=== PATIENT | female | born 1980 | race Caucasian/White ===

== ENCOUNTER 2017-03-03 10:08 | Emergency (ER) | payer BC ==
[~2017-03-03] VITALS: Ht 167.6 cm; Wt 65.8 kg
[~2017-03-03 10:08] MED LIST: DEXL60CA5 PO; HYDR-2890 PO; NAPR550T PO; ONDA4TAB11 PO; SCR1T1 PO; [UNRECOGNIZED DRUG - REMARK]
--- NOTE | 2017-03-03 11:13 | ED Abdominal Pain ---
General Chief Complaint: -Female Stated Complaint: POSS MISCARRIAGE Nursing Triage Note: PT STATES SHE HAS WAS 8 WEEKS PREGNANGT AND HAS HAD VERY HEAVY VAGINAL BLEEDING SINCE MONDAY. Sepsis Screen: No Definite Risk Source of Information: Patient Exam Limitations: No Limitations History of Present Illness Time Seen By Provider: 11:12 Initial Comments To ER with vaginal bleeding. She states that she was 8 weeks , . Bleeding began on Monday the . Today leading became heavier and she passed what she believes to be the fetus or at least some tissue. No fevers or chills. She states "I'm just here for precautionary reasons". No lightheadedness or syncope. OB care is with Daisy Bagley Nurse Replen[facility] at [facility]. Timing/Duration: 1 Week Severity/Quality: Cramping Location: Suprapubic Radiation: Back Activities at Onset: None Allergies and Home Medications Allergies Coded Allergies: Penicillins (Verified Allergy, Unknown, 01/28/15) morphine (Verified Adverse Reaction, Mild, DID NOT TOLERATE WELL IN ED ON MONDAY., 12/04/12) DOES NOT LIKE THE FEELING IT GIVES HER. Home Medications Dexlansoprazole 60 Mg Pedro., 60 MG PO DAILY, (Reported) Sucralfate 1 Gm Tab, 1 GM PO QID, #120 Prescribed by: SHAY BENNETT on 03/11/15 1230 Review of Systems Constitutional: see HPI EENTM: No Symptoms Reported Respiratory: No Symptoms Reported Cardiovascular: No Symptoms Reported Gastrointestinal: See HPI, Abdominal Pain Genitourinary: No Symptoms Reported Musculoskeletal: no symptoms reported Skin: no symptoms reported Psychiatric/Neurological: No Symptoms Reported Endocrine: No Symptoms Reported Past Axvwjjz-Qswqac-Fraqwz Hx Patient Social History Alcohol Use: Denies Use Recreational Drug Use: No Smoking Status: Never a Smoker Recent Foreign Travel: No Contact w/Someone Who Travel: No Recent Infectious Disease Expo: No Immunizations Up To Date Date of Influenza Vaccine: Aug 11, 2014 Seasonal Allergies Seasonal Allergies: No Surgeries HX Surgeries: Yes Surgeries: Orthopedic, Tonsillectomy Respiratory Hx Respiratory Disorders: No Cardiovascular Hx Cardiac Disorders: No Neurological Hx Neurological Disorders: No Genitourinary Hx Genitourinary Disorders: No Gastrointestinal Hx Gastrointestinal Disorders: No Musculoskeletal Hx Musculoskeletal Disorders: Yes (FIBULA FX, RT ANKLE) Musculoskeletal Disorders: Fractures Endocrine Hx Endocrine Disorders: No HEENT HX ENT Disorders: No Cancer Hx Cancer: No Psychosocial Hx Psychiatric Problems: Yes Behavioral Health Disorders: Anxiety Integumentary HX Skin/Integumentary Disorder: No Blood Transfusions Hx Blood Disorders: No Family Medical History Significant Family History: No Pertinent Family Hx Physical Exam Vital Signs VS - Last 72 Hours, by Label 03/03/17 10:53 Temp 98.2 Pulse 91 Resp 16 B/P (MAP) 135/80 Capillary Refill : Less Than 3 Seconds General Appearance: WD/WN, no apparent distress HEENT: PERRL/EOMI, normal ENT inspection Neck: non-tender, full range of motion Respiratory: no respiratory distress, no accessory muscle use Cardiovascular: regular rate, rhythm, no murmur Gastrointestinal: normal bowel sounds, non tender, soft Extremities: normal range of motion, non-tender Neurologic/Psychiatric: alert, normal mood/affect, oriented x 3 Skin: normal color, warm/dry Progress/Results/Core Measures Results/Orders Lab Results Laboratory Tests Test 03/03/17 11:25 03/03/17 11:43 Range/Units White Blood Count 7.0 4.3-11.0 10^3/uL Red Blood Count 4.34 L 4.35-5.85 10^6/uL Hemoglobin 14.6 11.5-16.0 G/DL Hematocrit 42 35-52 % Mean Corpuscular Volume 97 80-99 FL Mean Corpuscular Hemoglobin 34 25-34 PG Mean Corpuscular Hemoglobin Concent 35 32-36 G/DL Red Cell Distribution Width 11.7 10.0-14.5 % Platelet Count 196 130-400 10^3/uL Mean Platelet Volume 10.0 7.4-10.4 FL Neutrophils (%) (Auto) 64 42-75 % Lymphocytes (%) (Auto) 26 12-44 % Monocytes (%) (Auto) 9 0-12 % Eosinophils (%) (Auto) 1 0-10 % Basophils (%) (Auto) 0 0-10 % Neutrophils # (Auto) 4.5 1.8-7.8 X 10^3 Lymphocytes # (Auto) 1.8 1.0-4.0 X 10^3 Monocytes # (Auto) 0.6 0.0-1.0 X 10^3 Eosinophils # (Auto) 0.0 0.0-0.3 10^3/uL Basophils # (Auto) 0.0 0.0-0.1 10^3/uL My Orders Orders - RAAD MARY APRN Ua Culture If Indicated (03/03/17 11:08) Cbc With Automated Diff (03/03/17 11:08) Hcg,Quantitative (03/03/17 11:08) Abo Rh Type (03/03/17 11:08) Us Ob Single Fetus<14 [id number] (03/03/17 11:10) Vital Signs/I&O Vital Sign - Last 12Hours 03/03/17 10:53 Temp 98.2 Pulse 91 Resp 16 B/P (MAP) 135/80 Blood Pressure Mean: 98 Departure Communication Progress Notes molecular technologist reports presence of an 8 week fetus in the uterus without cardiac activity. 1154-discussed the case with nurse for Catrachita Bagley. She would be happy to see the patient today at 3 p.m. as scheduled if the patient wishes, however patient may wait for products of conception to pass and if they do without any complications, no need for follow-up. Impression Impression: Primary Impression: Missed Disposition: HOME, SELF-CARE Condition: Stable Departure-Patient Inst. Decision time for Depature: 11:40 Referrals: ALEXANDRIA ACHARYA DO (PCP/Family) Primary Care Physician Patient Instructions: Miscarriage Add. Discharge Instructions: 1. Return to ER for any lightheadedness, passing out, heavy vaginal bleeding, fevers or chills 2. If you would like to be seen by Daisy later today, she would still be able to see you at 3 p.m. Alternatively, he may go home and wait for these products of conception the past and return here for any concerns, following up with them next week if you have not passed it by Monday. All discharge instructions reviewed with patient and/or family. Voiced understanding. RAAD MARY APRN March 03, 2017 11:13
[2017-03-03 11:44] LABS: BILIRUBIN,URINE NEGATIVE (NEGATIVE); KETONES,URINE 2+ (NEGATIVE); LEUKOCYTE ESTERASE ,URINE NEGATIVE (NEGATIVE); NITRITE,URINE NEGATIVE (NEGATIVE); PH,URINE 6 (5-9); PROTEIN,URINE 1+ (NEGATIVE); UROBILINOGEN,URINE NORMAL (NORMAL)
[2017-03-03 11:51] LABS: BASOPHILS % (AUTO) 0 % (0-10); EOSINOPHILS % (AUTO) 1 % (0-10); LYMPHOCYTES # (AUTO) 1.8 X 10^3 (1.0-4.0); LYMPHOCYTES % (AUTO) 26 % (12-44); MEAN CORPUSCULAR HEMOGLOBIN 34 PG (25-34); MEAN CORPUSCULAR HGB CONC 35 G/DL (32-36); MEAN CORPUSCULAR VOLUME 97 FL (80-99); MONOCYTES # (AUTO) 0.6 X 10^3 (0.0-1.0); MONOCYTES % (AUTO) 9 % (0-12); NEUTROPHILS # (AUTO) 4.5 X 10^3 (1.8-7.8); NEUTROPHILS % (AUTO) 64 % (42-75); PLATELET COUNT 196 10^3/uL (130-400); RED BLOOD COUNT 4.34 10^6/uL (4.35-5.85); RED CELL DISTRIBUTION WIDTH 11.7 % (10.0-14.5)
--- NOTE | 2017-03-03 12:32 | Diagnostic Imaging Report ---
PROCEDURE: US OB SINGLE FETUS <14 WKS. TECHNIQUE: Multiple real-time grayscale images were obtained over the gravid uterus in various projections. INDICATION: Vaginal bleeding. FINDINGS: There is single intrauterine . Unfortunately, no cardiac activity is seen in the embryo which measures at 8 weeks and 0 days based on crown-rump length. This is compatible with demise. The gestational sac is still in the upper uterus, normal position. The ovaries are obscured by bowel gas. IMPRESSION: There is an intrauterine with no cardiac activity seen compatible with demise. Findings were discussed with DELMIS Gambino, who is taking care of the patient by Dr. Grady at time of dictation. Dictated by: Dictated on workstation # [id number]
[2017-03-03 12:35] VITALS: BP 135/80
== END 2017-03-03 12:36 | disposition home or self-care (01) ==
LOC: EDUNIT# 10:08 → ER 10:12
DX: O03.9 Complete or unspecified spontaneous abortion without complication (principal); Z3A.08 8 weeks gestation of pregnancy
CPT/HCPCS: 36415; 76801; 81000; 84702; 85025; 86900; 86901; 99282

== ENCOUNTER 2017-03-20 04:11 | Day surgery (SDC) | payer BC ==
[~2017-03-20] VITALS: Ht 167.6 cm; Wt 61.2 kg
[2017-03-20 04:51] LABS: BASOPHILS % (AUTO) 0 % (0-10); EOSINOPHILS # (AUTO) 0.1 10^3/uL (0.0-0.3); EOSINOPHILS % (AUTO) 2 % (0-10); LYMPHOCYTES # (AUTO) 1.4 X 10^3 (1.0-4.0); LYMPHOCYTES % (AUTO) 28 % (12-44); MEAN CORPUSCULAR HEMOGLOBIN 34 PG (25-34); MEAN CORPUSCULAR HGB CONC 34 G/DL (32-36); MEAN CORPUSCULAR VOLUME 98 FL (80-99); MEAN PLATELET VOLUME 9.7 FL (7.4-10.4); MONOCYTES # (AUTO) 0.4 X 10^3 (0.0-1.0); MONOCYTES % (AUTO) 8 % (0-12); NEUTROPHILS # (AUTO) 2.9 X 10^3 (1.8-7.8); NEUTROPHILS % (AUTO) 62 % (42-75); PLATELET COUNT 139 10^3/uL (130-400); RED BLOOD COUNT 3.96 10^6/uL (4.35-5.85); RED CELL DISTRIBUTION WIDTH 12.5 % (10.0-14.5); WHITE BLOOD COUNT 4.8 10^3/uL (4.3-11.0)
--- NOTE | 2017-03-20 05:38 | ED GU-Female ---
General Chief Complaint: -Female Stated Complaint: AB PAIN POST 2WK MISSCARRIAGE Nursing Triage Note: Pt. advises she had a miscarriage approx. two weeks ago and has been intermittently bleeding since that time. She advises that tonight however the bleeding has become significantly worse. Nursing Sepsis Screen: No Definite Risk Source: patient, old records Exam Limitations: no limitations (JONH MACIAS MD) History of Present Illness Time seen by provider: 04:25 Initial Comments This 36-year-old young lady presents to the emergency room with complaints of worsening bleeding and cramps after having a recent miscarriage. She was seen in the emergency room on March 03 and diagnosed with a missed spontaneous . Since then her bleeding has tapered off and was nearly gone yesterday. However, this morning she woke with intense cramping and heavy bleeding. She has not had a follow-up ultrasound since March 03. Daisy Bagley is her gynecologic provider. (JONH MACIAS MD) Allergies and Home Medications Allergies Coded Allergies: Penicillins (Verified Allergy, Unknown, 01/28/15) morphine (Verified Adverse Reaction, Mild, DID NOT TOLERATE WELL IN ED ON MONDAY., 12/04/12) DOES NOT LIKE THE FEELING IT GIVES HER. Home Medications Dexlansoprazole 60 Mg Pedro., 60 MG PO DAILY, (Reported) Sucralfate 1 Gm Tab, 1 GM PO QID, #120 Prescribed by: SHAY BENNETT on 03/11/15 1230 Constitutional: no symptoms reported EENTM: no symptoms reported Respiratory: no symptoms reported Cardiovascular: no symptoms reported Gastrointestinal: no symptoms reported Genitourinary: see HPI Musculoskeletal: no symptoms reported Skin: no symptoms reported Psychiatric/Neurological: No Symptoms Reported Endocrine: No Symptoms Reported Hematologic/Lymphatic: No Symptoms Reported (JONH MACIAS MD) Past Hjjswbq-Fqvjtm-Lplhlu Hx Patient Social History Alcohol Use: Regular Use Recreational Drug Use: No Smoking Status: Current Everyday Smoker Type Used: Cigars Recent Foreign Travel: No Contact w/Someone Who Travel: No Recent Infectious Disease Expo: No (JONH MACIAS MD) Immunizations Up To Date Date of Influenza Vaccine: Aug 11, 2014 (JONH MACIAS MD) Seasonal Allergies Seasonal Allergies: No (JONH MACIAS MD) Surgeries HX Surgeries: Yes Surgeries: Orthopedic, Tonsillectomy (JONH MACIAS MD) Respiratory Hx Respiratory Disorders: No (JONH MACIAS MD) Cardiovascular Hx Cardiac Disorders: No (JONH MACIAS MD) Neurological Hx Neurological Disorders: No (JONH MACIAS MD) Reproductive System : No (JONH MACIAS MD) Genitourinary Hx Genitourinary Disorders: No (JONH MACIAS MD) Gastrointestinal Hx Gastrointestinal Disorders: No (JONH MACIAS MD) Musculoskeletal Hx Musculoskeletal Disorders: Yes (FIBULA FX, RT ANKLE) Musculoskeletal Disorders: Fractures (JONH MACIAS MD) Endocrine Hx Endocrine Disorders: No (JONH MACIAS MD) HEENT HX ENT Disorders: No (JONH MACIAS MD) Cancer Hx Cancer: No (JONH MACIAS MD) Psychosocial Hx Psychiatric Problems: Yes Behavioral Health Disorders: Anxiety (JONH MACIAS MD) Integumentary HX Skin/Integumentary Disorder: No (JONH MACIAS MD) Blood Transfusions Hx Blood Disorders: No (JONH MACIAS MD) Family Medical History Significant Family History: No Pertinent Family Hx (JONH MACIAS MD) Physical Exam Vital Signs Vital Sign - Last 12Hours 03/20/17 04:40 Temp 97.2 Pulse 110 Resp 14 B/P (MAP) 115/77 O2 Delivery Room Air (RAY ULRICH MD) Vital Signs Capillary Refill : Less Than 3 Seconds (JONH MACIAS MD) General Appearance: WD/WN, no apparent distress HEENT: normal ENT inspection Neck: normal inspection Cardiovascular: regular rate, rhythm, no edema, no murmur Respiratory: lungs clear, normal breath sounds, no respiratory distress, no accessory muscle use Gastrointestinal: normal bowel sounds, soft, tenderness (minimal over the lower abdomen) Back: normal inspection Extremities: normal inspection, no pedal edema Neurologic/Psychiatric: salvage winder II-XII nml as tested, no motor/sensory deficits, alert, normal mood/affect, oriented x 3 Skin: normal color, warm/dry (JONH MACIAS MD) Progress/Results/Core Measures Results/Orders Lab Results Laboratory Tests Test 03/20/17 04:42 Range/Units White Blood Count 4.8 4.3-11.0 10^3/uL Red Blood Count 3.96 L 4.35-5.85 10^6/uL Hemoglobin 13.3 11.5-16.0 G/DL Hematocrit 39 35-52 % Mean Corpuscular Volume 98 80-99 FL Mean Corpuscular Hemoglobin 34 25-34 PG Mean Corpuscular Hemoglobin Concent 34 32-36 G/DL Red Cell Distribution Width 12.5 10.0-14.5 % Platelet Count 139 130-400 10^3/uL Mean Platelet Volume 9.7 7.4-10.4 FL Neutrophils (%) (Auto) 62 42-75 % Lymphocytes (%) (Auto) 28 12-44 % Monocytes (%) (Auto) 8 0-12 % Eosinophils (%) (Auto) 2 0-10 % Basophils (%) (Auto) 0 0-10 % Neutrophils # (Auto) 2.9 1.8-7.8 X 10^3 Lymphocytes # (Auto) 1.4 1.0-4.0 X 10^3 Monocytes # (Auto) 0.4 0.0-1.0 X 10^3 Eosinophils # (Auto) 0.1 0.0-0.3 10^3/uL Basophils # (Auto) 0.0 0.0-0.1 10^3/uL Human Chorionic Gonadotropin, Quant 161 H <5 MIU/ML (RAY ULRICH MD) Medications Given in ED Current Medications Medications Dose Ordered Sig/Juan Francisco Route Start Time Stop Time Status Last Admin Dose Admin Fentanyl Citrate 50 mcg ONCE ONCE IVP 03/20/17 06:15 03/20/17 06:16 DC 03/20/17 06:23 50 MCG Ondansetron HCl 4 mg STK-MED ONCE .ROUTE 03/20/17 06:17 03/20/17 06:22 DC 03/20/17 06:23 4 MG (RAY ULRICH MD) Vital Signs/I&O Vital Sign - Last 12Hours 03/20/17 04:40 Temp 97.2 Pulse 110 Resp 14 B/P (MAP) 115/77 O2 Delivery Room Air (RAY ULRICH MD) Blood Pressure Mean: 90 Progress Note : Time: 05:33 Progress Note Patient still has significant bleeding and her hCG level is still measurable. Ultrasound has been ordered for evaluation of possible retained products of conception. (JONH MACIAS MD) Departure Communication Progress Notes Preliminary report on sonography showed considerable retained products of conception plus blood flow. Discussed with Dr. Salas at 0721. The patient will be admitted for likely D&C. Women's services was informed. (RAY ULRICH MD) Impression Impression: Primary Impression: retained products of conception Disposition: ADMITTED INPATIENT Condition: Stable/Unchanged Decision to Admit Reason: Admit from ER (General) Decision to Admit/Date: Mar 20, 2017 Time/Decision to Admit Time: 07:18 (RAY ULRICH MD) Departure-Patient Inst. Referrals: ALEXANDRIA ACHARYA DO (PCP/Family) Primary Care Physician JONH MACIAS MD Mar 20, 2017 05:38 RAY ULRICH MD Mar 20, 2017 07:19
[2017-03-20] MEDS ORDERED: fentaNYL INJECTION 100 MCG/2 ML AMP IVP ONE (06:15)
[2017-03-20] MEDS ORDERED: ONDANSETRON 4 MG/2 ML (SDV) Z0FRAN ONE ×2 (06:17→12:14)
--- NOTE | 2017-03-20 07:53 | Diagnostic Imaging Report ---
INDICATION: Miscarriage. Bleeding. Pelvic pain. COMPARISON: 03/03/2017 FINDINGS: The previously seen intrauterine gestation is no longer demonstrated. There is however, significant heterogeneity and thickening of the endometrium which measures about 2 cm in thickness. It is moderately vascular, and is concerning for some retained products of conception. The right ovary is not demonstrated. The left ovary measures 2.8 cm x 1.8 cm x 1.6 cm and appears unremarkable. There is no free fluid. IMPRESSION: Intrauterine gestation is no longer demonstrated. There is now however, moderate thickening of the endometrium which is hypervascular and is concerning for some retained products of conception. Report was called to Dr. Cohen by mary at 7:53 am. Dictated by: Dictated on workstation # [id number]
[2017-03-20 08:05] VITALS: BP 105/68
[2017-03-20] MEDS ORDERED: D5 LR IV SOLUTION 1,000 ML IV SCH ×3 (08:15→11:51)
[2017-03-20] MEDS ORDERED: OXYC-202 PO (11:53)
--- NOTE | 2017-03-20 11:54 | Discharge Instructions ---
Discharge Instructions Discharge Medications New, Converted or Re-Newed RX: RX on Chart Patient Instructions Patient Instructions: as directed Return to The Hospital For: as directed Activity & Diet Discharge Diet: No Restrictions Activity as Tolerated: No Orders-Post D/C & Referrals Follow Up Appt: Call to make follow up appt. for patient in 1 weeks. Activity: Rest for 24 hours, than as tolerated. Diet: As tolerated-Clear Liquids only if nauseated. May shower or tub bathe as desired. No driving for 24 hours, no alcoholic beverages for 24 hours, and nothing per vagina (no tampons, douching, or intercourse) for 2 weeks. Patient to return to the clinic as soon as possible for: Temperature greater than 101F, Severe Pain, Foul discharge from incision or vagina, Excessive Bleeding (more than a period). CECI SWAIN MD Mar 20, 2017 11:54 am
--- NOTE | 2017-03-20 11:55 | History & Physical ---
History and Physical incomplete with hemorrhage Allergies and Home Medications Allergies Coded Allergies: Penicillins (Verified Allergy, Unknown, 01/28/15) morphine (Verified Adverse Reaction, Mild, DID NOT TOLERATE WELL IN ED ON MONDAY., 12/04/12) DOES NOT LIKE THE FEELING IT GIVES HER. Home Medications Dexlansoprazole 60 Mg Pedro., 60 MG PO DAILY, (Reported) Oxycodone HCl/Acetaminophen 1 Each Tablet, 1-2 TAB PO Q4H PRN for PAIN, #60 Ref 0 Prescribed by: CECI FORBES on 03/20/17 1153 Sucralfate 1 Gm Tab, 1 GM PO QID, #120 Prescribed by: SHAY BENNETT on 03/11/15 1230 CECI SWAIN MD Mar 20, 2017 11:55 am
[2017-03-20] MEDS ORDERED: oxyCODONE/APAP 10/325MG (PERCOCET 10) TABLET PO PRN (12:00)
[2017-03-20] MEDS ORDERED: MEPERIDINE (DEMEROL) INJ 100 MG/ML IM ONE (12:00)
[2017-03-20] MEDS ORDERED: ceFAZolin INJECTION 1,000 MG in NS (IVPB) 50 ML IV ONE (12:00)
[2017-03-20] MEDS ORDERED: ONDANSETRON 4 MG/2 ML (SDV) Z0FRAN IVP PRN ×2 (12:00→13:15)
[2017-03-20] MEDS ORDERED: KETOROLAC 30 MG/ML VIAL IVP ONE ×2 (12:00→13:15)
[2017-03-20] MEDS ORDERED: LACTATED RINGERS 1,000 ML IV ONE (12:14)
[2017-03-20] MEDS ORDERED: proPOfol 200 MG/20 ML (DIPRIVAN) VIAL IV ONE (12:14)
[2017-03-20] MEDS ORDERED: DEXAMETHASONE PF 10 MG/ML (DECADRON) VIAL ONE (12:14)
[2017-03-20] MEDS ORDERED: fentaNYL INJECTION 100 MCG/2 ML AMP ONE (12:14)
[2017-03-20] MEDS ORDERED: MIDAZOLAM 2 MG/2 ML (VERSED) VIAL ONE ×2 (12:14→12:42)
[2017-03-20] MEDS ORDERED: LIDOCAINE PF 2% 5 ML (XYLOCAINE) VIAL ONE (12:14)
[2017-03-20] MEDS ORDERED: PROMETHAZINE INJ 25 MG/ML (PHENERGAN) AMP IM ONE (12:15)
[2017-03-20] MEDS ORDERED: LACTATED RINGERS 1,000 ML IV PRN (12:36)
--- NOTE | 2017-03-20 12:39 | Progress Note-Pre Operative ---
Pre-Operative Progress Note H&P Reviewed The H&P was reviewed, patient examined and no changes noted. Date Seen by Provider: Mar 20, 2017 Time Seen by Provider: 12:39 Date H&P Reviewed: Mar 20, 2017 Time H&P Reviewed: 12:38 Pre-Operative Diagnosis: Incomplete CECI SWAIN MD Mar 20, 2017 12:39 pm
--- NOTE | 2017-03-20 12:42 | History & Physical ---
History and Physical this patient is a 36-year-old white female who presented to the emergency department this morning with heavy bleeding. She had been seen March 03 for bleeding and found to have a nonviable . She opted to wait and see what happens. Happened was at 3 a.m. she started bleeding she has been bleeding last 2 weeks bleeding much heavier by 3 a.m. in the ED. Her quantitative hCG is on and 64. Her hemoglobin is satisfactory. She would like to have a D&C to in this process. She has no other complaints. Allergies are to penicillin which causes a rash Medications are none Asked medical history is not Past surgical history patient had T&A as a child OB history includes 2 spontaneous vaginal deliveries Social history is significant for a pack of cigarettes per day Family history is negative for HAND CANDY CUTTER cancer breast cancer ovarian cancer uterine cancer Blood pressure or diabetes Laboratory Tests Test 03/20/17 04:42 Range/Units White Blood Count 4.8 4.3-11.0 10^3/uL Red Blood Count 3.96 L 4.35-5.85 10^6/uL Hemoglobin 13.3 11.5-16.0 G/DL Hematocrit 39 35-52 % Mean Corpuscular Volume 98 80-99 FL Mean Corpuscular Hemoglobin 34 25-34 PG Mean Corpuscular Hemoglobin Concent 34 32-36 G/DL Red Cell Distribution Width 12.5 10.0-14.5 % Platelet Count 139 130-400 10^3/uL Mean Platelet Volume 9.7 7.4-10.4 FL Neutrophils (%) (Auto) 62 42-75 % Lymphocytes (%) (Auto) 28 12-44 % Monocytes (%) (Auto) 8 0-12 % Eosinophils (%) (Auto) 2 0-10 % Basophils (%) (Auto) 0 0-10 % Neutrophils # (Auto) 2.9 1.8-7.8 X 10^3 Lymphocytes # (Auto) 1.4 1.0-4.0 X 10^3 Monocytes # (Auto) 0.4 0.0-1.0 X 10^3 Eosinophils # (Auto) 0.1 0.0-0.3 10^3/uL Basophils # (Auto) 0.0 0.0-0.1 10^3/uL Human Chorionic Gonadotropin, Quant 161 H <5 MIU/ML Vital Signs Date Time Temp Pulse Resp B/P (MAP) Pulse Ox O2 Delivery O2 Flow Rate FiO2 03/20/17 08:05 98.0 96 18 105/68 95 03/20/17 07:44 97.5 105 16 98 03/20/17 04:40 97.2 110 14 115/77 Room Air assessment and plan incomplete will proceed to the OR for D&C to complete the process and follow-up in clinic. Patient's blood type is Rh+ Allergies and Home Medications Allergies Coded Allergies: Penicillins (Verified Allergy, Unknown, 01/28/15) morphine (Verified Adverse Reaction, Mild, DID NOT TOLERATE WELL IN ED ON MONDAY., 12/04/12) DOES NOT LIKE THE FEELING IT GIVES HER. Home Medications Dexlansoprazole 60 Mg Cap., 60 MG PO DAILY, (Reported) Oxycodone HCl/Acetaminophen 1 Each Tablet, 1-2 TAB PO Q4H PRN for PAIN, #60 Ref 0 Prescribed by: CECI FORBES on 03/20/17 1153 Sucralfate 1 Gm Tab, 1 GM PO QID, #120 Prescribed by: SHAY BENNETT on 03/11/15 1230 CECI SWAIN MD Mar 20, 2017 12:42 pm
--- NOTE | 2017-03-20 12:42 | Progress Note-Post Operative ---
Post-Operative Progess Note Surgeon (s)/Registered Nurse Nursery (s) Surgeon CECI SWAIN MD Registered Nurse Nursery: none Pre-Operative Diagnosis Incomplete FIRST TRIMESTER Post-Operative Diagnosis sign Procedure & Operative Findings Date of Procedure 03/20/17 Procedure Performed/Findings D&C completion of incomplete first trimester Anesthesia Type Gen. Estimated Blood Loss Estimated blood loss (mL): 50 TO 100 CC Specimens/Packing Specimens Removed uterine contents/products of conception Packing: none CECI SWAIN MD Mar 20, 2017 12:42 pm
[2017-03-20] MEDS ORDERED: SEVOFLURANE (ULTANE) 15 ML INHAL SOLN ONE (13:00)
[2017-03-20] MEDS ORDERED: MEPERIDINE (DEMEROL) INJ 50 MG/ML IVP PRN (13:15)
[2017-03-20] MEDS ORDERED: fentaNYL INJECTION 100 MCG/2 ML AMP IVP PRN (13:15)
[2017-03-20 13:50] VITALS: BP 98/65
[2017-03-20 14:20] VITALS: BP 101/72
[2017-03-20 14:50] VITALS: BP 109/68
[2017-03-20 15:00] VITALS: BP 109/68
--- NOTE | 2017-03-21 01:17 | OPERATIVE REPORT ---
DATE OF SERVICE: 03/20/2017 PREOPERATIVE DIAGNOSIS: Incomplete . POSTOPERATIVE DIAGNOSIS: Incomplete . OPERATIVE PROCEDURE: D and C, completion of 1st trimester incomplete AB. DESCRIPTION OF PROCEDURE: With the patient in the supine position under satisfactory general anesthesia, she was repositioned in dorsal lithotomy position in the [facility] cane stirrups and prepped and draped in the usual fashion for vaginal surgery. The urinary bladder was emptied with a straight catheter. A weighted speculum was placed in the posterior fornix of the vagina; the cervix was exposed and grasped anteriorly with a single-tooth tenaculum. There was a tissue and clot trapped in the cervix. The cervix was dilated to accommodate a #10 curved suction curette which was introduced to remove a fairly moderate amount of tissue, trophoblastic appearing tissue, blood clot, membranes and debris. The endometrial cavity was then sharpy curettaged in all 4 quadrants to a good uterine cry. The endometrial cavity was suction curettaged a final time with a curved suction curette. The tenaculum was removed from the cervix. There was no bleeding from the puncture site. There was minimal bleeding from the cervical os. At this point, the uterus contracted nicely, was approximately 10-week size prior to the procedure and now was around 6 to 8-week size. The procedure was complete and terminated. Estimated blood loss was around 50 to 100 mL. The sponge and needle count was correct on completion of the procedure. The patient was uneventfully awakened from general anesthesia and transferred to recovery room in stable condition with plans for discharge home PAR. Job ID: [id number] DocumentID: [id number] Dictated Date: 03/20/2017 13:01:05 Broadcast Operations Engineer Date: 03/21/2017 01:16:58 Dictated By: CECI SWAIN MD
== END 2017-03-20 15:00 | disposition home or self-care (01) ==
LOC: EDUNIT# 04:11 → ER 04:13 → WS 07:29 → WSo 07:29
PROVIDERS: ATTEND Obstetrics & Gynecology
DX: O03.4 Incomplete spontaneous abortion without complication (principal); F17.210 Nicotine dependence, cigarettes, uncomplicated; Z11.2 Encounter for screening for other bacterial diseases
CPT/HCPCS: 36415; 76830; 84702; 85025; 86850; 86900; 86901; 87081; 96361

== ENCOUNTER 2018-08-28 08:00 | Inpatient (IN) | payer BC, MEDICAID ==
[2018-08-28] VITALS (9 sets, daily range): BP systolic 115–132; BP diastolic 72–92
[~2018-08-28] VITALS: Ht 162.6 cm; Wt 59.9 kg
[~2018-08-28 08:00] MED LIST changes: +OXYC1TAB12 PO
[2018-08-28] MEDS ORDERED: NS IV 1000 ML 1,000 ML IV ONE (08:20)
[2018-08-28] MEDS ORDERED: ASPIRIN 81 MG CHEW (CHILDREN'S ASA) PO ONE (08:30)
[2018-08-28] MEDS ORDERED: LORazepam INJ 2 MG/ML (ATIVAN) VIAL IVP ONE (08:30)
[2018-08-28 08:34] LABS: BILIRUBIN,URINE NEGATIVE (NEGATIVE); CLARITY,URINE CLEAR; COLOR,URINE AMBER; GLUCOSE, URINE (UA) NEGATIVE (NEGATIVE); KETONES,URINE 2+ (NEGATIVE); LEUKOCYTE ESTERASE ,URINE 1+ (NEGATIVE); NITRITE,URINE NEGATIVE (NEGATIVE); PH,URINE 7 (5-9); PROTEIN,URINE 1+ (NEGATIVE); UROBILINOGEN,URINE NORMAL (NORMAL)
[2018-08-28 08:37] LABS: BASOPHILS % (AUTO) 1 % (0-10); EOSINOPHILS % (AUTO) 0 % (0-10); HEMATOCRIT 42 % (35-52); HEMOGLOBIN 14.8 G/DL (11.5-16.0); LYMPHOCYTES # (AUTO) 0.7 X 10^3 (1.0-4.0); LYMPHOCYTES % (AUTO) 26 % (12-44); MEAN CORPUSCULAR HEMOGLOBIN 35 PG (25-34); MEAN CORPUSCULAR HGB CONC 35 G/DL (32-36); MEAN CORPUSCULAR VOLUME 100 FL (80-99); MEAN PLATELET VOLUME 10.3 FL (7.4-10.4); MONOCYTES # (AUTO) 0.5 X 10^3 (0.0-1.0); MONOCYTES % (AUTO) 18 % (0-12); NEUTROPHILS # (AUTO) 1.4 X 10^3 (1.8-7.8); NEUTROPHILS % (AUTO) 55 % (42-75); PLATELET COUNT 193 10^3/uL (130-400); RED BLOOD COUNT 4.21 10^6/uL (4.35-5.85); RED CELL DISTRIBUTION WIDTH 12.7 % (10.0-14.5); WHITE BLOOD COUNT 2.5 10^3/uL (4.3-11.0)
[2018-08-28 08:39] LABS: INR 1.1 (0.8-1.4)
[2018-08-28 08:47] LABS: BACTERIA,URINE MODERATE /HPF; RBC,URINE 0-2 /HPF; WBC,URINE 0-2 /HPF
[2018-08-28 08:49] LABS: ALANINE AMINOTRANSFERASE 105 U/L (0-55); ALBUMIN 4.5 GM/DL (3.2-4.5); ALKALINE PHOSPHATASE 59 U/L (40-136); BILIRUBIN,TOTAL 0.8 MG/DL (0.1-1.0); BUN/CREATININE RATIO 8; CALCIUM 10.3 MG/DL (8.5-10.1); CARBON DIOXIDE 25 MMOL/L (21-32); CHLORIDE 103 MMOL/L (98-107); CREATININE SERUM 0.72 MG/DL (0.60-1.30); GFR ESTIMATED > 60; GLUCOSE 90 MG/DL (70-105); LIPASE 77 U/L (8-78); MAGNESIUM 1.9 MG/DL (1.8-2.4); POTASSIUM 4.1 MMOL/L (3.6-5.0); SALICYLATE < 5.0 MG/DL (5.0-20.0); SODIUM 140 MMOL/L (135-145); TOTAL PROTEIN 7.2 GM/DL (6.4-8.2)
[2018-08-28 08:56] LABS: ACETAMINOPHEN < 10 UG/ML (10-30); MYOGLOBIN SERUM 19.8 NG/ML (10.0-92.0)
--- NOTE | 2018-08-28 08:56 | Diagnostic Imaging Report ---
INDICATION: Chest pain. COMPARISON: 12/17/2011. FINDINGS: The heart size, mediastinal configuration, and pulmonary vascularity are within normal limits. There is no pleural effusion, pneumothorax, or pneumonia. The osseous structures are unremarkable. IMPRESSION: No acute cardiopulmonary abnormality. Dictated by: Dictated on workstation # [id number]
[2018-08-28 08:59] LABS: AMPHETAMINE SCREEN, URINE NEGATIVE (NEGATIVE); BARBITURATE SCREEN URINE NEGATIVE (NEGATIVE); BENZODIAZEPINES SCREEN URINE POSITIVE (NEGATIVE); CANNABINOID SCREEN, URINE NEGATIVE (NEGATIVE); COCAINE SCREEN URINE NEGATIVE (NEGATIVE); METHADONE STAT NEGATIVE (NEGATIVE); METHAMPHETAMINE SCREEN URINE S NEGATIVE (NEGATIVE); OPIATE SCREEN URINE NEGATIVE (NEGATIVE); OXYCODONE STAT NEGATIVE (NEGATIVE); PROPOXYPHENE STAT NEGATIVE (NEGATIVE); TRICYCLIC ANTIDEPRESSANTS SCRE NEGATIVE (NEGATIVE)
[2018-08-28 09:15] LABS: BAND NEUTROPHILS 2 %; BASOPHILS % (MANUAL) 1 %; EOSINOPHILS % (MANUAL) 0 %; LYMPHOCYTES % (MANUAL) 30 %; MONOCYTES % (MANUAL) 11 %; NEUTROPHILS % (MANUAL) 53 %; REACTIVE LYMPHOCYTES 3 %
[2018-08-28 09:16] LABS: STOMATOCYTES SLIGHT
--- NOTE | 2018-08-28 09:39 | ED General ---
General Chief Complaint: Psych/Social Disorder Stated Complaint: HIGH BP CHEST PAIN Nursing Triage Note: PT AMBULATED TO ROOM 3 PT CO OF CHEST PAIN, SHAKINESS, ELEVATED B/P, STATES HAS TAKEN 1 ATIVAN PO EARLIER THIS AM. STATES TRYING TO STOP DRINKING. PT STATES HAS NOT DRANK SINCE MONDAY NIT. HAS RECENTLY DECREASED DRINKING FROM 12-18BEERS DAILY. STATES STARTED LAST PM Nursing Sepsis Screen: No Definite Risk Source of Information: Patient Exam Limitations: No Limitations History of Present Illness Date Seen by Provider: Aug 28, 2018 Time Seen by Provider: 08:12 Initial Comments Here with report of central chest pressure as well as high blood pressure and shakiness. Reports that she's trying to quit drinking. Usually drinks about 12 -18 beers a day but recently has dropped down to 2 day and was given Ativan prescription from her primary care doctor or [facility] to help with her withdraws. She arrives very shaky, tachycardic and elevated blood pressure. Denies nausea or vomiting currently. Denies breathing problems. Does feel quite anxious. Timing/Duration: 1-2 Days Severity: Moderate Associated Systoms: Chest Pain; No Fever/Chills, No Nausea/Vomiting, No Shortness of Air; Weakness Allergies and Home Medications Allergies Coded Allergies: Penicillins (Verified Allergy, Unknown, 01/28/15) morphine (Verified Adverse Reaction, Mild, DID NOT TOLERATE WELL IN ED ON MONDAY., 12/04/12) DOES NOT LIKE THE FEELING IT GIVES HER. Home Medications Dexlansoprazole 60 Mg Pedro., 60 MG PO DAILY, (Reported) Oxycodone HCl/Acetaminophen 1 Each Tablet, 1-2 TAB PO Q4H PRN for PAIN Prescribed by: CECI FORBES on 03/20/17 1153 Sucralfate 1 Gm Tab, 1 GM PO QID Prescribed by: SHAY BENNETT on 03/11/15 1230 Patient Home Medication List Home Medication List Reviewed: Yes Review of Systems Review of Systems Constitutional: see HPI; No chills, No fever EENTM: no symptoms reported Respiratory: no symptoms reported Cardiovascular: see HPI, chest pain (mild mid chest pressure that is nonradiating), palpitations; No syncope Gastrointestinal: No abdominal pain, No nausea, No vomiting Genitourinary: no symptoms reported : No Musculoskeletal: no symptoms reported Skin: no symptoms reported Psychiatric/Neurological: See HPI, Anxiety, Tremors Hematologic/Lymphatic: No Symptoms Reported All Other Systems Reviewed Negative Unless Noted: Yes Past Sfvjryc-Lsbzgw-Yyells Hx Past Med/Social Hx: Reviewed Nursing Past Med/Soc Hx Patient Social History Alcohol Use: Regular Use Number of Drinks Today: 0 Alcohol Beverage of Choice: Beer Recreational Drug Use: No Smoking Status: Current Everyday Smoker Type Used: Cigars Recent Foreign Travel: No Contact w/Someone Who Travel: No Recent Infectious Disease Expo: No Physical Abuse: No Sexual Abuse: No Immunizations Up To Date Date of Influenza Vaccine: Aug 11, 2014 Seasonal Allergies Seasonal Allergies: No Past Medical History Surgeries: Yes Orthopedic, Tonsillectomy Respiratory: No Cardiac: No Neurological: No : No (DEPO SHOT) Gastrointestinal: No Musculoskeletal: Yes (FIBULA FX, RT ANKLE) Fractures Endocrine: No Cancer: No Psychosocial: Yes Anxiety Integumentary: No Blood Disorders: No Family Medical History Reviewed Nursing Family Hx No Pertinent Family Hx Physical Exam Vital Signs Vital Signs - First Documented 08/28/18 08:00 Temp 97.9 Pulse 107 Resp 23 B/P (MAP) 120/99 (106) Pulse Ox 99 Capillary Refill : Less Than 3 Seconds Height, Weight, BMI Height: 5'4.00" Weight: 130lbs. oz. 58.459753xd; 24.03 BMI Method:Stated General Appearance: No Apparent Distress, WD/WN HEENT: PERRL/EOMI, Pharynx Normal Neck: Non Tender, Supple Respiratory: Lungs Clear, Normal Breath Sounds Cardiovascular: No Murmur, Tachycardia Gastrointestinal: Non Tender, Soft Back: Normal Inspection, No CVA Tenderness, No Vertebral Tenderness Extremity: Normal Inspection, Normal Range of Motion, Non Tender Neurologic/Psychiatric: Alert, Oriented x3, Other (tremors noted bilateral upper extremities. Anxious appearing.) Skin: Normal Color, Warm/Dry Progress/Results/Core Measures Suspected Sepsis Recent Fever Within 48 Hours: No Infection Criteria Present: None New/Unexplained Altered Menta: No Sepsis Screen: No Definite Risk SIRS Temperature:97.9 Pulse: 107 Respiratory Rate: 23 Laboratory Tests 08/28/18 08:10: White Blood Count 2.5L Blood Pressure 120 /99 Mean: 106 Laboratory Tests 08/28/18 08:10: Creatinine 0.72, INR Comment 1.1, Platelet Count 193, Total Bilirubin 0.8 Results/Orders Lab Results Laboratory Tests Test 08/28/18 08:10 08/28/18 08:25 Range/Units White Blood Count 2.5 L 4.3-11.0 10^3/uL Red Blood Count 4.21 L 4.35-5.85 10^6/uL Hemoglobin 14.8 11.5-16.0 G/DL Hematocrit 42 35-52 % Mean Corpuscular Volume 100 H 80-99 FL Mean Corpuscular Hemoglobin 35 H 25-34 PG Mean Corpuscular Hemoglobin Concent 35 32-36 G/DL Red Cell Distribution Width 12.7 10.0-14.5 % Platelet Count 193 130-400 10^3/uL Mean Platelet Volume 10.3 7.4-10.4 FL Neutrophils (%) (Auto) 55 42-75 % Lymphocytes (%) (Auto) 26 12-44 % Monocytes (%) (Auto) 18 H 0-12 % Eosinophils (%) (Auto) 0 0-10 % Basophils (%) (Auto) 1 0-10 % Neutrophils # (Auto) 1.4 L 1.8-7.8 X 10^3 Lymphocytes # (Auto) 0.7 L 1.0-4.0 X 10^3 Monocytes # (Auto) 0.5 0.0-1.0 X 10^3 Eosinophils # (Auto) 0.0 0.0-0.3 10^3/uL Basophils # (Auto) 0.0 0.0-0.1 10^3/uL Neutrophils % (Manual) 53 % Lymphocytes % (Manual) 30 % Monocytes % (Manual) 11 % Eosinophils % (Manual) 0 % Basophils % (Manual) 1 % Band Neutrophils 2 % Reactive Lymphocytes 3 % Macrocytosis SLIGHT Stomatocytes SLIGHT Prothrombin Time 14.0 12.2-14.7 SEC INR Comment 1.1 0.8-1.4 Activated Partial Thromboplast Time 31 24-35 SEC Sodium Level 140 135-145 MMOL/L Potassium Level 4.1 3.6-5.0 MMOL/L Chloride Level 103 98-107 MMOL/L Carbon Dioxide Level 25 21-32 MMOL/L Anion Gap 12 5-14 MMOL/L Blood Urea Nitrogen 6 L 7-18 MG/DL Creatinine 0.72 0.60-1.30 MG/DL Estimat Glomerular Filtration Rate > 60 BUN/Creatinine Ratio 8 Glucose Level 90 70-105 MG/DL Calcium Level 10.3 H 8.5-10.1 MG/DL Corrected Calcium 9.9 8.5-10.1 MG/DL Magnesium Level 1.9 1.8-2.4 MG/DL Total Bilirubin 0.8 0.1-1.0 MG/DL Aspartate Amino Transf (AST/SGOT) 87 H 5-34 U/L Alanine Aminotransferase (ALT/SGPT) 105 H 0-55 U/L Alkaline Phosphatase 59 40-136 U/L Myoglobin 19.8 10.0-92.0 NG/ML Troponin I < 0.30 <0.30 NG/ML Total Protein 7.2 6.4-8.2 GM/DL Albumin 4.5 3.2-4.5 GM/DL Lipase 77 8-78 U/L Salicylates Level < 5.0 L 5.0-20.0 MG/DL Acetaminophen Level < 10 L 10-30 UG/ML Serum Alcohol < 10 <10 MG/DL Urine Color MAIRA H Urine Clarity CLEAR Urine pH 7 5-9 Urine Specific [place] 1.015 L 1.016-1.022 Urine Protein 1+ H NEGATIVE Urine Glucose (UA) NEGATIVE NEGATIVE Urine Ketones 2+ H NEGATIVE Urine Nitrite NEGATIVE NEGATIVE Urine Bilirubin NEGATIVE NEGATIVE Urine Urobilinogen NORMAL NORMAL MG/DL Urine Leukocyte Esterase 1+ H NEGATIVE Urine RBC (Auto) 4+ H NEGATIVE Urine RBC 0-2 /HPF Urine WBC 0-2 /HPF Urine Squamous Epithelial Cells 10-25 H /HPF Urine Crystals NONE /LPF Urine Bacteria MODERATE H /HPF Urine Casts NONE /LPF Urine Mucus SMALL H /LPF Urine Culture Indicated NO Urine Opiates Screen NEGATIVE NEGATIVE Urine Oxycodone Screen NEGATIVE NEGATIVE Urine Methadone Screen NEGATIVE NEGATIVE Urine Propoxyphene Screen NEGATIVE NEGATIVE Urine Barbiturates Screen NEGATIVE NEGATIVE Ur Tricyclic Antidepressants Screen NEGATIVE NEGATIVE Urine Phencyclidine Screen NEGATIVE NEGATIVE Urine Amphetamines Screen NEGATIVE NEGATIVE Urine Methamphetamines Screen NEGATIVE NEGATIVE Urine Benzodiazepines Screen POSITIVE H NEGATIVE Urine Cocaine Screen NEGATIVE NEGATIVE Urine Cannabinoids Screen NEGATIVE NEGATIVE My Orders Orders - BERTHA WAKEFIELD MD Cbc With Automated Diff (08/28/18 08:17) Magnesium (08/28/18 08:17) Chest 1 View, Ap/Pa Only (08/28/18 08:17) Ekg Tracing (08/28/18 08:17) Cardiac Profile 1 (08/28/18 08:17) Comprehensive Metabolic Panel (08/28/18 08:17) Myoglobin Serum (08/28/18 08:17) Protime With Inr (08/28/18 08:17) Partial Thromboplastin Time (08/28/18 08:17) O2 (08/28/18 08:17) Monitor-Rhythm Ecg Trace Only (08/28/18 08:17) Lipid Panel (08/29/18 06:00) Aspirin Chewable Tablet (Baby Aspirin Ch (08/28/18 08:30) Saline Lock/Iv-Start (08/28/18 08:17) Lipase (08/28/18 08:17) Drug Screen Stat (Urine) (08/28/18 08:17) Ua Culture If Indicated (08/28/18 08:17) Lorazepam Injection (Ativan Injection) (08/28/18 08:30) Urine Bedside (08/28/18 08:17) Ns Iv 1000 Ml (Sodium Chloride 0.9%) (08/28/18 08:20) Acetaminophen (08/28/18 08:10) Alcohol (08/28/18 08:10) Salicylate (08/28/18 08:10) Manual Differential (08/28/18 08:10) Medications Given in ED Current Medications Medications Dose Ordered Sig/Juan Francisco Route Start Time Stop Time Status Last Admin Dose Admin Aspirin 324 mg ONCE ONCE PO 08/28/18 08:30 08/28/18 08:31 DC 08/28/18 08:33 324 MG Lorazepam 1 mg ONCE ONCE IVP 08/28/18 08:30 08/28/18 08:31 DC 08/28/18 08:35 1 MG Sodium Chloride 1,000 ml @ 0 mls/hr Q0M ONCE IV 08/28/18 08:20 08/28/18 08:21 DC 08/28/18 08:35 1,000 MLS/HR Vital Signs/I&O 08/28/18 08:00 Temp 97.9 Pulse 107 Resp 23 B/P (MAP) 120/99 (106) Pulse Ox 99 Capillary Refill : Less Than 3 Seconds Blood Pressure Mean: 106 Point of Care Testing Urine -Bedside: Negative Progress Note : Progress Note Seen and evaluated. We will evaluate for chest pain but this appears to be more alcohol withdrawal related. IV, labs, EKG and chest x-ray ordered. ASA 324 mg by mouth ordered. Ativan 1 mg IV ordered. Monitor patient. 918: Labs reviewed. No indication of heart attack but there is still significant concerns for alcohol withdrawal. Patient arrives with alcohol level 0. She states that she really wants to quit drinking and is willing to do inpatient. I did discuss this with Dr. Desai and she accepts patient for admission, inpatient status, alcohol withdrawal protocol. Patient agrees with plan. ECG Initial ECG Impression Date: Aug 28, 2018 Initial ECG Impression Time: 08:20 Initial ECG Rate: 93 Initial ECG Rhythm: Normal Sinus Initial ECG Impression: Normal Initial ECG Comparisson: Unchanged Comment Sinus rhythm with normal axis. No ST elevation [place]. Similar to previous of 17 December 2011. Interpreted by me. Diagnostic Imaging Diagonstic Imaging: Xray Plain Films/CT/US/NM/MRI: chest Comments NAME: MAIRA RAY [facility] REC#: [id number] PT STATUS: REG ER : 1980 PHYSICIAN: BERTHA WAKEFIELD MD ADMIT DATE: 08/28/18/ER Signed Date of Exam: 08/28/18 CHEST 1 VIEW, AP/PA ONLY INDICATION: Chest pain. COMPARISON: 12/17/2011. FINDINGS: The heart size, mediastinal configuration, and pulmonary vascularity are within normal limits. There is no pleural effusion, pneumothorax, or pneumonia. The osseous structures are unremarkable. IMPRESSION: No acute cardiopulmonary abnormality. Dictated by: Dictated on workstation # [id number] Dict: 08/28/18 0850 Trans: 08/28/18925 Interpreted by: TEMITOPE JACQUES MD Electronically signed by: TEMITOPE JACQUES MD 08/28/18925 Departure Communication (Admissions) Time/Spoke to Admitting Phy: 09:19 Impression Primary Impression: Alcohol abuse Additional Impression: Alcohol withdrawal Qualified Codes: F10.239 - Alcohol dependence with withdrawal, unspecified Disposition: ADMITTED INPATIENT Condition: Stable Admissions Decision to Admit Reason: Admit from ER (General) Decision to Admit/Date: Aug 28, 2018 Time/Decision to Admit Time: 09:19 Departure-Patient Inst. Referrals: [facility]/JELENA (PCP) Primary Care Physician BERTHA WAKEFIELD MD Aug 28, 2018 09:39
[2018-08-28] MEDS ORDERED: ESCI10TA55 PO (11:37)
[2018-08-28] MEDS ORDERED: NALT50TA PO (11:41)
[2018-08-28] MEDS ORDERED: LORA0.5T PO (11:41)
[2018-08-28] MEDS ORDERED: FLU QUADRIvalent (5+ YOA) 2018-2019 (AFLURIA) 0.5 ML IM ONE (12:00)
[2018-08-28] MEDS ORDERED: 1/2 NS IV SOLUTION 1,000 ML IV PRN (12:51)
[2018-08-28] MEDS ORDERED: LORazepam INJ 2 MG/ML (ATIVAN) VIAL IV PRN (13:00)
[2018-08-28] MEDS ORDERED: LORazepam 1 MG (ATIVAN) TAB PO PRN (13:00)
[2018-08-28] MEDS ORDERED: ONDANSETRON 4 MG/2 ML (SDV) Z0FRAN IV PRN (13:00)
[2018-08-28] MEDS ORDERED: SENNA W/DOCUSATE (SENOKOT S) TABLET PO PRN (13:00)
[2018-08-28] MEDS ORDERED: ONDANSETRON 4 MG (ZOFRAN) ORAL DISSOLVE TAB SL PRN (13:00)
[2018-08-28] MEDS ORDERED: LORazepam INJ 2 MG/ML (ATIVAN) VIAL IM/IV PRN (13:00)
[2018-08-28] MEDS ORDERED: ANTACID SUSP 30 ML UDC (MYLANTA) PO PRN (13:00)
[2018-08-28] MEDS ORDERED: D5 1/2 NS 1000 ML IV SOLUTION 1,000 ML IV PRN (13:00)
[2018-08-28] MEDS: ENOXAPARIN 40 MG/0.4 ML (LOVENOX) SYR SC SCH (13:34)
[2018-08-28] MEDS: D5 1/2 NS W/KCL 20 MEQ/L 1,000 ML IV SCH ×2 (13:37→21:07)
[2018-08-28] MEDS: MAGNESIUM OXIDE (MAG-OX)400 MG TAB PO SCH (16:20)
--- NOTE | 2018-08-28 20:23 | History & Physicial (CHS) ---
HPI History of Present Illness: 38 yo female came to ER due to "panic attack". She states she has trouble with anxiety and takes escitalopram, but also she has been trying to quit drinking alcohol. She was drinking a significant amount (12-18 beers) on a daily basis and her last drink was 4-5 beers Monday afternoon (2 days ago). Last night she had nausea, vomiting, diarrhea, anxiety and shaking. She has had withdrawal before, denies any seizures. She has been to some treatment in the past and has been sober for up to 45 days. She has been working with [facility] addiction treatment services and wants to continue. Date seen by provider: Aug 28, 2018 Time Seen by Provider: 12:44 Attending Physician Kvng Desai MD [facility] [place] Consult Date of Admission Aug 28, 2018 at 9:43 am Home Medications Home Medications Reviewed patient Home Medication Reconciliation performed by pharmacy medication reconciliations serology technician and/or nursing. Patients Allergies have been reviewed. Allergies Coded Allergies: Penicillins (Verified Allergy, Unknown, 01/28/15) morphine (Verified Adverse Reaction, Mild, DID NOT TOLERATE WELL IN ED ON MONDAY., 12/04/12) DOES NOT LIKE THE FEELING IT GIVES HER. RNL-Xmypaa-Eigrcv Hx Patient Social History Alcohol Use: Regular Use Recreational Drug Use: No Smoking Status: Current Everyday Smoker Type Used: Cigarettes Recent Foreign Travel: No Contact w/other who traveled: No Recent Hopitalizations: No Recent Infectious Disease Expo: No Physical Abuse Screen: No Sexual Abuse: No Immunizations Up To Date Date of Influenza Vaccine: Aug 11, 2014 Past Medical History PMHx: Anxiety SurgHx: Tonsillectomy Broken leg Family Medical History Significant Family History: No Pertinent Family Hx Family History: Patient reports no known family medical history. Review of Systems ([facility]) Constitutional: No fever EENTM: nose congestion Respiratory: No cough, No short of breath Gastrointestinal: No abdominal pain Genitourinary: No dysuria Musculoskeletal: No joint pain Skin: No rash Psychiatric/Neurological: See HPI Reviewed Test Results Reviewed Test Results Lab Laboratory Tests Test 08/28/18 08:10 08/28/18 08:25 08/28/18 13:55 08/28/18 17:48 Range/Units White Blood Count 2.5 L 4.3-11.0 10^3/uL Red Blood Count 4.21 L 4.35-5.85 10^6/uL Hemoglobin 14.8 11.5-16.0 G/DL Hematocrit 42 35-52 % Mean Corpuscular Volume 100 H 80-99 FL Mean Corpuscular Hemoglobin 35 H 25-34 PG Mean Corpuscular Hemoglobin Concent 35 32-36 G/DL Red Cell Distribution Width 12.7 10.0-14.5 % Platelet Count 193 130-400 10^3/uL Mean Platelet Volume 10.3 7.4-10.4 FL Neutrophils (%) (Auto) 55 42-75 % Lymphocytes (%) (Auto) 26 12-44 % Monocytes (%) (Auto) 18 H 0-12 % Eosinophils (%) (Auto) 0 0-10 % Basophils (%) (Auto) 1 0-10 % Neutrophils # (Auto) 1.4 L 1.8-7.8 X 10^3 Lymphocytes # (Auto) 0.7 L 1.0-4.0 X 10^3 Monocytes # (Auto) 0.5 0.0-1.0 X 10^3 Eosinophils # (Auto) 0.0 0.0-0.3 10^3/uL Basophils # (Auto) 0.0 0.0-0.1 10^3/uL Neutrophils % (Manual) 53 % Lymphocytes % (Manual) 30 % Monocytes % (Manual) 11 % Eosinophils % (Manual) 0 % Basophils % (Manual) 1 % Band Neutrophils 2 % Reactive Lymphocytes 3 % Macrocytosis SLIGHT Stomatocytes SLIGHT Prothrombin Time 14.0 12.2-14.7 SEC INR Comment 1.1 0.8-1.4 Activated Partial Thromboplast Time 31 24-35 SEC Sodium Level 140 135-145 MMOL/L Potassium Level 4.1 3.6-5.0 MMOL/L Chloride Level 103 98-107 MMOL/L Carbon Dioxide Level 25 21-32 MMOL/L Anion Gap 12 5-14 MMOL/L Blood Urea Nitrogen 6 L 7-18 MG/DL Creatinine 0.72 0.60-1.30 MG/DL Estimat Glomerular Filtration Rate > 60 BUN/Creatinine Ratio 8 Glucose Level 90 70-105 MG/DL Calcium Level 10.3 H 8.5-10.1 MG/DL Corrected Calcium 9.9 8.5-10.1 MG/DL Magnesium Level 1.9 1.8-2.4 MG/DL Total Bilirubin 0.8 0.1-1.0 MG/DL Aspartate Amino Transf (AST/SGOT) 87 H 5-34 U/L Alanine Aminotransferase (ALT/SGPT) 105 H 0-55 U/L Alkaline Phosphatase 59 40-136 U/L Myoglobin 19.8 10.0-92.0 NG/ML Troponin I < 0.30 <0.30 NG/ML Total Protein 7.2 6.4-8.2 GM/DL Albumin 4.5 3.2-4.5 GM/DL Lipase 77 8-78 U/L Salicylates Level < 5.0 L 5.0-20.0 MG/DL Acetaminophen Level < 10 L 10-30 UG/ML Serum Alcohol < 10 <10 MG/DL Urine Color MAIRA H Urine Clarity CLEAR Urine pH 7 5-9 Urine Specific [place] 1.015 L 1.016-1.022 Urine Protein 1+ H NEGATIVE Urine Glucose (UA) NEGATIVE NEGATIVE Urine Ketones 2+ H NEGATIVE Urine Nitrite NEGATIVE NEGATIVE Urine Bilirubin NEGATIVE NEGATIVE Urine Urobilinogen NORMAL NORMAL MG/DL Urine Leukocyte Esterase 1+ H NEGATIVE Urine RBC (Auto) 4+ H NEGATIVE Urine RBC 0-2 /HPF Urine WBC 0-2 /HPF Urine Squamous Epithelial Cells 10-25 H /HPF Urine Crystals NONE /LPF Urine Bacteria MODERATE H /HPF Urine Casts NONE /LPF Urine Mucus SMALL H /LPF Urine Culture Indicated NO Urine Opiates Screen NEGATIVE NEGATIVE Urine Oxycodone Screen NEGATIVE NEGATIVE Urine Methadone Screen NEGATIVE NEGATIVE Urine Propoxyphene Screen NEGATIVE NEGATIVE Urine Barbiturates Screen NEGATIVE NEGATIVE Ur Tricyclic Antidepressants Screen NEGATIVE NEGATIVE Urine Phencyclidine Screen NEGATIVE NEGATIVE Urine Amphetamines Screen NEGATIVE NEGATIVE Urine Methamphetamines Screen NEGATIVE NEGATIVE Urine Benzodiazepines Screen POSITIVE H NEGATIVE Urine Cocaine Screen NEGATIVE NEGATIVE Urine Cannabinoids Screen NEGATIVE NEGATIVE Glucometer 116 H 70-110 MG/DL Physical Exam-(CHC) Physical Exam Vital Signs VS - Last 72 Hours, by Label 08/28/18 08/28/18 08/28/18 08/28/18 08:00 10:39 11:03 11:19 Temp 97.9 98.8 Pulse 107 106 86 97 Resp 23 20 14 B/P (MAP) 120/99 (106) 123/83 (96) 126/80 (95) 129/90 (103) Pulse Ox 99 99 96 O2 Delivery Room Air 11/13/18 11/13/18 11/13/18 11/13/18 11:23 11:35 11:50 12:15 Pulse 90 90 91 B/P (MAP) 125/87 (100) 130/89 (103) 130/88 (102) Pulse Ox 99 O2 Delivery Room Air 08/28/18 08/28/18 08/28/18 08/28/18 12:30 12:45 13:00 16:00 Temp 99.5 Pulse 79 84 78 85 Resp 18 B/P (MAP) 132/92 (105) 126/92 (103) 115/73 (87) Pulse Ox 96 O2 Delivery Room Air Capillary Refill : NONELess Than 3 Seconds General Appearance: WD/WN, no apparent distress Respiratory: lungs clear, normal breath sounds Gastrointestinal: normal bowel sounds, non tender, soft Extremities: no pedal edema Neurologic/Psychiatric: alert, other (faint tremor in hands when held against gravity) Skin: normal color, warm/dry Assessment/Plan Assessment/Plan Admission Status: Inpatient Order (span 2 midnights) Reason for Inpatient Admission: Alcohol withdrawal at risk for serious reaction. (1) Anxiety Status: Chronic Assessment & Plan: Resume escitalopram (2) Alcohol withdrawal Status: Acute Assessment & Plan: CIWA scoring, lorazepam per protocol. Thiamine, folate, MVI. financial services manager. Qualifiers: Qualified Codes: F10.239 - Alcohol dependence with withdrawal, unspecified (3) Elevated liver enzymes Status: Acute Assessment & Plan: AST was mildly elevated in past, worse than prior, will check hepatitis panel. (4) Macrocytosis Status: Acute Assessment & Plan: Suspect due to EtOH use. Checking hepatitis panel. Check folate/B12. (5) Leukopenia Status: Acute Assessment & Plan: Unclear etiology, recheck in am. Check hepatitis panel and HIV. (6) DVT prophylaxis Status: Acute Assessment & Plan: SCDs Clinical Quality Measures DVT/VTE Risk/Contraindication: Risk Factor Score Per Nursin RFS Level Per Nursing on Admit: 1=Low/No VTE PPX KVNG DESAI MD Aug 28, 2018 8:22 pm
[2018-08-29] VITALS: BP 106/67
[2018-08-29] MEDS: D5 1/2 NS W/KCL 20 MEQ/L 1,000 ML IV SCH ×2 (02:34→08:51)
[2018-08-29 04:00] VITALS: BP 116/63
[2018-08-29 06:08] LABS: BASOPHILS % (AUTO) 0 % (0-10); EOSINOPHILS % (AUTO) 1 % (0-10); HEMATOCRIT 40 % (35-52); HEMOGLOBIN 13.7 G/DL (11.5-16.0); LYMPHOCYTES # (AUTO) 0.9 X 10^3 (1.0-4.0); LYMPHOCYTES % (AUTO) 31 % (12-44); MEAN CORPUSCULAR HEMOGLOBIN 35 PG (25-34); MEAN CORPUSCULAR HGB CONC 34 G/DL (32-36); MEAN CORPUSCULAR VOLUME 102 FL (80-99); MEAN PLATELET VOLUME 10.9 FL (7.4-10.4); MONOCYTES # (AUTO) 0.4 X 10^3 (0.0-1.0); MONOCYTES % (AUTO) 12 % (0-12); NEUTROPHILS # (AUTO) 1.7 X 10^3 (1.8-7.8); NEUTROPHILS % (AUTO) 56 % (42-75); PLATELET COUNT 170 10^3/uL (130-400); RED BLOOD COUNT 3.93 10^6/uL (4.35-5.85); RED CELL DISTRIBUTION WIDTH 12.7 % (10.0-14.5)
[2018-08-29] MEDS: MAGNESIUM OXIDE (MAG-OX)400 MG TAB PO SCH (06:12)
[2018-08-29 06:38] LABS: HEPATITIS C ANTIBODY C Non-Reactive (Non-Reactive)
[2018-08-29 06:40] LABS: ALANINE AMINOTRANSFERASE 75 U/L (0-55); ALBUMIN 3.7 GM/DL (3.2-4.5); ALKALINE PHOSPHATASE 45 U/L (40-136); BILIRUBIN,TOTAL 0.8 MG/DL (0.1-1.0); BUN/CREATININE RATIO 5; CALCIUM 8.9 MG/DL (8.5-10.1); CARBON DIOXIDE 22 MMOL/L (21-32); CHLORIDE 107 MMOL/L (98-107); CHOLESTEROL 176 MG/DL (< 200); CREATININE SERUM 0.61 MG/DL (0.60-1.30); GFR ESTIMATED > 60; GLUCOSE 111 MG/DL (70-105); HDL CHOLESTEROL 90 MG/DL (40-60); POTASSIUM 3.9 MMOL/L (3.6-5.0); SODIUM 136 MMOL/L (135-145); TOTAL PROTEIN 5.8 GM/DL (6.4-8.2); TRIGLYCERIDES 44 MG/DL (<150); VLDL CHOLESTEROL 9 MG/DL (5-40)
[2018-08-29] MEDS ORDERED: MULTIVIT W/MINERALS TAB (THERAGRAN M) PO SCH (07:00)
[2018-08-29] MEDS ORDERED: THIAMINE 100 MG (VITAMIN B-1) TAB PO SCH (07:00)
[2018-08-29] MEDS ORDERED: FOLIC ACID 1 MG TAB PO SCH (07:00)
[2018-08-29 08:00] VITALS: BP 112/89
[2018-08-29] MEDS: ENOXAPARIN 40 MG/0.4 ML (LOVENOX) SYR SC SCH (13:10)
--- NOTE | 2018-08-29 13:19 | Discharge Instructions ---
Discharge Inst-[facility] Discharge Medications Continued Medications: Escitalopram Oxalate (Escitalopram Oxalate) 10 Mg Tablet 10 MG PO DAILY, TAB Lorazepam (Lorazepam) 0.5 Mg Tablet 1 MG PO Q4H PRN for ANXIETY/WITHDRAWAL SYMPTOMS, TAB TAKES 2 (0.5MG) TABLETS Discontinued Medications: Naltrexone HCl (Naltrexone HCl) 50 Mg Tablet 50 MG PO DAILY, TAB Patient Instructions Goal/Follow Up Appt: Follow up with Rosemarie Tomas at [facility] on Aug 31 at 9:30 am. Return to The Hospital For: Fever, inability to keep down liquids, uncontrolled anxiety Activity & Diet Discharge Diet: Regular Diet Activity as Tolerated: Yes Orders-Post D/C & Referrals Pneu Vac Indicated: Yes KVNG AMES MD Aug 29, 2018 1:19 pm
--- NOTE | 2018-08-29 21:13 | Discharge Summary ---
Diagnosis/Chief Complaint Date of Admission Aug 28, 2018 at 09:43 Date of Discharge Aug 29, 2018 at 13:35 Admission Diagnosis Admission Diagnosis Alcohol withdrawal Discharge Diagnosis See problem list Problems/Diagnosis: (1) Anxiety Assessment & Plan: Resume escitalopram Status: Chronic (2) Alcohol withdrawal Assessment & Plan: CIWA scoring, lorazepam per protocol. Thiamine, folate, MVI. director learning services. Required only 2 mg of lorazepam inpatient. Qualifiers: Qualified Codes: F10.239 - Alcohol dependence with withdrawal, unspecified Status: Acute (3) Elevated liver enzymes Assessment & Plan: AST was mildly elevated in past, worse than prior, will check hepatitis panel. Hep panel and HIV neg. Status: Acute (4) Macrocytosis Assessment & Plan: Suspect due to EtOH use. Checking hepatitis panel. Check folate/B12 - pending at d/c Status: Acute (5) Leukopenia Assessment & Plan: Unclear etiology, recheck in am. Checked hepatitis panel and HIV- neg Status: Acute Chief Complaint/HPI Chief Complaint/HPI 38 yo female came to ER due to "panic attack". She states she has trouble with anxiety and takes escitalopram, but also she has been trying to quit drinking alcohol. She was drinking a significant amount (12-18 beers) on a daily basis and her last drink was 4-5 beers Monday afternoon (2 days ago). Last night she had nausea, vomiting, diarrhea, anxiety and shaking. She has had withdrawal before, denies any seizures. She has been to some treatment in the past and has been sober for up to 45 days. She has been working with [facility] addiction treatment services and wants to continue. Discharge Summary-Simple/Stand Consultations Discharge Physical Examination Allergies: Coded Allergies: Penicillins (Verified Allergy, Unknown, 01/28/15) morphine (Verified Adverse Reaction, Mild, DID NOT TOLERATE WELL IN ED ON MONDAY., 12/04/12) DOES NOT LIKE THE FEELING IT GIVES HER. Vitals & I&Os Vital Sign - Last 12Hours Date Time Temp Pulse Resp B/P (MAP) Pulse Ox O2 Delivery O2 Flow Rate FiO2 08/29/18 08:00 97.9 83 20 112/89 (97) 97 Room Air Intake and Output 08/29/18 00:00 Intake Total 1390 ml Output Total 700 ml Balance 690 ml General Appearance: Alert, No Acute Distress Respiratory: Clear to Auscultation, Normal Air Movement Cardiovascular: Regular Rate, No Murmurs Neuro: Normal Speech, Other (no tremor) Psych/Mental Status: Mental Status NL Hospital Course See final discharge diagnosis. Labs Laboratory Tests Test 08/28/18 08:10 08/28/18 08:25 08/28/18 13:55 08/28/18 17:48 Range/Units White Blood Count 2.5 L 4.3-11.0 10^3/uL Red Blood Count 4.21 L 4.35-5.85 10^6/uL Hemoglobin 14.8 11.5-16.0 G/DL Hematocrit 42 35-52 % Mean Corpuscular Volume 100 H 80-99 FL Mean Corpuscular Hemoglobin 35 H 25-34 PG Mean Corpuscular Hemoglobin Concent 35 32-36 G/DL Red Cell Distribution Width 12.7 10.0-14.5 % Platelet Count 193 130-400 10^3/uL Mean Platelet Volume 10.3 7.4-10.4 FL Neutrophils (%) (Auto) 55 42-75 % Lymphocytes (%) (Auto) 26 12-44 % Monocytes (%) (Auto) 18 H 0-12 % Eosinophils (%) (Auto) 0 0-10 % Basophils (%) (Auto) 1 0-10 % Neutrophils # (Auto) 1.4 L 1.8-7.8 X 10^3 Lymphocytes # (Auto) 0.7 L 1.0-4.0 X 10^3 Monocytes # (Auto) 0.5 0.0-1.0 X 10^3 Eosinophils # (Auto) 0.0 0.0-0.3 10^3/uL Basophils # (Auto) 0.0 0.0-0.1 10^3/uL Neutrophils % (Manual) 53 % Lymphocytes % (Manual) 30 % Monocytes % (Manual) 11 % Eosinophils % (Manual) 0 % Basophils % (Manual) 1 % Band Neutrophils 2 % Reactive Lymphocytes 3 % Macrocytosis SLIGHT Stomatocytes SLIGHT Prothrombin Time 14.0 12.2-14.7 SEC INR Comment 1.1 0.8-1.4 Activated Partial Thromboplast Time 31 24-35 SEC Sodium Level 140 135-145 MMOL/L Potassium Level 4.1 3.6-5.0 MMOL/L Chloride Level 103 98-107 MMOL/L Carbon Dioxide Level 25 21-32 MMOL/L Anion Gap 12 5-14 MMOL/L Blood Urea Nitrogen 6 L 7-18 MG/DL Creatinine 0.72 0.60-1.30 MG/DL Estimat Glomerular Filtration Rate > 60 BUN/Creatinine Ratio 8 Glucose Level 90 70-105 MG/DL Calcium Level 10.3 H 8.5-10.1 MG/DL Corrected Calcium 9.9 8.5-10.1 MG/DL Magnesium Level 1.9 1.8-2.4 MG/DL Total Bilirubin 0.8 0.1-1.0 MG/DL Aspartate Amino Transf (AST/SGOT) 87 H 5-34 U/L Alanine Aminotransferase (ALT/SGPT) 105 H 0-55 U/L Alkaline Phosphatase 59 40-136 U/L Myoglobin 19.8 10.0-92.0 NG/ML Troponin I < 0.30 <0.30 NG/ML Total Protein 7.2 6.4-8.2 GM/DL Albumin 4.5 3.2-4.5 GM/DL Lipase 77 8-78 U/L Salicylates Level < 5.0 L 5.0-20.0 MG/DL Acetaminophen Level < 10 L 10-30 UG/ML Serum Alcohol < 10 <10 MG/DL Urine Color MAIRA H Urine Clarity CLEAR Urine pH 7 5-9 Urine Specific [place] 1.015 L 1.016-1.022 Urine Protein 1+ H NEGATIVE Urine Glucose (UA) NEGATIVE NEGATIVE Urine Ketones 2+ H NEGATIVE Urine Nitrite NEGATIVE NEGATIVE Urine Bilirubin NEGATIVE NEGATIVE Urine Urobilinogen NORMAL NORMAL MG/DL Urine Leukocyte Esterase 1+ H NEGATIVE Urine RBC (Auto) 4+ H NEGATIVE Urine RBC 0-2 /HPF Urine WBC 0-2 /HPF Urine Squamous Epithelial Cells 10-25 H /HPF Urine Crystals NONE /LPF Urine Bacteria MODERATE H /HPF Urine Casts NONE /LPF Urine Mucus SMALL H /LPF Urine Culture Indicated NO Urine Opiates Screen NEGATIVE NEGATIVE Urine Oxycodone Screen NEGATIVE NEGATIVE Urine Methadone Screen NEGATIVE NEGATIVE Urine Propoxyphene Screen NEGATIVE NEGATIVE Urine Barbiturates Screen NEGATIVE NEGATIVE Ur Tricyclic Antidepressants Screen NEGATIVE NEGATIVE Urine Phencyclidine Screen NEGATIVE NEGATIVE Urine Amphetamines Screen NEGATIVE NEGATIVE Urine Methamphetamines Screen NEGATIVE NEGATIVE Urine Benzodiazepines Screen POSITIVE H NEGATIVE Urine Cocaine Screen NEGATIVE NEGATIVE Urine Cannabinoids Screen NEGATIVE NEGATIVE Hepatitis A IgM Antibody Non-Reactive Non-Reactive Hepatitis B Surface Antigen Non-Reactive Non-Reactive Hepatitis B Core IgM Antibody Non-Reactive Non-Reactive Hepatitis C Antibody Non-Reactive Non-Reactive HIV (1&2) Ag and Ab Screen Referral Non-Reactive Non-Reactive Glucometer 116 H 70-110 MG/DL Test 08/29/18 05:10 Range/Units White Blood Count 3.0 L 4.3-11.0 10^3/uL Red Blood Count 3.93 L 4.35-5.85 10^6/uL Hemoglobin 13.7 11.5-16.0 G/DL Hematocrit 40 35-52 % Mean Corpuscular Volume 102 H 80-99 FL Mean Corpuscular Hemoglobin 35 H 25-34 PG Mean Corpuscular Hemoglobin Concent 34 32-36 G/DL Red Cell Distribution Width 12.7 10.0-14.5 % Platelet Count 170 130-400 10^3/uL Mean Platelet Volume 10.9 H 7.4-10.4 FL Neutrophils (%) (Auto) 56 42-75 % Lymphocytes (%) (Auto) 31 12-44 % Monocytes (%) (Auto) 12 0-12 % Eosinophils (%) (Auto) 1 0-10 % Basophils (%) (Auto) 0 0-10 % Neutrophils # (Auto) 1.7 L 1.8-7.8 X 10^3 Lymphocytes # (Auto) 0.9 L 1.0-4.0 X 10^3 Monocytes # (Auto) 0.4 0.0-1.0 X 10^3 Eosinophils # (Auto) 0.0 0.0-0.3 10^3/uL Basophils # (Auto) 0.0 0.0-0.1 10^3/uL Sodium Level 136 135-145 MMOL/L Potassium Level 3.9 3.6-5.0 MMOL/L Chloride Level 107 98-107 MMOL/L Carbon Dioxide Level 22 21-32 MMOL/L Anion Gap 7 5-14 MMOL/L Blood Urea Nitrogen 3 L 7-18 MG/DL Creatinine 0.61 0.60-1.30 MG/DL Estimat Glomerular Filtration Rate > 60 BUN/Creatinine Ratio 5 Glucose Level 111 H 70-105 MG/DL Calcium Level 8.9 8.5-10.1 MG/DL Corrected Calcium 9.1 8.5-10.1 MG/DL Total Bilirubin 0.8 0.1-1.0 MG/DL Aspartate Amino Transf (AST/SGOT) 53 H 5-34 U/L Alanine Aminotransferase (ALT/SGPT) 75 H 0-55 U/L Alkaline Phosphatase 45 40-136 U/L Total Protein 5.8 L 6.4-8.2 GM/DL Albumin 3.7 3.2-4.5 GM/DL Triglycerides Level 44 <150 MG/DL Cholesterol Level 176 < 200 MG/DL LDL Cholesterol Direct 66 1-129 MG/DL VLDL Cholesterol 9 5-40 MG/DL HDL Cholesterol 90 H 40-60 MG/DL Pending Labs Folate and B12 Discharge Instructions to patient/family Please see electronic discharge instructions given to patient. Discharge Medications Reviewed and agree with Discharge Medication list on patient's Discharge Instruction sheet Clinical Quality Measures DVT/VTE Risk/Contraindication: Risk Factor Score Per Nursin RFS Level Per Nursing on Admit: 1=Low/No VTE PPX KVNG AMES MD Aug 29, 2018 21:13
== END 2018-08-29 13:35 | disposition home or self-care (01) | DRG 897 ==
LOC: EDUNIT# 08:00 → ER 08:02 → 4TH 09:43
PROVIDERS: ADMIT Family Medicine; ATTEND Family Medicine
DX: F10.239 Alcohol dependence with withdrawal, unspecified (principal); F41.9 Anxiety disorder, unspecified; R74.8 Abnormal levels of other serum enzymes; D75.89 Other specified diseases of blood and blood-forming organs; D72.819 Decreased white blood cell count, unspecified
CPT/HCPCS: 36415; 71045; 80053; 80061; 80074; 80306; 80320; 80329; 81000; 82607; 82746; 82962; 83690; 83735; 83874; 84484; 84703; 85007; 85025; 85027; 85610; 85730; 86703; 90686; 93005; 93041; 96361; 96374

== ENCOUNTER 2018-10-04 05:51 | Emergency (ER) | payer MEDICAID ==
[~2018-10-04] VITALS: Ht 162.6 cm; Wt 59.9 kg
[~2018-10-04 05:51] MED LIST changes: +ESCI10TA55 PO; +LORA0.5T PO; +NALT50TA PO
[2018-10-04] MEDS: LORazepam 0.5 MG (ATIVAN) TABLET PO ONE (06:16)
--- NOTE | 2018-10-04 06:30 | ED Psychosocial ---
General Chief Complaint: Psych/Social Disorder Stated Complaint: ANXIETY ATTACK,SHAKEY Nursing Triage Note: anxious, stopped taking ativan Source: patient Exam Limitations: no limitations History of Present Illness Date Seen by Provider: Oct 04, 2018 Time Seen by Provider: 06:05 Initial Comments Here with report of anxiousness. She abruptly stopped taking her Ativan 4 days ago. She is not out of them but states that she stopped them because they were making her feel weird. She has known alcoholic and has tried to quit drinking. They have used Ativan tapers and she is still drinking. Currently being treated for cough and sore throat with doxycycline. He states that she is taking those as directed. Timing/Duration: this morning Severity: moderate Associated Symptoms: anxiety Allergies and Home Medications Allergies Coded Allergies: Penicillins (Verified Allergy, Unknown, 01/28/15) morphine (Verified Adverse Reaction, Mild, DID NOT TOLERATE WELL IN ED ON MONDAY., 12/04/12) DOES NOT LIKE THE FEELING IT GIVES HER. Home Medications Lorazepam 0.5 Mg Tablet, 1 MG PO Q4H PRN for ANXIETY/WITHDRAWAL SYMPTOMS, ( Reported) TAKES 2 (0.5MG) TABLETS Patient Home Medication List Home Medication List Reviewed: Yes Review of Systems Constitutional: see HPI; No chills, No fever EENTM: nose congestion, throat pain Respiratory: cough; No short of breath Cardiovascular: No chest pain; palpitations Gastrointestinal: No abdominal pain, No nausea, No vomiting Psychiatric/Neurological: Anxiety, Emotional Problems Past [place]-Lhoyq[place]-[id number] Hx Past Med/Social Hx: Reviewed Nursing Past Med/Soc Hx Patient Social History Alcohol Use: Regular Use Number of Drinks Today: AA Alcohol Beverage of Choice: Beer Recreational Drug Use: No Smoking Status: Current Everyday Smoker Type Used: Cigarettes 2nd Hand Smoke Exposure: Yes Recent Foreign Travel: No Contact w/Someone Who Travel: No Recent Infectious Disease Expo: No Recent Hopitalizations: No Physical Abuse: No Sexual Abuse: No Mistreated: No Fear: No Immunizations Up To Date Tetanus Booster (TDap): Unknown Date of Influenza Vaccine: Aug 11, 2014 Seasonal Allergies Seasonal Allergies: No Past Medical History Surgeries: Yes Orthopedic, Tonsillectomy Respiratory: No Currently Using CPAP: No Currently Using BIPAP: No Cardiac: No Neurological: No Female Reproductive Disorders: Denies Sexually Transmitted Disease: No HIV/AIDS: No Genitourinary: No Gastrointestinal: No Musculoskeletal: Yes (FIBULA FX, RT ANKLE) Fractures Endocrine: No HEENT: No Loss of Vision: Denies Hearing Impairment: Denies Cancer: No Did You Recieve Any Treatments: No Psychosocial: Yes Anxiety Integumentary: No Blood Disorders: No Adverse Reaction/Blood Tranf: No Family Medical History Reviewed Nursing Family Hx Patient reports no known family medical history. No Pertinent Family Hx Physical Exam Vital Signs - First Documented 10/04/18 06:00 Temp 97.3 Pulse 112 Resp 16 B/P (MAP) 143/103 (116) Pulse Ox 95 O2 Delivery Room Air Capillary Refill : Less Than 3 Seconds Height, Weight, BMI Height: 5'4.00" Weight: 132lbs. 0.0oz. [id number]; 22.7 BMI Method:Stated General Appearance: WD/WN, mild distress (anxious) HEENT: pharyngeal erythema, other (bilateral nasal congestion and erythema) Respiratory: lungs clear, normal breath sounds Cardiovascular: no murmur, tachycardia Peripheral Pulses: 2+ Dorsalis Pedis (R), 2+ Left Dors-Pedis (L), 2+ Radial Pulses (R), 2+ Radial Pulses (L) Gastrointestinal: non tender, soft Neurologic/Psychiatric: alert, oriented x 3 Appearance/Memory: appropriate appearance, appropriate insight Behavior/Eye Contact: cooperative, good eye contact, normal speech Skin: normal color, warm/dry Progress/Results/Core Measures Results/Orders My Orders Orders - BERTHA WAKEFIELD MD Lorazepam Tablet (Ativan Tablet) (10/04/18 06:15) Medications Given in ED Current Medications Medications Dose Ordered Sig/Juan Francisco Route Start Time Stop Time Status Last Admin Dose Admin Lorazepam 1 mg ONCE ONCE PO 10/04/18 06:15 10/04/18 06:16 DC 10/04/18 06:16 1 MG Vital Signs/I&O 10/04/18 06:00 Temp 97.3 Pulse 112 Resp 16 B/P (MAP) 143/103 (116) Pulse Ox 95 O2 Delivery Room Air Blood Pressure Mean: 116 Progress Progress Note : Progress Note Seen and evaluated. Did have a long conversation with her regarding alcohol dependence and abuse as well as benzodiazepine addiction. She seems to be suffering from both. She has abruptly stopped her Ativan. Do believe this is leading to her current symptoms and this was discussed with her. While I do want her to quit alcohol and Ativan, she will need to do that anymore appropriate fashion. We did discuss alcoholism and alcohol cessation and program options. She is already established with addiction treatment services at [facility]. She will restart her Ativan but at half dosing and will call them this morning to get an for further help and guidance. Ativan 1 mg by mouth given now to reduce withdrawal symptoms. Patient will call peer advocate this morning. 0715: Overall doing a little better. We had another long conversation about alcohol cessation. She again reports that she will call her advocate this morning. I will send a copy of the chart to [facility]. Discharged home with return precautions. Patient verbalize understanding instructions and agreement with plan. Departure Impression Primary Impression: Anxiety Additional Impression: Benzodiazepine withdrawal Qualified Codes: F13.230 - Sedative, hypnotic or anxiolytic dependence with withdrawal, uncomplicated Disposition: 01 HOME, SELF-CARE Condition: Stable Departure-Patient Inst. Decision time for Depature: 06:39 Referrals: [facility] (PCP/Family) Primary Care Physician Patient Instructions: ALCOHOL AND SUBSTANCE ABUSE, Anxiety, Adult (DC) Add. Discharge Instructions: All discharge instructions reviewed with patient and/or family. Voiced understanding. It is very important that you call Rosemarie Tomas this morning. Continue your Ativan at half dosing so that you may start tapered withdrawal. It is very important that you do not quit abruptly as this can cause significant illness. Return for worse pain, fever, vomiting, weakness, breathing problems or other concerns as needed. Copy Copies To 1: NISHANT WILCOX MD, TIMOTHY D MD Oct 04, 2018 06:30
[2018-10-04 07:24] VITALS: BP 143/103
[2018-10-05] MEDS ORDERED: DOXY100C2 PO (08:57)
[2018-10-05] MEDS ORDERED: LORA1TAB PO (08:57)
== END 2018-10-04 07:25 | disposition home or self-care (01) ==
LOC: EDUNIT# 05:51 → ER 05:54
DX: F41.9 Anxiety disorder, unspecified (principal); F13.230 Sedative, hypnotic or anxiolytic dependence with withdrawal, uncomplicated; F17.210 Nicotine dependence, cigarettes, uncomplicated; Z90.89 Acquired absence of other organs; Z88.0 Allergy status to penicillin; Z88.5 Allergy status to narcotic agent
CPT/HCPCS: 99283

== ENCOUNTER 2018-10-04 14:51 | Inpatient (IN) | payer MEDICAID ==
[2018-10-04] VITALS (9 sets, daily range): BP systolic 108–137; BP diastolic 72–98
[~2018-10-04] VITALS: Ht 162.6 cm; Wt 59.9 kg
[2018-10-04] MEDS ORDERED: NS IV 1000 ML 1,000 ML ONE (15:05)
[2018-10-04] MEDS ORDERED: NS IV 1000 ML 1,000 ML IV STA ×2 (15:10→17:11)
[2018-10-04] MEDS ORDERED: ONDANSETRON 4 MG/2 ML (SDV) Z0FRAN IVP ONE (15:15)
[2018-10-04] MEDS ORDERED: LORazepam INJ 2 MG/ML (ATIVAN) VIAL IVP ONE ×2 (15:15→17:15)
[2018-10-04 15:30] LABS: BASOPHILS % (AUTO) 1 % (0-10); EOSINOPHILS % (AUTO) 0 % (0-10); HEMATOCRIT 46 % (35-52); HEMOGLOBIN 16.8 G/DL (11.5-16.0); LYMPHOCYTES # (AUTO) 0.8 X 10^3 (1.0-4.0); LYMPHOCYTES % (AUTO) 36 % (12-44); MEAN CORPUSCULAR HEMOGLOBIN 35 PG (25-34); MEAN CORPUSCULAR HGB CONC 37 G/DL (32-36); MEAN CORPUSCULAR VOLUME 95 FL (80-99); MEAN PLATELET VOLUME 10.1 FL (7.4-10.4); MONOCYTES # (AUTO) 0.4 X 10^3 (0.0-1.0); MONOCYTES % (AUTO) 19 % (0-12); NEUTROPHILS % (AUTO) 43 % (42-75); PLATELET COUNT 145 10^3/uL (130-400); RED BLOOD COUNT 4.82 10^6/uL (4.35-5.85); RED CELL DISTRIBUTION WIDTH 12.6 % (10.0-14.5); WHITE BLOOD COUNT 2.3 10^3/uL (4.3-11.0)
--- NOTE | 2018-10-04 15:36 | ED Psychosocial ---
General Chief Complaint: Substance Abuse Stated Complaint: VOMITTING Source: patient Exam Limitations: no limitations History of Present Illness Date Seen by Provider: Oct 04, 2018 Time Seen by Provider: 15:07 Initial Comments Here with report of nausea, vomiting and diarrhea as well as shakiness. Patient states that she has not had anything to drink today. Due to the vomiting she has not been able to take her Ativan. She was seen earlier this morning for anxiety and withdrawal after she abruptly quit taking her Ativan. She does admit to still drinking and she usually drinks beer. She wants to quit drinking. She was clean for about 6 months on previous attempt to stop drinking. She has been drinking now for about 6 months. Admits to drinking quite a bit. She states that she wants to stop now. Arrives tachycardic and shaking. Overall not feeling well. Currently is being treated for strep throat as diagnosed in the clinic. Patient did have areas tonsillectomy. She is currently on doxycycline for stated penicillin allergy although several days ago had completed a course of Antivert biotics which was amoxicillin for sinusitis. Apparently has developed a rash today over her torso. Unsure the cause of the rash. Does have intermittent fevers and sore throat as well as runny nose and cough. She went to the clinic today to seek help regarding her alcohol abuse and was instructed to go to the ER because of reported chest palpitations that was interpreted as chest pain. Timing/Duration: yesterday, getting worse Severity: moderate, severe Associated Symptoms: anxiety Allergies and Home Medications Allergies Coded Allergies: Penicillins (Verified Allergy, Unknown, 01/28/15) morphine (Verified Adverse Reaction, Mild, DID NOT TOLERATE WELL IN ED ON MONDAY., 12/04/12) DOES NOT LIKE THE FEELING IT GIVES HER. Home Medications Lorazepam 0.5 Mg Tablet, 1 MG PO Q4H PRN for ANXIETY/WITHDRAWAL SYMPTOMS, ( Reported) TAKES 2 (0.5MG) TABLETS Patient Home Medication List Home Medication List Reviewed: Yes Review of Systems Constitutional: see HPI; No chills; diaphoresis, fever, weakness EENTM: nose congestion, throat pain, throat swelling Respiratory: cough; No short of breath Cardiovascular: see HPI, palpitations; No syncope Gastrointestinal: diarrhea, nausea, vomiting Genitourinary: No dysuria, No frequency Musculoskeletal: no symptoms reported Skin: see HPI, rash Psychiatric/Neurological: Denies Headache, Denies Numbness All Other Systems Reviewed Negative Unless Noted: Yes Past Mkhhhgd-Galufr-Ugxfeh Hx Past Med/Social Hx: Reviewed Nursing Past Med/Soc Hx Patient Social History Alcohol Use: Regular Use Number of Drinks Today: 0 Alcohol Beverage of Choice: Beer Recreational Drug Use: No Smoking Status: Current Everyday Smoker Type Used: Cigarettes 2nd Hand Smoke Exposure: Yes Recent Hopitalizations: No (WAS SEEN IN ED TODAY) Immunizations Up To Date Tetanus Booster (TDap): Unknown Date of Influenza Vaccine: Aug 11, 2014 Seasonal Allergies Seasonal Allergies: No Past Medical History Surgeries: Yes Orthopedic, Tonsillectomy Respiratory: No Currently Using CPAP: No Currently Using BIPAP: No Cardiac: No Neurological: No Female Reproductive Disorders: Denies Sexually Transmitted Disease: No HIV/AIDS: No Genitourinary: No Gastrointestinal: No Musculoskeletal: Yes (FIBULA FX, RT ANKLE) Fractures Endocrine: No HEENT: No Loss of Vision: Denies Hearing Impairment: Denies Cancer: No Did You Recieve Any Treatments: No Psychosocial: Yes Anxiety Integumentary: No Blood Disorders: No Adverse Reaction/Blood Tranf: No Family Medical History Reviewed Nursing Family Hx Patient reports no known family medical history. No Pertinent Family Hx Physical Exam Vital Signs - First Documented 10/04/18 15:05 Temp 99.6 Pulse 115 Resp 18 B/P (MAP) 133/97 (109) Pulse Ox 99 Capillary Refill : Height, Weight, BMI Height: 5'4.00" Weight: 132lbs. 0.0oz. [id number]; 22.7 BMI Method:Stated General Appearance: WD/WN, no apparent distress HEENT: PERRL/EOMI, pharyngeal erythema; No tonsillar exudate Neck: full range of motion, supple Respiratory: lungs clear, normal breath sounds Cardiovascular: no murmur, tachycardia Gastrointestinal: non tender, soft Extremities: normal range of motion, non-tender Neurologic/Psychiatric: alert, oriented x 3 Appearance/Memory: appropriate appearance, appropriate insight Behavior/Eye Contact: cooperative, good eye contact, normal speech Skin: normal color, warm/dry, rash (fine rash to torso and upper portion of upper extremities bilateral with the parents of drug eruption rash.) Progress/Results/Core Measures Results/Orders Lab Results Laboratory Tests Test 10/04/18 15:10 10/04/18 15:19 10/04/18 16:09 10/04/18 17:05 Range/Units White Blood Count 2.3 L 4.3-11.0 10^3/uL Red Blood Count 4.82 4.35-5.85 10^6/uL Hemoglobin 16.8 H 11.5-16.0 G/DL Hematocrit 46 35-52 % Mean Corpuscular Volume 95 80-99 FL Mean Corpuscular Hemoglobin 35 H 25-34 PG Mean Corpuscular Hemoglobin Concent 37 H 32-36 G/DL Red Cell Distribution Width 12.6 10.0-14.5 % Platelet Count 145 130-400 10^3/uL Mean Platelet Volume 10.1 7.4-10.4 FL Neutrophils (%) (Auto) 43 42-75 % Lymphocytes (%) (Auto) 36 12-44 % Monocytes (%) (Auto) 19 H 0-12 % Eosinophils (%) (Auto) 0 0-10 % Basophils (%) (Auto) 1 0-10 % Neutrophils # (Auto) 1.0 L 1.8-7.8 X 10^3 Lymphocytes # (Auto) 0.8 L 1.0-4.0 X 10^3 Monocytes # (Auto) 0.4 0.0-1.0 X 10^3 Eosinophils # (Auto) 0.0 0.0-0.3 10^3/uL Basophils # (Auto) 0.0 0.0-0.1 10^3/uL Neutrophils % (Manual) 45 % Lymphocytes % (Manual) 44 % Monocytes % (Manual) 10 % Eosinophils % (Manual) 1 % Basophils % (Manual) 0 % Band Neutrophils 0 % Blood Morphology Comment NORMAL Prothrombin Time 12.9 12.2-14.7 SEC INR Comment 1.0 0.8-1.4 Activated Partial Thromboplast Time 33 24-35 SEC Sodium Level 130 L 135-145 MMOL/L Potassium Level 3.5 L 3.6-5.0 MMOL/L Chloride Level 93 L 98-107 MMOL/L Carbon Dioxide Level 20 L 21-32 MMOL/L Anion Gap 17 H 5-14 MMOL/L Blood Urea Nitrogen 4 L 7-18 MG/DL Creatinine 0.59 L 0.60-1.30 MG/DL Estimat Glomerular Filtration Rate > 60 BUN/Creatinine Ratio 7 Glucose Level 80 70-105 MG/DL Lactic Acid Level 3.32 *H 0.50-2.00 MMOL/L Calcium Level 8.9 8.5-10.1 MG/DL Corrected Calcium 8.5 8.5-10.1 MG/DL Phosphorus Level 2.1 L 2.3-4.7 MG/DL Magnesium Level 2.0 1.8-2.4 MG/DL Total Bilirubin 0.5 0.1-1.0 MG/DL Aspartate Amino Transf (AST/SGOT) 158 H 5-34 U/L Alanine Aminotransferase (ALT/SGPT) 181 H 0-55 U/L Alkaline Phosphatase 73 40-136 U/L Total Protein 7.2 6.4-8.2 GM/DL Albumin 4.5 3.2-4.5 GM/DL Serum Test, Qualitative NEGATIVE NEGATIVE Acetaminophen Level < 10 L 10-30 UG/ML Serum Alcohol 166 H <10 MG/DL Monoscreen NEGATIVE NEGATIVE Group A Streptococcus Screen NEGATIVE NEGATIVE Urine Color YELLOW Urine Clarity SLIGHTLY CLOUDY Urine pH 7 5-9 Urine Specific [place] 1.005 L 1.016-1.022 Urine Protein NEGATIVE NEGATIVE Urine Glucose (UA) NEGATIVE NEGATIVE Urine Ketones NEGATIVE NEGATIVE Urine Nitrite NEGATIVE NEGATIVE Urine Bilirubin NEGATIVE NEGATIVE Urine Urobilinogen NORMAL NORMAL MG/DL Urine Leukocyte Esterase NEGATIVE NEGATIVE Urine RBC (Auto) NEGATIVE NEGATIVE Urine RBC NONE /HPF Urine WBC RARE /HPF Urine Squamous Epithelial Cells 0-2 /HPF Urine Crystals NONE /LPF Urine Bacteria NEGATIVE /HPF Urine Casts NONE /LPF Urine Mucus NEGATIVE /LPF Urine Culture Indicated NO Urine Opiates Screen NEGATIVE NEGATIVE Urine Oxycodone Screen NEGATIVE NEGATIVE Urine Methadone Screen NEGATIVE NEGATIVE Urine Propoxyphene Screen NEGATIVE NEGATIVE Urine Barbiturates Screen NEGATIVE NEGATIVE Ur Tricyclic Antidepressants Screen NEGATIVE NEGATIVE Urine Phencyclidine Screen NEGATIVE NEGATIVE Urine Amphetamines Screen NEGATIVE NEGATIVE Urine Methamphetamines Screen NEGATIVE NEGATIVE Urine Benzodiazepines Screen POSITIVE H NEGATIVE Urine Cocaine Screen NEGATIVE NEGATIVE Urine Cannabinoids Screen NEGATIVE NEGATIVE Micro Results Microbiology 10/04/18 Influenza Types A,B Antigen (ASPEN) - Final, Complete My Orders Orders - BERTHA WAKEFIELD MD Iv 1000 Ml (Sodium Chloride 0.9%) (10/04/18 15:05) Acetaminophen (10/04/18 15:10) Alcohol (10/04/18 15:10) Cbc With Automated Diff (10/04/18 15:10) Comprehensive Metabolic Panel (10/04/18 15:10) Drug Screen Stat (Urine) (10/04/18 15:10) Hcg,Qualitative Serum (10/04/18 15:10) Lactic Acid Analyzer (10/04/18 15:10) Magnesium (10/04/18 15:10) Monotest (10/04/18 15:10) Rapid Strep A Screen (10/04/18 15:10) Ua Culture If Indicated (10/04/18 15:10) Blood Culture (10/04/18 15:10) Influenza A And B Antigens (10/04/18 15:10) Phosphorus (10/04/18 15:10) Ekg Tracing (10/04/18 15:10) Chest 1 View, Ap/Pa Only (10/04/18 15:10) Ondansetron Injection (Zofran Injectio (10/04/18 15:15) Ns Iv 1000 Ml (Sodium Chloride 0.9%) (10/04/18 15:10) Saline Lock/Iv-Start (10/04/18 15:10) Lorazepam Injection (Ativan Injection) (10/04/18 15:15) Protime With Inr (10/04/18 15:22) Partial Thromboplastin Time (10/04/18 15:22) Manual Differential (10/04/18 15:10) Ns Iv 1000 Ml (Sodium Chloride 0.9%) (10/04/18 17:11) Lorazepam Injection (Ativan Injection) (10/04/18 17:15) Medications Given in ED Current Medications Medications Dose Ordered Sig/Juan Francisco Route Start Time Stop Time Status Last Admin Dose Admin Lorazepam 1 mg ONCE ONCE IVP 10/04/18 15:15 10/04/18 15:18 DC 10/04/18 15:35 1 MG Ondansetron HCl 4 mg ONCE ONCE IVP 10/04/18 15:15 10/04/18 15:18 DC 10/04/18 15:35 4 MG Sodium Chloride 1,000 ml @ ud STK-MED ONCE .ROUTE 10/04/18 15:05 10/04/18 15:08 DC 10/04/18 15:13 1,000 MLS/HR Vital Signs/I&O 10/04/18 15:05 Temp 99.6 Pulse 115 Resp 18 B/P (MAP) 133/97 (109) Pulse Ox 99 Progress Progress Note : Progress Note Seen and evaluated. IV, labs, UA, EKG, normal saline 1 L bolus. Ativan 1 mg IV. Patient has fever so we will check lactic acid and blood cultures. Monitor patient. 1715: Repeat normal saline 1 L bolus due to persistent tachycardia. We will repeat Ativan 1 mg IV as her tachycardia has returned. She does have elevated lactic acid level which I believe is directly related to alcohol withdrawal and vomiting. Did have mild fever and I do believe she has upper respiratory infection that is likely viral in etiology. Strep is negative and there is no indication of pneumonia or urinary tract infection. She has been on doxycycline. We have clarified her antibiotic use recently and was on amoxicillin and help 3 days ago and then was put on doxycycline for possible strep throat 2 days ago. While her throat is red, she is without tonsils and the strep test is negative today. Antibiotics are complicating her case especially in light of rash. Rash appears to be drug eruption rash to the torso and upper arms. I did discuss the case with Dr. Daugherty as patient does want to quit drinking and is going through withdrawals currently. She accepts patient for admission but would like her placed in ICU due to the complicated nature the patient. Repeat lactic acid pending. She agrees with holding antibiotics at this point. I did discuss admission with the patient and she agrees to plan. She understands the difficulty related to the upcoming holiday with placement into alcohol treatment program but appreciates the opportunity to have medical treatment for withdrawal. Admit, inpatient status. Initial ECG Impression Date: Oct 04, 2018 Initial ECG Impression Time: 15:34 Initial ECG Rate: 100 Initial ECG Rhythm: S.Tach Comment Sinus tachycardia with normal axis. No evidence of ST elevation NC. Artifact throughout. Interpreted by me. Diagnostic Imaging Diagonstic Imaging: Xray Plain Films/CT/US/NM/MRI: chest Comments [facility] [place] NAME: MAIRA [facility] REC#: [id number] PT STATUS: REG ER : 1980 PHYSICIAN: BERTHA WAKEFIELD MD ADMIT DATE: 10/04/18/ER Draft Date of Exam:10/04/18 CHEST 1 VIEW, AP/PA ONLY INDICATION: Substance abuse, vomiting. Portable chest at 04:00 p.m. FINDINGS: Heart size and pulmonary vascularity are normal. Lungs are clear. There are no effusions or pneumothoraces. IMPRESSION: Negative chest. Dictated on workstation # [id number] Dict: 10/04/18 1615 Trans: 10/04/18 1617 [id number] Interpreted by: BERHTA DOWNEY MD Electronically signed by: Departure Communication (Admissions) Time/Spoke to Admitting Phy: 17:15 Impression Primary Impression: Alcohol abuse Additional Impressions: Alcohol withdrawal syndrome Qualified Codes: F10.230 - Alcohol dependence with withdrawal, uncomplicated Vomiting Qualified Codes: R11.2 - Nausea with vomiting, unspecified Acute diarrhea Elevated lactic acid level Viral upper respiratory infection Disposition: ADMITTED INPATIENT Condition: Stable Admissions Decision to Admit Reason: Admit from ER (General) Decision to Admit/Date: Oct 04, 2018 Time/Decision to Admit Time: 17:15 Departure-Patient Inst. Referrals: [facility] [place] (PCP/Family) Primary Care Physician Patient Instructions: ALCOHOL AND SUBSTANCE ABUSE BERTHA WAKEFIELD MD Oct 04, 2018 15:36
[2018-10-04 15:40] LABS: PROTHROMBIN TIME PATIENT 12.9 SEC (12.2-14.7)
[2018-10-04 15:45] LABS: ALANINE AMINOTRANSFERASE 181 U/L (0-55); ALBUMIN 4.5 GM/DL (3.2-4.5); ALKALINE PHOSPHATASE 73 U/L (40-136); BILIRUBIN,TOTAL 0.5 MG/DL (0.1-1.0); BUN/CREATININE RATIO 7; CALCIUM 8.9 MG/DL (8.5-10.1); CARBON DIOXIDE 20 MMOL/L (21-32); CHLORIDE 93 MMOL/L (98-107); CREATININE SERUM 0.59 MG/DL (0.60-1.30); GFR ESTIMATED > 60; GLUCOSE 80 MG/DL (70-105); PHOSPHORUS 2.1 MG/DL (2.3-4.7); POTASSIUM 3.5 MMOL/L (3.6-5.0); SODIUM 130 MMOL/L (135-145); TOTAL PROTEIN 7.2 GM/DL (6.4-8.2)
[2018-10-04 15:47] LABS: ACETAMINOPHEN < 10 UG/ML (10-30)
[2018-10-04 15:55] LABS: BAND NEUTROPHILS 0 %; LYMPHOCYTES % (MANUAL) 44 %; MONOCYTES % (MANUAL) 10 %; NEUTROPHILS % (MANUAL) 45 %
[2018-10-04 15:56] LABS: BASOPHILS % (MANUAL) 0 %; EOSINOPHILS % (MANUAL) 1 %; RBC MORPH NORMAL
[2018-10-04 16:14] LABS: BILIRUBIN,URINE NEGATIVE (NEGATIVE); CLARITY,URINE SLIGHTLY CLOUDY; COLOR,URINE YELLOW; GLUCOSE, URINE (UA) NEGATIVE (NEGATIVE); KETONES,URINE NEGATIVE (NEGATIVE); LEUKOCYTE ESTERASE ,URINE NEGATIVE (NEGATIVE); NITRITE,URINE NEGATIVE (NEGATIVE); PH,URINE 7 (5-9); PROTEIN,URINE NEGATIVE (NEGATIVE); UROBILINOGEN,URINE NORMAL (NORMAL)
--- NOTE | 2018-10-04 16:17 | Diagnostic Imaging Report ---
INDICATION: Substance abuse, vomiting. Portable chest at 04:00 p.m. FINDINGS: Heart size and pulmonary vascularity are normal. Lungs are clear. There are no effusions or pneumothoraces. IMPRESSION: Negative chest. Dictated by: Dictated on workstation # [id number]
[2018-10-04 16:21] LABS: BACTERIA,URINE NEGATIVE /HPF; SQUAMOUS EPITHELIAL CELL,UR 0-2 /HPF; WBC,URINE RARE /HPF
[2018-10-04 16:29] LABS: AMPHETAMINE SCREEN, URINE NEGATIVE (NEGATIVE); BARBITURATE SCREEN URINE NEGATIVE (NEGATIVE); BENZODIAZEPINES SCREEN URINE POSITIVE (NEGATIVE); CANNABINOID SCREEN, URINE NEGATIVE (NEGATIVE); COCAINE SCREEN URINE NEGATIVE (NEGATIVE); METHADONE STAT NEGATIVE (NEGATIVE); METHAMPHETAMINE SCREEN URINE S NEGATIVE (NEGATIVE); OPIATE SCREEN URINE NEGATIVE (NEGATIVE); OXYCODONE STAT NEGATIVE (NEGATIVE); PROPOXYPHENE STAT NEGATIVE (NEGATIVE); TRICYCLIC ANTIDEPRESSANTS SCRE NEGATIVE (NEGATIVE)
[2018-10-04] MEDS ORDERED: 1/2 NS IV SOLUTION 1,000 ML IV PRN (19:03)
[2018-10-04] MEDS ORDERED: THIAMINE INJECTION 100 MG, FOLIC ACID INJECTION 1 MG, MAGNESIUM SULFATE 2 GM, VITAMIN M... IV SCH ×5 (19:03)
[2018-10-04] MEDS ORDERED: SENNA W/DOCUSATE (SENOKOT S) TABLET PO PRN (19:15)
[2018-10-04] MEDS ORDERED: ONDANSETRON 4 MG/2 ML (SDV) Z0FRAN IV PRN (19:15)
[2018-10-04] MEDS ORDERED: D5 1/2 NS 1000 ML IV SOLUTION 1,000 ML IV PRN (19:15)
[2018-10-04] MEDS ORDERED: LORazepam INJ 2 MG/ML (ATIVAN) VIAL IM/IV PRN (19:15)
[2018-10-04] MEDS ORDERED: CATHETER FLUSH 10 ML SYR IV PRN (19:15)
[2018-10-04] MEDS ORDERED: LORazepam INJ 2 MG/ML (ATIVAN) VIAL IV PRN (19:15)
[2018-10-04] MEDS ORDERED: ANTACID SUSP 30 ML UDC (MYLANTA) PO PRN (19:15)
[2018-10-04] MEDS ORDERED: ONDANSETRON 4 MG (ZOFRAN) ORAL DISSOLVE TAB SL PRN (19:15)
[2018-10-04] MEDS: D5 1/2 NS W/KCL 20 MEQ/L 1,000 ML IV SCH (20:06)
[2018-10-04] MEDS: LORazepam 1 MG (ATIVAN) TAB PO PRN ×2 (20:22→21:22)
[2018-10-05] VITALS (16 sets, daily range): BP systolic 103–132; BP diastolic 65–91
[2018-10-05] MEDS ORDERED: diphenhydrAMINE 25 MG TAB (BENADRYL) PO ONE (01:55)
[2018-10-05] MEDS: diphenhydrAMINE 25 MG TAB (BENADRYL) PO PRN ×3 (01:58→21:02)
[2018-10-05] MEDS: D5 1/2 NS W/KCL 20 MEQ/L 1,000 ML IV SCH ×4 (02:02→18:15)
[2018-10-05 03:32] LABS: BASOPHILS % (AUTO) 0 % (0-10); EOSINOPHILS % (AUTO) 1 % (0-10); HEMATOCRIT 42 % (35-52); HEMOGLOBIN 14.6 G/DL (11.5-16.0); LYMPHOCYTES # (AUTO) 0.5 X 10^3 (1.0-4.0); LYMPHOCYTES % (AUTO) 33 % (12-44); MEAN CORPUSCULAR HEMOGLOBIN 34 PG (25-34); MEAN CORPUSCULAR HGB CONC 35 G/DL (32-36); MEAN CORPUSCULAR VOLUME 97 FL (80-99); MEAN PLATELET VOLUME 10.5 FL (7.4-10.4); MONOCYTES # (AUTO) 0.3 X 10^3 (0.0-1.0); MONOCYTES % (AUTO) 19 % (0-12); NEUTROPHILS # (AUTO) 0.7 X 10^3 (1.8-7.8); NEUTROPHILS % (AUTO) 46 % (42-75); PLATELET COUNT 104 10^3/uL (130-400); RED BLOOD COUNT 4.29 10^6/uL (4.35-5.85); RED CELL DISTRIBUTION WIDTH 12.4 % (10.0-14.5); WHITE BLOOD COUNT 1.6 10^3/uL (4.3-11.0)
[2018-10-05 03:52] LABS: ALANINE AMINOTRANSFERASE 145 U/L (0-55); ALBUMIN 3.7 GM/DL (3.2-4.5); ALKALINE PHOSPHATASE 68 U/L (40-136); BILIRUBIN,TOTAL 0.8 MG/DL (0.1-1.0); BUN/CREATININE RATIO 10; CALCIUM 7.9 MG/DL (8.5-10.1); CARBON DIOXIDE 22 MMOL/L (21-32); CHLORIDE 100 MMOL/L (98-107); CREATININE SERUM 0.61 MG/DL (0.60-1.30); GFR ESTIMATED > 60; GLUCOSE 131 MG/DL (70-105); MAGNESIUM 2.9 MG/DL (1.8-2.4); PHOSPHORUS 1.5 MG/DL (2.3-4.7); POTASSIUM 3.2 MMOL/L (3.6-5.0); SODIUM 133 MMOL/L (135-145); TOTAL PROTEIN 5.8 GM/DL (6.4-8.2)
[2018-10-05] MEDS: LORazepam 1 MG (ATIVAN) TAB PO PRN ×4 (04:50→21:02)
[2018-10-05 05:31] LABS: LYMPHOCYTES % (MANUAL) 34 %; MONOCYTES % (MANUAL) 13 %; NEUTROPHILS % (MANUAL) 52 %
[2018-10-05 05:32] LABS: EOSINOPHILS % (MANUAL) 1 %
[2018-10-05] MEDS ORDERED: LORA1TAB PO (08:57)
[2018-10-05] MEDS ORDERED: DOXY100C2 PO (08:57)
--- NOTE | 2018-10-05 09:31 | History & Physical-Hospitalist ---
CHICHI GUTIERREZ DO 10/05/18 0931: History of Present Illness HPI/Chief Complaint CC: ETOH withdrawal HPI: This is a 38-year-old white female with [facility] who has struggled with excess alcohol consumption for the past 9 months but I suspect that has been an issue for much longer time frame who presented to the ER for the second time yesterday with alcohol withdrawal. Her blood alcohol level on admission was 166 and she had stated she had not had anything alcoholic to drink for 3 days. She is placed in ICU due to elevated lactic acid not due to sepsis with clinical dehydration and severe alcohol withdrawal at risk for seizures and decompensation from Warnicke's encephalopathy or worse. She feels much better I am consulting hematology for pancytopenia but that is likely due to alcohol suppression of bone marrow. Alcohol hepatitis noted. Source: patient, old records Exam Limitations: no limitations Date Seen 10/05/18 Time Seen by a Provider: 10:00 Attending Physician Chichi Gutierrez DO [facility] [place],[facility] Referring Physician Date of Admission Oct 04, 2018 at 18:30 Home Medications & Allergies Home Medications Reviewed patient Home Medication Reconciliation performed by pharmacy medication reconciliations factory focus technician and/or nursing. Patients Allergies have been reviewed. Allergies Allergies Coded Allergies Penicillins (Verified Allergy, Unknown, 01/28/15) morphine (Verified Adverse Reaction, Mild, DID NOT TOLERATE WELL IN ED ON MONDAY., 12/04/12) DOES NOT LIKE THE FEELING IT GIVES HER. 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) Alcohol Use: Regular Use Number of Drinks Today: 0 Alcohol Beverage of Choice: Beer Recreational Drug Use: No Smoking Status: Current Everyday Smoker Type Used: Cigarettes 2nd Hand Smoke Exposure: Yes Physical Abuse Screen: No Sexual Abuse: No Recent Foreign Travel: No Contact w/other who traveled: No Recent Hopitalizations: No (a few weeks ago) Recent Infectious Disease Expo: No Immunizations Up To Date Tetanus Booster (TDap): Unknown Pediatric: No Date of Influenza Vaccine: Jul 21, 2018 Seasonal Allergies Seasonal Allergies: No Past Medical History Surgeries: Orthopedic, Tonsillectomy Currently Using CPAP: No Currently Using BIPAP: No Sexually Transmitted Disease: No HIV/AIDS: No Female Reproductive Disorders: Denies Gastrointestinal: Gastroesophageal Reflux Musculoskeletal: Fractures Loss of Vision: Denies Hearing Impairment: Denies Did You Recieve Any Treatments: No Psychosocial: Anxiety, Depression History of Blood Disorders: No Adverse Reaction to Blood Candelario: No Family History Reviewed Nursing Family Hx Patient reports no known family medical history. No Pertinent Family Hx Review of Systems Constitutional: see HPI, dizziness, weakness EENTM: no symptoms reported Respiratory: no symptoms reported Cardiovascular: no symptoms reported Gastrointestinal: no symptoms reported Genitourinary: no symptoms reported Musculoskeletal: no symptoms reported Skin: rash Psychiatric/Neurological: Anxiety Physical Exam Physical Exam Vital Signs Vital Signs - First Documented 10/04/18 10/04/18 15:05 18:30 Temp 99.6 Pulse 115 Resp 18 B/P (MAP) 133/97 (109) Pulse Ox 99 O2 Delivery Room Air Capillary Refill : Less Than 3 Seconds Height, Weight, BMI Height: 5'4.00" Weight: 133lbs. 8.0oz. 60.767482hn; 21.9 BMI Method:Stated General Appearance: No Apparent Distress, WD/WN, Chronically ill Eyes: Bilateral Eye Normal Inspection, Bilateral Eye PERRL HEENT: PERRL/EOMI, TMs Normal, Normal ENT Inspection, Pharynx Normal Neck: Full Range of Motion, Normal Inspection, Non Tender, Supple, Carotid Bruit Respiratory: Chest Non Tender, Lungs Clear, Normal Breath Sounds, No Accessory Muscle Use, No Respiratory Distress Cardiovascular: Regular Rate, Rhythm, No Edema, No Gallop, No JVD, No Murmur, Normal Peripheral Pulses Gastrointestinal: Normal Bowel Sounds, No Organomegaly, No Pulsatile Mass, Non Tender, Soft Back: Normal Inspection, No CVA Tenderness, No Vertebral Tenderness Extremity: Normal Capillary Refill, Normal Inspection, Normal Range of Motion, Non Tender, No Calf Tenderness, No Pedal Edema Neurologic/Psychiatric: Alert, Oriented x3, No Motor/Sensory Deficits, Normal Mood/Affect Skin: Normal Color, Warm/Dry Lymphatic: No Adenopathy Results Results/Procedures Labs Laboratory Tests 10/04/18 15:10 10/05/18 03:05 Patient resulted labs reviewed. Assessment/Plan Admission Diagnosis Assessment: ETOH withdrawal severe Dehydration Alcoholic hepatitis Neutropenia Thrombocytopenia Plan: ETOH withdrawal protocol Monitor closely Admission Status: Inpatient Order (span 2 midnights) Reason for Inpatient Admission: Severe ETOH withdrawal will require 3 days Diagnosis/Problems Diagnosis/Problems (1) ETOH abuse Status: Chronic (2) Hypokalemia Status: Acute (3) Elevated liver enzymes Status: Acute (4) Leukopenia Status: Acute Qualifiers: Leukopenia type: neutropenia Neutropenia type: unspecified Qualified Codes: D70.9 - Neutropenia, unspecified (5) Anxiety Status: Chronic (6) Alcoholic hepatitis Status: Acute Qualifiers: Ascites presence: without ascites Qualified Codes: K70.10 - Alcoholic hepatitis without ascites (7) Thrombocytopenia Status: Acute Clinical Quality Measures DVT/VTE Risk/Contraindication: Risk Factor Score Per Nursin RFS Level Per Nursing on Admit: 1=Low/No VTE PPX VICKI POLANCO MED STUDENT 10/05/18 1128: History of Present Illness HPI/Chief Complaint CC: EtOH withdrawal HPI: 38 yo F who presented to the ER yesterday (twice) due to anxiety 2/2 discontinuing her Ativan and then again for nausea/vomiting/diarrhea 2/2 alcohol withdrawal. Pt is a known alcoholic and has been trying to stop drinking. Reports that she has 9-10 beers per day (other notes say she reported 12-18). She also states that she hasn't had a drink in 3 days, although alcohol level on admission was 1.66. She is currently being treated for strep throat and on amoxicillin. CBC on admission showed WBC 2.3 (trending downward to 1.6) and platelets 145 ( trending downward to 104). CMP on admission showed hyponatremia 130, AST 158, ALT 181. Lactic acid 3.32 Today the pt reports she is feeling better, but still not well No N/V, less shaky AST/ALT trending downard Hypokalemia 3.2 Source: patient, old records Past Grzeobo-Nwrrfx-Ksmfpj Hx Family History Patient reports no known family medical history. Review of Systems Constitutional: see HPI EENTM: see HPI Musculoskeletal: see HPI Psychiatric/Neurological: See HPI Physical Exam Physical Exam General Appearance: WD/WN Respiratory: Chest Non Tender, Lungs Clear, Normal Breath Sounds Cardiovascular: Regular Rate, Rhythm, No Murmur Extremity: Normal Capillary Refill, No Calf Tenderness, No Pedal Edema Neurologic/Psychiatric: Alert, Oriented x3, Depressed Affect Skin: Warm/Dry Assessment/Plan Assessment and Plan Assessment: EtOH withdrawal Hypokalemia Leukopenia Elevated liver enzymes Anxiety Plan: Transfer to 4th floor Hematology consult Continue ativan per protocol Diagnosis/Problems Diagnosis/Problems (1) ETOH abuse Status: Chronic (2) Hypokalemia Status: Acute (3) Elevated liver enzymes Status: Acute (4) Leukopenia Status: Acute Qualifiers: Leukopenia type: neutropenia Neutropenia type: unspecified Qualified Codes: D70.9 - Neutropenia, unspecified (5) Anxiety Status: Chronic CHICHI GUTIERREZ DO Oct 05, 2018 09:31 VICKI POLANCO MED STUDENT Oct 05, 2018 11:28
[2018-10-05 10:19] LABS: ABSOLUTE RETIC # 52 10e9/L (24-90)
--- NOTE | 2018-10-05 18:49 | Consultation ---
History of Present Illness History of Present Illness Patient Consulted On(elizabeth/time) 10/05/18 18:43 Date Seen by Provider: Oct 05, 2018 Time Seen by Provider: 18:43 History of Present Illness Ms. Nicholson is a 38 yo female with polysubstance abuse, including alcohol and benzodiazepine abuse. Patient presented to the ED last night with a panic attack after one day sober from drinking alcohol and stopping benzodiazepines "cold turkey." She was admitted for management of alcohol withdrawal and lactic acidosis. This is her second admission in two months for similar issues. She was noted on both admissions to have leukopenia (WBC < 3.0). During this admission, neutropenia has been as low as 700/ul, and she also has a new mild thrombocytopenia of 104,000/ul. Patient was noted last March to have a normal CBC and differential. Patient denied any new medications or exposures to chemicals or radiation but does note acute infectious illness with each admission. Last time she has sinusitis and this time she was just recovering from strep throat. Allergies and Home Medications Allergies Coded Allergies: Penicillins (Verified Allergy, Unknown, 01/28/15) morphine (Verified Adverse Reaction, Mild, DID NOT TOLERATE WELL IN ED ON MONDAY., 12/04/12) DOES NOT LIKE THE FEELING IT GIVES HER. Home Medications Doxycycline Hyclate 100 Mg Capsule, 100 MG PO BID, (Reported) 10 DAY SUPPLY FILLED 09-26-18 Lorazepam 1 Mg Tablet, 0.5 MG PO Q4H PRN for WITHDRAWAL SYMPTOMS, (Reported) Patient Home Medication List Home Medication List Reviewed: Yes Past Qkblhyh-Egjvhw-Kahcgp Hx Past Med/Social Hx: Reviewed Nursing Past Med/Soc Hx, Reviewed and Corrections made Patient Social History Alcohol Use: Regular Use Number of Drinks Today: 0 Alcohol Beverage of Choice: Beer Recreational Drug Use: No Smoking Status: Current Everyday Smoker Type Used: Cigarettes 2nd Hand Smoke Exposure: Yes Recent Foreign Travel: No Contact w/Someone Who Travel: No Recent Infectious Disease Expo: No Recent Hopitalizations: No (a few weeks ago) Immunizations Up To Date Tetanus Booster (TDap): Unknown PED Vaccines UTD: No Date of Influenza Vaccine: Jul 21, 2018 Seasonal Allergies Seasonal Allergies: No Past Medical History Surgeries: Yes Orthopedic, Tonsillectomy Respiratory: No Currently Using CPAP: No Currently Using BIPAP: No Cardiac: Yes Neurological: No Female Reproductive Disorders: Denies Sexually Transmitted Disease: No HIV/AIDS: No Genitourinary: No Gastrointestinal: Yes Gastroesophageal Reflux Musculoskeletal: Yes (FIBULA FX, RT ANKLE) Fractures Endocrine: No HEENT: No (strep throat last week) Loss of Vision: Denies Hearing Impairment: Denies Cancer: No Did You Recieve Any Treatments: No Psychosocial: Yes (alcoholism) Anxiety, Depression Integumentary: No Blood Disorders: No Adverse Reaction/Blood Tranf: No Family Medical History Reviewed Nursing Family Hx Patient reports no known family medical history. No Pertinent Family Hx Review of Systems-General Constitutional: dizziness, malaise, weakness EENTM: no symptoms reported Respiratory: no symptoms reported Cardiovascular: chest pain Gastrointestinal: no symptoms reported Genitourinary: no symptoms reported Musculoskeletal: no symptoms reported Skin: rash Psychiatric/Neurological: Anxiety, Emotional Problems, Weakness Physical Exam-General Problems Physical Exam Vital Signs Vital Signs - First Documented 10/04/18 10/04/18 15:05 18:30 Temp 99.6 Pulse 115 Resp 18 B/P (MAP) 133/97 (109) Pulse Ox 99 O2 Delivery Room Air Capillary Refill : Less Than 3 Seconds General Appearance: WD/WN, no apparent distress Eyes: Bilateral Eye Normal Inspection, Bilateral Eye PERRL, Bilateral Eye EOMI HEENT: PERRL/EOMI, normal ENT inspection, TMs normal, pharynx normal Neck: non-tender, full range of motion, normal inspection Respiratory: chest non-tender, lungs clear, normal breath sounds, no respiratory distress, no accessory muscle use Cardiovascular: regular rate, rhythm, no edema, no gallop, no JVD, no murmur Gastrointestinal: normal bowel sounds, non tender, soft Extremities: normal range of motion, non-tender, normal inspection Neurologic/Psychiatric: motorcycle deliverer II-XII nml as tested, no motor/sensory deficits, alert, normal mood/affect, oriented x 3 Skin: normal color, warm/dry Lymphatic: no adenopathy Assessment/Plan Assessment/Plan Admission Diagnosis/Plan 38 yo female with polysubstance abuse admitted with alcohol withdrawal and lactic acidosis has recent development of neutropenia and thrombocytopenia. Review of last admission labs show borderline but still low normal vitamin B12 and folic acid levels. Peripheral smear to be reviewed, but without any suspicious immature forms noted on cell differential, it is less likely to be leukemia or other bone marrow disorder. I am inclined to agree with the primary team that this presentation is marrow suppression from acute alcohol toxicity. Also on the differential is leukopenia secondary to acute viral illness, but this is self limiting and less concerning. I recommend vitamin B12 and folic acid supplementation on discharge (already received the alcohol withdrawal protocol of IV vitamins on admission) and close follow up of labs on an outpatient basis. I do not see any reason for bone marrow biopsy at this time. I will continue to follow her blood counts and follow up on the peripheral smear. If there is further severe decline in white count or any other cell lineage, we may be prompted to perform a bone marrow biopsy. Thank you for allowing me to participate in the care of Ms. Nicholson. Clinical Quality Measures DVT/VTE Risk/Contraindication: Risk Factor Score Per Nursin RFS Level Per Nursing on Admit: 1=Low/No VTE PPX Results Labs Labs Laboratory Tests 10/05/18 03:05: White Blood Count 1.6L, Red Blood Count 4.29L, Hemoglobin 14.6, Hematocrit 42, Mean Corpuscular Volume 97, Mean Corpuscular Hemoglobin 34, Mean Corpuscular Hemoglobin Concent 35, Red Cell Distribution Width 12.4, Platelet Count 104L, Mean Platelet Volume 10.5H, Neutrophils (%) (Auto) 46, Lymphocytes (%) (Auto) 33 , Monocytes (%) (Auto) 19H, Eosinophils (%) (Auto) 1, Basophils (%) (Auto) 0, Neutrophils # (Auto) 0.7L, Lymphocytes # (Auto) 0.5L, Monocytes # (Auto) 0.3, Eosinophils # (Auto) 0.0, Basophils # (Auto) 0.0, Neutrophils % (Manual) 52, Lymphocytes % (Manual) 34, Monocytes % (Manual) 13, Eosinophils % (Manual) 1, Absolute Reticulocyte Count 52, Percent Reticulocyte Count 1.20, Sodium Level 133L, Potassium Level 3.2L, Chloride Level 100, Carbon Dioxide Level 22, Anion Gap 11, Blood Urea Nitrogen 6L, Creatinine 0.61, Estimat Glomerular Filtration Rate > 60, BUN/Creatinine Ratio 10, Glucose Level 131H, Calcium Level 7.9L, Corrected Calcium 8.1L, Phosphorus Level 1.5L, Magnesium Level 2.9H, Total Bilirubin 0.8, Aspartate Amino Transf (AST/SGOT) 140H, Alanine Aminotransferase (ALT/SGPT) 145H, Alkaline Phosphatase 68, Total Protein 5.8L, Albumin 3.7 Microbiology 10/04/18 Blood Culture - Preliminary, Resulted No growth 10/04/18 Throat Culture - Preliminary, Resulted No Beta Strep isolated MAE FENG MD Oct 05, 2018 18:49
[2018-10-05] MEDS ORDERED: THIAMINE INJECTION 100 MG, FOLIC ACID INJECTION 1 MG, MAGNESIUM SULFATE 2 GM, VITAMIN M... IV SCH ×5 (21:00)
[2018-10-06 03:40] VITALS: BP 104/62
[2018-10-06 05:39] LABS: BASOPHILS % (AUTO) 1 % (0-10); EOSINOPHILS % (AUTO) 3 % (0-10); HEMATOCRIT 41 % (35-52); HEMOGLOBIN 14.1 G/DL (11.5-16.0); LYMPHOCYTES # (AUTO) 0.9 X 10^3 (1.0-4.0); LYMPHOCYTES % (AUTO) 60 % (12-44); MEAN CORPUSCULAR HEMOGLOBIN 34 PG (25-34); MEAN CORPUSCULAR HGB CONC 34 G/DL (32-36); MEAN CORPUSCULAR VOLUME 101 FL (80-99); MEAN PLATELET VOLUME 10.8 FL (7.4-10.4); MONOCYTES # (AUTO) 0.2 X 10^3 (0.0-1.0); MONOCYTES % (AUTO) 14 % (0-12); NEUTROPHILS # (AUTO) 0.3 X 10^3 (1.8-7.8); NEUTROPHILS % (AUTO) 23 % (42-75); PLATELET COUNT 89 10^3/uL (130-400); RED BLOOD COUNT 4.09 10^6/uL (4.35-5.85); RED CELL DISTRIBUTION WIDTH 12.8 % (10.0-14.5)
[2018-10-06 05:40] LABS: WHITE BLOOD COUNT 1.4 10^3/uL (4.3-11.0)
[2018-10-06 06:03] LABS: ALANINE AMINOTRANSFERASE 169 U/L (0-55); ALBUMIN 3.5 GM/DL (3.2-4.5); ALKALINE PHOSPHATASE 64 U/L (40-136); BILIRUBIN,TOTAL 0.8 MG/DL (0.1-1.0); BUN/CREATININE RATIO 6; CALCIUM 7.8 MG/DL (8.5-10.1); CARBON DIOXIDE 18 MMOL/L (21-32); CHLORIDE 110 MMOL/L (98-107); CREATININE SERUM 0.54 MG/DL (0.60-1.30); GFR ESTIMATED > 60; GLUCOSE 94 MG/DL (70-105); POTASSIUM 3.7 MMOL/L (3.6-5.0); SODIUM 137 MMOL/L (135-145); TOTAL PROTEIN 5.6 GM/DL (6.4-8.2)
[2018-10-06] MEDS: D5 1/2 NS W/KCL 20 MEQ/L 1,000 ML IV SCH (07:43)
[2018-10-06] MEDS: diphenhydrAMINE 25 MG TAB (BENADRYL) PO PRN (07:48)
[2018-10-06 08:20] VITALS: BP 113/76
[2018-10-06] MEDS ORDERED: CYAN10007 PO (09:20)
[2018-10-06] MEDS ORDERED: FOLI1TAB24 PO (09:20)
--- NOTE | 2018-10-06 09:26 | Discharge Instructions ---
Discharge Inst-[facility] Discharge Medications New, Converted or Re-Newed RX: Transmitted to Pharmacy New Medications: Cyanocobalamin (Vitamin B-12) (Vitamin B-12) 1,000 Mcg Tablet.er 1000 MCG PO DAILY, #30 TAB 0 Refills Folic Acid (Folic Acid) 1 Mg Tablet 1 MG PO DAILY, #30 TAB 0 Refills Continued Medications: Doxycycline Hyclate (Doxycycline Hyclate) 100 Mg Capsule 100 MG PO BID for 10 Days, CAP 10 DAY SUPPLY FILLED 09-26-18 Lorazepam (Lorazepam) 1 Mg Tablet 0.5 MG PO Q4H PRN for WITHDRAWAL SYMPTOMS, TAB Patient Instructions Goal/Follow Up Appt: Follow up at [facility] within 1 week of discharge. Patient Instructions: You need to have your blood count repeated in a month and liver tests repeated next week. Return to The Hospital For: Fever, vomiting, seizures, inability to keep down liquids Activity & Diet Discharge Diet: Regular Diet Activity as Tolerated: Yes Orders-Post D/C & Referrals Pneu Vac Indicated: Yes KVNG AMES MD Oct 06, 2018 09:26
--- NOTE | 2018-10-06 09:31 | Discharge Summary ---
Diagnosis/Chief Complaint Date of Admission Oct 04, 2018 at 18:30 Date of Discharge Oct 06, 2018 Admission Diagnosis Admission Diagnosis Alcohol withdrawal Leukopenia Thrombocytopenia Alcoholic steatohepatitis Discharge Diagnosis Alcohol withdrawal- pt requesting d/c on 10/06 due to family plans. No seizure activity and CIWA scores decreased over last 24 hours progressively from 8 to 2 , with no need for ativan in last 12 hours before d/c. She plans to follow up with her sponsor and attend daily AA meetings. Leukopenia/thrombocytopenia- seen by Hematology, suspected to be due to alcoholic suppression, recommended B12 and folate on d/c and repeat lab in a month. Alcoholic steatohepatitis- elevated AST/ALT, no elevation in bilirubin to suggest acute alcoholic hepatitis. Given persistently rising, recommend recheck in the next week and complete alcohol cessation Chief Complaint/HPI Chief Complaint/HPI From Dr. Daugherty H&P: "This is a 38-year-old white female with [facility] who has struggled with excess alcohol consumption for the past 9 months but I suspect that has been an issue for much longer time frame who presented to the ER for the second time yesterday with alcohol withdrawal. Her blood alcohol level on admission was 166 and she had stated she had not had anything alcoholic to drink for 3 days. She is placed in ICU due to elevated lactic acid not due to sepsis with clinical dehydration and severe alcohol withdrawal at risk for seizures and decompensation from Warnicke's encephalopathy or worse. She feels much better I am consulting hematology for pancytopenia but that is likely due to alcohol suppression of bone marrow. Alcohol hepatitis noted." Discharge Summary-Simple/Stand Consultations Discharge Physical Examination Allergies: Coded Allergies: Penicillins (Verified Allergy, Unknown, 01/28/15) morphine (Verified Adverse Reaction, Mild, DID NOT TOLERATE WELL IN ED ON MONDAY., 12/04/12) DOES NOT LIKE THE FEELING IT GIVES HER. Vitals & I&Os Vital Sign - Last 12Hours Date Time Temp Pulse Resp B/P (MAP) Pulse Ox O2 Delivery O2 Flow Rate FiO2 10/06/18 08:20 98.4 77 14 113/76 (88) 99 Room Air Intake and Output 10/06/18 00:00 Intake Total 550 ml Balance 550 ml General Appearance: Alert, No Acute Distress Respiratory: Clear to Auscultation, Normal Air Movement Cardiovascular: Regular Rate, No Murmurs Neuro: Normal Speech Psych/Mental Status: Mental Status NL Hospital Course See final discharge diagnosis. Labs Laboratory Tests Test 10/04/18 15:10 10/04/18 15:19 10/04/18 16:09 10/04/18 17:05 Range/Units White Blood Count 2.3 L 4.3-11.0 10^3/uL Red Blood Count 4.82 4.35-5.85 10^6/uL Hemoglobin 16.8 H 11.5-16.0 G/DL Hematocrit 46 35-52 % Mean Corpuscular Volume 95 80-99 FL Mean Corpuscular Hemoglobin 35 H 25-34 PG Mean Corpuscular Hemoglobin Concent 37 H 32-36 G/DL Red Cell Distribution Width 12.6 10.0-14.5 % Platelet Count 145 130-400 10^3/uL Mean Platelet Volume 10.1 7.4-10.4 FL Neutrophils (%) (Auto) 43 42-75 % Lymphocytes (%) (Auto) 36 12-44 % Monocytes (%) (Auto) 19 H 0-12 % Eosinophils (%) (Auto) 0 0-10 % Basophils (%) (Auto) 1 0-10 % Neutrophils # (Auto) 1.0 L 1.8-7.8 X 10^3 Lymphocytes # (Auto) 0.8 L 1.0-4.0 X 10^3 Monocytes # (Auto) 0.4 0.0-1.0 X 10^3 Eosinophils # (Auto) 0.0 0.0-0.3 10^3/uL Basophils # (Auto) 0.0 0.0-0.1 10^3/uL Neutrophils % (Manual) 45 % Lymphocytes % (Manual) 44 % Monocytes % (Manual) 10 % Eosinophils % (Manual) 1 % Basophils % (Manual) 0 % Band Neutrophils 0 % Blood Morphology Comment NORMAL Prothrombin Time 12.9 12.2-14.7 SEC INR Comment 1.0 0.8-1.4 Activated Partial Thromboplast Time 33 24-35 SEC Sodium Level 130 L 135-145 MMOL/L Potassium Level 3.5 L 3.6-5.0 MMOL/L Chloride Level 93 L 98-107 MMOL/L Carbon Dioxide Level 20 L 21-32 MMOL/L Anion Gap 17 H 5-14 MMOL/L Blood Urea Nitrogen 4 L 7-18 MG/DL Creatinine 0.59 L 0.60-1.30 MG/DL Estimat Glomerular Filtration Rate > 60 BUN/Creatinine Ratio 7 Glucose Level 80 70-105 MG/DL Lactic Acid Level 3.32 *H 2.73 *H 0.50-2.00 MMOL/L Calcium Level 8.9 8.5-10.1 MG/DL Corrected Calcium 8.5 8.5-10.1 MG/DL Phosphorus Level 2.1 L 2.3-4.7 MG/DL Magnesium Level 2.0 1.8-2.4 MG/DL Total Bilirubin 0.5 0.1-1.0 MG/DL Aspartate Amino Transf (AST/SGOT) 158 H 5-34 U/L Alanine Aminotransferase (ALT/SGPT) 181 H 0-55 U/L Alkaline Phosphatase 73 40-136 U/L Total Protein 7.2 6.4-8.2 GM/DL Albumin 4.5 3.2-4.5 GM/DL Serum Test, Qualitative NEGATIVE NEGATIVE Acetaminophen Level < 10 L 10-30 UG/ML Serum Alcohol 166 H <10 MG/DL Monoscreen NEGATIVE NEGATIVE Group A Streptococcus Screen NEGATIVE NEGATIVE Urine Color YELLOW Urine Clarity SLIGHTLY CLOUDY Urine pH 7 5-9 Urine Specific [place] 1.005 L 1.016-1.022 Urine Protein NEGATIVE NEGATIVE Urine Glucose (UA) NEGATIVE NEGATIVE Urine Ketones NEGATIVE NEGATIVE Urine Nitrite NEGATIVE NEGATIVE Urine Bilirubin NEGATIVE NEGATIVE Urine Urobilinogen NORMAL NORMAL MG/DL Urine Leukocyte Esterase NEGATIVE NEGATIVE Urine RBC (Auto) NEGATIVE NEGATIVE Urine RBC NONE /HPF Urine WBC RARE /HPF Urine Squamous Epithelial Cells 0-2 /HPF Urine Crystals NONE /LPF Urine Bacteria NEGATIVE /HPF Urine Casts NONE /LPF Urine Mucus NEGATIVE /LPF Urine Culture Indicated NO Urine Opiates Screen NEGATIVE NEGATIVE Urine Oxycodone Screen NEGATIVE NEGATIVE Urine Methadone Screen NEGATIVE NEGATIVE Urine Propoxyphene Screen NEGATIVE NEGATIVE Urine Barbiturates Screen NEGATIVE NEGATIVE Ur Tricyclic Antidepressants Screen NEGATIVE NEGATIVE Urine Phencyclidine Screen NEGATIVE NEGATIVE Urine Amphetamines Screen NEGATIVE NEGATIVE Urine Methamphetamines Screen NEGATIVE NEGATIVE Urine Benzodiazepines Screen POSITIVE H NEGATIVE Urine Cocaine Screen NEGATIVE NEGATIVE Urine Cannabinoids Screen NEGATIVE NEGATIVE Test 10/05/18 03:05 10/06/18 05:04 Range/Units White Blood Count 1.6 L 1.4 *L 4.3-11.0 10^3/uL Red Blood Count 4.29 L 4.09 L 4.35-5.85 10^6/uL Hemoglobin 14.6 14.1 11.5-16.0 G/DL Hematocrit 42 41 35-52 % Mean Corpuscular Volume 97 101 H 80-99 FL Mean Corpuscular Hemoglobin 34 34 25-34 PG Mean Corpuscular Hemoglobin Concent 35 34 32-36 G/DL Red Cell Distribution Width 12.4 12.8 10.0-14.5 % Platelet Count 104 L 89 L 130-400 10^3/uL Mean Platelet Volume 10.5 H 10.8 H 7.4-10.4 FL Neutrophils (%) (Auto) 46 23 L 42-75 % Lymphocytes (%) (Auto) 33 60 H 12-44 % Monocytes (%) (Auto) 19 H 14 H 0-12 % Eosinophils (%) (Auto) 1 3 0-10 % Basophils (%) (Auto) 0 1 0-10 % Neutrophils # (Auto) 0.7 L 0.3 L 1.8-7.8 X 10^3 Lymphocytes # (Auto) 0.5 L 0.9 L 1.0-4.0 X 10^3 Monocytes # (Auto) 0.3 0.2 0.0-1.0 X 10^3 Eosinophils # (Auto) 0.0 0.0 0.0-0.3 10^3/uL Basophils # (Auto) 0.0 0.0 0.0-0.1 10^3/uL Neutrophils % (Manual) 52 % Lymphocytes % (Manual) 34 % Monocytes % (Manual) 13 % Eosinophils % (Manual) 1 % Absolute Reticulocyte Count 52 24-90 10e9/L Percent Reticulocyte Count 1.20 0.50-2.40 % Sodium Level 133 L 137 135-145 MMOL/L Potassium Level 3.2 L 3.7 3.6-5.0 MMOL/L Chloride Level 100 110 H 98-107 MMOL/L Carbon Dioxide Level 22 18 L 21-32 MMOL/L Anion Gap 11 9 5-14 MMOL/L Blood Urea Nitrogen 6 L 3 L 7-18 MG/DL Creatinine 0.61 0.54 L 0.60-1.30 MG/DL Estimat Glomerular Filtration Rate > 60 > 60 BUN/Creatinine Ratio 10 6 Glucose Level 131 H 94 70-105 MG/DL Calcium Level 7.9 L 7.8 L 8.5-10.1 MG/DL Corrected Calcium 8.1 L 8.2 L 8.5-10.1 MG/DL Phosphorus Level 1.5 L 2.3-4.7 MG/DL Magnesium Level 2.9 H 1.8-2.4 MG/DL Total Bilirubin 0.8 0.8 0.1-1.0 MG/DL Aspartate Amino Transf (AST/SGOT) 140 H 240 H 5-34 U/L Alanine Aminotransferase (ALT/SGPT) 145 H 169 H 0-55 U/L Alkaline Phosphatase 68 64 40-136 U/L Total Protein 5.8 L 5.6 L 6.4-8.2 GM/DL Albumin 3.7 3.5 3.2-4.5 GM/DL Discharge Instructions to patient/family Please see electronic discharge instructions given to patient. Discharge Medications Reviewed and agree with Discharge Medication list on patient's Discharge Instruction sheet Clinical Quality Measures DVT/VTE Risk/Contraindication: Risk Factor Score Per Nursin RFS Level Per Nursing on Admit: 1=Low/No VTE PPX Copy Copies To 1: KVNG AMES MD, BETHANY N MD Oct 06, 2018 09:31
== END 2018-10-06 10:00 | disposition home or self-care (01) | DRG 897 ==
LOC: EDUNIT# 14:51 → ER 14:51 → ICU 18:30 → 4TH 10-05 11:03
PROVIDERS: ADMIT Internal Medicine; ATTEND Internal Medicine
DX: F10.230 Alcohol dependence with withdrawal, uncomplicated (principal); R11.2 Nausea with vomiting, unspecified; R19.7 Diarrhea, unspecified; R74.0 Nonspecific elevation of levels of transaminase and lactic acid dehydrogenase [LDH]; F17.210 Nicotine dependence, cigarettes, uncomplicated; K21.9 Gastro-esophageal reflux disease without esophagitis; F41.9 Anxiety disorder, unspecified; F32.9 Major depressive disorder, single episode, unspecified; J02.0 Streptococcal pharyngitis; Y90.6 Blood alcohol level of 120-199 mg/100 ml; K70.10 Alcoholic hepatitis without ascites; D72.819 Decreased white blood cell count, unspecified; E87.6 Hypokalemia; D69.59 Other secondary thrombocytopenia
CPT/HCPCS: 36415; 71045; 80053; 80306; 80320; 80329; 81000; 83605; 83735; 84100; 84703; 85007; 85025; 85027; 85045; 85610; 85730; 86308; 87040; 87081; 87430; 87804; 93005; 96361; 96374; 96375; 96376

== ENCOUNTER 2019-03-07 20:51 | Emergency (ER) | payer MEDICAID ==
[~2019-03-07] VITALS: Ht 162.6 cm; Wt 59.9 kg
[~2019-03-07 20:51] MED LIST changes: +CYAN10007 PO; +DOXY100C2 PO; +FOLI1TAB24 PO; +LORA1TAB PO
--- NOTE | 2019-03-07 21:04 | ED Psychosocial ---
General Chief Complaint: Psych/Social Disorder Stated Complaint: ANXIETY Source: patient Exam Limitations: no limitations History of Present Illness Date Seen by Provider: March 07, 2019 Time Seen by Provider: 21:02 Initial Comments To ER with reports of anxiety. She states that she is an alcoholic drinks about a 30 pack of beer a day, most recently drained today. She's been to addiction treatment [facility] [place] twice, states "they won't take me back". States she called [facility] this evening and they referred her to the emergency room. Severity: moderate Associated Symptoms: anxiety Allergies and Home Medications Allergies Coded Allergies: Penicillins (Verified Allergy, Unknown, 01/28/15) morphine (Verified Adverse Reaction, Mild, DID NOT TOLERATE WELL IN ED ON MONDAY., 12/04/12) DOES NOT LIKE THE FEELING IT GIVES HER. Home Medications Cyanocobalamin (Vitamin B-12) 1,000 Mcg Tablet.er, 1,000 MCG PO DAILY Prescribed by: KVNG AMES on 10/06/18919 Doxycycline Hyclate 100 Mg Capsule, 100 MG PO BID, (Reported) 10 DAY SUPPLY FILLED 09-26-18 Folic Acid 1 Mg Tablet, 1 MG PO DAILY Prescribed by: KVNG AMES on 10/06/18919 Lorazepam 1 Mg Tablet, 0.5 MG PO Q4H PRN for WITHDRAWAL SYMPTOMS, (Reported) Patient Home Medication List Home Medication List Reviewed: Yes Review of Systems Constitutional: see HPI EENTM: see HPI Respiratory: no symptoms reported Cardiovascular: no symptoms reported Genitourinary: no symptoms reported Musculoskeletal: no symptoms reported Skin: no symptoms reported Psychiatric/Neurological: No Symptoms Reported Past Iclsmgv-Gyutln-Djkpbn Hx Patient Social History Alcohol Beverage of Choice: Beer Type Used: Cigarettes 2nd Hand Smoke Exposure: Yes Recent Foreign Travel: No Contact w/Someone Who Travel: No Recent Hopitalizations: No (a few weeks ago) Immunizations Up To Date Tetanus Booster (TDap): Unknown PED Vaccines UTD: No Date of Influenza Vaccine: Jul 21, 2018 Seasonal Allergies Seasonal Allergies: No Past Medical History Surgeries: Yes Orthopedic, Tonsillectomy Respiratory: No Currently Using CPAP: No Currently Using BIPAP: No Cardiac: Yes Neurological: No Female Reproductive Disorders: Denies Sexually Transmitted Disease: No HIV/AIDS: No Genitourinary: No Gastrointestinal: Yes Gastroesophageal Reflux Musculoskeletal: Yes (FIBULA FX, RT ANKLE) Fractures Endocrine: No HEENT: No (strep throat last week) Loss of Vision: Denies Hearing Impairment: Denies Cancer: No Did You Recieve Any Treatments: No Psychosocial: Yes (alcoholism) Anxiety, Depression Integumentary: No Blood Disorders: No Adverse Reaction/Blood Tranf: No Family Medical History Patient reports no known family medical history. No Pertinent Family Hx Physical Exam Vital Signs - First Documented 03/07/19 03/07/19 21:06 21:51 Temp 98.5 Pulse 104 Resp 18 B/P (MAP) 142/98 (113) Pulse Ox 99 O2 Delivery Room Air Capillary Refill : Height, Weight, BMI Height: 5'4.00" Weight: 132lbs. 1.8oz. 59.790246al; 21.9 BMI Method:Stated General Appearance: WD/WN, no apparent distress HEENT: PERRL/EOMI, normal ENT inspection Respiratory: lungs clear (walk on), normal breath sounds, no respiratory distress, no accessory muscle use Cardiovascular: regular rate, rhythm, no murmur Gastrointestinal: normal bowel sounds, soft Neurologic/Psychiatric: alert, normal mood/affect, oriented x 3 Appearance/Memory: appropriate appearance, appropriate insight Behavior/Eye Contact: cooperative, good eye contact Thoughts/Hallucinations: normal thought pattern, no apparent hallucination Skin: normal color, warm/dry Progress/Results/Core Measures Results/Orders Lab Results Laboratory Tests Test 03/07/19 21:03 Range/Units White Blood Count 5.0 4.3-11.0 10^3/uL Red Blood Count 4.79 4.35-5.85 10^6/uL Hemoglobin 15.6 11.5-16.0 G/DL Hematocrit 44 35-52 % Mean Corpuscular Volume 91 80-99 FL Mean Corpuscular Hemoglobin 33 25-34 PG Mean Corpuscular Hemoglobin Concent 36 32-36 G/DL Red Cell Distribution Width 13.2 10.0-14.5 % Platelet Count 139 130-400 10^3/uL Mean Platelet Volume 10.6 H 7.4-10.4 FL Neutrophils (%) (Auto) 38 L 42-75 % Lymphocytes (%) (Auto) 53 H 12-44 % Monocytes (%) (Auto) 8 0-12 % Eosinophils (%) (Auto) 1 0-10 % Basophils (%) (Auto) 1 0-10 % Neutrophils # (Auto) 1.9 1.8-7.8 X 10^3 Lymphocytes # (Auto) 2.6 1.0-4.0 X 10^3 Monocytes # (Auto) 0.4 0.0-1.0 X 10^3 Eosinophils # (Auto) 0.1 0.0-0.3 10^3/uL Basophils # (Auto) 0.0 0.0-0.1 10^3/uL Sodium Level 136 135-145 MMOL/L Potassium Level 4.0 3.6-5.0 MMOL/L Chloride Level 97 L 98-107 MMOL/L Carbon Dioxide Level 21 21-32 MMOL/L Anion Gap 18 H 5-14 MMOL/L Blood Urea Nitrogen 4 L 7-18 MG/DL Creatinine 0.66 0.60-1.30 MG/DL Estimat Glomerular Filtration Rate > 60 BUN/Creatinine Ratio 6 Glucose Level 94 70-105 MG/DL Calcium Level 9.2 8.5-10.1 MG/DL Corrected Calcium 8.5-10.1 MG/DL Total Bilirubin 0.5 0.1-1.0 MG/DL Aspartate Amino Transf (AST/SGOT) 209 H 5-34 U/L Alanine Aminotransferase (ALT/SGPT) 331 H 0-55 U/L Alkaline Phosphatase 98 40-136 U/L Total Protein 7.5 6.4-8.2 GM/DL Albumin 4.7 H 3.2-4.5 GM/DL Serum Alcohol 425 *H <10 MG/DL My Orders Orders - RAAD MARY APRN Cbc With Automated Diff (03/07/19 21:00) Comprehensive Metabolic Panel (03/07/19 21:00) Alcohol (03/07/19 21:00) Ua Culture If Indicated (03/07/19 21:00) Urine Bedside (03/07/19 21:00) Vital Signs/I&O 03/07/19 03/07/19 21:06 21:51 Temp 98.5 97.6 Pulse 104 104 Resp 18 18 B/P (MAP) 142/98 (113) 142/98 (113) Pulse Ox 99 O2 Delivery Room Air Departure Communication (Admissions) 8819- she is alert and oriented, her speech is not slurred, her gait is steady, she contributes to her history of present illness and carries on an appropriate conversation. She is remarkably functional for an alcohol level of over 400. However, at 2147 she stormed out of the emergency room, refused to sign paperwork Impression Primary Impression: Alcoholism Additional Impressions: Anxiety Elevated liver enzymes Disposition: AGAINST MEDICAL ADVICE Condition: Against Medical Advice Departure-Patient Inst. Referrals: [facility] (PCP/Family) Primary Care Physician RAAD MARY APRN March 07, 2019 21:04
[2019-03-07 21:10] LABS: BASOPHILS % (AUTO) 1 % (0-10); EOSINOPHILS # (AUTO) 0.1 10^3/uL (0.0-0.3); EOSINOPHILS % (AUTO) 1 % (0-10); HEMATOCRIT 44 % (35-52); HEMOGLOBIN 15.6 G/DL (11.5-16.0); LYMPHOCYTES # (AUTO) 2.6 X 10^3 (1.0-4.0); LYMPHOCYTES % (AUTO) 53 % (12-44); MEAN CORPUSCULAR HEMOGLOBIN 33 PG (25-34); MEAN CORPUSCULAR HGB CONC 36 G/DL (32-36); MEAN CORPUSCULAR VOLUME 91 FL (80-99); MEAN PLATELET VOLUME 10.6 FL (7.4-10.4); MONOCYTES # (AUTO) 0.4 X 10^3 (0.0-1.0); MONOCYTES % (AUTO) 8 % (0-12); NEUTROPHILS # (AUTO) 1.9 X 10^3 (1.8-7.8); NEUTROPHILS % (AUTO) 38 % (42-75); PLATELET COUNT 139 10^3/uL (130-400); RED CELL DISTRIBUTION WIDTH 13.2 % (10.0-14.5)
[2019-03-07 21:31] LABS: ALANINE AMINOTRANSFERASE 331 U/L (0-55); ALBUMIN 4.7 GM/DL (3.2-4.5); ALKALINE PHOSPHATASE 98 U/L (40-136); BILIRUBIN,TOTAL 0.5 MG/DL (0.1-1.0); BUN/CREATININE RATIO 6; CALCIUM 9.2 MG/DL (8.5-10.1); CARBON DIOXIDE 21 MMOL/L (21-32); CHLORIDE 97 MMOL/L (98-107); CREATININE SERUM 0.66 MG/DL (0.60-1.30); GFR ESTIMATED > 60; GLUCOSE 94 MG/DL (70-105); SODIUM 136 MMOL/L (135-145); TOTAL PROTEIN 7.5 GM/DL (6.4-8.2)
[2019-03-07 21:51] VITALS: BP 142/98
--- NOTE | 2019-03-07 21:53 | NUR ---
PATIENT STORMS OUT OF ROOM AND GOES OUT TO THE WAITING ROOM, THIS RN FOLLOWS HER AND SAYS HER NAME AND PATIENT DOES NOT TURN AROUND AND CONTINUES OUT THE DOOR. PROVIDER NOTIFIED THAT PT LEFT AMA.
== END 2019-03-07 21:52 | disposition left against medical advice (07) ==
LOC: EDUNIT# 20:51 → ER 20:52
DX: F10.20 Alcohol dependence, uncomplicated (principal); F41.9 Anxiety disorder, unspecified; R94.5 Abnormal results of liver function studies; K21.9 Gastro-esophageal reflux disease without esophagitis; F32.9 Major depressive disorder, single episode, unspecified; Z88.5 Allergy status to narcotic agent; Z88.0 Allergy status to penicillin; Z77.22 Contact with and (suspected) exposure to environmental tobacco smoke (acute) (chronic); Z90.89 Acquired absence of other organs
CPT/HCPCS: 36415; 80053; 80320; 85025; 99283

== ENCOUNTER 2019-09-19 18:33 | Emergency (ER) | payer MEDICAID ==
--- NOTE | 2019-09-19 19:08 | NUR ---
PT LWBS AT 708 PM
[2019-09-20] MEDS ORDERED: CYAN-41 PO (09:18)
[2019-09-20] MEDS ORDERED: PANT40TA3 PO (09:18)
[2019-09-20] MEDS ORDERED: TRAZ150T72 PO (09:18)
[2019-09-20] MEDS ORDERED: MULT1TAB69 PO (09:18)
[2019-09-20] MEDS ORDERED: ZINC50TA51 PO (09:18)
[2019-09-20] MEDS ORDERED: ESCI10TA55 PO (09:18)
== END 2019-09-19 19:10 | disposition left against medical advice (07) ==
LOC: EDUNIT# 18:33 → ER 18:35
DX: R10.9 Unspecified abdominal pain (principal); R11.10 Vomiting, unspecified

== ENCOUNTER 2019-09-19 19:37 | Inpatient (IN) | payer MEDICAID ==
[~2019-09-19] VITALS: Ht 164.6 cm; Wt 61.5 kg
[2019-09-19] MEDS ORDERED: THIAMINE INJECTION 100 MG, FOLIC ACID INJECTION 1 MG, VITAMIN MULTI INJECTION 10 ML, MA... IV STA ×5 (20:11)
[2019-09-19] MEDS ORDERED: KETOROLAC 30 MG/ML VIAL IVP ONE (20:15)
[2019-09-19] MEDS ORDERED: ONDANSETRON 4 MG/2 ML (SDV) Z0FRAN IVP ONE (20:15)
--- NOTE | 2019-09-19 20:20 | ED Abdominal Pain ---
General Chief Complaint: Abdominal/GI Problems Stated Complaint: ABD PAIN, VOMITING Nursing Triage Note: Pt ambulates to [facility] 5 with c/o medial abd pain that has been going on for a few days but more severe the past 4 hrs hours. Pt states she's had colitis since May of this year and has chronic diarrhea that she's seeing a specialist for. Pt reports N/V as well, is afebrile on arrival. Sepsis Screen: No Definite Risk Source of Information: Patient Exam Limitations: No Limitations History of Present Illness Date Seen by Provider: Sep 19, 2019 Time Seen by Provider: 20:00 Initial Comments The patient presents to ER by private conveyance with chief complaint of abdominal pain 7 out of 10 in her umbilicus sometimes radiating through to her back. No painful urination or hematuria. She's had some soft stools for the past 6 years with sometimes blood in it. She has a history of colitis nonspecific that she is continuing to have workup done at a hospital in [place]. She was recently referred to a specialist but has not seen them yet. She has a history of alcoholism drinking beer usually about a 12 pack per day. She does not have a history of pancreatitis hypertriglyceridemia or diabetes. She says she has had hypoglycemia in the past. She's having nausea with vomiting with her last episode just before coming in. She has tried multiple medications for her symptoms with varying degrees of relief. She recently completed antibiotics about 9 days ago. She is currently on Vyberzi. Since her pain and nausea started approximately 4 hours prior to arrival at 1600 today she has not been able to take anything by mouth. No history of kidney stones. Primary care by Dr. Paul. Allergies and Home Medications Allergies Coded Allergies: Penicillins (Verified Allergy, Unknown, 01/28/15) morphine (Verified Adverse Reaction, Mild, DID NOT TOLERATE WELL IN ED ON MONDAY., 12/04/12) DOES NOT LIKE THE FEELING IT GIVES HER. Home Medications Cyanocobalamin (Vitamin B-12) 1,000 Mcg Tablet.er, 1,000 MCG PO DAILY Prescribed by: KVNG AMES on 10/06/18919 Doxycycline Hyclate 100 Mg Capsule, 100 MG PO BID, (Reported) 10 DAY SUPPLY FILLED 09-26-18 Folic Acid 1 Mg Tablet, 1 MG PO DAILY Prescribed by: KVNG AMES on 12/22/18 0920 Lorazepam 1 Mg Tablet, 0.5 MG PO Q4H PRN for WITHDRAWAL SYMPTOMS, (Reported) Patient Home Medication List Home Medication List Reviewed: Yes Review of Systems Review of Systems Constitutional: No chills, No fever EENTM: No Blurred Vision, No Double Vision Respiratory: Denies Cough Cardiovascular: Denies Chest Pain, Denies Lightheadedness Gastrointestinal: See HPI, Abdominal Pain; Denies Constipated; Diarrhea, Nausea, Poor Fluid Intake, Vomiting Genitourinary: Denies Burning, Denies Discharge Musculoskeletal: No back pain, No gout Skin: No change in color, No pruritus, No rash All Other Systems Reviewed Negative Unless Noted: Yes Past Nvpfvep-Dybsbf-Frqmdg Hx Patient Social History Alcohol Use: Regular Use Number of Drinks Today: AA Alcohol Beverage of Choice: Beer Recreational Drug Use: No Smoking Status: Current Everyday Smoker Type Used: Cigarettes 2nd Hand Smoke Exposure: Yes Recent Foreign Travel: No Contact w/Someone Who Travel: No Recent Infectious Disease Expo: No Recent Hopitalizations: No Physical Abuse: No Sexual Abuse: No Mistreated: No Fear: No Immunizations Up To Date Tetanus Booster (TDap): Unknown PED Vaccines UTD: No Date of Influenza Vaccine: Jul 21, 2018 Seasonal Allergies Seasonal Allergies: No Past Medical History Surgeries: Yes Orthopedic, Tonsillectomy Respiratory: No Currently Using CPAP: No Currently Using BIPAP: No Cardiac: Yes Neurological: No Female Reproductive Disorders: Denies Sexually Transmitted Disease: No HIV/AIDS: No Genitourinary: No Gastrointestinal: Yes Colitis, Gastroesophageal Reflux Musculoskeletal: Yes (FIBULA FX, RT ANKLE) Fractures Endocrine: No HEENT: No (strep throat last week) Loss of Vision: Denies Hearing Impairment: Denies Cancer: No Did You Recieve Any Treatments: No Psychosocial: Yes (alcoholism) Anxiety, Depression Integumentary: No Blood Disorders: No Adverse Reaction/Blood Tranf: No Family Medical History Patient reports no known family medical history. No Pertinent Family Hx Physical Exam Vital Signs Vital Signs - First Documented 09/19/19 19:44 Temp 36.0 Pulse 99 Resp 19 B/P (MAP) 146/103 (117) Pulse Ox 99 O2 Delivery Room Air Capillary Refill : Less Than 3 Seconds Height/Weight/BMI Height: 5'4.00" Weight: 132lbs. 1.8oz. [id number]; 23.00 BMI Method:Stated General Appearance: WD/WN, mild distress HEENT: PERRL/EOMI, pharynx normal (oropharynx is mildly dry) Neck: full range of motion, normal inspection Respiratory: chest non-tender, lungs clear, normal breath sounds, no respiratory distress, no accessory muscle use Cardiovascular: normal peripheral pulses, regular rate, rhythm, no edema Gastrointestinal: normal bowel sounds, soft, no organomegaly, tenderness (mild all 4 quadrants especially in the right lower quadrant but no rebound tenderness over McBurney's point. No mesenteric signs or psoas sign. No Rovsing sign) Extremities: normal range of motion, normal inspection, normal capillary refill Back: normal inspection, no CVA tenderness Neurologic/Psychiatric: no motor/sensory deficits, alert, normal mood/affect, oriented x 3 Skin: normal color, warm/dry Focused Exam Lactate Level 09/19/19 21:30: Lactic Acid Level 2.82*H Lactic Acid Level Laboratory Tests Test 09/19/19 21:30 Lactic Acid Level 2.82 MMOL/L (0.50-2.00) *H Progress/Results/Core Measures Results/Orders Lab Results Laboratory Tests Test 09/19/19 20:23 09/19/19 20:27 09/19/19 21:05 09/19/19 21:10 Range/Units Phosphorus Level 3.2 2.3-4.7 MG/DL Magnesium Level 1.9 1.6-2.4 MG/DL Salicylates Level < 5.0 L 5.0-20.0 MG/DL Acetaminophen Level < 10 L 10-30 UG/ML Serum Alcohol 284 H <10 MG/DL White Blood Count 2.8 L 4.3-11.0 10^3/uL Red Blood Count 4.49 4.35-5.85 10^6/uL Hemoglobin 15.4 11.5-16.0 G/DL Hematocrit 43 35-52 % Mean Corpuscular Volume 95 80-99 FL Mean Corpuscular Hemoglobin 34 25-34 PG Mean Corpuscular Hemoglobin Concent 36 32-36 G/DL Red Cell Distribution Width 12.4 10.0-14.5 % Platelet Count 136 130-400 10^3/uL Mean Platelet Volume 10.2 7.4-10.4 FL Neutrophils (%) (Auto) 37 L 42-75 % Lymphocytes (%) (Auto) 44 12-44 % Monocytes (%) (Auto) 17 H 0-12 % Eosinophils (%) (Auto) 2 0-10 % Basophils (%) (Auto) 1 0-10 % Neutrophils # (Auto) 1.0 L 1.8-7.8 X 10^3 Lymphocytes # (Auto) 1.2 1.0-4.0 X 10^3 Monocytes # (Auto) 0.5 0.0-1.0 X 10^3 Eosinophils # (Auto) 0.1 0.0-0.3 10^3/uL Basophils # (Auto) 0.0 0.0-0.1 10^3/uL Sodium Level 128 L 135-145 MMOL/L Potassium Level 3.5 L 3.6-5.0 MMOL/L Chloride Level 90 L 98-107 MMOL/L Carbon Dioxide Level 17 L 21-32 MMOL/L Anion Gap 21 H 5-14 MMOL/L Blood Urea Nitrogen 3 L 7-18 MG/DL Creatinine 0.63 0.60-1.30 MG/DL Estimat Glomerular Filtration Rate > 60 BUN/Creatinine Ratio 5 Glucose Level 76 70-105 MG/DL Calcium Level 9.0 8.5-10.1 MG/DL Corrected Calcium 8.5-10.1 MG/DL Total Bilirubin 0.7 0.1-1.0 MG/DL Aspartate Amino Transf (AST/SGOT) 244 H 5-34 U/L Alanine Aminotransferase (ALT/SGPT) 201 H 0-55 U/L Alkaline Phosphatase 91 40-136 U/L C-Reactive Protein High Sensitivity 0.07 0.00-0.50 MG/DL Total Protein 7.3 6.4-8.2 GM/DL Albumin 4.6 H 3.2-4.5 GM/DL Lipase 131 H 8-78 U/L Urine Color YELLOW Urine Clarity CLEAR Urine pH 6.0 5-9 Urine Specific [place] <=1.005 1.016-1.022 Urine Protein NEGATIVE NEGATIVE Urine Glucose (UA) 1+ H NEGATIVE Urine Ketones TRACE H NEGATIVE Urine Nitrite NEGATIVE NEGATIVE Urine Bilirubin NEGATIVE NEGATIVE Urine Urobilinogen 0.2 < = 1.0 MG/DL Urine Leukocyte Esterase NEGATIVE NEGATIVE Urine RBC (Auto) NEGATIVE NEGATIVE Urine RBC RARE /HPF Urine WBC 5-10 H /HPF Urine Squamous Epithelial Cells 2-5 /HPF Urine Crystals NONE /LPF Urine Bacteria MODERATE H /HPF Urine Casts NONE /LPF Urine Mucus NEGATIVE /LPF Urine Culture Indicated CULTURE PENDING Prothrombin Time 14.1 12.2-14.7 SEC INR Comment 1.0 0.8-1.4 Activated Partial Thromboplast Time 43 H 24-35 SEC Test 09/19/19 21:30 09/19/19 22:06 Range/Units Lactic Acid Level 2.82 *H 0.50-2.00 MMOL/L Blood Gas Puncture Site RT RAD Blood Gas Patient Temperature 36.7 Arterial Blood pH 7.37 7.37-7.43 Arterial Blood Partial Pressure CO2 34 L 35-45 MMHG Arterial Blood Partial Pressure O2 79 79-93 MMHG Arterial Blood HCO3 19 L 23-27 MMOL/L Arterial Blood Total CO2 19.9 L 21.0-31.0 MMOL/L Arterial Blood Oxygen Saturation 95 94-100 % Arterial Blood Base Excess -5.5 L -2.5-2.5 MMOL/L Narciso Test POS Blood Gas Ventilator Setting NO Blood Gas Inspired Oxygen ROOM AIR My Orders Orders - JOAQUIN MESSINA Ua Culture If Indicated (09/19/19 19:59) Urine Bedside (09/19/19 19:59) Ed Iv/Invasive Line Start (09/19/19 20:11) Thiamine Injection (Vitamin B-1 Injectio (09/19/19 20:11) Cbc With Automated Diff (09/19/19 20:11) Hs C Reactive Protein (09/19/19 20:11) Comprehensive Metabolic Panel (09/19/19 20:11) Lipase (09/19/19 20:11) Ketorolac Injection (Toradol Injection) (09/19/19 20:15) Ondansetron Injection (Zofran Injectio (09/19/19 20:15) Blood Culture (09/19/19 21:31) Urine Culture (09/19/19 21:31) Protime With Inr (09/19/19 21:31) Partial Thromboplastin Time (09/19/19 21:31) Ed Iv/Invasive Line Start (09/19/19 21:31) Ed Iv/Invasive Line Start (09/19/19 21:31) Vital Signs Adult Sepsis Patie Q15M (09/19/19 21:31) O2 (09/19/19 21:31) Remove Rings In Anticipation O (09/19/19 21:31) Lactic Acid Analyzer (09/19/19 21:31) Lactated Ringers (Lr 1000 Ml Iv Solution (09/19/19 21:31) Ceftriaxone For Iv Use (Rocephin For I (09/19/19 21:45) Metronidazole 500mg/100ml Ivpb (Flagyl 5 (09/19/19 21:45) Promethazine Injection (Phenergan Injec (09/19/19 21:45) Fentanyl Injection (Sublimaze Injection (09/19/19 21:45) Ct Abdomen/Pelvis W (09/19/19 21:31) Magnesium (09/19/19 21:41) Alcohol (09/19/19 21:42) Salicylate (09/19/19 21:42) Acetaminophen (09/19/19 21:42) Phosphorus (09/19/19 21:45) Ed Iv/Invasive Line Start (09/19/19 21:45) D5 Ns 1000 Ml Iv Solution (Dextrose 5%/0 (09/19/19 21:45) Arterial Blood Gas (09/19/19 22:07) Iohexol Injection (Omnipaque 350 Mg/Ml 1 (09/19/19 22:30) Received Contrast (Hold Metformin- Contr (09/19/19 22:30) Ns (Ivpb) (Sodium Chloride 0.9% Ivpb Bag (09/19/19 22:30) Drug Screen Stat (Urine) (09/19/19 22:41) Medications Given in ED Current Medications Medications Dose Ordered Sig/Juan Francisco Route Start Time Stop Time Status Last Admin Dose Admin Ceftriaxone Sodium 1000 mg/ Sterile Water 10 ml @ 200 mls/hr ONCE ONCE IV 09/19/19 21:45 09/19/19 21:47 DC 09/19/19 21:54 200 MLS/HR Dextrose/Sodium Chloride 1,000 ml @ 0 mls/hr Q0M ONCE IV 09/19/19 21:45 09/19/19 21:47 DC 09/19/19 23:21 0 MLS/HR Fentanyl Citrate 50 mcg ONCE ONCE IVP 09/19/19 21:45 09/19/19 21:46 DC 09/19/19 21:55 50 MCG Iohexol 100 ml ONCE ONCE IV 09/19/19 22:30 09/19/19 22:31 DC 09/19/19 22:22 74 ML Ketorolac Tromethamine 30 mg ONCE ONCE IVP 09/19/19 20:15 09/19/19 20:16 DC 09/19/19 20:31 30 MG Lactated Ringer's 1,000 ml @ 0 mls/hr Q0M ONCE IV 09/19/19 21:31 09/19/19 21:34 DC 09/19/19 21:54 0 MLS/HR Metronidazole 100 ml @ 100 mls/hr ONCE ONCE IV 09/19/19 21:45 09/19/19 22:44 DC 09/19/19 21:55 100 MLS/HR Ondansetron HCl 8 mg ONCE ONCE IVP 09/19/19 20:15 09/19/19 20:16 DC 09/19/19 20:29 8 MG Promethazine HCl 25 mg ONCE ONCE IVP 09/19/19 21:45 09/19/19 21:46 DC 09/19/19 21:55 25 MG Sodium Chloride 100 ml ONCE ONCE IV 09/19/19 22:30 09/19/19 22:31 DC 09/19/19 22:22 80 ML Vital Signs/I&O 09/19/19 19:44 Temp 36.0 Pulse 99 Resp 19 B/P (MAP) 146/103 (117) Pulse Ox 99 O2 Delivery Room Air Blood Pressure Mean: 117 POS Progress Progress Note : Time: 20:21 Progress Note Banana bag, Toradol, Zofran and labs and urinalysis. Lipase and look for signs of more serious disorder versus a flare of her 6 years of chronic colitis. Diagnostic Imaging Diagonstic Imaging: CT (with IV contrast) Plain Films/CT/US/NM/MRI: abdomen, pelvis Comments Possible gastritis. No evidence of colitis. Diffuse hepatic steatosis, significantly progressed. Reviewed: Reviewed [place] Hawk Study, Reviewed by Me Departure Communication (Admissions) Time/Spoke to Admitting Phy: 23:20 Discussed case lab imaging findings with Dr. Paul and she agrees with admission, antibiotics, fluids and alcohol withdrawal protocol. Impression Primary Impression: Sepsis Qualified Codes: A41.9 - Sepsis, unspecified organism Additional Impressions: UTI (urinary tract infection) Qualified Codes: N30.00 - Acute cystitis without hematuria Alcoholism /alcohol abuse Gastroenteritis Disposition: 01 HOME, SELF-CARE Condition: Stable Admissions Decision to Admit Reason: Admit from ER (General) Decision to Admit/Date: Sep 19, 2019 Time/Decision to Admit Time: 23:00 Departure-Patient Inst. Referrals: ACACIA PAUL MD (PCP/Family) Primary Care Physician JOAQUIN MESSINA Sep 19, 2019 20:20 POS
[2019-09-19 20:34] LABS: BASOPHILS % (AUTO) 1 % (0-10); EOSINOPHILS # (AUTO) 0.1 10^3/uL (0.0-0.3); EOSINOPHILS % (AUTO) 2 % (0-10); HEMATOCRIT 43 % (35-52); HEMOGLOBIN 15.4 G/DL (11.5-16.0); LYMPHOCYTES # (AUTO) 1.2 X 10^3 (1.0-4.0); LYMPHOCYTES % (AUTO) 44 % (12-44); MEAN CORPUSCULAR HEMOGLOBIN 34 PG (25-34); MEAN CORPUSCULAR HGB CONC 36 G/DL (32-36); MEAN CORPUSCULAR VOLUME 95 FL (80-99); MEAN PLATELET VOLUME 10.2 FL (7.4-10.4); MONOCYTES # (AUTO) 0.5 X 10^3 (0.0-1.0); MONOCYTES % (AUTO) 17 % (0-12); NEUTROPHILS % (AUTO) 37 % (42-75); PLATELET COUNT 136 10^3/uL (130-400); RED CELL DISTRIBUTION WIDTH 12.4 % (10.0-14.5); WHITE BLOOD COUNT 2.8 10^3/uL (4.3-11.0)
[2019-09-19 21:00] LABS: ALANINE AMINOTRANSFERASE 201 U/L (0-55); ALBUMIN 4.6 GM/DL (3.2-4.5); ALKALINE PHOSPHATASE 91 U/L (40-136); BILIRUBIN,TOTAL 0.7 MG/DL (0.1-1.0); BUN/CREATININE RATIO 5; CARBON DIOXIDE 17 MMOL/L (21-32); CHLORIDE 90 MMOL/L (98-107); CREATININE SERUM 0.63 MG/DL (0.60-1.30); GFR ESTIMATED > 60; GLUCOSE 76 MG/DL (70-105); LIPASE 131 U/L (8-78); POTASSIUM 3.5 MMOL/L (3.6-5.0); SODIUM 128 MMOL/L (135-145); TOTAL PROTEIN 7.3 GM/DL (6.4-8.2)
[2019-09-19 21:14] LABS: BILIRUBIN,URINE NEGATIVE (NEGATIVE); CLARITY,URINE CLEAR; COLOR,URINE YELLOW; GLUCOSE, URINE (UA) 1+ (NEGATIVE); KETONES,URINE TRACE (NEGATIVE); LEUKOCYTE ESTERASE ,URINE NEGATIVE (NEGATIVE); NITRITE,URINE NEGATIVE (NEGATIVE); PROTEIN,URINE NEGATIVE (NEGATIVE)
[2019-09-19] MEDS ORDERED: LACTATED RINGERS 1,000 ML IV ONE (21:31)
[2019-09-19 21:34] LABS: RBC,URINE RARE /HPF
[2019-09-19 21:35] LABS: BACTERIA,URINE MODERATE /HPF
[2019-09-19] MEDS ORDERED: fentaNYL INJECTION 100 MCG/2 ML AMP IVP ONE (21:45)
[2019-09-19] MEDS ORDERED: D5 NS 1000 ML IV SOLUTION 1,000 ML IV ONE (21:45)
[2019-09-19] MEDS ORDERED: PROMETHAZINE INJ 25 MG/ML (PHENERGAN) AMP IVP ONE (21:45)
[2019-09-19] MEDS ORDERED: metroNIDAZOLE 500MG/100ML IVPB 100 ML IV ONE (21:45)
[2019-09-19] MEDS ORDERED: cefTRIAXone FOR IV USE 1,000 MG in WATER (STERILE) FOR INJECTION 10 ML IV ONE (21:45)
[2019-09-19 22:00] LABS: SALICYLATE < 5.0 MG/DL (5.0-20.0)
[2019-09-19 22:04] LABS: PROTHROMBIN TIME PATIENT 14.1 SEC (12.2-14.7)
[2019-09-19 22:06] LABS: ACETAMINOPHEN < 10 UG/ML (10-30)
[2019-09-19 22:15] LABS: ABG BASE EXCESS -5.5 MMOL/L (-2.5-2.5); ABG OXYGEN SATURATION 95 % (94-100); ABG PCO2 34 MMHG (35-45); ABG PH 7.37 (7.37-7.43); ABG PO2 79 MMHG (79-93); ABG TCO2 19.9 MMOL/L (21.0-31.0)
[2019-09-19 22:21] LABS: ALLENS TEST POS
[2019-09-19 22:22] LABS: INSPIRED O2 ROOM AIR; PATIENT TEMP 36.7; VENTILATOR NO
[2019-09-19] MEDS ORDERED: IOHEXOL 350 MG/ML 100 ML (OMNIPAQUE 350) VIAL IV ONE (22:30)
[2019-09-19] MEDS ORDERED: HOLD METFORMIN - RECEIVED CONTRAST 20 ML VIAL IV SCH (22:30)
[2019-09-19] MEDS ORDERED: NS 100 ML (IVPB) BAG IV ONE (22:30)
--- NOTE | 2019-09-20 00:30 | NUR ---
MAIRA RAY admitted to room 432-1, with an admitting diagnosis of UTI, on 09/19/19 from ED via WHEELCHAIR, accompanied by STAFF.MAIRA RAY introduced to surroundings, call light, bed controls, phone, TV, temperature control, lights, meal times, smoking policy, visitor policy, side rail policy, bathrooms and showers. Patient Rights given to patient in the handbook. MAIRA RAY verbalizes understanding that [facility] is not responsible for the loss or damage to any personal effects or valuables that are kept in the patients posession during their hospitalization.
[2019-09-20] MEDS ORDERED: 1/2 NS IV SOLUTION 1,000 ML IV PRN (00:33)
[2019-09-20] MEDS ORDERED: ONDANSETRON 4 MG (ZOFRAN) ORAL DISSOLVE TAB SL PRN (00:45)
[2019-09-20] MEDS ORDERED: LORazepam INJ 2 MG/ML (ATIVAN) VIAL IM/IV PRN (00:45)
[2019-09-20] MEDS ORDERED: ANTACID SUSP 30 ML UDC (MYLANTA) PO PRN (00:45)
[2019-09-20] MEDS ORDERED: SENNA W/DOCUSATE (SENOKOT S) TABLET PO PRN (00:45)
[2019-09-20] MEDS ORDERED: PROMETHAZINE INJ 25 MG/ML (PHENERGAN) AMP IV PRN (00:45)
[2019-09-20] MEDS ORDERED: fentaNYL INJECTION 100 MCG/2 ML AMP IV PRN (00:45)
[2019-09-20] MEDS ORDERED: LACTATED RINGERS 1,000 ML IV SCH (00:45)
[2019-09-20] MEDS ORDERED: LORazepam INJ 2 MG/ML (ATIVAN) VIAL IV PRN (00:45)
[2019-09-20] MEDS ORDERED: D5 1/2 NS 1000 ML IV SOLUTION 1,000 ML IV PRN (00:45)
[2019-09-20] MEDS ORDERED: ONDANSETRON 4 MG/2 ML (SDV) Z0FRAN IV PRN ×2 (00:45)
--- NOTE | 2019-09-20 01:00 | NUR ---
LACTIC ACID 2.94. DR. WHITFIELD NOTIFIED. ORDER TO CHANGE FLUIDS TO NS AT 150ML/HR AND REPEAT LACTIC ACID WITH AM LABS.
[2019-09-20] MEDS ORDERED: NS IV 1000 ML 1,000 ML ONE (01:03)
[2019-09-20] MEDS: NS IV 1000 ML 1,000 ML IV SCH ×4 (01:21→21:05)
[2019-09-20 02:23] VITALS: BP 111/70
[2019-09-20 03:51] LABS: AMPHETAMINE SCREEN, URINE NEGATIVE (NEGATIVE); BARBITURATE SCREEN URINE NEGATIVE (NEGATIVE); BENZODIAZEPINES SCREEN URINE NEGATIVE (NEGATIVE); CANNABINOID SCREEN, URINE NEGATIVE (NEGATIVE); COCAINE SCREEN URINE NEGATIVE (NEGATIVE); METHADONE STAT NEGATIVE (NEGATIVE); METHAMPHETAMINE SCREEN URINE S NEGATIVE (NEGATIVE); OPIATE SCREEN URINE NEGATIVE (NEGATIVE); OXYCODONE STAT NEGATIVE (NEGATIVE); PROPOXYPHENE STAT NEGATIVE (NEGATIVE); TRICYCLIC ANTIDEPRESSANTS SCRE NEGATIVE (NEGATIVE)
[2019-09-20 04:00] VITALS: BP 103/67
[2019-09-20] MEDS: THIAMINE 100 MG (VITAMIN B-1) TAB PO SCH (05:03)
[2019-09-20] MEDS: MULTIVIT W/MINERALS TAB (THERAGRAN M) PO SCH (05:03)
[2019-09-20] MEDS: CEFEPIME 1,000 MG/SWFI 10 ML IV PUSH IV SCH ×6 (05:04→17:19)
[2019-09-20] MEDS: LORazepam 1 MG (ATIVAN) TAB PO PRN ×4 (05:09→21:04)
--- NOTE | 2019-09-20 06:07 | Diagnostic Imaging Report ---
PROCEDURE: CT abdomen and pelvis with contrast. TECHNIQUE: Multiple contiguous axial images were obtained through the abdomen and pelvis after administration of intravenous contrast. Auto Exposure Controls were utilized during the CT exam to meet ALARA standards for radiation dose reduction. INDICATION: Abdominal pain. COMPARISON: 01/28/2015 FINDINGS: The visualized lung bases are clear. Tiny hiatal hernia. The liver demonstrates significantly decreased density throughout without focal hepatic mass. The spleen is unremarkable. The adrenal glands are unremarkable. The pancreas is unremarkable. The gallbladder is at the upper limits of normal in size though is otherwise unremarkable. The kidneys are unremarkable. No aneurysmal dilatation of the abdominal aorta. The appendix is unremarkable. The urinary bladder is distended, though otherwise unremarkable. Fluid-filled loops of large and small bowel are noted. No evidence of bowel obstruction or pneumatosis. The uterus and adnexal structures are unremarkable. No significant adenopathy, free air, or free fluid within the abdomen or pelvis. No acute osseous abnormality. IMPRESSION: Fluid-filled loops of large and small bowel, which may relate to underlying diarrheal state/gastroenteritis. Significant fatty infiltration of the liver, significantly progressed since 2014. Urinary bladder is significantly distended. Agree with preliminary interpretation. Dictated by: Dictated on workstation # [id number]
[2019-09-20 06:21] LABS: BASOPHILS % (AUTO) 0 % (0-10); EOSINOPHILS % (AUTO) 1 % (0-10); HEMATOCRIT 41 % (35-52); HEMOGLOBIN 14.3 G/DL (11.5-16.0); LYMPHOCYTES # (AUTO) 0.5 X 10^3 (1.0-4.0); LYMPHOCYTES % (AUTO) 20 % (12-44); MEAN CORPUSCULAR HEMOGLOBIN 34 PG (25-34); MEAN CORPUSCULAR HGB CONC 35 G/DL (32-36); MEAN CORPUSCULAR VOLUME 96 FL (80-99); MEAN PLATELET VOLUME 10.6 FL (7.4-10.4); MONOCYTES # (AUTO) 0.3 X 10^3 (0.0-1.0); MONOCYTES % (AUTO) 14 % (0-12); NEUTROPHILS # (AUTO) 1.4 X 10^3 (1.8-7.8); NEUTROPHILS % (AUTO) 64 % (42-75); PLATELET COUNT 125 10^3/uL (130-400); RED CELL DISTRIBUTION WIDTH 12.6 % (10.0-14.5); WHITE BLOOD COUNT 2.3 10^3/uL (4.3-11.0)
[2019-09-20 06:33] LABS: ALANINE AMINOTRANSFERASE 174 U/L (0-55); ALBUMIN 3.9 GM/DL (3.2-4.5); ALKALINE PHOSPHATASE 75 U/L (40-136); BILIRUBIN,TOTAL 0.9 MG/DL (0.1-1.0); BUN/CREATININE RATIO 5; CARBON DIOXIDE 19 MMOL/L (21-32); CHLORIDE 107 MMOL/L (98-107); CREATININE SERUM 0.62 MG/DL (0.60-1.30); GFR ESTIMATED > 60; GLUCOSE 88 MG/DL (70-105); POTASSIUM 3.9 MMOL/L (3.6-5.0); SODIUM 137 MMOL/L (135-145)
[2019-09-20] MEDS: KETOROLAC 15 MG/ML VIAL IV PRN ×2 (07:39→21:04)
[2019-09-20 08:00] VITALS: BP 105/68
--- NOTE | 2019-09-20 08:38 | History & Physical ---
History of Present Illness History of Present Illness Reason for visit/HPI PT IS A 39 Y/O FEMALE WHO IS KNOWN TO ME FROM CLINIC A NEW PATIENT IN THE PAST FEW MONTHS. MAIRA HAS A LONG HISTORY OF ALCOHOLISM AND HAD ABOUT 4 MONTHS OF SOBRIETY PRIOR TO HER RECENT RELAPSE. SHE REPORTS THAT A FAMILY MEMBER WHO WAS LIKE A FATHER TO HER FROM LIVER CANCER RECENTLY AND SHE WAS FEELING SAD AND HAVING PAIN FROM HER GASTROINTESTINAL ISSUES SO SHE STARTED TO DRINK AGAIN A WAY TO ESCAPE HER PHYSICAL AND EMOTIONAL PAIN. SHE WAS IN [facility] SEEKING REHAB LAST WEEK, BUT WAS GIVEN THE OPTION OF ADMISSION TO INPATIENT PSYCH SERVICES AND SHE LEFT [facility]. SHE REPORTS THAT SHE PRESENTED TO THIS HOSPITAL DUE TO PERSISTENT GI UPSET, NAUSEA, EMESIS AND WANTING TO DETOX. Date of Admission Sep 19, 2019 at 23:35 Date Seen by a Provider: Sep 20, 2019 Time Seen by a Provider: 08:30 I consulted on this patient on 09/20/19 08:38 Attending Physician Acacia Paul MD Admitting Physician Acacia Paul MD Consult Allergies and Home Medications Allergies Coded Allergies: Penicillins (Verified Allergy, Unknown, 01/28/15) morphine (Verified Adverse Reaction, Mild, DID NOT TOLERATE WELL IN ED ON MONDAY., 12/04/12) DOES NOT LIKE THE FEELING IT GIVES HER. Home Medications Cyanocobalamin (Vitamin B-12) 1,000 Mcg Tablet, 1,000 MCG PO DAILY, (Reported) Escitalopram Oxalate 10 Mg Tablet, 10 MG PO DAILY, (Reported) Multivitamin 1 Each Tablet, 1 TAB PO DAILY, (Reported) Pantoprazole Sodium 40 Mg Tablet.dr, 40 MG PO DAILY, (Reported) LAST FILLED #30 07-01-19 Trazodone HCl 150 Mg Tablet, 150 MG PO HS PRN for SLEEP, (Reported) Zinc Amino Acid Chelate 50 Mg Tablet, 50 MG PO DAILY, (Reported) Patient Home Medication List Home Medication List Reviewed: Yes Past Dpdegfk-Vpeyqk-Tjozih Hx Past Med/Social Hx: Reviewed Nursing Past Med/Soc Hx, Reviewed and Corrections made Patient Social History Marrital Status: Number of Children: 2 Number of living children: 2 Living Status: LIVES IN [place], DOES NOT HAVE CUSTODY OF HER KIDS Employed/Student: employed Alcohol Use: Regular Use Number of Drinks Today: AA Alcohol Beverage of Choice: Beer Recreational Drug Use: No Smoking Status: Current Everyday Smoker Type Used: Cigarettes 2nd Hand Smoke Exposure: Yes Physical Abuse Screen: No Sexual Abuse: No Recent Foreign Travel: No Contact w/other who traveled: No Recent Hopitalizations: Yes Recent Infectious Disease Expo: No Social History , HAS 2 KIDS, LIVES IN [facility] ALONE, DOES NOT HAVE CUSTODY OF HER KIDS, HAS VISITATION WITH HER KIDS, SMOKES, EXCESSIVE ALCOHOL INTAKE 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 Immunizations Up To Date Tetanus Booster (TDap): Unknown Pediatric: No Date of Influenza Vaccine: Jul 21, 2018 Seasonal Allergies Seasonal Allergies: Yes Past Medical History Surgeries: Orthopedic, Tonsillectomy Currently Using CPAP: No Currently Using BIPAP: No : No Sexually Transmitted Disease: No HIV/AIDS: No Female Reproductive Disorders: Denies Gastrointestinal: Colitis, Gastroesophageal Reflux, Irritable Bowel Musculoskeletal: Fractures Are Your Blood Sugars Over 250: No Loss of Vision: Denies Hearing Impairment: Denies Did You Recieve Any Treatments: No Psychosocial: Anxiety, Depression History of Blood Disorders: No Adverse Reaction to Blood Candelario: No Family History Reviewed and Corrections made Patient reports no known family medical history. Cancer (UNCLE PASSED FROM HEPATOCELLULAR CA), Hypertension Review of Systems Constitutional: No chills, No fever, No malaise; weakness EENTM: No hoarseness, No throat pain Respiratory: No cough, No dyspnea on exertion, No short of breath Cardiovascular: No chest pain, No palpitations Gastrointestinal: RUQ, LUQ, RLQ, LLQ, abdominal pain, diarrhea; No loss of appetite; nausea; No vomiting Genitourinary: no symptoms reported : No Control/STD Prophylaxis: None Musculoskeletal: No back pain, No muscle pain, No muscle stiffness, No muscle weakness Skin: no symptoms reported Psychiatric/Neurological: Anxiety, Depressed, Tremors All Other Systems Reviewed Negative Unless Noted: Yes Physical Exam Vital Signs Vital Signs - First Documented 09/19/19 19:44 Temp 36.0 Pulse 99 Resp 19 B/P (MAP) 146/103 (117) Pulse Ox 99 O2 Delivery Room Air Capillary Refill : Less Than 3 Seconds Height, Weight, BMI Height: 5'4.00" Weight: 132lbs. 1.8oz. [id number]; 22.69 BMI Method:Stated General Appearance: No Apparent Distress, WD/WN, Other (SMELLS OF SMOKE) Eyes: Bilateral Eye Normal Inspection, Bilateral Eye PERRL, Bilateral Eye EOMI HEENT: PERRL/EOMI, Pharynx Normal Neck: Full Range of Motion, Non Tender, Supple Respiratory: Chest Non Tender, Lungs Clear, Normal Breath Sounds, No Accessory Muscle Use, No Respiratory Distress Cardiovascular: Regular Rate, Rhythm, No Edema, Systolic Murmur (PREVIOUSLY KNOWN) Gastrointestinal: Normal Bowel Sounds, No Pulsatile Mass, Non Tender, Soft Rectal: Deferred Back: Normal Inspection Extremity: Normal Capillary Refill, Non Tender, No Calf Tenderness, No Pedal Edema Neurologic/Psychiatric: Alert, Oriented x3, No Motor/Sensory Deficits, Normal Mood/Affect, manager portable II-XII Norm as Tested Skin: Normal Color, Warm/Dry Lymphatic: No Adenopathy Assessment/Plan Assessment and Plan ACUTE LIVER FAILURE ELEVATED LIVER ENZYMES ELEVATED LIPASE ALCOHOLISM TOBACCOISM DEPRESSION ANXIETY COLITIS - UNSPECIFIED LEUKOPENIA ACUTE LIVER FAILURE WITH ELEVATED LIVER ENZYMES AND ELEVATED LIPASE DUE TO CHRONIC AND ACUTE ALCOHOLISM - PT HAS RELAPSED ON HER ALCOHOL INTAKE. WE WILL OFFER SUPPORTIVE CARE WITH DETOXIFICATION. - WE HAVE INITIATED A REFERRAL TO DR. TORO IN [place] FOR GASTROINTESTINAL EVALUATION OF HER CHRONIC COLITIS AND LIVER DYSFUNCTION. TOBACCOISM - WILL OFFER NICOTINE REPLACEMENT WITH PATCHES. DEPRESSION - RESTART GENERIC LEXAPRO ANXIETY - SUPPORTIVE CARE ONLY AT THIS TIME - PT ON DETOX PROTOCOL WITH ATIVAN COLITIS - UNSPECIFIED - REFERRAL TO DR. TORO OUTPATIENT. LEUKOPENIA - REPEAT LABS IN MORNING - REVIEW OF HER PREVIOUS LABS SHOW THAT THIS HAS BEEN A PROBLEM SINCE 2018 WITH A LOW WHITE COUNT OF 1.6, MAY BE DUE TO HER CHRONIC ALCOHOLISM. - WE WILL CHECK A PERIPHERAL SMEAR WHILE SHE IS IN THE HOSPITAL. INSOMNIA - PT IS ON TRAZODONE - SINCE THIS IS HEPATICALLY METABOLIZED, WE WILL DECREASE HER PRN DOSE TO 1/2 OF HER USUAL DOSING REGIMEN. LABS TO BE REPEATED TOMORROW MORNING AND MONDAY MORNING. THE PATIENT HAS INDICATED THAT IF POSSIBLE, SHE WOULD LIKE TO BE DISCHARGED TO HOME ON MONDAY SO THAT SHE CAN GO TO HER JOB Monday. I HAVE INFORMED MAIRA THAT IF HER LABS ARE BETTER, THAT MAY BE A POSSIBILITY, HOWEVER IF HER LFTS CONTINUE TO RISE, SHE MAY BE KEPT IN THE HOSPITAL OR POTENTIALLY TRANSFERRED TO [place] WHERE THERE IS A GI SPECIALIST. I HAVE ORDERED CMP, LIPASE, CBC FOR MONDAY MORNING, AND PERIPHERAL SMEAR TODAY TO FURTHER INVESTIGATE HER CHRONICALLY SUPPRESSED WBC'S. Admission Diagnosis ACUTE LIVER FAILURE ELEVATED LIVER ENZYMES ELEVATED LIPASE ALCOHOLISM TOBACCOISM DEPRESSION ANXIETY COLITIS - UNSPECIFIED LEUKOPENIA Admission Status: Inpatient Order (span 2 midnights) Reason for Inpatient Admission: INPATIENT ADMISSION FOR ACUTE HEPATIC FAILURE WITH LFT'S IN THE 200'S, ALCOHOLISM WITH NEED FOR DETOX, NAUSEA WITH EMESIS Lab results: Laboratory Tests Test 09/19/19 20:23 09/19/19 20:27 09/19/19 21:05 09/19/19 21:10 Range/Units Phosphorus Level 3.2 2.3-4.7 MG/DL Magnesium Level 1.9 1.6-2.4 MG/DL Salicylates Level < 5.0 L 5.0-20.0 MG/DL Acetaminophen Level < 10 L 10-30 UG/ML Serum Alcohol 284 H <10 MG/DL White Blood Count 2.8 L 4.3-11.0 10^3/uL Red Blood Count 4.49 4.35-5.85 10^6/uL Hemoglobin 15.4 11.5-16.0 G/DL Hematocrit 43 35-52 % Mean Corpuscular Volume 95 80-99 FL Mean Corpuscular Hemoglobin 34 25-34 PG Mean Corpuscular Hemoglobin Concent 36 32-36 G/DL Red Cell Distribution Width 12.4 10.0-14.5 % Platelet Count 136 130-400 10^3/uL Mean Platelet Volume 10.2 7.4-10.4 FL Neutrophils (%) (Auto) 37 L 42-75 % Lymphocytes (%) (Auto) 44 12-44 % Monocytes (%) (Auto) 17 H 0-12 % Eosinophils (%) (Auto) 2 0-10 % Basophils (%) (Auto) 1 0-10 % Neutrophils # (Auto) 1.0 L 1.8-7.8 X 10^3 Lymphocytes # (Auto) 1.2 1.0-4.0 X 10^3 Monocytes # (Auto) 0.5 0.0-1.0 X 10^3 Eosinophils # (Auto) 0.1 0.0-0.3 10^3/uL Basophils # (Auto) 0.0 0.0-0.1 10^3/uL Sodium Level 128 L 135-145 MMOL/L Potassium Level 3.5 L 3.6-5.0 MMOL/L Chloride Level 90 L 98-107 MMOL/L Carbon Dioxide Level 17 L 21-32 MMOL/L Anion Gap 21 H 5-14 MMOL/L Blood Urea Nitrogen 3 L 7-18 MG/DL Creatinine 0.63 0.60-1.30 MG/DL Estimat Glomerular Filtration Rate > 60 BUN/Creatinine Ratio 5 Glucose Level 76 70-105 MG/DL Calcium Level 9.0 8.5-10.1 MG/DL Corrected Calcium 8.5-10.1 MG/DL Total Bilirubin 0.7 0.1-1.0 MG/DL Aspartate Amino Transf (AST/SGOT) 244 H 5-34 U/L Alanine Aminotransferase (ALT/SGPT) 201 H 0-55 U/L Alkaline Phosphatase 91 40-136 U/L C-Reactive Protein High Sensitivity 0.07 0.00-0.50 MG/DL Total Protein 7.3 6.4-8.2 GM/DL Albumin 4.6 H 3.2-4.5 GM/DL Lipase 131 H 8-78 U/L Urine Color YELLOW Urine Clarity CLEAR Urine pH 6.0 5-9 Urine Specific [place] <=1.005 1.016-1.022 Urine Protein NEGATIVE NEGATIVE Urine Glucose (UA) 1+ H NEGATIVE Urine Ketones TRACE H NEGATIVE Urine Nitrite NEGATIVE NEGATIVE Urine Bilirubin NEGATIVE NEGATIVE Urine Urobilinogen 0.2 < = 1.0 MG/DL Urine Leukocyte Esterase NEGATIVE NEGATIVE Urine RBC (Auto) NEGATIVE NEGATIVE Urine RBC RARE /HPF Urine WBC 5-10 H /HPF Urine Squamous Epithelial Cells 2-5 /HPF Urine Crystals NONE /LPF Urine Bacteria MODERATE H /HPF Urine Casts NONE /LPF Urine Mucus NEGATIVE /LPF Urine Culture Indicated CULTURE PENDING Urine Opiates Screen NEGATIVE NEGATIVE Urine Oxycodone Screen NEGATIVE NEGATIVE Urine Methadone Screen NEGATIVE NEGATIVE Urine Propoxyphene Screen NEGATIVE NEGATIVE Urine Barbiturates Screen NEGATIVE NEGATIVE Ur Tricyclic Antidepressants Screen NEGATIVE NEGATIVE Urine Phencyclidine Screen NEGATIVE NEGATIVE Urine Amphetamines Screen NEGATIVE NEGATIVE Urine Methamphetamines Screen NEGATIVE NEGATIVE Urine Benzodiazepines Screen NEGATIVE NEGATIVE Urine Cocaine Screen NEGATIVE NEGATIVE Urine Cannabinoids Screen NEGATIVE NEGATIVE Prothrombin Time 14.1 12.2-14.7 SEC INR Comment 1.0 0.8-1.4 Activated Partial Thromboplast Time 43 H 24-35 SEC Test 09/19/19 21:30 09/19/19 22:06 09/20/19 00:20 09/20/19 05:55 Range/Units Lactic Acid Level 2.82 *H 2.94 *H 0.75 0.50-2.00 MMOL/L Blood Gas Puncture Site RT RAD Blood Gas Patient Temperature 36.7 Arterial Blood pH 7.37 7.37-7.43 Arterial Blood Partial Pressure CO2 34 L 35-45 MMHG Arterial Blood Partial Pressure O2 79 79-93 MMHG Arterial Blood HCO3 19 L 23-27 MMOL/L Arterial Blood Total CO2 19.9 L 21.0-31.0 MMOL/L Arterial Blood Oxygen Saturation 95 94-100 % Arterial Blood Base Excess -5.5 L -2.5-2.5 MMOL/L Narciso Test POS Blood Gas Ventilator Setting NO Blood Gas Inspired Oxygen ROOM AIR White Blood Count 2.3 L 4.3-11.0 10^3/uL Red Blood Count 4.26 L 4.35-5.85 10^6/uL Hemoglobin 14.3 11.5-16.0 G/DL Hematocrit 41 35-52 % Mean Corpuscular Volume 96 80-99 FL Mean Corpuscular Hemoglobin 34 25-34 PG Mean Corpuscular Hemoglobin Concent 35 32-36 G/DL Red Cell Distribution Width 12.6 10.0-14.5 % Platelet Count 125 L 130-400 10^3/uL Mean Platelet Volume 10.6 H 7.4-10.4 FL Neutrophils (%) (Auto) 64 42-75 % Lymphocytes (%) (Auto) 20 12-44 % Monocytes (%) (Auto) 14 H 0-12 % Eosinophils (%) (Auto) 1 0-10 % Basophils (%) (Auto) 0 0-10 % Neutrophils # (Auto) 1.4 L 1.8-7.8 X 10^3 Lymphocytes # (Auto) 0.5 L 1.0-4.0 X 10^3 Monocytes # (Auto) 0.3 0.0-1.0 X 10^3 Eosinophils # (Auto) 0.0 0.0-0.3 10^3/uL Basophils # (Auto) 0.0 0.0-0.1 10^3/uL Sodium Level 137 135-145 MMOL/L Potassium Level 3.9 3.6-5.0 MMOL/L Chloride Level 107 98-107 MMOL/L Carbon Dioxide Level 19 L 21-32 MMOL/L Anion Gap 11 5-14 MMOL/L Blood Urea Nitrogen 3 L 7-18 MG/DL Creatinine 0.62 0.60-1.30 MG/DL Estimat Glomerular Filtration Rate > 60 BUN/Creatinine Ratio 5 Glucose Level 88 70-105 MG/DL Calcium Level 8.0 L 8.5-10.1 MG/DL Corrected Calcium 8.1 L 8.5-10.1 MG/DL Total Bilirubin 0.9 0.1-1.0 MG/DL Aspartate Amino Transf (AST/SGOT) 260 H 5-34 U/L Alanine Aminotransferase (ALT/SGPT) 174 H 0-55 U/L Alkaline Phosphatase 75 40-136 U/L Total Protein 6.0 L 6.4-8.2 GM/DL Albumin 3.9 3.2-4.5 GM/DL My orders: Orders - ACACIA PAUL MD Admission Order(Inpt,Obs,Sdc) (09/20/19 00:31) Code/Resuscitation (09/20/19 00:31) Initiate Admission Nursing Pro .admission (09/20/19 00:31) Isolation Central Supply Req (09/20/19 00:31) General/Regular (09/20/19 Breakfast) Activity (09/20/19 00:31) Cbc With Automated Diff (09/20/19 06:00) Comprehensive Metabolic Panel (09/20/19 06:00) Thiamine Tablet (Vitamin B-1 Tablet) (09/20/19 07:00) Magnesium Oxide Tablet (Mag Ox Tablet) (09/20/19 09:00) Therapeutic Multivitamin Tab (Vitamins, (09/20/19 07:00) Folic Acid Tablet (Folic Acid Tablet) (09/20/19 09:00) Lorazepam Tablet (Ativan Tablet) (09/20/19 00:45) Lorazepam Injection (Ativan Injection) (09/20/19 00:45) Lorazepam Injection (Ativan Injection) (09/20/19 00:45) D5 1/2 Ns 1000 Ml Iv Solution (Dextrose (09/20/19 00:45) 1/2 Ns Iv Solution (0.45% Sodium Chlorid (09/20/19 00:33) Antacid Suspension (Mylanta Suspension (09/20/19 00:45) Senna S Tablet (Senokot S Tablet) (09/20/19 00:45) Ondansetron Injection (Zofran Injectio (09/20/19 00:45) Ondansetron Oral Dissolve Tab (Zofran (09/20/19 00:45) Lactated Ringers (Lr 1000 Ml Iv Solution (09/20/19 00:45) Ondansetron Injection (Zofran Injectio (09/20/19 00:45) Promethazine Injection (Phenergan Injec (09/20/19 00:45) Ketorolac Injection (Toradol Injection) (09/20/19 00:45) Fentanyl Injection (Sublimaze Injection (09/20/19 00:45) Cefepime Injection (Maxipime Injection) (09/20/19 06:00) Lactic Acid Analyzer (09/20/19 00:20) Lactic Acid Analyzer (09/20/19 06:00) Ns Iv 1000 Ml (Sodium Chloride 0.9%) (09/20/19 01:15) Ambulate 08,12,20 (09/20/19 01:18) Sequential Compression Device Q4H (09/20/19 01:18) Dvt/Vte Risk - Notifiy Physici Q4H (09/20/19 01:18) Ns Iv 1000 Ml (Sodium Chloride 0.9%) (09/20/19 01:03) Enoxaparin Injection (Lovenox Injection) (09/20/19 09:45) Sequential Compression Device Q4H (09/20/19 09:39) Pantoprazole Tablet (Protonix Tablet) (09/21/19 09:00) Trazodone Tablet (Desyrel Tablet) (09/20/19 09:45) (Nf) Escitalopram Oxalate (09/21/19 09:00) Lipase (09/20/19 10:00) Comprehensive Metabolic Panel (09/21/19 05:00) Comprehensive Metabolic Panel (09/22/19 05:00) Lipase (09/21/19 05:00) Cbc With Automated Diff (09/21/19 05:00) Cbc With Automated Diff (09/22/19 05:00) Smear For Path Review (09/20/19 10:00) Clinical Quality Measures DVT/VTE Risk/Contraindication: Risk Factor Score Per Nursin RFS Level Per Nursing on Admit: 4+=Very High ACACIA PAUL MD Sep 20, 2019 08:38 POS
--- NOTE | 2019-09-20 09:10 | NUR ---
prior to a.m. medications pulse was 90 and b/p was 105/68
[2019-09-20] MEDS: FOLIC ACID 1 MG TAB PO SCH (09:12)
[2019-09-20] MEDS: MAGNESIUM OXIDE (MAG-OX)400 MG TAB PO SCH ×2 (09:12→21:04)
[2019-09-20] MEDS ORDERED: ZINC50TA51 PO (09:18)
[2019-09-20] MEDS ORDERED: TRAZ150T72 PO (09:18)
[2019-09-20] MEDS ORDERED: MULT1TAB69 PO (09:18)
[2019-09-20] MEDS ORDERED: CYAN-41 PO (09:18)
[2019-09-20] MEDS ORDERED: PANT40TA3 PO (09:18)
[2019-09-20] MEDS ORDERED: ESCI10TA55 PO (09:18)
--- NOTE | 2019-09-20 09:19 | NUR ---
SPOKE WITH THE PATIENT ABOUT HER MEDICATIONS. WE WENT OVER THE EXT MED HX AND SHE VERIFIED HOW SHE TAKES THEM. SHE NO LONGER TAKING THE VIBERZI OR FLUVOXAMINE. SHE STATES SHE DOES TRY TO TAKE HER PROTONIX DAILY HOWEVER SHE ADMITS SHE FORGETS IT SOMETIMES, I NOTED THE PAST DUE FILL DATE ON THE MED REC. SHE TAKES MTV, VITAMIN B12, AND ZINC OTC DAILY.
[2019-09-20] MEDS ORDERED: traZODone 150 MG (DESYREL) TABLET PO PRN (09:45)
--- NOTE | 2019-09-20 09:46 | NUR ---
CM/SS visited patient to assess for needs upon discharge. Plan: The patient will return home when able to discharge. Patient will contact [facility] outpatient drug/alcohol addiction treatment services (information and phone number given to patient). Summary: The patient reports that she is seeking outpatient alcohol treatment services. The patient verbalized that she has previously been to the [facility] and thought the services were "alright" but she is not wanting to take off work for inpatient treatment. The patient is already set up with her own AA group and has a sponsor. The patient took the information on [facility] addition treatment services. CM/SS asked if she wanted us to make an appointment for her. She stated it would be better once she knows her schedule. The patient is currently employed and has Medicaid as her insurance. The patient verbalized that she has good support with family that lives in [place]. The patient stated that her PCP is Judit Paul. The patient reports that she is feeling better today. There are no other needs at this time. Will continue to follow.
[2019-09-20 10:18] LABS: HEMATOCRIT 41 % (35-52); HEMOGLOBIN 14.3 G/DL (11.5-16.0); MEAN CORPUSCULAR HEMOGLOBIN 34 PG (25-34); MEAN CORPUSCULAR HGB CONC 35 G/DL (32-36); MEAN CORPUSCULAR VOLUME 96 FL (80-99); RED CELL DISTRIBUTION WIDTH 12.6 % (10.0-14.5); WHITE BLOOD COUNT 2.3 10^3/uL (4.3-11.0)
[2019-09-20 10:19] LABS: BASOPHILS % (AUTO) 0 % (0-10); EOSINOPHILS % (AUTO) 1 % (0-10); LYMPHOCYTES # (AUTO) 0.5 X 10^3 (1.0-4.0); LYMPHOCYTES % (AUTO) 20 % (12-44); MEAN PLATELET VOLUME 10.6 FL (7.4-10.4); MONOCYTES # (AUTO) 0.3 X 10^3 (0.0-1.0); MONOCYTES % (AUTO) 14 % (0-12); NEUTROPHILS # (AUTO) 1.4 X 10^3 (1.8-7.8); NEUTROPHILS % (AUTO) 64 % (42-75); PLATELET COUNT 125 10^3/uL (130-400)
[2019-09-20] MEDS: ENOXAPARIN 40 MG/0.4 ML (LOVENOX) SYR SC SCH (10:20)
[2019-09-20 10:26] LABS: ABSOLUTE RETIC # 60 10e9/L (24-90)
[2019-09-20 11:06] LABS: BAND NEUTROPHILS 0 %; BASOPHILS % (MANUAL) 2 %; EOSINOPHILS % (MANUAL) 0 %; LYMPHOCYTES % (MANUAL) 36 %; MONOCYTES % (MANUAL) 10 %; NEUTROPHILS % (MANUAL) 52 %; RBC MORPH NORMAL
[2019-09-20 12:00] VITALS: BP 93/55
[2019-09-20 16:00] VITALS: BP 109/74
[2019-09-20 20:23] VITALS: BP 104/59
[2019-09-21] VITALS (7 sets, daily range): BP systolic 106–150; BP diastolic 72–82
[2019-09-21] MEDS: CEFEPIME 1,000 MG/SWFI 10 ML IV PUSH IV SCH ×10 (01:48→23:50)
[2019-09-21] MEDS: KETOROLAC 15 MG/ML VIAL IV PRN (04:17)
[2019-09-21] MEDS: LORazepam 1 MG (ATIVAN) TAB PO PRN ×3 (04:17→21:52)
[2019-09-21] MEDS: NS IV 1000 ML 1,000 ML IV SCH ×4 (04:21→23:45)
[2019-09-21 04:59] LABS: BASOPHILS % (AUTO) 1 % (0-10); EOSINOPHILS % (AUTO) 2 % (0-10); HEMATOCRIT 40 % (35-52); HEMOGLOBIN 13.7 G/DL (11.5-16.0); LYMPHOCYTES # (AUTO) 0.9 X 10^3 (1.0-4.0); LYMPHOCYTES % (AUTO) 51 % (12-44); MEAN CORPUSCULAR HEMOGLOBIN 33 PG (25-34); MEAN CORPUSCULAR HGB CONC 34 G/DL (32-36); MEAN CORPUSCULAR VOLUME 98 FL (80-99); MEAN PLATELET VOLUME 10.3 FL (7.4-10.4); MONOCYTES # (AUTO) 0.4 X 10^3 (0.0-1.0); MONOCYTES % (AUTO) 20 % (0-12); NEUTROPHILS # (AUTO) 0.5 X 10^3 (1.8-7.8); NEUTROPHILS % (AUTO) 27 % (42-75); PLATELET COUNT 99 10^3/uL (130-400); RED CELL DISTRIBUTION WIDTH 13.2 % (10.0-14.5); WHITE BLOOD COUNT 1.8 10^3/uL (4.3-11.0)
[2019-09-21 05:21] LABS: ALANINE AMINOTRANSFERASE 142 U/L (0-55); ALBUMIN 3.6 GM/DL (3.2-4.5); ALKALINE PHOSPHATASE 67 U/L (40-136); BILIRUBIN,TOTAL 0.6 MG/DL (0.1-1.0); BUN/CREATININE RATIO 9; CALCIUM 8.1 MG/DL (8.5-10.1); CARBON DIOXIDE 18 MMOL/L (21-32); CHLORIDE 110 MMOL/L (98-107); CREATININE SERUM 0.57 MG/DL (0.60-1.30); GFR ESTIMATED > 60; GLUCOSE 88 MG/DL (70-105); LIPASE 95 U/L (8-78); POTASSIUM 3.5 MMOL/L (3.6-5.0); SODIUM 137 MMOL/L (135-145); TOTAL PROTEIN 5.5 GM/DL (6.4-8.2)
[2019-09-21] MEDS: MULTIVIT W/MINERALS TAB (THERAGRAN M) PO SCH (05:35)
[2019-09-21] MEDS: THIAMINE 100 MG (VITAMIN B-1) TAB PO SCH (05:36)
--- NOTE | 2019-09-21 08:09 | NUR ---
prior to a.m. medications pulse was 79 bpm and b/p was 115/78.
[2019-09-21] MEDS: MAGNESIUM OXIDE (MAG-OX)400 MG TAB PO SCH ×2 (08:46→20:35)
[2019-09-21] MEDS: ENOXAPARIN 40 MG/0.4 ML (LOVENOX) SYR SC SCH (08:46)
[2019-09-21] MEDS: PANTOPRAZOLE 40 MG (PROTONIX) TAB PO SCH (08:46)
[2019-09-21] MEDS: FOLIC ACID 1 MG TAB PO SCH (08:46)
[2019-09-21] MEDS ORDERED: NON-FORMULARY MEDICATION 1 EA EA (Escitalopram Oxalate 10 MG) PO SCH (09:00)
--- NOTE | 2019-09-21 09:54 | Progress Note - Hospitalist ---
Subjective HPI/CC On Admission Date Seen by Provider: Sep 21, 2019 Time Seen by Provider: 09:46 Subjective/Events-last exam Pt reports feeling better today. No withdrawal symptoms. Doing well. Focused Exam Lactate Level 09/19/19 21:30: Lactic Acid Level 2.82*H 09/20/19 00:20: Lactic Acid Level 2.94*H 09/20/19 05:55: Lactic Acid Level 0.75 Objective Exam Vital Signs Vital Signs Date Time Temp Pulse Resp B/P (MAP) Pulse Ox O2 Delivery O2 Flow Rate FiO2 09/21/19 08:00 36.6 79 18 115/78 (90) 100 Room Air Capillary Refill : Less Than 3 Seconds General Appearance: No Apparent Distress, WD/WN Respiratory: Lungs Clear, No Respiratory Distress Cardiovascular: No Murmur, Tachycardia Neurologic/Psychiatric: Alert, Oriented x3, Normal Mood/Affect Skin: Normal Color Results/Procedures Lab Laboratory Tests 09/21/19 04:52 Patient resulted labs reviewed. Assessment/Plan Assessment and Plan Assess & Plan/Chief Complaint ACUTE LIVER FAILURE WITH ELEVATED LIVER ENZYMES AND ELEVATED LIPASE DUE TO CHRONIC AND ACUTE ALCOHOLISM Continue CIWA protocol Doing well but still tachycardiac- last Ativan dose at 0417 this AM Approaching 48 hours from last drink Thrombocytopenia worsening, likely somewhat dilutional GI referral started by PCP yesterday replace electrolytes, check Mag TOBACCOISM Nicotine patch DEPRESSION Continue Lexapro ANXIETY Continue Lexapro and above and Ativan for withdrawal Will not continue benzos on discharge COLITIS - UNSPECIFIED GI referral placed by PCP LEUKOPENIA - Likely due to alcohol abuse - peripheral smear pending INSOMNIA - Continue half dose trazodone UTI Continue abx, await c/s Not septic Clinical Quality Measures DVT/VTE Risk/Contraindication: Risk Factor Score Per Nursin RFS Level Per Nursing on Admit: 4+=Very High ISRA CHAWLA MD Sep 21, 2019 09:54 POS
[2019-09-21] MEDS ORDERED: KCL 20 MEQ TAB (K-DUR) PO NR (10:00)
[2019-09-22 04:51] VITALS: BP 106/70
[2019-09-22 04:58] LABS: BASOPHILS % (AUTO) 0 % (0-10); EOSINOPHILS # (AUTO) 0.1 10^3/uL (0.0-0.3); EOSINOPHILS % (AUTO) 2 % (0-10); HEMATOCRIT 42 % (35-52); HEMOGLOBIN 14.4 G/DL (11.5-16.0); LYMPHOCYTES # (AUTO) 1.3 X 10^3 (1.0-4.0); LYMPHOCYTES % (AUTO) 49 % (12-44); MEAN CORPUSCULAR HEMOGLOBIN 34 PG (25-34); MEAN CORPUSCULAR HGB CONC 34 G/DL (32-36); MEAN CORPUSCULAR VOLUME 99 FL (80-99); MEAN PLATELET VOLUME 10.8 FL (7.4-10.4); MONOCYTES # (AUTO) 0.3 X 10^3 (0.0-1.0); MONOCYTES % (AUTO) 11 % (0-12); NEUTROPHILS % (AUTO) 37 % (42-75); PLATELET COUNT 93 10^3/uL (130-400); WHITE BLOOD COUNT 2.6 10^3/uL (4.3-11.0)
[2019-09-22 05:17] LABS: ALANINE AMINOTRANSFERASE 144 U/L (0-55); ALBUMIN 3.7 GM/DL (3.2-4.5); ALKALINE PHOSPHATASE 67 U/L (40-136); BILIRUBIN,TOTAL 0.7 MG/DL (0.1-1.0); BUN/CREATININE RATIO 11; CALCIUM 8.6 MG/DL (8.5-10.1); CARBON DIOXIDE 18 MMOL/L (21-32); CHLORIDE 111 MMOL/L (98-107); CREATININE SERUM 0.55 MG/DL (0.60-1.30); GFR ESTIMATED > 60; GLUCOSE 89 MG/DL (70-105); POTASSIUM 3.6 MMOL/L (3.6-5.0); SODIUM 139 MMOL/L (135-145)
[2019-09-22] MEDS: NS IV 1000 ML 1,000 ML IV SCH (06:38)
[2019-09-22] MEDS: CEFEPIME 1,000 MG/SWFI 10 ML IV PUSH IV SCH ×2 (06:38)
[2019-09-22] MEDS: THIAMINE 100 MG (VITAMIN B-1) TAB PO SCH (06:47)
[2019-09-22] MEDS: MULTIVIT W/MINERALS TAB (THERAGRAN M) PO SCH (06:47)
[2019-09-22 08:00] VITALS: BP 108/73
[2019-09-22] MEDS: MAGNESIUM OXIDE (MAG-OX)400 MG TAB PO SCH (08:54)
[2019-09-22] MEDS: PANTOPRAZOLE 40 MG (PROTONIX) TAB PO SCH (08:54)
[2019-09-22] MEDS: FOLIC ACID 1 MG TAB PO SCH (08:54)
[2019-09-22] MEDS: ENOXAPARIN 40 MG/0.4 ML (LOVENOX) SYR SC SCH (08:54)
[2019-09-22] MEDS ORDERED: CEFD300C3 PO (10:01)
[2019-09-22 11:20] VITALS: BP 108/73
--- NOTE | 2019-10-22 15:07 | Discharge Summary ---
Discharge Summary Hospital Course Was the Problem List Reviewed?: Yes Hospital Course Date of Admission: Sep 19, 2019 at 23:35 Admission Diagnosis : Acute alcoholic hepatitis Family Physician/Provider: Judit Paul MD Date of Discharge: 10/22/19 Discharge Diagnosis: Acute alcoholic hepatitis Hospital Course: Norma Nicholson is a 39-year-old female with past medical history of alcohol dependence who presented with acute alcoholic hepatitis. She has a long history of alcohol dependence and abuse and recently had a relapse due to his social issues. She was admitted and monitored for alcohol withdrawal. She did not have any significant withdrawals. Her liver function tests improved prior to discharge. Labs and Pending Lab Test: Microbiology 09/19/19 Blood Culture - Final, Complete No growth 09/19/19 Urine Culture - Final, Complete Klebsiella pneumoniae Home Meds Active Cefdinir 300 Mg Capsule 300 Mg PO BID 4 Days Reported Zinc (Zinc Amino Acid Chelate) 50 Mg Tablet 50 Mg PO DAILY Vitamin B-12 (Cyanocobalamin (Vitamin B-12)) 1,000 Mcg Tablet 1,000 Mcg PO DAILY Multivitamins (Multivitamin) 1 Each Tablet 1 Tab PO DAILY Trazodone HCl 150 Mg Tablet 150 Mg PO HS PRN Pantoprazole Sodium 40 Mg Tablet.dr 40 Mg PO DAILY LAST FILLED #30 07-01-19 Escitalopram Oxalate 10 Mg Tablet 10 Mg PO DAILY Assessment/Pt Instructions Take medications as prescribed. Return with worsening symptoms. Discharge Planning: <30 minutes discharge planning Discharge Instructions Discharge Diet: No Restrictions Activity as Tolerated: Yes Discharge Physical Examination General Appearance: No Apparent Distress, WD/WN HEENT: PERRL/EOMI, Pharynx Normal Respiratory: Lungs Clear, Normal Breath Sounds, No Respiratory Distress Cardiovascular: Regular Rate, Rhythm, No Edema Gastrointestinal: Normal Bowel Sounds, Non Tender, Soft Extremity: Normal Inspection, Non Tender, No Pedal Edema Skin: Normal Color, Warm/Dry Neurologic/Psychiatric: Alert, Oriented x3, No Motor/Sensory Deficits, Normal Mood/Affect Allergies: Coded Allergies: Penicillins (Verified Allergy, Unknown, 01/28/15) morphine (Verified Adverse Reaction, Mild, DID NOT TOLERATE WELL IN ED ON MONDAY., 12/04/12) DOES NOT LIKE THE FEELING IT GIVES HER. Discharge Summary Date of Admission Sep 19, 2019 at 23:35 Date of Discharge Sep 22, 2019 at 11:25 Discharge Date: Sep 22, 2019 Discharge Time: 09:00 Admission Diagnosis Acute alcoholic hepatitis Discharge Diagnosis Acute alcoholic hepatitis (1) Acute alcoholic hepatitis Clinical Quality Measures DVT/VTE Risk/Contraindication: Risk Factor Score Per Nursin RFS Level Per Nursing on Admit: 4+=Very High JERRY FRIAS MD Oct 22, 2019 15:07
== END 2019-09-22 11:25 | disposition home or self-care (01) | DRG 433 ==
LOC: EDUNIT# 19:37 → ER 19:39 → 4TH 23:35
PROVIDERS: ADMIT Family Medicine; ATTEND Family Medicine
DX: K70.40 Alcoholic hepatic failure without coma (principal); N30.00 Acute cystitis without hematuria; F10.239 Alcohol dependence with withdrawal, unspecified; F32.9 Major depressive disorder, single episode, unspecified; F41.9 Anxiety disorder, unspecified; F17.210 Nicotine dependence, cigarettes, uncomplicated; D69.6 Thrombocytopenia, unspecified; R00.0 Tachycardia, unspecified; K52.9 Noninfective gastroenteritis and colitis, unspecified; D72.819 Decreased white blood cell count, unspecified; G47.00 Insomnia, unspecified; K21.9 Gastro-esophageal reflux disease without esophagitis; Z88.5 Allergy status to narcotic agent; Z88.0 Allergy status to penicillin
CPT/HCPCS: 36415; 74177; 80053; 80306; 80320; 80329; 81000; 82805; 83605; 83690; 83735; 84100; 84703; 85007; 85025; 85027; 85045; 85610; 85730; 86141; 87040; 87088; 87186; 96361; 96365; 96367; 96375

== ENCOUNTER 2019-10-25 20:03 | Inpatient (IN) | payer MEDICAID ==
[~2019-10-25] VITALS: Ht 162.6 cm; Wt 64.1 kg
[~2019-10-25 20:03] MED LIST changes: +CEFD300C3 PO; +CYAN-41 PO; +MULT1TAB69 PO; +PANT40TA3 PO; +TRAZ150T72 PO; +ZINC50TA51 PO
--- NOTE | 2019-10-25 20:19 | ED Abdominal Pain ---
General Stated Complaint: ABD PAIN History of Present Illness Date Seen by Provider: Oct 25, 2019 Time Seen by Provider: 20:18 Initial Comments 39-year-old female presents for chronic abdominal pain that is worsened over the last 72 hours. She has not sought any treatment from her primary care provider. She has chronic alcoholism and reports continued here approximately 12 pack per day. She last drank beer approximately 2-3 hours ago. She reports mild nausea, no vomiting or diarrhea today. She last ate solid foods at approximately 0900 today. Patient does not desire to be admitted to an alcohol rehab facility, she reports she has a new job and can't miss work. She verbalizes understanding that her chronic alcoholism is creating her abdominal problems and until she goes to rehab, it will continue to be a vicious cycle. Timing/Duration: 3-4 Days Severity/Quality: Moderate Location: Generalized Abdomen Radiation: No Radiation Associated Symptoms: Denies Symptoms; No Back Pain, No Chest Pain, No Diaphoresis, No Fever/Chills, No Fatigue, No Headache; Heartburn, Nausea/Vomiting; No Rash, No Shortness of Air, No Swelling/Mass in Abdomen, No Syncope, No Weakness, No Other Allergies and Home Medications Allergies Coded Allergies: Penicillins (Verified Allergy, Unknown, 01/28/15) morphine (Verified Adverse Reaction, Mild, DID NOT TOLERATE WELL IN ED ON MONDAY., 12/04/12) DOES NOT LIKE THE FEELING IT GIVES HER. Home Medications Cefdinir 300 Mg Capsule, 300 MG PO BID Prescribed by: JERRY FRIAS on 09/22/19 1001 Cyanocobalamin (Vitamin B-12) 1,000 Mcg Tablet, 1,000 MCG PO DAILY, (Reported) Escitalopram Oxalate 10 Mg Tablet, 10 MG PO DAILY, (Reported) Multivitamin 1 Each Tablet, 1 TAB PO DAILY, (Reported) Pantoprazole Sodium 40 Mg Tablet.dr, 40 MG PO DAILY, (Reported) LAST FILLED #30 07-01-19 Trazodone HCl 150 Mg Tablet, 150 MG PO HS PRN for SLEEP, (Reported) Zinc Amino Acid Chelate 50 Mg Tablet, 50 MG PO DAILY, (Reported) Patient Home Medication List Home Medication List Reviewed: Yes Review of Systems Review of Systems Constitutional: see HPI, malaise Gastrointestinal: See HPI, Abdominal Pain, Nausea, Poor Appetite Skin: no symptoms reported, see HPI All Other Systems Reviewed Negative Unless Noted: Yes Past Cerpgtc-Odwfay-Btvjmp Hx Past Med/Social Hx: Reviewed Nursing Past Med/Soc Hx Patient Social History Alcohol Beverage of Choice: Beer Type Used: Cigarettes 2nd Hand Smoke Exposure: Yes Recent Foreign Travel: No Contact w/Someone Who Travel: No Recent Hopitalizations: Yes Immunizations Up To Date Tetanus Booster (TDap): Unknown PED Vaccines UTD: No Date of Influenza Vaccine: Jul 21, 2018 Seasonal Allergies Seasonal Allergies: Yes Past Medical History Surgeries: Yes Orthopedic, Tonsillectomy Respiratory: No Currently Using CPAP: No Currently Using BIPAP: No Cardiac: Yes Neurological: No Female Reproductive Disorders: Denies Sexually Transmitted Disease: No HIV/AIDS: No Genitourinary: No Gastrointestinal: Yes Colitis, Gastroesophageal Reflux, Irritable Bowel Musculoskeletal: Yes (FIBULA FX, RT ANKLE) Fractures Endocrine: No HEENT: No (strep throat last week) Loss of Vision: Denies Hearing Impairment: Denies Cancer: No Did You Recieve Any Treatments: No Psychosocial: Yes (alcoholism) Anxiety, Depression Integumentary: No Blood Disorders: No Adverse Reaction/Blood Tranf: No Family Medical History Patient reports no known family medical history. Cancer, Hypertension Physical Exam Vital Signs Vital Signs - First Documented 10/25/19 20:13 Temp 36.6 Pulse 102 Resp 18 B/P (MAP) 132/96 (108) Pulse Ox 98 O2 Delivery Room Air Capillary Refill : Height/Weight/BMI Height: 5'4.00" Weight: 132lbs. 1.8oz. [id number]; 22.69 BMI Method:Stated General Appearance: WD/WN, no apparent distress HEENT: PERRL/EOMI, normal ENT inspection, TMs normal, pharynx normal Neck: non-tender, full range of motion, supple, normal inspection Respiratory: chest non-tender, lungs clear, normal breath sounds Cardiovascular: normal peripheral pulses, regular rate, rhythm Gastrointestinal: normal bowel sounds, soft; No distended, No guarding, No rebound; tenderness (generalized with increased pain in the right upper quadrant. Negative Schrader sign) Extremities: normal range of motion, non-tender, normal inspection, normal capillary refill Back: normal inspection, no CVA tenderness Neurologic/Psychiatric: no motor/sensory deficits, alert, normal mood/affect (of acute intoxication.), oriented x 3 Focused Exam Lactate Level 10/25/19 20:56: Lactic Acid Level 3.25*H Lactic Acid Level Laboratory Tests Test 10/25/19 20:56 Lactic Acid Level 3.25 MMOL/L (0.50-2.00) *H Progress/Results/Core Measures Results/Orders Lab Results Laboratory Tests Test 10/25/19 20:56 10/25/19 21:37 Range/Units White Blood Count 3.1 L 4.3-11.0 10^3/uL Red Blood Count 4.57 4.35-5.85 10^6/uL Hemoglobin 15.9 11.5-16.0 G/DL Hematocrit 43 35-52 % Mean Corpuscular Volume 95 80-99 FL Mean Corpuscular Hemoglobin 35 H 25-34 PG Mean Corpuscular Hemoglobin Concent 37 H 32-36 G/DL Red Cell Distribution Width 12.9 10.0-14.5 % Platelet Count 177 130-400 10^3/uL Mean Platelet Volume 11.4 H 7.4-10.4 FL Neutrophils (%) (Auto) 30 L 42-75 % Lymphocytes (%) (Auto) 55 H 12-44 % Monocytes (%) (Auto) 13 H 0-12 % Eosinophils (%) (Auto) 1 0-10 % Basophils (%) (Auto) 1 0-10 % Neutrophils # (Auto) 0.9 L 1.8-7.8 X 10^3 Lymphocytes # (Auto) 1.7 1.0-4.0 X 10^3 Monocytes # (Auto) 0.4 0.0-1.0 X 10^3 Eosinophils # (Auto) 0.0 0.0-0.3 10^3/uL Basophils # (Auto) 0.0 0.0-0.1 10^3/uL Sodium Level 128 L 135-145 MMOL/L Potassium Level 4.0 3.6-5.0 MMOL/L Chloride Level 90 L 98-107 MMOL/L Carbon Dioxide Level 15 L 21-32 MMOL/L Anion Gap 23 H 5-14 MMOL/L Blood Urea Nitrogen 3 L 7-18 MG/DL Creatinine 0.66 0.60-1.30 MG/DL Estimat Glomerular Filtration Rate > 60 BUN/Creatinine Ratio 5 Glucose Level 75 70-105 MG/DL Lactic Acid Level 3.25 *H 0.50-2.00 MMOL/L Calcium Level 8.8 8.5-10.1 MG/DL Corrected Calcium 8.5-10.1 MG/DL Magnesium Level 2.1 1.6-2.4 MG/DL Total Bilirubin 0.6 0.1-1.0 MG/DL Aspartate Amino Transf (AST/SGOT) 180 H 5-34 U/L Alanine Aminotransferase (ALT/SGPT) 100 H 0-55 U/L Alkaline Phosphatase 67 40-136 U/L Total Protein 8.1 6.4-8.2 GM/DL Albumin 4.7 H 3.2-4.5 GM/DL Amylase Level 65 25-125 U/L Lipase 84 H 8-78 U/L Serum Alcohol 334 *H <10 MG/DL Urine Color YELLOW Urine Clarity CLEAR Urine pH 5.5 5-9 Urine Specific [place] <=1.005 1.016-1.022 Urine Protein NEGATIVE NEGATIVE Urine Glucose (UA) NEGATIVE NEGATIVE Urine Ketones NEGATIVE NEGATIVE Urine Nitrite NEGATIVE NEGATIVE Urine Bilirubin NEGATIVE NEGATIVE Urine Urobilinogen 0.2 < = 1.0 MG/DL Urine Leukocyte Esterase NEGATIVE NEGATIVE Urine RBC (Auto) NEGATIVE NEGATIVE Urine RBC NONE /HPF Urine WBC NONE /HPF Urine Crystals NONE /LPF Urine Bacteria NEGATIVE /HPF Urine Casts NONE /LPF Urine Mucus NEGATIVE /LPF Urine Culture Indicated NO Urine Opiates Screen NEGATIVE NEGATIVE Urine Oxycodone Screen NEGATIVE NEGATIVE Urine Methadone Screen NEGATIVE NEGATIVE Urine Propoxyphene Screen NEGATIVE NEGATIVE Urine Barbiturates Screen NEGATIVE NEGATIVE Ur Tricyclic Antidepressants Screen NEGATIVE NEGATIVE Urine Phencyclidine Screen NEGATIVE NEGATIVE Urine Amphetamines Screen NEGATIVE NEGATIVE Urine Methamphetamines Screen NEGATIVE NEGATIVE Urine Benzodiazepines Screen NEGATIVE NEGATIVE Urine Cocaine Screen NEGATIVE NEGATIVE Urine Cannabinoids Screen NEGATIVE NEGATIVE My Orders Orders - 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,[employer]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 Ua Culture If Indicated (10/25/19 20:07) Urine Bedside (10/25/19 20:07) Alcohol (10/25/19 20:40) Amylase (10/25/19 20:40) Cbc With Automated Diff (10/25/19 20:40) Comprehensive Metabolic Panel (10/25/19 20:40) Lactic Acid Analyzer (10/25/19 20:40) Lipase (10/25/19 20:40) Ed Iv/Invasive Line Start (10/25/19 20:40) Ns Iv 1000 Ml (Sodium Chloride 0.9%) (10/25/19 20:40) Ondansetron Injection (Zofran Injectio (10/25/19 20:45) Hyoscyamine Sl Tablet (Levsin Sl Tablet) (10/25/19 20:45) Drug Screen Stat (Urine) (10/25/19 21:12) Blood Culture (10/25/19 21:33) Ed Iv/Invasive Line Start (10/25/19 21:34) Ns Iv 1000 Ml (Sodium Chloride 0.9%) (10/25/19 21:34) Pantoprazole Injection (Protonix Injecti (10/25/19 21:45) Medications Given in ED Current Medications Medications Dose Ordered Sig/Juan Francisco Route Start Time Stop Time Status Last Admin Dose Admin Hyoscyamine Sulfate 0.125 mg ONCE ONCE SL 10/25/19 20:45 10/25/19 20:46 DC 10/25/19 21:04 0.125 MG Ondansetron HCl 4 mg ONCE ONCE IVP 10/25/19 20:45 10/25/19 20:46 DC 10/25/19 21:04 4 MG Pantoprazole 40 mg ONCE ONCE IV 10/25/19 21:45 10/25/19 21:46 DC 10/25/19 21:49 40 MG Vital Signs/I&O 10/25/19 20:13 Temp 36.6 Pulse 102 Resp 18 B/P (MAP) 132/96 (108) Pulse Ox 98 O2 Delivery Room Air Progress Progress Note : Time: 20:18 Progress Note Patient seen and evaluated, will give 1 L normal saline per IV, Zofran 4 mg IV and check labs. Patient reports inability to provide urine sample at this time. 2100 Lactic acid 3.25, WBC 3.1. History of pancytopenia, had workup on last admission and has been seen by hematology. Most likely from chronic alcoholism and liver disease. Patient does report to be feeling slightly better. Will plan admission. Patient has not given urine sample yet for UA and drug screen. 2129 serum alcohol 334. [address] Frias, agreed with admission. Patient denies any withdrawal symptoms at this time. She reports they usually occur approximately 10-12 hours after her last alcoholic beverage, which she reports is 1500 today. She does smoke approximately half a pack a day. She denies need for neck and turn patch at this time. Departure Impression Primary Impression: Chronic kidney disease Qualified Codes: N18.9 - Chronic kidney disease, unspecified Additional Impressions: Alcoholism Gastroenteritis Sepsis Disposition: ADMITTED INPATIENT Condition: Stable Departure-Patient Inst. Decision time for Depature: 22:00 Referrals: ACACIA WHITFIELD MD (PCP/Family) Primary Care Physician YVETTE MCCRAY Oct 25, 2019 20:18
[2019-10-25] MEDS ORDERED: NS IV 1000 ML 1,000 ML IV SCH ×2 (20:40→21:34)
[2019-10-25] MEDS ORDERED: HYOSCYAMINE 0.125 MG (LEVSIN) TAB SL ONE (20:45)
[2019-10-25] MEDS ORDERED: ONDANSETRON 4 MG/2 ML (SDV) Z0FRAN IVP ONE (20:45)
[2019-10-25 21:07] LABS: BASOPHILS % (AUTO) 1 % (0-10); EOSINOPHILS % (AUTO) 1 % (0-10); HEMATOCRIT 43 % (35-52); HEMOGLOBIN 15.9 G/DL (11.5-16.0); LYMPHOCYTES # (AUTO) 1.7 X 10^3 (1.0-4.0); LYMPHOCYTES % (AUTO) 55 % (12-44); MEAN CORPUSCULAR HEMOGLOBIN 35 PG (25-34); MEAN CORPUSCULAR HGB CONC 37 G/DL (32-36); MEAN CORPUSCULAR VOLUME 95 FL (80-99); MEAN PLATELET VOLUME 11.4 FL (7.4-10.4); MONOCYTES # (AUTO) 0.4 X 10^3 (0.0-1.0); MONOCYTES % (AUTO) 13 % (0-12); NEUTROPHILS # (AUTO) 0.9 X 10^3 (1.8-7.8); NEUTROPHILS % (AUTO) 30 % (42-75); PLATELET COUNT 177 10^3/uL (130-400); RED CELL DISTRIBUTION WIDTH 12.9 % (10.0-14.5); WHITE BLOOD COUNT 3.1 10^3/uL (4.3-11.0)
[2019-10-25 21:27] LABS: ALANINE AMINOTRANSFERASE 100 U/L (0-55); ALBUMIN 4.7 GM/DL (3.2-4.5); ALKALINE PHOSPHATASE 67 U/L (40-136); AMYLASE 65 U/L (25-125); BILIRUBIN,TOTAL 0.6 MG/DL (0.1-1.0); BUN/CREATININE RATIO 5; CALCIUM 8.8 MG/DL (8.5-10.1); CARBON DIOXIDE 15 MMOL/L (21-32); CHLORIDE 90 MMOL/L (98-107); CREATININE SERUM 0.66 MG/DL (0.60-1.30); GFR ESTIMATED > 60; GLUCOSE 75 MG/DL (70-105); LIPASE 84 U/L (8-78); SODIUM 128 MMOL/L (135-145); TOTAL PROTEIN 8.1 GM/DL (6.4-8.2)
[2019-10-25] MEDS ORDERED: PANTOPRAZOLE 40 MG (PROTONIX) VIAL IV ONE (21:45)
[2019-10-25 21:55] LABS: BILIRUBIN,URINE NEGATIVE (NEGATIVE); CLARITY,URINE CLEAR; COLOR,URINE YELLOW; GLUCOSE, URINE (UA) NEGATIVE (NEGATIVE); KETONES,URINE NEGATIVE (NEGATIVE); LEUKOCYTE ESTERASE ,URINE NEGATIVE (NEGATIVE); NITRITE,URINE NEGATIVE (NEGATIVE); PH,URINE 5.5 (5-9); PROTEIN,URINE NEGATIVE (NEGATIVE)
[2019-10-25 22:09] LABS: AMPHETAMINE SCREEN, URINE NEGATIVE (NEGATIVE); BARBITURATE SCREEN URINE NEGATIVE (NEGATIVE); BENZODIAZEPINES SCREEN URINE NEGATIVE (NEGATIVE); CANNABINOID SCREEN, URINE NEGATIVE (NEGATIVE); COCAINE SCREEN URINE NEGATIVE (NEGATIVE); METHADONE STAT NEGATIVE (NEGATIVE); METHAMPHETAMINE SCREEN URINE S NEGATIVE (NEGATIVE); OPIATE SCREEN URINE NEGATIVE (NEGATIVE); OXYCODONE STAT NEGATIVE (NEGATIVE); PROPOXYPHENE STAT NEGATIVE (NEGATIVE); TRICYCLIC ANTIDEPRESSANTS SCRE NEGATIVE (NEGATIVE)
[2019-10-25 22:10] LABS: BACTERIA,URINE NEGATIVE /HPF
--- NOTE | 2019-10-25 22:47 | NUR ---
MAIRA RAY admitted to room 420-1, with an admitting diagnosis of ALCOHOLISM, ABD PAIN, COLITIS, SEPSIS , on 10/25/19 from ED via , accompanied by STAFF. MAIRA RAY introduced to surroundings, call light, bed controls, phone, TV, temperature control, lights, meal times, smoking policy, visitor policy, side rail policy, bathrooms and showers. Patient Rights given to patient in the handbook.MAIRA RAY verbalizes understanding that [facility] is not responsible for the loss or damage to any personal effects or valuables that are kept in the patients posession during their hospitalization.
[2019-10-25] MEDS ORDERED: ACETAMINOPHEN 325 MG TABLET PO PRN (23:00)
[2019-10-25 23:08] VITALS: BP 113/62
[2019-10-25 23:09] VITALS: BP 113/62
[2019-10-25] MEDS: NS IV 1000 ML 1,000 ML IV SCH (23:11)
[2019-10-25] MEDS: PANTOPRAZOLE 40 MG (PROTONIX) VIAL IV SCH (23:12)
[2019-10-25] MEDS ORDERED: ONDANSETRON 4 MG/2 ML (SDV) Z0FRAN IV PRN (23:15)
[2019-10-26] MEDS: LORazepam INJ 2 MG/ML (ATIVAN) VIAL IV PRN ×4 (02:02→19:26)
[2019-10-26 04:30] VITALS: BP 104/70
[2019-10-26] MEDS: NS IV 1000 ML 1,000 ML IV SCH ×4 (06:00→22:56)
[2019-10-26 07:35] LABS: BASOPHILS % (AUTO) 0 % (0-10); EOSINOPHILS % (AUTO) 0 % (0-10); HEMATOCRIT 39 % (35-52); HEMOGLOBIN 13.4 G/DL (11.5-16.0); LYMPHOCYTES # (AUTO) 0.7 X 10^3 (1.0-4.0); LYMPHOCYTES % (AUTO) 22 % (12-44); MEAN CORPUSCULAR HEMOGLOBIN 34 PG (25-34); MEAN CORPUSCULAR HGB CONC 34 G/DL (32-36); MEAN CORPUSCULAR VOLUME 98 FL (80-99); MONOCYTES # (AUTO) 0.3 X 10^3 (0.0-1.0); MONOCYTES % (AUTO) 10 % (0-12); NEUTROPHILS % (AUTO) 68 % (42-75); PLATELET COUNT 101 10^3/uL (130-400); WHITE BLOOD COUNT 2.9 10^3/uL (4.3-11.0)
[2019-10-26 07:52] LABS: ALANINE AMINOTRANSFERASE 93 U/L (0-55); ALBUMIN 3.9 GM/DL (3.2-4.5); ALKALINE PHOSPHATASE 58 U/L (40-136); BILIRUBIN,TOTAL 0.6 MG/DL (0.1-1.0); BUN/CREATININE RATIO 5; CALCIUM 7.8 MG/DL (8.5-10.1); CARBON DIOXIDE 17 MMOL/L (21-32); CHLORIDE 104 MMOL/L (98-107); CREATININE SERUM 0.65 MG/DL (0.60-1.30); GFR ESTIMATED > 60; GLUCOSE 113 MG/DL (70-105); MAGNESIUM 1.8 MG/DL (1.6-2.4); POTASSIUM 3.7 MMOL/L (3.6-5.0); SODIUM 135 MMOL/L (135-145)
[2019-10-26 08:32] VITALS: BP 141/80
[2019-10-26] MEDS: PANTOPRAZOLE 40 MG (PROTONIX) VIAL IV SCH ×2 (08:41→19:26)
[2019-10-26 11:05] VITALS: BP 125/76
--- NOTE | 2019-10-26 13:19 | History & Physical-Hospitalist ---
History of Present Illness HPI/Chief Complaint Patient is 39-year-old female past medical history of abdominal pain, pancreatitis, alcohol abuse who is known to me from previous admissions and presented due to abdominal pain. She was here we one month ago for alcohol detox. Despite that she is continuing to drink states she has cut back from 10- 12 beers a day, 6-7 beers per day. 2 days ago she developed abdominal pain which continued to worsen and she decided to seek evaluation in the emergency department. Her alcohol level was found to be 322. She was admitted for intractable abdominal pain. This morning she states that she is feeling better though the pain is still there. We did discuss out likely all alcohol-related and [place] prove unless she quits drinking alcohol completely. Source: patient Date Seen 10/26/19 Time Seen by a Provider: 12:30 Attending Physician Fernanda Wasserman MD PCP Judit Paul MD Referring Physician Date of Admission Oct 25, 2019 at 22:00 Home Medications & Allergies Home Medications Reviewed patient Home Medication Reconciliation performed by pharmacy medication reconciliations solar fabrication technician and/or nursing. Patients Allergies have been reviewed. Allergies Allergies Coded Allergies Penicillins (Verified Allergy, Unknown, 01/28/15) morphine (Verified Adverse Reaction, Mild, DID NOT TOLERATE WELL IN ED ON MONDAY., 12/04/12) DOES NOT LIKE THE FEELING IT GIVES HER. Past Pfpwjzs-Rkcihs-Izlluz Hx Past Med/Social Hx: Reviewed Nursing Past Med/Soc Hx Patient Social History Alcohol Use: Regular Use Number of Drinks Today: 6 Alcohol Beverage of Choice: Beer Recreational Drug Use: Yes Smoking Status: Current Everyday Smoker Type Used: Cigarettes 2nd Hand Smoke Exposure: Yes Recent Foreign Travel: No Contact w/other who traveled: No Recent Hopitalizations: Yes (Sep 2019- septic ) Recent Infectious Disease Expo: No Immunizations Up To Date Tetanus Booster (TDap): Unknown Pediatric: No Date of Influenza Vaccine: Jul 21, 2018 Seasonal Allergies Seasonal Allergies: Yes Past Medical History Surgeries: Orthopedic, Tonsillectomy Currently Using CPAP: No Currently Using BIPAP: No : No Sexually Transmitted Disease: No HIV/AIDS: No Female Reproductive Disorders: Denies Gastrointestinal: Colitis, Gastroesophageal Reflux, Irritable Bowel Musculoskeletal: Fractures Loss of Vision: Denies Hearing Impairment: Denies Did You Recieve Any Treatments: No Psychosocial: Anxiety, Depression History of Blood Disorders: No Adverse Reaction to Blood [place]: No Family History Patient reports no known family medical history. Cancer, Hypertension Review of Systems Constitutional: No chills, No fever EENTM: no symptoms reported Respiratory: no symptoms reported Cardiovascular: no symptoms reported Gastrointestinal: see HPI, abdominal pain; No constipation Genitourinary: no symptoms reported Musculoskeletal: no symptoms reported Skin: no symptoms reported Psychiatric/Neurological: Anxiety, Tingling Physical Exam Physical Exam Vital Signs Vital Signs - First Documented 10/25/19 20:13 Temp 36.6 Pulse 102 Resp 18 B/P (MAP) 132/96 (108) Pulse Ox 98 O2 Delivery Room Air Capillary Refill : Less Than 3 Seconds Height, Weight, BMI Height: 5'4.00" Weight: 132lbs. 1.8oz. 59.799556ws; 24.24 BMI Method:Stated General Appearance: No Apparent Distress, WD/WN HEENT: PERRL/EOMI, Moist Mucous Membranes; No Scleral Icterus (L), No Scleral Icterus (R) Respiratory: Lungs Clear, No Accessory Muscle Use, No Respiratory Distress Cardiovascular: Regular Rate, Rhythm, No Murmur Gastrointestinal: Normal Bowel Sounds, Non Tender, Soft Extremity: Normal Capillary Refill, No Calf Tenderness Neurologic/Psychiatric: Alert, Oriented x3, Normal Mood/Affect Results Results/Procedures Labs Laboratory Tests 10/25/19 20:56 10/26/19 07:25 Patient resulted labs reviewed. Assessment/Plan Admission Diagnosis Alcohol withdrawal Admission Status: Inpatient Order (span 2 midnights) Reason for Inpatient Admission: alcohol withdrawal, history of seizures Assessment and Plan Alcohol Withdrawal Alcoholic Hepatitis Continue [facility] protocol Thrombocytopenia worsened today- stable from last admission GI referral started by PCP during her last admission I discussed frankly with patient today that she needs to completely quit drinking with with she agreed but did not commit to doing General Pediatrician consult on Monday Depression and Anxiety Continue home Lexapro Leukopenia - Likely due to alcohol abuse, reportedly was seen by hematology after last admission Insomnia - Resume trazodone UTI Continue abx, await c/s Not septic Clinical Quality Measures DVT/VTE Risk/Contraindication: Risk Factor Score Per Nursin RFS Level Per Nursing on Admit: 4+=Very High ISRA CHAWLA MD Oct 26, 2019 13:19
[2019-10-26 16:00] VITALS: BP 98/58
[2019-10-26 20:00] VITALS: BP 124/75
[2019-10-26] MEDS ORDERED: 1/2 NS IV SOLUTION 1,000 ML IV PRN (20:13)
[2019-10-26] MEDS ORDERED: ONDANSETRON 4 MG/2 ML (SDV) Z0FRAN IV PRN (20:15)
[2019-10-26] MEDS ORDERED: LORazepam INJ 2 MG/ML (ATIVAN) VIAL IV PRN (20:15)
[2019-10-26] MEDS ORDERED: D5 1/2 NS 1000 ML IV SOLUTION 1,000 ML IV PRN (20:15)
[2019-10-26] MEDS ORDERED: ONDANSETRON 4 MG (ZOFRAN) ORAL DISSOLVE TAB SL PRN (20:15)
[2019-10-26] MEDS ORDERED: SENNA W/DOCUSATE (SENOKOT S) TABLET PO PRN (20:15)
[2019-10-26] MEDS ORDERED: ANTACID SUSP 30 ML UDC (MYLANTA) PO PRN (20:15)
[2019-10-26] MEDS ORDERED: LORazepam INJ 2 MG/ML (ATIVAN) VIAL IM/IV PRN (20:15)
[2019-10-26] MEDS ORDERED: traZODone 150 MG (DESYREL) TABLET PO PRN (20:15)
[2019-10-26] MEDS: LORazepam 1 MG (ATIVAN) TAB PO PRN (20:48)
[2019-10-27] VITALS: BP 111/75
[2019-10-27 04:35] VITALS: BP 92/51
[2019-10-27 06:37] LABS: HEMOGLOBIN 13.6 G/DL (11.5-16.0); MEAN PLATELET VOLUME 10.7 FL (7.4-10.4); RED CELL DISTRIBUTION WIDTH 13.2 % (10.0-14.5); WHITE BLOOD COUNT 2.4 10^3/uL (4.3-11.0)
[2019-10-27 06:54] LABS: BUN/CREATININE RATIO 5; CALCIUM 8.4 MG/DL (8.5-10.1); CARBON DIOXIDE 19 MMOL/L (21-32); CHLORIDE 109 MMOL/L (98-107); CREATININE SERUM 0.63 MG/DL (0.60-1.30); GFR ESTIMATED > 60; GLUCOSE 108 MG/DL (70-105); MAGNESIUM 1.9 MG/DL (1.6-2.4); POTASSIUM 3.2 MMOL/L (3.6-5.0); SODIUM 140 MMOL/L (135-145)
[2019-10-27 08:00] VITALS: BP 122/73
[2019-10-27] MEDS: LORazepam 1 MG (ATIVAN) TAB PO PRN ×3 (08:15→20:38)
[2019-10-27] MEDS: PANTOPRAZOLE 40 MG (PROTONIX) TAB PO SCH (08:15)
--- NOTE | 2019-10-27 11:36 | Progress Note - Hospitalist ---
Subjective HPI/CC On Admission Date Seen by Provider: Oct 27, 2019 Time Seen by Provider: 11:33 Patient is 39-year-old female past medical history of abdominal pain, pancreatitis, alcohol abuse who is known to me from previous admissions and presented due to abdominal pain. She was here we one month ago for alcohol detox. Despite that she is continuing to drink states she has cut back from 10- 12 beers a day, 6-7 beers per day. 2 days ago she developed abdominal pain which continued to worsen and she decided to seek evaluation in the emergency department. Her alcohol level was found to be 322. She was admitted for intractable abdominal pain. This morning she states that she is feeling better though the pain is still there. We did discuss out likely all alcohol-related and [place] prove unless she quits drinking alcohol completely. Subjective/Events-last exam Pt reports abdominal pain improving and desire to eat food. Overall though states she still doesn't feel well and is quite shaky. Focused Exam Lactate Level 10/25/19 20:56: Lactic Acid Level 3.25*H 10/25/19 23:02: Lactic Acid Level 2.34*H 10/26/19 07:25: Lactic Acid Level 1.45 Objective Exam Vital Signs Vital Signs Date Time Temp Pulse Resp B/P (MAP) Pulse Ox O2 Delivery O2 Flow Rate FiO2 10/27/19 08:00 Room Air 10/27/19 08:00 36.3 95 16 122/73 (89) 97 Capillary Refill : Less Than 3 Seconds General Appearance: WD/WN, Anxious Respiratory: Lungs Clear, No Respiratory Distress Cardiovascular: Regular Rate, Rhythm, No Murmur Gastrointestinal: Normal Bowel Sounds, Non Tender, Soft Neurologic/Psychiatric: Alert, Oriented x3, Other (tremulous ) Results/Procedures Lab Laboratory Tests 10/27/19 06:12 Patient resulted labs reviewed. Assessment/Plan Assessment and Plan Assess & Plan/Chief Complaint Alcohol Withdrawal Alcoholic Hepatitis Continue [facility] protocol- needed Ativan this morning Thrombocytopenia stable around 100 GI referral started by PCP during her last admission Rib Trim Separator consult on Monday Still actively withdrawing- not medically ready for discharge as high risk for DT/seizures and decompensation Depression and Anxiety Continue home Lexapro Leukopenia Likely due to alcohol abuse, reportedly was seen by hematology after last admission Insomnia Resume trazodone Diagnosis/Problems Diagnosis/Problems (1) Leukopenia Status: Acute (2) Alcoholism Status: Acute (3) Abdominal pain (4) Thrombocytopenia Status: Acute (5) Alcoholic hepatitis Status: Acute (6) Hypokalemia Status: Acute Clinical Quality Measures DVT/VTE Risk/Contraindication: Risk Factor Score Per Nursin RFS Level Per Nursing on Admit: 4+=Very High ISRA CHAWLA MD Oct 27, 2019 11:36
[2019-10-27] MEDS ORDERED: KCL 20 MEQ TAB (K-DUR) PO ONE ×2 (11:45→14:00)
[2019-10-27 12:00] VITALS: BP 113/72
[2019-10-27] MEDS: NS IV 1000 ML 1,000 ML IV SCH (12:33)
[2019-10-27 16:00] VITALS: BP 114/75
[2019-10-27 20:18] VITALS: BP 112/60
[2019-10-28] VITALS: BP 108/69
[2019-10-28] MEDS: NS IV 1000 ML 1,000 ML IV SCH (01:48)
[2019-10-28 04:00] VITALS: BP 94/56
[2019-10-28 06:36] VITALS: BP 110/58
[2019-10-28 08:00] VITALS: BP 120/83
[2019-10-28] MEDS: LORazepam 1 MG (ATIVAN) TAB PO PRN (08:22)
[2019-10-28] MEDS: PANTOPRAZOLE 40 MG (PROTONIX) TAB PO SCH (08:26)
--- NOTE | 2019-10-28 09:14 | Discharge Summary ---
Diagnosis/Chief Complaint Date of Admission Oct 25, 2019 at 22:00 Date of Discharge Discharge Date: Oct 28, 2019 Discharge Time: 18:00 Admission Diagnosis Admission Diagnosis Alcohol Withdrawal Alcoholic Hepatitis Depression and Anxiety Leukopenia Insomnia UTI Discharge Diagnosis ALCOHOL WITHDRAWAL CHRONIC ALCOHOLISM WITH RELAPSE ALCOHOLIC HEPATITIS DEPRESSION ANXIETY LEUKOPENIA CHRONIC ABDOMINAL PAIN WITH DIARRHEA Discharge Summary Discharge Physical Examination Allergies: Coded Allergies: Penicillins (Verified Allergy, Unknown, 01/28/15) morphine (Verified Adverse Reaction, Mild, DID NOT TOLERATE WELL IN ED ON MONDAY., 12/04/12) DOES NOT LIKE THE FEELING IT GIVES HER. Vitals & I&Os Vital Signs Date Time Temp Pulse Resp B/P (MAP) Pulse Ox O2 Delivery O2 Flow Rate FiO2 10/28/19 06:36 110/58 (75) 10/28/19 04:00 36.7 76 18 97 Room Air General Appearance: Alert, Oriented X3, Cooperative, No Acute Distress HEENT: Atraumatic, PERRLA, EOMI, Mucous Memb Moist/[place] Respiratory: Clear to Auscultation, Normal Air Movement Cardiovascular: Regular Rate Abdominal: Normal Bowel Sounds, Soft, No Tenderness Extremities: No Edema Skin: No Rashes, No Breakdown Neuro: Normal Gait, Strength at 5/5 X4 Ext, Cranial Nerves 3-12 NL Psych/Mental Status: Mental Status NL, Mood NL Hospital Course Was the Problem List Reviewed?: Yes ALCOHOL WITHDRAWAL CHRONIC ALCOHOLISM WITH RELAPSE ALCOHOLIC HEPATITIS DEPRESSION ANXIETY LEUKOPENIA CHRONIC ABDOMINAL PAIN WITH DIARRHEA HYPOKALEMIA ALCOHOL WITHDRAWAL WITH HX OF CHRONIC ALCOHOLISM WITH RELAPSE - PT WAS STARTED ON ALCOHOL WITHDRAWAL PROTOCOL, FLUIDS, AND SYMPTOMS CLOSELY MONITORED - NO EVIDENCE OF DT'S IN THE HOSPITAL - PLAN FOR DISCHARGE ON ANTABUSE - WILL HAVE TO VERY CLOSELY WATCH HER LFT'S - BUT THE ALTERNATIVE IS THAT SHE DRINKS AND THAT WILL ALSO NEGATIVELY AFFECT THE LIVER. ALCOHOLIC HEPATITIS - MONITOR LABS DEPRESSION AND ANXIETY - PT ON LEXAPRO - WILL DECREASE DOSE OF MEDICATION AND START HER ON BUSPAR - MAY EVENTUALLY DC THE LEXAPRO AND KEEP HER ON BUSPAR ONLY DEPENDING ON SYMPTOMS. LEUKOPENIA - DUE TO CHRONIC ALCOHOLISM CHRONIC ABDOMINAL PAIN WITH DIARRHEA - THIS HAS BEEN GOING ON FOR "YEARS" - EVEN BEFORE SHE WAS DRINKING HEAVILY. - SHE IS GOING TO NEED TO BE SEEN BY DR. TORO - A CONSULT WAS SENT, BUT SHE DID NOT MAKE THE FIRST APPT DUE TO HAVING THE FLU. SHE IS TRYING TO GET THE APPOINTMENT RESCHEDULED AND SHE IS TRYING TO SEE IF MEDICAID WILL APPROVE ANOTHER APPOINTMENT SINCE SHE MISSED HER FIRST APPT. HYPOKALEMIA - REPLACED ORALLY DISCHARGE TO HOME DISCUSSED WITH PT AND HER MOTHER - THEY NEED TO GET HER HOME CLEARED OF ALCOHOL AND SHE NEEDS TO GO TO THE ALCOHOLIC'S ANONYMOUS EVERY DAY IS RECOMMENDED. I HAVE ALSO RECOMMENDED THAT SHE NEEDS TO REACH OUT TO HER FRIENDS WHO HAVE BEEN THROUGH THIS PROCESS OF STAYING SOBER. I HAVE OFFERED INPATIENT ALCOHOL REHAB AND SHE HAS REFUSED DUE TO COST AND CONCERN OVER LOOSING HER JOB. I HAVE DISCUSSED WITH MAIRA THAT SHE IS KILLING HERSELF, HER LIVER HAS BEEN NEGATIVELY AFFECTED, HER BONE MARROW IS SLIGHTLY SUPPRESSED AND SHE HAS DAMAGED HER BODY SIGNIFICANTLY WITH HER CHRONIC DRINKING. SHE NEEDS TO AVOID PLACES AND PEOPLE WHO ARE TRIGGERS AND ENABLERS TO HER DRINKING. Discharge Condition at discharge IMPROVED - SYMPTOMS RESOLVED Instructions to patient/family Please see electronic discharge instructions given to patient. Discharge Medications Reviewed and agree with Discharge Medication list on patient's Discharge Instruction sheet Medication List: Active Scripts Active Disulfiram 250 Mg Tablet 250 Mg PO DAILY Buspirone HCl 5 Mg Tablet 5 Mg PO BID Reported Zinc (Zinc Amino Acid Chelate) 50 Mg Tablet 50 Mg PO DAILY Vitamin B-12 (Cyanocobalamin (Vitamin B-12)) 1,000 Mcg Tablet 1,000 Mcg PO DAILY Multivitamins (Multivitamin) 1 Each Tablet 1 Tab PO DAILY Trazodone HCl 150 Mg Tablet 150 Mg PO HS PRN Pantoprazole Sodium 40 Mg Tablet.dr 40 Mg PO DAILY LAST FILLED #30 9-16-19 Escitalopram Oxalate 10 Mg Tablet 10 Mg PO DAILY Clinical Quality Measures DVT/VTE Risk/Contraindication: Risk Factor Score Per Nursin RFS Level Per Nursing on Admit: 4+=Very High ACACIA WHITFIELD MD Oct 28, 2019 09:14
[2019-10-28] MEDS ORDERED: BUSP5TAB59 PO (09:18)
[2019-10-28] MEDS ORDERED: DISU250T12 PO (09:18)
--- NOTE | 2019-10-28 09:21 | Discharge Inst-Complex ---
PDI Reconcile Patient Problems Problems Reviewed?: Yes Med Rec & Follow Up Appt. New Medications: Buspirone HCl (Buspirone HCl) 5 Mg Tablet 5 MG PO BID, #60 TAB Disulfiram (Disulfiram) 250 Mg Tablet 250 MG PO DAILY, #30 TAB 3 Refills Continued Medications: Cyanocobalamin (Vitamin B-12) (Vitamin B-12) 1,000 Mcg Tablet 1000 MCG PO DAILY, TAB Escitalopram Oxalate (Escitalopram Oxalate) 10 Mg Tablet 10 MG PO DAILY, TAB Multivitamin (Multivitamins) 1 Each Tablet 1 TAB PO DAILY, TAB Pantoprazole Sodium (Pantoprazole Sodium) 40 Mg Tablet.dr 40 MG PO DAILY, TAB LAST FILLED #30 07-01-19 Zinc Amino Acid Chelate (Zinc) 50 Mg Tablet 50 MG PO DAILY, TAB Discontinued Medications: Trazodone HCl (Trazodone HCl) 150 Mg Tablet 150 MG PO HS PRN for SLEEP, TAB Activity, Diet and PDI Resume Normal Activity: Yes Discharge Diet: Regular Diet Diet for 24 Hours: No Alcohol, No [place] Foods, No Spicy Foods Diet After 24 Hours: Clear Liquid if Nauseous Drink 6-8 Glasses of Fluid/Day: Yes Driving Instructions: No Driving for 24 Hours Return to The Hospital For: ANY CONCERN FOR LIFETHREATENING ILLNESS, INJURY, OR RESUMPTION OF ALCOHOL ABUSE WITH PLANS FOR WITHDRAWAL IN THE HOSPITAL Symptoms to Reoprt to : Appetite Changes, Fever Over 101 Degrees F, Pain/Pressure in Chest, Shortness of Breath For Problems or Questions: Contact Your Physician Infection Signs and Symptoms: Temperature Above 101 F ACACIA WHITFIELD MD Oct 28, 2019 09:21
[2019-10-28 10:30] LABS: BASOPHILS % (AUTO) 0 % (0-10); EOSINOPHILS # (AUTO) 0.1 10^3/uL (0.0-0.3); EOSINOPHILS % (AUTO) 2 % (0-10); HEMATOCRIT 40 % (35-52); HEMOGLOBIN 13.4 G/DL (11.5-16.0); LYMPHOCYTES # (AUTO) 1.1 X 10^3 (1.0-4.0); LYMPHOCYTES % (AUTO) 41 % (12-44); MEAN CORPUSCULAR HEMOGLOBIN 34 PG (25-34); MEAN CORPUSCULAR HGB CONC 34 G/DL (32-36); MEAN CORPUSCULAR VOLUME 102 FL (80-99); MEAN PLATELET VOLUME 10.9 FL (7.4-10.4); MONOCYTES # (AUTO) 0.3 X 10^3 (0.0-1.0); MONOCYTES % (AUTO) 11 % (0-12); NEUTROPHILS # (AUTO) 1.3 X 10^3 (1.8-7.8); NEUTROPHILS % (AUTO) 47 % (42-75); PLATELET COUNT 84 10^3/uL (130-400); WHITE BLOOD COUNT 2.8 10^3/uL (4.3-11.0)
--- NOTE | 2019-10-28 11:03 | NUR ---
CM/MUKUND visited with the patient with social service consult. Plan: The patient verbalized that she will contact [facility] outpatient treatment services and make an appointment along with setting up counselor and new AA sponsor. The patients mother will stay with the patient for the next couple of days. Summary: The patient has been here in the past and SS was consulted for alcohol use. She was very open and responsive to discussing treatment and alcohol use at this time. The patient states that she drinks about 8-10 beers every night and has been doing this for the past two years. She reports it started after a really bad divorce with her who was an alcoholic. They were for 14 years. The patient reports that she has been to inhouse treatment facility [facility] two times. On the last time they transferred her to the [facility] [place]. She states that she didn't feel like it worked great; however, she said she wasn't really ready to quit at that time. The patient reports that she is really ready to be done with drinking today. CM/MUKUND discussed the options available to the patient and she verbalized understanding. She verbalized that she will contact them and get an appointment set up with counseling and a new AA sponsor.
[2019-10-28 12:00] VITALS: BP 113/69
[2019-10-28 12:19] LABS: ALANINE AMINOTRANSFERASE 73 U/L (0-55); ALBUMIN 3.7 GM/DL (3.2-4.5); ALKALINE PHOSPHATASE 60 U/L (40-136); BILIRUBIN,TOTAL 0.7 MG/DL (0.1-1.0); BUN/CREATININE RATIO 8; CALCIUM 8.6 MG/DL (8.5-10.1); CARBON DIOXIDE 20 MMOL/L (21-32); CHLORIDE 112 MMOL/L (98-107); CREATININE SERUM 0.63 MG/DL (0.60-1.30); GFR ESTIMATED > 60; GLUCOSE 77 MG/DL (70-105); MAGNESIUM 1.7 MG/DL (1.6-2.4); POTASSIUM 3.7 MMOL/L (3.6-5.0); SODIUM 140 MMOL/L (135-145); TOTAL PROTEIN 5.8 GM/DL (6.4-8.2)
[2019-10-28 16:00] VITALS: BP 100/69
--- NOTE | 2019-10-30 17:10 | Physician Query Clarification ---
PQ-Uncertain Diagnosis Admission/Discharge Admission Date: Oct 25, 2019 at 22:00 Discharge Date: Oct 28, 2019 at 18:00 The medical record reflects the following clinical scenario: History/Risk Factors: abdominal pain Clinical Findings: abdominal pain, c/s Treatment: Antibiotics Question: Is UTI a clinically valid diagnosis? UTI was documented in the Dr. Brambila's H&P with no further documentation in the medical record. Please document a response in Progress Note or Discharge Summary. 1. Yes, clinically valid, condition resolved. 2. No, condition ruled out. 3. Other, with explanation of clinical findings. 4. Undetermined, no explanation for clinical findings. PHYSICIAN RESPONSE Diagnosis clinically valid: No, conditon ruled out Please remember a lack of response to the above will prompt a phone page by CDI/Coding staff. In responding to this query, please exercise your independent professional judgment. The purpose of this communication is to more accurately reflect the complexity of your patients condition. The fact that a question is asked does not imply that any particular answer is desired or expected. Thank you for your timely response to this clarification. Requestors name: Amber Cordon THIS PHYSICIAN QUERY FORM IS A PERMANENT PART OF THE MEDICAL RECORD AMBER HAMILTON Oct 30, 2019 17:10 ACACIA WHITFIELD MD Nov 01, 2019 08:49
--- NOTE | 2019-10-30 17:15 | Physician Query Clarification ---
PQ-Uncertain Diagnosis Admission/Discharge Admission Date: Oct 25, 2019 at 22:00 Discharge Date: Oct 28, 2019 at 18:00 The medical record reflects the following clinical scenario: History/Risk Factors: alchohol withdrawal, abdominal pain Clinical Findings: alcohol withdrawal Treatment: antibiotics Question: Is sepsis a clinically valid diagnosis? sepsis was documented in the ED record with no further documentation in the medical record. Please document a response in Progress Note or Discharge Summary. 1. Yes, clinically valid, condition resolved. 2. No, condition ruled out. 3. Other, with explanation of clinical findings. 4. Undetermined, no explanation for clinical findings. PHYSICIAN RESPONSE Diagnosis clinically valid: No, conditon ruled out Please remember a lack of response to the above will prompt a phone page by CDI/Coding staff. In responding to this query, please exercise your independent professional judgment. The purpose of this communication is to more accurately reflect the complexity of your patients condition. The fact that a question is asked does not imply that any particular answer is desired or expected. Thank you for your timely response to this clarification. Requestors name: Amber Cordon THIS PHYSICIAN QUERY FORM IS A PERMANENT PART OF THE MEDICAL RECORD AMBER HAMILTON Oct 30, 2019 17:15 ACACIA WHITFIELD MD Nov 01, 2019 08:49
== END 2019-10-28 18:00 | disposition home or self-care (01) | DRG 897 ==
LOC: EDUNIT# 20:03 → ER 20:05 → 4TH 22:00 → OBSVTOIN 22:00
PROVIDERS: ADMIT Internal Medicine; ATTEND Internal Medicine
DX: F10.239 Alcohol dependence with withdrawal, unspecified (principal); K70.10 Alcoholic hepatitis without ascites; F32.9 Major depressive disorder, single episode, unspecified; F41.9 Anxiety disorder, unspecified; D72.819 Decreased white blood cell count, unspecified; K52.9 Noninfective gastroenteritis and colitis, unspecified; E87.6 Hypokalemia; G47.00 Insomnia, unspecified; D69.6 Thrombocytopenia, unspecified; F17.210 Nicotine dependence, cigarettes, uncomplicated; K21.9 Gastro-esophageal reflux disease without esophagitis; N18.9 Chronic kidney disease, unspecified; Z88.0 Allergy status to penicillin; Z88.5 Allergy status to narcotic agent; Z87.19 Personal history of other diseases of the digestive system
CPT/HCPCS: 36415; 80048; 80053; 80306; 80320; 81000; 82150; 82962; 83605; 83690; 83735; 84703; 85025; 85027; 87040; 96361; 96374; 96375

== ENCOUNTER 2019-11-06 20:33 | Emergency (ER) | payer MEDICAID ==
[~2019-11-06] VITALS: Ht 163 cm; Wt 66.2 kg
[~2019-11-06 20:33] MED LIST changes: +BUSP5TAB59 PO; +DISU250T12 PO
[2019-11-06 20:36] VITALS: BP 124/100
--- NOTE | 2019-11-06 20:40 | NUR ---
URINE SPECIMEN REQUESTED, PT DENIES BEING ABLE TO VOID
[2019-11-06] MEDS ORDERED: ONDANSETRON 4 MG/2 ML (SDV) Z0FRAN IVP ONE (20:45)
[2019-11-06] MEDS ORDERED: GABA-488 (20:45)
[2019-11-06] MEDS ORDERED: NS IV 1000 ML 1,000 ML IV SCH (20:45)
[2019-11-06] MEDS ORDERED: KETOROLAC 30 MG/ML VIAL IVP ONE (20:45)
[2019-11-06] MEDS ORDERED: PANTOPRAZOLE 40 MG (PROTONIX) VIAL IV ONE (20:45)
--- NOTE | 2019-11-06 20:46 | ED Abdominal Pain ---
General Chief Complaint: Abdominal/GI Problems Stated Complaint: ABD PAIN Source of Information: Patient Exam Limitations: No Limitations History of Present Illness Date Seen by Provider: Nov 06, 2019 Time Seen by Provider: 20:45 Initial Comments To ER with reports of right-sided abdominal pain that she states has been there for "a long time". She states it never goes away but occasionally gets worse and today it got worse. She has nausea without vomiting. She is an alcoholic states that she drinks about 24 beers a day. Timing/Duration: 4-6 Hours Severity/Quality: Moderate Location: RUQ Radiation: No Radiation Activities at Onset: None Associated Symptoms: Nausea/Vomiting Allergies and Home Medications Allergies Coded Allergies: Penicillins (Verified Allergy, Unknown, 01/28/15) morphine (Verified Adverse Reaction, Mild, DID NOT TOLERATE WELL IN ED ON MONDAY., 12/04/12) DOES NOT LIKE THE FEELING IT GIVES HER. Patient Home Medication List Home Medication List Reviewed: Yes Review of Systems Review of Systems Constitutional: see HPI EENTM: No Symptoms Reported Respiratory: No Symptoms Reported Cardiovascular: No Symptoms Reported Gastrointestinal: See HPI, Abdominal Pain, Nausea Genitourinary: No Symptoms Reported Musculoskeletal: no symptoms reported Skin: no symptoms reported Psychiatric/Neurological: No Symptoms Reported Endocrine: No Symptoms Reported Past Rcoxfdp-Opkukz-Zkpuiv Hx Patient Social History Alcohol Beverage of Choice: Beer Type Used: Cigarettes 2nd Hand Smoke Exposure: Yes Recent Foreign Travel: No Contact w/Someone Who Travel: No Recent Hopitalizations: Yes (Sep 2019- septic ) Immunizations Up To Date Tetanus Booster (TDap): Unknown PED Vaccines UTD: No Date of Influenza Vaccine: Jul 21, 2018 Seasonal Allergies Seasonal Allergies: Yes Past Medical History Surgeries: Yes Orthopedic, Tonsillectomy Respiratory: No Currently Using CPAP: No Currently Using BIPAP: No Cardiac: Yes Neurological: No Female Reproductive Disorders: Denies Sexually Transmitted Disease: No HIV/AIDS: No Genitourinary: No Gastrointestinal: Yes Colitis, Gastroesophageal Reflux, Irritable Bowel Musculoskeletal: Yes (FIBULA FX, RT ANKLE) Fractures Endocrine: No HEENT: No (strep throat last week) Loss of Vision: Denies Hearing Impairment: Denies Cancer: No Did You Recieve Any Treatments: No Psychosocial: Yes (alcoholism) Anxiety, Depression Integumentary: No Blood Disorders: No Adverse Reaction/Blood Tranf: No Family Medical History Patient reports no known family medical history. Cancer, Hypertension Physical Exam Vital Signs Vital Signs - First Documented 11/06/19 20:36 Temp 36.8 Pulse 112 Resp 18 B/P (MAP) 124/100 (108) Pulse Ox 97 O2 Delivery Room Air Capillary Refill : Height/Weight/BMI Height: 5'4.00" Weight: 132lbs. 1.8oz. [id number]; 24.24 BMI Method:Stated General Appearance: WD/WN, no apparent distress, other (she is alert and oriented, conversing with me though her speech is somewhat slurred.) Neck: non-tender, full range of motion Respiratory: no respiratory distress, no accessory muscle use Cardiovascular: no murmur, tachycardia Gastrointestinal: normal bowel sounds, soft, tenderness Extremities: normal range of motion, non-tender Neurologic/Psychiatric: alert, normal mood/affect, oriented x 3 Skin: normal color, warm/dry Progress/Results/Core Measures Results/Orders Lab Results Laboratory Tests Test 11/06/19 20:55 11/06/19 21:40 Range/Units White Blood Count 3.3 L 4.3-11.0 10^3/uL Red Blood Count 4.39 4.35-5.85 10^6/uL Hemoglobin 15.1 11.5-16.0 G/DL Hematocrit 42 35-52 % Mean Corpuscular Volume 95 80-99 FL Mean Corpuscular Hemoglobin 34 25-34 PG Mean Corpuscular Hemoglobin Concent 36 32-36 G/DL Red Cell Distribution Width 12.7 10.0-14.5 % Platelet Count 195 130-400 10^3/uL Mean Platelet Volume 10.1 7.4-10.4 FL Neutrophils (%) (Auto) 39 L 42-75 % Lymphocytes (%) (Auto) 49 H 12-44 % Monocytes (%) (Auto) 11 0-12 % Eosinophils (%) (Auto) 1 0-10 % Basophils (%) (Auto) 1 0-10 % Neutrophils # (Auto) 1.3 L 1.8-7.8 X 10^3 Lymphocytes # (Auto) 1.6 1.0-4.0 X 10^3 Monocytes # (Auto) 0.4 0.0-1.0 X 10^3 Eosinophils # (Auto) 0.0 0.0-0.3 10^3/uL Basophils # (Auto) 0.0 0.0-0.1 10^3/uL Prothrombin Time 13.4 12.2-14.7 SEC INR Comment 1.0 0.8-1.4 Sodium Level 131 L 135-145 MMOL/L Potassium Level 3.4 L 3.6-5.0 MMOL/L Chloride Level 92 L 98-107 MMOL/L Carbon Dioxide Level 21 21-32 MMOL/L Anion Gap 18 H 5-14 MMOL/L Blood Urea Nitrogen 4 L 7-18 MG/DL Creatinine 0.62 0.60-1.30 MG/DL Estimat Glomerular Filtration Rate > 60 BUN/Creatinine Ratio 6 Glucose Level 85 70-105 MG/DL Calcium Level 9.0 8.5-10.1 MG/DL Corrected Calcium 8.6 8.5-10.1 MG/DL Total Bilirubin 0.5 0.1-1.0 MG/DL Aspartate Amino Transf (AST/SGOT) 326 H 5-34 U/L Alanine Aminotransferase (ALT/SGPT) 193 H 0-55 U/L Alkaline Phosphatase 88 40-136 U/L Total Protein 7.3 6.4-8.2 GM/DL Albumin 4.5 3.2-4.5 GM/DL Lipase 125 H 8-78 U/L Serum Alcohol 417 *H <10 MG/DL Urine Color YELLOW Urine Clarity CLEAR Urine pH 5.5 5-9 Urine Specific [place] <=1.005 1.016-1.022 Urine Protein NEGATIVE NEGATIVE Urine Glucose (UA) NEGATIVE NEGATIVE Urine Ketones NEGATIVE NEGATIVE Urine Nitrite NEGATIVE NEGATIVE Urine Bilirubin NEGATIVE NEGATIVE Urine Urobilinogen 0.2 < = 1.0 MG/DL Urine Leukocyte Esterase NEGATIVE NEGATIVE Urine RBC (Auto) TRACE-I NEGATIVE Urine RBC RARE /HPF Urine WBC NONE /HPF Urine Squamous Epithelial Cells 2-5 /HPF Urine Crystals NONE /LPF Urine Bacteria TRACE /HPF Urine Casts NONE /LPF Urine Mucus NEGATIVE /LPF Urine Culture Indicated NO My Orders Orders - RAAD MARY KNITTING MACHINE OPERATOR Cbc With Automated Diff (11/06/19 20:43) Comprehensive Metabolic Panel (11/06/19 20:43) Lipase (11/06/19 20:43) Ed Iv/Invasive Line Start (11/06/19 20:43) Pantoprazole Injection (Protonix Injecti (11/06/19 20:45) Ondansetron Injection (Zofran Injectio (11/06/19 20:45) Ketorolac Injection (Toradol Injection) (11/06/19 20:45) Ns Iv 1000 Ml (Sodium Chloride 0.9%) (11/06/19 20:45) Protime With Inr (11/06/19 20:46) Alcohol (11/06/19 20:47) Medications Given in ED Current Medications Medications Dose Ordered Sig/Juan Francisco Route Start Time Stop Time Status Last Admin Dose Admin Ketorolac Tromethamine 15 mg ONCE ONCE IVP 11/06/19 20:45 11/06/19 20:46 DC 11/06/19 21:00 15 MG Ondansetron HCl 8 mg ONCE ONCE IVP 11/06/19 20:45 11/06/19 20:46 DC 11/06/19 20:59 8 MG Pantoprazole 40 mg ONCE ONCE IV 11/06/19 20:45 11/06/19 20:46 DC 11/06/19 21:00 40 MG Vital Signs/I&O 11/06/19 20:36 Temp 36.8 Pulse 112 Resp 18 B/P (MAP) 124/100 (108) Pulse Ox 97 O2 Delivery Room Air Departure Communication (Admissions) [id number] not in her room, nowhere to be found. Registration did not see her leave, she did not inform anyone she was leaving. Still has IV in. Police Notified that she has IV in. Impression Primary Impression: Alcoholic hepatitis Qualified Codes: K70.10 - Alcoholic hepatitis without ascites Disposition: 07 AGAINST MEDICAL ADVICE Condition: Against Medical Advice Departure-Patient Inst. Decision time for Depature: 21:55 Referrals: ACACIA WHITFIELD MD (PCP/Family) Primary Care Physician Patient Instructions: Alcohol Abuse and Alcoholism (DC) Add. Discharge Instructions: 1. Return to ER for any concerns 2. Follow-up with your doctor next week All discharge instructions reviewed with patient and/or family. Voiced under standing. RAAD MARY APRN Nov 06, 2019 20:46
--- NOTE | 2019-11-06 20:54 | NUR ---
PT DENIES BEING ABLE TO VOID.
--- NOTE | 2019-11-06 21:04 | NUR ---
BLANKET PROVIDED PER REQUEST
[2019-11-06 21:09] LABS: BASOPHILS % (AUTO) 1 % (0-10); EOSINOPHILS % (AUTO) 1 % (0-10); HEMATOCRIT 42 % (35-52); HEMOGLOBIN 15.1 G/DL (11.5-16.0); LYMPHOCYTES # (AUTO) 1.6 X 10^3 (1.0-4.0); LYMPHOCYTES % (AUTO) 49 % (12-44); MEAN CORPUSCULAR HEMOGLOBIN 34 PG (25-34); MEAN CORPUSCULAR HGB CONC 36 G/DL (32-36); MEAN CORPUSCULAR VOLUME 95 FL (80-99); MEAN PLATELET VOLUME 10.1 FL (7.4-10.4); MONOCYTES # (AUTO) 0.4 X 10^3 (0.0-1.0); MONOCYTES % (AUTO) 11 % (0-12); NEUTROPHILS # (AUTO) 1.3 X 10^3 (1.8-7.8); NEUTROPHILS % (AUTO) 39 % (42-75); PLATELET COUNT 195 10^3/uL (130-400); RED CELL DISTRIBUTION WIDTH 12.7 % (10.0-14.5); WHITE BLOOD COUNT 3.3 10^3/uL (4.3-11.0)
[2019-11-06 21:20] LABS: PROTHROMBIN TIME PATIENT 13.4 SEC (12.2-14.7)
[2019-11-06 21:30] LABS: ALANINE AMINOTRANSFERASE 193 U/L (0-55); ALBUMIN 4.5 GM/DL (3.2-4.5); ALKALINE PHOSPHATASE 88 U/L (40-136); BILIRUBIN,TOTAL 0.5 MG/DL (0.1-1.0); BUN/CREATININE RATIO 6; CARBON DIOXIDE 21 MMOL/L (21-32); CHLORIDE 92 MMOL/L (98-107); CREATININE SERUM 0.62 MG/DL (0.60-1.30); GFR ESTIMATED > 60; GLUCOSE 85 MG/DL (70-105); LIPASE 125 U/L (8-78); POTASSIUM 3.4 MMOL/L (3.6-5.0); SODIUM 131 MMOL/L (135-145); TOTAL PROTEIN 7.3 GM/DL (6.4-8.2)
== END 2019-11-06 22:26 | disposition left against medical advice (07) ==
LOC: EDUNIT# 20:33 → ER 20:34
DX: K70.10 Alcoholic hepatitis without ascites (principal); K21.9 Gastro-esophageal reflux disease without esophagitis; K58.9 Irritable bowel syndrome, unspecified; F41.9 Anxiety disorder, unspecified; F32.9 Major depressive disorder, single episode, unspecified; Z88.0 Allergy status to penicillin; Z88.5 Allergy status to narcotic agent; Z77.22 Contact with and (suspected) exposure to environmental tobacco smoke (acute) (chronic); Z90.89 Acquired absence of other organs; Z82.49 Family history of ischemic heart disease and other diseases of the circulatory system; Y90.8 Blood alcohol level of 240 mg/100 ml or more
CPT/HCPCS: 36415; 80053; 80320; 81000; 83690; 85025; 85610

== ENCOUNTER 2020-03-11 11:28 | Inpatient (IN) | payer MEDICAID ==
[~2020-03-11] VITALS: Ht 162.6 cm; Wt 61.7 kg
[~2020-03-11 11:28] MED LIST changes: -DISU250T12 PO; +DISU250T8 PO; +GABA-488
--- NOTE | 2020-03-11 13:05 | NUR ---
MAIRA RAY admitted to room 404-1, with an admitting diagnosis of ALCOHOL DETOX, on 03/11/20 from DIRECT ADMIT (DR WHITFIELD) via AMB TO FLOOR, accompanied by STAFF.MAIRA RAY introduced to surroundings, call light, bed controls, phone, TV, temperature control, lights, meal times, smoking policy, visitor policy, side rail policy, bathrooms and showers. Patient Rights given to patient in the handbook. MAIRA RAY verbalizes understanding that [facility] is not responsible for the loss or damage to any personal effects or valuables that are kept in the patients posession during their hospitalization. The following Patient Care Plans were discussed with the PT: Discharge Planning,INEFF BREATHING PATTERN, HIGH RISK INJURY, ANXIETY, HIGH RISK VIOLENCE, ALT HEALTH MAINTENANCE, AND NONCOMPLIANCE. MAIRA RAY verbalizes understanding of Interdisciplinary Patient Education. Patient and/or family were informed about the Rapid Response Team and its purpose. PT IS A DIRECT ADMIT -- DR WHITFIELD WILL BE PUTTING ORDERS IN
[2020-03-11] MEDS ORDERED: 1/2 NS IV SOLUTION 1,000 ML IV PRN (13:22)
--- NOTE | 2020-03-11 13:29 | History & Physicial ---
History of Present Illness History of Present Illness Reason for visit/HPI PT IS A 39 Y/O FEMALE WHO PRESENTED TO MY OFFICE TODAY WITH COMPLAINT OF NEEDING TO BE ADMITTED TO THE HOSPITAL FOR ALCOHOL WITHDRAWAL. SHE REPORTS THAT SHE WAS RECENTLY - IN NOVEMBER - IN A DRUG AND ALCOHOL PROGRAM IN [place] AND THEN IN [facility] FOR REHAB, SHE SPENT 3 DAYS IN THE HOSPITAL IN [place] FOR WITHDRAWAL AND THEN WENT TO [facility] WHERE SHE WAS FOR 9 DAYS, SHE STAYED SOBER "UNTIL THE WHOLE COVID THING HAPPENED" AND THEN SHE WENT BACK TO DRINKING FULL FORCE. SHE STATES THAT SHE IS AGAIN READY TO STOP. SHE STATES THAT SHE FEELS LIKE THIS TIME IT IS IMPERATIVE TO QUIT SINCE "MY KIDS NEED ME". Date of Admission March 11, 2020 at 13:01 Date Seen by a Provider: March 11, 2020 Time Seen by a Provider: 11:00 I consulted on this patient on 03/11/20 1100 Attending Physician Acacia Paul MD Admitting Physician Acacia Paul MD Consult Allergies and Home Medications Allergies Coded Allergies: Penicillins (Verified Allergy, Unknown, 01/28/15) morphine (Verified Adverse Reaction, Mild, DID NOT TOLERATE WELL IN ED ON MONDAY., 12/04/12) DOES NOT LIKE THE FEELING IT GIVES HER. Home Medications No Active Prescriptions or Reported Meds Patient Home Medication List Home Medication List Reviewed: Yes Past Haegucc-Crcroz-Azprhz Hx Patient Social History Marrital Status: Number of Children: 2 Number of living children: 2 Living Status: LIVES WITH HER MOM IN [place] Employed/Student: unemployed Alcohol Use: Regular Use Alcohol Beverage of Choice: Beer Recreational Drug Use: No Drug of Choice: DENIES Smoking Status: Current Everyday Smoker Type Used: Cigarettes 2nd Hand Smoke Exposure: Yes Physical Abuse Screen: No Sexual Abuse: No Recent Foreign Travel: No Contact w/other who traveled: No Recent Hopitalizations: No Recent Infectious Disease Expo: No Social History LIVES WITH HER MOM Immunizations Up To Date Tetanus Booster (TDap): Unknown Pediatric: No Date of Influenza Vaccine: Jul 21, 2018 Seasonal Allergies Seasonal Allergies: Yes Surgeries Yes Orthopedic, Tonsillectomy Respiratory No Currently Using CPAP: No Currently Using BIPAP: No Cardiovascular No Neurological No Reproductive System : No Sexually Transmitted Disease: No HIV/AIDS: No Female Reproductive Disorders: Denies Genitourinary No Gastrointestinal Yes Colitis, Gastroesophageal Reflux, Irritable Bowel Musculoskeletal Yes (FIBULA FX, RT ANKLE) Fractures Endocrine History of Endocrine Disorders: No HEENT History of HEENT Disorders: No Loss of Vision: Denies Hearing Impairment: Denies Cancer No Did You Recieve Any Treatments: No Psychosocial History of Psychiatric Problem: Yes (alcoholism) Behavioral Health Disorders: Anxiety, Depression Integumentary History of Skin or Integumenta: No Blood Transfusions History of Blood Disorders: No Adverse Reaction to a Blood Tr: No Reviewed Nursing Assessment Reviewed/Agree w Nursing PMH: Yes Family Medical History Significant Family History: Cancer, Hypertension Family Hx: Patient reports no known family medical history. Review of Systems Constitutional: No chills, No fever, No malaise, No weakness EENTM: other (SWELLIG RIGHT LOWER LIP); No ear pain, No vision loss, No throat pain Respiratory: No cough, No dyspnea on exertion, No short of breath Cardiovascular: No chest pain, No edema Gastrointestinal: No abdominal pain, No constipation, No diarrhea, No nausea, No vomiting Genitourinary: no symptoms reported Musculoskeletal: no symptoms reported; No back pain, No joint pain, No muscle weakness Skin: no symptoms reported; No change in color Psychiatric/Neurological: Anxiety; Denies Depressed; Weakness All Other Systems Reviewed Negative Unless Noted: Yes Physical Exam Vital Signs Vital Signs - First Documented Capillary Refill : Height, Weight, BMI Height: 5'4.00" Weight: 132lbs. 1.8oz. 59.636339qm; 24.00 BMI Method:Stated General Appearance: No Apparent Distress, WD/WN, Anxious Eyes: Bilateral Eye Normal Inspection, Bilateral Eye PERRL, Bilateral Eye EOMI HEENT: PERRL/EOMI, Pharynx Normal, Other (CYSTIC NODULE RIGHT LOWER LIP) Neck: Full Range of Motion, Normal Inspection, Non Tender, Supple, Carotid Bruit Respiratory: Chest Non Tender, Lungs Clear, Normal Breath Sounds, No Accessory Muscle Use Cardiovascular: Regular Rate, Rhythm, No Edema, Normal Peripheral Pulses Gastrointestinal: Normal Bowel Sounds, Non Tender, Soft Rectal: Deferred Back: Normal Inspection, No CVA Tenderness, No Vertebral Tenderness Extremity: Normal Capillary Refill, Normal Inspection, Normal Range of Motion, Non Tender, No Calf Tenderness, No Pedal Edema Neurologic/Psychiatric: Alert, Oriented x3, No Motor/Sensory Deficits, Normal Mood/Affect, provider scribe II-XII Norm as Tested Skin: Normal Color, Warm/Dry Lymphatic: No Adenopathy Assessment/Plan Assessment and Plan ALCOHOL WITHDRAWAL ALCOHOLIC HEPATITIS ELEVATED TRANSAMINASES TACHYCARDIA FEVER ALCOHOL WITHDRAWAL WITH ALCOHOLIC HEPATITIS (ELEVATED TRANSAMINASES) - PT STARTED ON ALCOHOL WITHDRAWAL PROTOCOL - CONTINUE WITH IV FLUIDS - CONTINUE WITH SCHEDULED AND PRN ATIVAN - MONITOR SERIAL LABS, WITH ANTICIPATION OF LIVER FUNCTION TO SLIGHTLY IMPROVE WITH HYDRATION AND DECREASED ALCOHOL TOXICITY OF HER LIVER. TACHYCARDIA - PT STARTED ON TOPROL - MONITOR PRESSURE AND HEART RATE Admission Diagnosis ALCOHOL WITHDRAWAL ALCOHOLIC HEPATITIS ELEVATED TRANSAMINASES TACHYCARDIA FEVER Admission Status: Inpatient Order (span 2 midnights) Reason for Inpatient Admission: INPATIENT ADMISSION FOR ALCOHOL WITHDRAWAL, ELEVATED LIVER ENZYMES, WILL REQUIRE AT LEAST 72 HOURS FOR PROTOCOL COMPLETION - ACACIA PAUL MD March 11, 2020 13:29
[2020-03-11] MEDS ORDERED: LORazepam INJ 2 MG/ML (ATIVAN) VIAL IM/IV PRN (13:30)
[2020-03-11] MEDS ORDERED: ONDANSETRON 4 MG (ZOFRAN) ORAL DISSOLVE TAB SL PRN (13:30)
[2020-03-11] MEDS ORDERED: ANTACID SUSP 30 ML UDC (MYLANTA) PO PRN (13:30)
[2020-03-11] MEDS ORDERED: D5 1/2 NS 1000 ML IV SOLUTION 1,000 ML IV PRN (13:30)
[2020-03-11] MEDS ORDERED: NICOTINE 14 MG (NICODERM) PATCH TD ONE (13:30)
[2020-03-11] MEDS ORDERED: SENNA W/DOCUSATE (SENOKOT S) TABLET PO PRN (13:30)
[2020-03-11 13:48] LABS: HEMOGLOBIN 15.1 G/DL (11.5-16.0); RED CELL DISTRIBUTION WIDTH 12.5 % (10.0-14.5); WHITE BLOOD COUNT 4.4 10^3/uL (4.3-11.0)
[2020-03-11 13:50] VITALS: BP 129/84
[2020-03-11 14:01] LABS: INR 1.1 (0.8-1.4); PROTHROMBIN TIME PATIENT 14.3 SEC (12.2-14.7)
[2020-03-11 14:09] LABS: ALANINE AMINOTRANSFERASE 215 U/L (0-55); ALBUMIN 4.2 GM/DL (3.2-4.5); ALKALINE PHOSPHATASE 85 U/L (40-136); BILIRUBIN,TOTAL 0.7 MG/DL (0.1-1.0); BUN/CREATININE RATIO 8; CALCIUM 8.3 MG/DL (8.5-10.1); CARBON DIOXIDE 19 MMOL/L (21-32); CHLORIDE 97 MMOL/L (98-107); CREATININE SERUM 0.61 MG/DL (0.60-1.30); GFR ESTIMATED > 60; GLUCOSE 72 MG/DL (70-105); POTASSIUM 3.8 MMOL/L (3.6-5.0); SODIUM 131 MMOL/L (135-145); TOTAL PROTEIN 7.2 GM/DL (6.4-8.2)
[2020-03-11] MEDS: LORazepam 0.5 MG (ATIVAN) TABLET PO SCH ×2 (14:10→21:12)
[2020-03-11] MEDS: D5 1/2 NS W/KCL 20 MEQ/L 1,000 ML IV SCH ×2 (14:23→21:12)
--- NOTE | 2020-03-11 14:34 | NUR ---
SPOKE WITH THE PT, WENT THRU THE EXT MED HISTORY AND CALLED [facility] TO COMPLETE THE MED REC THE PT DENIES TAKING ANY PRESCRIPTION OR OTC MEDS
[2020-03-11 15:25] VITALS: BP 103/68
--- NOTE | 2020-03-11 17:30 | NUR ---
PT'S HR IM THE 146-130 RANGE -- DR WHITFIELD WAS CALLED AND GOT ORDER FOR METOPROL 25MG BID AND TO GIVE DOSE NOW
[2020-03-11] MEDS ORDERED: meTOprolol TARTRATE 25 MG (LOPRESSOR) TABLET PO ONE (17:45)
[2020-03-11] MEDS: ONDANSETRON 4 MG/2 ML (SDV) Z0FRAN IV PRN (17:47)
[2020-03-11 18:07] LABS: BILIRUBIN,URINE NEGATIVE (NEGATIVE); CLARITY,URINE CLEAR; COLOR,URINE YELLOW; GLUCOSE, URINE (UA) NEGATIVE (NEGATIVE); KETONES,URINE NEGATIVE (NEGATIVE); LEUKOCYTE ESTERASE ,URINE NEGATIVE (NEGATIVE); NITRITE,URINE NEGATIVE (NEGATIVE); PROTEIN,URINE NEGATIVE (NEGATIVE)
[2020-03-11 18:51] LABS: BACTERIA,URINE NEGATIVE /HPF; SQUAMOUS EPITHELIAL CELL,UR 0-2 /HPF
[2020-03-11 19:34] VITALS: BP 97/62
--- NOTE | 2020-03-11 20:01 | NUR ---
PT HAS TEMP OF 100.[address] WHITFIELD. NEW ORDERS FOR COVID TEST, UA, AND TYLENOL 650 MG Q6 PRN. TELEPHONE INFORMATION CLERK NOTIFIED. ISOLATION STARTED. ROOM TRANSFER IN PROGRESS TO ROOM 433.
[2020-03-11] MEDS: MAGNESIUM OXIDE (MAG-OX)400 MG TAB PO SCH (21:12)
[2020-03-11] MEDS: busPIRone 5 MG (BUSPAR) TAB PO SCH (21:12)
--- NOTE | 2020-03-11 21:15 | NUR ---
COVID SWAB AND UA COLLECTED AT THIS TIME AND SENT TO LAB WITH [facility]. [facility] WAS FILLED OUT AND FAXED.
[2020-03-11 21:53] LABS: BILIRUBIN,URINE NEGATIVE (NEGATIVE); CLARITY,URINE CLEAR; COLOR,URINE YELLOW; GLUCOSE, URINE (UA) NEGATIVE (NEGATIVE); KETONES,URINE NEGATIVE (NEGATIVE); LEUKOCYTE ESTERASE ,URINE NEGATIVE (NEGATIVE); NITRITE,URINE NEGATIVE (NEGATIVE); PROTEIN,URINE NEGATIVE (NEGATIVE)
--- NOTE | 2020-03-11 22:15 | NUR ---
DR. WHITFIELD CALLED THIS RN TO CHECK UP ON PATIENT CONDITION. INFORMED HER THAT PATIENT HAS SLIGHT TREMORS AND NAUSEA, TO BE EXPECTED FROM HER DIAGNOSIS. DR. WHITFIELD ADVISED TO GO AHEAD AND GIVE PT THE PRN ATIVAN.
[2020-03-11 22:41] LABS: BACTERIA,URINE NEGATIVE /HPF
[2020-03-11 22:42] LABS: AMORPHOUS SEDIMENT,UR RARE AMOR URATES /LPF
[2020-03-12] MEDS: ONDANSETRON 4 MG/2 ML (SDV) Z0FRAN IV PRN (00:11)
[2020-03-12] MEDS: ACETAMINOPHEN 325 MG TABLET PO PRN (00:11)
[2020-03-12] MEDS: LORazepam INJ 2 MG/ML (ATIVAN) VIAL IV PRN ×2 (00:11→10:07)
[2020-03-12 00:20] VITALS: BP 115/80
[2020-03-12] MEDS ORDERED: THIAMINE 100 MG (VITAMIN B-1) TAB ONE (02:46)
[2020-03-12] MEDS ORDERED: MULTIVIT W/MINERALS TAB (THERAGRAN M) ONE (02:46)
[2020-03-12] MEDS: MULTIVIT W/MINERALS TAB (THERAGRAN M) PO SCH (03:04)
[2020-03-12] MEDS: D5 1/2 NS W/KCL 20 MEQ/L 1,000 ML IV SCH ×4 (03:04→23:07)
[2020-03-12] MEDS: LORazepam 1 MG (ATIVAN) TAB PO PRN (03:04)
[2020-03-12] MEDS: THIAMINE 100 MG (VITAMIN B-1) TAB PO SCH (03:05)
[2020-03-12 03:11] VITALS: BP 118/57
[2020-03-12] MEDS: LORazepam 0.5 MG (ATIVAN) TABLET PO SCH ×3 (06:16→20:40)
[2020-03-12 07:58] VITALS: BP 134/88
[2020-03-12] MEDS: FOLIC ACID 1 MG TAB PO SCH (08:01)
[2020-03-12] MEDS: meTOprolol TARTRATE 25 MG (LOPRESSOR) TABLET PO SCH ×2 (08:01→20:41)
[2020-03-12] MEDS: busPIRone 5 MG (BUSPAR) TAB PO SCH ×2 (08:01→20:41)
[2020-03-12] MEDS: MAGNESIUM OXIDE (MAG-OX)400 MG TAB PO SCH ×2 (08:01→20:41)
[2020-03-12] MEDS: NICOTINE 14 MG (NICODERM) PATCH TD SCH (08:01)
--- NOTE | 2020-03-12 08:36 | Progress Note ---
Subjective Subjective Date Seen by Provider: March 12, 2020 Time Seen by Provider: 08:30 PT REPORTS THAT SHE HAS HAD SOME TREMORS, SOME WEAKNESS, BUT NO HEADACHES, DIZZINESS. SHE HAS ABDOMINAL PAIN, BUT NO NAUSEA, DIARRHEA Review of Systems General: No Chills; Fatigue; No Malaise HEENT: No Head Aches, No Visual Changes Pulmonary: No Dyspnea, No Cough Cardiovascular: No: Chest Pain, Palpitations Gastrointestinal: No: Nausea, Abdominal Pain Genitourinary: No Dysuria Neurological: No: Weakness, Confusion Objective Exam Vital Signs Vital Signs - First Documented Capillary Refill : Less Than 3 Seconds General Appearance: No Apparent Distress, WD/WN HEENT: PERRL/EOMI, Pharynx Normal Neck: Full Range of Motion, Supple Respiratory: Chest Non Tender, Lungs Clear, Normal Breath Sounds, No Accessory Muscle Use Cardiovascular: Regular Rate, Rhythm, No Edema, Normal Peripheral Pulses Gastrointestinal: Normal Bowel Sounds, Soft, Tenderness (RUQ) Rectal: Deferred Extremity: Normal Capillary Refill, Non Tender, No Calf Tenderness, No Pedal Edema Neurologic/Psychiatric: Alert, Oriented x3, No Motor/Sensory Deficits, Normal Mood/Affect Skin: Normal Color, Warm/Dry Lymphatic: No Adenopathy Results Lab Laboratory Tests 03/11/20 13:45: White Blood Count 4.4, Red Blood Count 4.37, Hemoglobin 15.1, Hematocrit 43, Mean Corpuscular Volume 98, Mean Corpuscular Hemoglobin 35H, Mean Corpuscular Hemoglobin Concent 35, Red Cell Distribution Width 12.5, Platelet Count 137, Mean Platelet Volume 10.0, Prothrombin Time 14.3, INR Comment 1.1, Activated Partial Thromboplast Time 38H, Sodium Level 131L, Potassium Level 3.8, Chloride Level 97L, Carbon Dioxide Level 19L, Anion Gap 15H, Blood Urea Nitrogen 5L, Creatinine 0.61, Estimat Glomerular Filtration Rate > 60, BUN/Creatinine Ratio 8, Glucose Level 72, Calcium Level 8.3L, Corrected Calcium 8.1L, Total Bilirubin 0.7, Aspartate Amino Transf (AST/SGOT) 218H, Alanine Aminotransferase (ALT/SGPT) 215H, Alkaline Phosphatase 85, Total Protein 7.2, Albumin 4.2, Serum Alcohol 330*H, HIV (1&2) Ag and Ab Screen Referral Non-Reactive 03/11/20 17:14: Glucometer 101 5/27/20 17:45: Urine Color YELLOW, Urine Clarity CLEAR, Urine pH 6.0, Urine Specific [place] <=1.005, Urine Protein NEGATIVE, Urine Glucose (UA) NEGATIVE, Urine Ketones NEGATIVE, Urine Nitrite NEGATIVE, Urine Bilirubin NEGATIVE, Urine Urobilinogen 0.2, Urine Leukocyte Esterase NEGATIVE, Urine RBC (Auto) NEGATIVE, Urine RBC NONE, Urine WBC NONE, Urine Squamous Epithelial Cells 0-2, Urine Crystals NONE, Urine Bacteria NEGATIVE, Urine Casts NONE, Urine Mucus NEGATIVE, Urine Culture Indicated NO 03/11/20 21:15: Urine Color YELLOW, Urine Clarity CLEAR, Urine pH 6.0, Urine Specific [place] <=1.005, Urine Protein NEGATIVE, Urine Glucose (UA) NEGATIVE, Urine Ketones NEGATIVE, Urine Nitrite NEGATIVE, Urine Bilirubin NEGATIVE, Urine Urobilinogen 0.2, Urine Leukocyte Esterase NEGATIVE, Urine RBC (Auto) NEGATIVE, Urine RBC NONE, Urine WBC NONE, Urine Crystals PRESENTH, Urine Bacteria NEGATIVE, Urine Casts NONE, Urine Mucus NEGATIVE, Urine Culture Indicated NO, Urine Amorphous Sediment RARE ANNE URATESH 03/12/20 00:29: Glucometer 117H 03/12/20 06:19: Glucometer 146H Assessment/Plan Assessment/Plan Admission Dx ALCOHOL WITHDRAWAL ALCOHOLIC HEPATITIS ELEVATED TRANSAMINASES TACHYCARDIA FEVER ALCOHOL WITHDRAWAL WITH ALCOHOLIC HEPATITIS (ELEVATED TRANSAMINASES) - PT STARTED ON ALCOHOL WITHDRAWAL PROTOCOL - CONTINUE WITH IV FLUIDS - CONTINUE WITH SCHEDULED AND PRN ATIVAN - MONITOR SERIAL LABS, WITH ANTICIPATION OF LIVER FUNCTION TO SLIGHTLY IMPROVE WITH HYDRATION AND DECREASED ALCOHOL TOXICITY OF HER LIVER. TACHYCARDIA - PT STARTED ON TOPROL - MONITOR PRESSURE AND HEART RATE FEVER - TYLENOL AND IBUPROFEN PRN - COVID-19 TEST PENDING Admission Status: Inpatient Order (span 2 midnights) Clinical Quality Measures DVT/VTE Risk/Contraindication: Risk Factor Score Per Nursin RFS Level Per Nursing on Admit: 2=Moderate ACACIA WHITFIELD MD March 12, 2020 08:36
[2020-03-12 10:19] LABS: FREE T4 (FREE THYROXINE) 0.83 NG/DL (0.70-1.48)
[2020-03-12 12:37] VITALS: BP 119/81
--- NOTE | 2020-03-12 12:58 | NUR ---
CM/SS follow for social service consult. The patient is being tested for Coivd-19. This ss will visit with patient once test results come back. CM/SS visited with the patients physician in regards to treatment. It was stated that the patient is seeking treatment for her alcohol use. The patient received treatment in November in [place] and the [facility] in [place]; however, she had a lapse and started drinking again due to complicated family dynamics and stress. The patient is living with her mother currently in [place] and has [place] Medicaid. [facility] in [place] verbalized they do not accept [place]. CM/SS contacted [facility] in [place]. They do not accept Medicaid and self pay would cost 10-20,000 dollars for treatment. CM/SS contacted [facility] ([phone]) and faxed a referral for inpatient treatment ([phone]). They are a state funded hospital; therefore, insurance is not an issue. CM/SS will continue to follow and visit patient once able to discuss discharge plans.
[2020-03-12 16:49] VITALS: BP 102/66
[2020-03-12 19:49] VITALS: BP 108/73
[2020-03-13] VITALS (7 sets, daily range): BP systolic 99–113; BP diastolic 64–80
[2020-03-13] MEDS: ACETAMINOPHEN 325 MG TABLET PO PRN (00:27)
[2020-03-13] MEDS: ONDANSETRON 4 MG/2 ML (SDV) Z0FRAN IV PRN (00:27)
[2020-03-13] MEDS: LORazepam 1 MG (ATIVAN) TAB PO PRN ×5 (00:27→20:37)
[2020-03-13] MEDS: THIAMINE 100 MG (VITAMIN B-1) TAB PO SCH (05:31)
[2020-03-13] MEDS: MULTIVIT W/MINERALS TAB (THERAGRAN M) PO SCH (05:31)
[2020-03-13] MEDS: LORazepam 0.5 MG (ATIVAN) TABLET PO SCH ×3 (05:31→20:34)
[2020-03-13] MEDS: D5 1/2 NS W/KCL 20 MEQ/L 1,000 ML IV SCH ×3 (05:31→15:56)
[2020-03-13 06:47] LABS: ALBUMIN 3.8 GM/DL (3.2-4.5); CHLORIDE 106 MMOL/L (98-107); POTASSIUM 4.1 MMOL/L (3.6-5.0); SODIUM 137 MMOL/L (135-145)
[2020-03-13 06:48] LABS: CALCIUM 8.7 MG/DL (8.5-10.1)
[2020-03-13 06:49] LABS: GLUCOSE 94 MG/DL (70-105); TOTAL PROTEIN 6.3 GM/DL (6.4-8.2)
[2020-03-13 06:51] LABS: BILIRUBIN,TOTAL 1.2 MG/DL (0.1-1.0); CARBON DIOXIDE 21 MMOL/L (21-32)
[2020-03-13 06:53] LABS: ALKALINE PHOSPHATASE 77 U/L (40-136); CREATININE SERUM 0.65 MG/DL (0.60-1.30); GFR ESTIMATED > 60
[2020-03-13 06:54] LABS: BUN/CREATININE RATIO 8
[2020-03-13 06:56] LABS: ALANINE AMINOTRANSFERASE 193 U/L (0-55); MAGNESIUM 2.2 MG/DL (1.6-2.4)
--- NOTE | 2020-03-13 07:25 | NUR ---
Dr. Paul notified of pt's c/o that she feels she might have a UTI starting. New order rec to send urine to lab for analysis. Will let day shift (KOLBY Red) know.
[2020-03-13 08:57] LABS: BILIRUBIN,URINE NEGATIVE (NEGATIVE); CLARITY,URINE CLEAR; COLOR,URINE YELLOW; GLUCOSE, URINE (UA) 1+ (NEGATIVE); KETONES,URINE NEGATIVE (NEGATIVE); LEUKOCYTE ESTERASE ,URINE NEGATIVE (NEGATIVE); NITRITE,URINE NEGATIVE (NEGATIVE); PROTEIN,URINE NEGATIVE (NEGATIVE)
[2020-03-13] MEDS: meTOprolol TARTRATE 25 MG (LOPRESSOR) TABLET PO SCH ×2 (09:07→20:34)
[2020-03-13] MEDS: NICOTINE 14 MG (NICODERM) PATCH TD SCH (09:08)
[2020-03-13] MEDS: FOLIC ACID 1 MG TAB PO SCH (09:08)
[2020-03-13] MEDS: MAGNESIUM OXIDE (MAG-OX)400 MG TAB PO SCH ×2 (09:08→20:34)
[2020-03-13] MEDS: busPIRone 5 MG (BUSPAR) TAB PO SCH ×2 (09:08→20:34)
[2020-03-13 09:26] LABS: BACTERIA,URINE NEGATIVE /HPF; RBC,URINE RARE /HPF
--- NOTE | 2020-03-13 10:50 | NUR ---
CM/SS visited with patient for social service consult. CM/SS clarification: The patient has [place] Medicaid not [place]. CM/SS sent a referral yesterday to [facility] rehab center. CM/SS contacted the agency to follow up on referral. Due to the patient not being considered a [place] resident and having [place] Medicaid the patient would have to have insurance pay. CM/SS contacted [facility] ([phone]) and spoke with a worker about member services. They verified that [facility] in [place], [place] is in network with her insurance. She verbalized that [facility] will need to call and give them the NPI number. CM/SS contacted [facility] to notify her about the insurance. She verbalized understanding and stated that they are having their meeting today and will contact this ss with an answer. CM/SS updated the patient physician. The physician states that it will most likely be Monday for anticipated discharge. Will continue to follow for discharge planning. Addendum: 03/13/20 at 1435 by KAYY BUENO SSS CM/SS called to follow up on referral. Jeri is going to call by this afternoon with an answer.
--- NOTE | 2020-03-13 11:58 | Progress Note ---
Subjective Subjective Date Seen by Provider: March 13, 2020 Time Seen by Provider: 09:30 PT REPORTS THAT SHE HAS HAD MORE WEAKNESS AND SLIGHT TREMORS OVER THE PAST 24 HOURS. SHE STATES THAT SHE DOES NOT HAVE ABDOMINAL PAIN RIGHT NOW. SHE STATES THAT SHE IS FEELING DEPRESSED. WHEN TALKING TO MAIRA'S MOM SHE STATES THAT MAIRA HAS BEEN DRINKING 20- 30 BEERS A DAY. MAIRA REPORTS THAT HER MOM HAS TOLD HER THAT SHE IS GOING TO HAVE TO MOVE OUT OF THEIR HOME IN [place] AND FIND HER OWN PLACE BECAUSE THEY ARE "ENABLING HER". SHE HAS NOT BEEN GOING TO BECAUSE SHE DOES NOT HAVE ANY FEMALES FOR A SPONSOR - BUT SHE DOES HAVE FRIENDS WHO HAVE BEEN THROUGH THE SAME SITUATION WHO WOULD BE WILLING TO HELP HER. Review of Systems General: No Chills; Fatigue; No Malaise HEENT: No Head Aches, No Visual Changes Pulmonary: No Dyspnea, No Cough Cardiovascular: No: Chest Pain, Palpitations Gastrointestinal: No: Nausea, Abdominal Pain Genitourinary: No Dysuria Neurological: No: Weakness, Confusion All Other Systems Reviewed All Other Systems Reviewed: Yes Objective Exam Vital Signs Vital Signs - First Documented Capillary Refill : Less Than 3 Seconds General Appearance: No Apparent Distress, WD/WN Eyes: Bilateral Eye Normal Inspection, Bilateral Eye PERRL, Bilateral Eye EOMI HEENT: PERRL/EOMI, Pharynx Normal Neck: Full Range of Motion, Supple Respiratory: Chest Non Tender, Lungs Clear, Normal Breath Sounds, No Accessory Muscle Use Cardiovascular: Regular Rate, Rhythm, No Edema, Normal Peripheral Pulses Gastrointestinal: Normal Bowel Sounds, Soft, Tenderness (RUQ) Rectal: Deferred Back: Normal Inspection, No CVA Tenderness, No Vertebral Tenderness Extremity: Normal Capillary Refill, Non Tender, No Calf Tenderness, No Pedal Edema Neurologic/Psychiatric: Alert, Oriented x3, No Motor/Sensory Deficits, Normal Mood/Affect Skin: Normal Color, Warm/Dry Lymphatic: No Adenopathy Results Lab Laboratory Tests 03/12/20 12:40: Glucometer 139H 03/12/20 18:12: Glucometer 171H 03/13/20 00:21: Glucometer 130H 03/13/20 05:51: Sodium Level 137, Potassium Level 4.1, Chloride Level 106, Carbon Dioxide Level 21, Anion Gap 10, Blood Urea Nitrogen 5L, Creatinine 0.65, Estimat Glomerular Filtration Rate > 60, BUN/Creatinine Ratio 8, Glucose Level 94, Calcium Level 8 .7, Corrected Calcium 8.9, Magnesium Level 2.2, Total Bilirubin 1.2H, Aspartate Amino Transf (AST/SGOT) 255H, Alanine Aminotransferase (ALT/SGPT) 193H, Alkaline Phosphatase 77, Total Protein 6.3L, Albumin 3.8 03/13/20 08:50: Urine Color YELLOW, Urine Clarity CLEAR, Urine pH 8.0, Urine Specific Pegram 1.015L, Urine Protein NEGATIVE, Urine Glucose (UA) 1+H, Urine Ketones NEGATIVE, Urine Nitrite NEGATIVE, Urine Bilirubin NEGATIVE, Urine Urobilinogen 0.2, Urine Leukocyte Esterase NEGATIVE, Urine RBC (Auto) TRACE-I, Urine RBC RARE, Urine WBC NONE, Urine Squamous Epithelial Cells 2-5, Urine Crystals NONE, Urine Bacteria NEGATIVE, Urine Casts NONE, Urine Mucus NEGATIVE, Urine Culture Indicated NO 03/13/20 11:18: Glucometer 95 Assessment/Plan Assessment/Plan Admission Dx ALCOHOL WITHDRAWAL ALCOHOLIC HEPATITIS ELEVATED TRANSAMINASES TACHYCARDIA FEVER DEPRESSION ALCOHOL WITHDRAWAL WITH ALCOHOLIC HEPATITIS (ELEVATED TRANSAMINASES) - PT STARTED ON ALCOHOL WITHDRAWAL PROTOCOL - CONTINUE WITH IV FLUIDS - CONTINUE WITH SCHEDULED AND PRN ATIVAN - MONITOR SERIAL LABS, WITH ANTICIPATION OF LIVER FUNCTION TO SLIGHTLY IMPROVE WITH HYDRATION AND DECREASED ALCOHOL TOXICITY OF HER LIVER. TACHYCARDIA - PT STARTED ON TOPROL - MONITOR PRESSURE AND HEART RATE FEVER - TYLENOL AND IBUPROFEN PRN - COVID-19 TEST NEGATIVE. DEPRESSION - WILL START PT ON CITALOPRAM 20MG DAILY Admission Dx ALCOHOL WITHDRAWAL ALCOHOLIC HEPATITIS ELEVATED TRANSAMINASES TACHYCARDIA FEVER Clinical Quality Measures Admission Status Admission Dx ALCOHOL WITHDRAWAL ALCOHOLIC HEPATITIS ELEVATED TRANSAMINASES TACHYCARDIA FEVER DVT/VTE Risk/Contraindication: Risk Factor Score Per Nursin RFS Level Per Nursing on Admit: 2=Moderate ACACIA WHITFIELD MD March 13, 2020 11:58
--- NOTE | 2020-03-13 13:09 | NUR ---
"RD ASSESSMENT PMHx: ETOH use/abuse; colitis; GERD PT INTERACTION: Pt was awake and pleasant during nutrition assessment. Pt states current appetite is not great and has been this way for a few weeks. Note avg PO intake 46% x1d, per chart review. Pt states following a regular diet at home, and has no issues with chewing/swallowing food. Pt states some recent issues with nausea, vomiting, constipation and diarrhea, and that her last BM was 03/13. Note pt currently on bowel regimen of senna BID, per chart review. Pt states no recent significant wt changes. Note recent 10# wt loss x4mon, per chart review. ABNORMAL NUTRITION-RELATED LAB VALUES LOW: BUN 5; Pro 6.3 HIGH: bili 1.2; AST 255; ALT 193 Est. kcal needs: 1664-3071 kcal | 25-30 kcal/kg Est. Pro needs: 50-62 g Pro | 0.8-1.0 g Pro/kg PES STATEMENT: Inadequate oral intake (NI-2.1) related to loss of appetite | nausea | vomiting | constipation | diarrhea | colitis as evidenced by pt interview | avg PO intake 46% x1d INTERVENTION: Continue with current diet order of Regular diet. Add Ensure Enlive (vary) to meals TID, for increased kcal intake. Provides 350 kcal and 13 g Pro per serving. Will continue to follow and reassess as pt needs, intake, and status change. MONITOR/EVALUATE: PO Intake; Plan of Care; Hydration Status; Weight Status; Lab Values Macey Rodriguez, MS, RD, LD"
[2020-03-14] MEDS: D5 1/2 NS W/KCL 20 MEQ/L 1,000 ML IV SCH ×4 (01:09→21:07)
[2020-03-14 04:00] VITALS: BP 110/78
[2020-03-14] MEDS: THIAMINE 100 MG (VITAMIN B-1) TAB PO SCH (05:14)
[2020-03-14] MEDS: LORazepam 0.5 MG (ATIVAN) TABLET PO SCH ×3 (05:14→20:22)
[2020-03-14] MEDS: MULTIVIT W/MINERALS TAB (THERAGRAN M) PO SCH (05:14)
[2020-03-14 06:40] LABS: ALBUMIN 3.7 GM/DL (3.2-4.5); CHLORIDE 109 MMOL/L (98-107); POTASSIUM 4.4 MMOL/L (3.6-5.0); SODIUM 136 MMOL/L (135-145)
[2020-03-14 06:41] LABS: CALCIUM 8.7 MG/DL (8.5-10.1)
[2020-03-14 06:42] LABS: GLUCOSE 108 MG/DL (70-105)
[2020-03-14 06:43] LABS: CARBON DIOXIDE 18 MMOL/L (21-32); TOTAL PROTEIN 6.1 GM/DL (6.4-8.2)
[2020-03-14 06:44] LABS: BILIRUBIN,TOTAL 0.9 MG/DL (0.1-1.0)
[2020-03-14 06:46] LABS: ALKALINE PHOSPHATASE 86 U/L (40-136); CREATININE SERUM 0.61 MG/DL (0.60-1.30); GFR ESTIMATED > 60
[2020-03-14 06:47] LABS: BUN/CREATININE RATIO 11
[2020-03-14 06:49] LABS: ALANINE AMINOTRANSFERASE 207 U/L (0-55)
[2020-03-14 08:00] VITALS: BP 98/60
[2020-03-14] MEDS: meTOprolol TARTRATE 25 MG (LOPRESSOR) TABLET PO SCH ×2 (08:42→20:22)
[2020-03-14] MEDS: NICOTINE 14 MG (NICODERM) PATCH TD SCH (08:42)
[2020-03-14] MEDS: FOLIC ACID 1 MG TAB PO SCH (08:42)
[2020-03-14] MEDS: NICOTINE PATCH REMOVAL TP SCH (08:42)
[2020-03-14] MEDS: busPIRone 5 MG (BUSPAR) TAB PO SCH ×2 (08:42→20:22)
[2020-03-14] MEDS: MAGNESIUM OXIDE (MAG-OX)400 MG TAB PO SCH (08:42)
--- NOTE | 2020-03-14 09:56 | Progress Note ---
Subjective Subjective Date Seen by Provider: March 14, 2020 Time Seen by Provider: 09:35 No overnight events. Pt reports she is feeling better compared to yesterday. Still poor appetite as she states she is letting her stomach recover. Review of Systems General: No Chills; Fatigue; No Malaise HEENT: No Head Aches, No Visual Changes Pulmonary: No Dyspnea, No Cough Cardiovascular: No: Chest Pain, Palpitations Gastrointestinal: No: Nausea, Abdominal Pain Genitourinary: No Dysuria Neurological: No: Weakness, Confusion All Other Systems Reviewed All Other Systems Reviewed: Yes Objective Exam Vital Signs Vital Signs Date Time Temp Pulse Resp B/P (MAP) Pulse Ox O2 Delivery O2 Flow Rate FiO2 03/14/20 08:00 Room Air 03/14/20 08:00 36.7 89 16 98/60 (73) 96 Room Air 03/14/20 07:11 85 03/14/20 04:00 36.9 87 18 110/78 (89) 97 Room Air 03/14/20 00:47 78 03/13/20 23:41 37.0 83 18 102/69 (80) 97 Room Air 03/13/20 20:00 Room Air 03/13/20 19:38 36.5 109 17 108/71 (83) 97 Room Air 03/13/20 19:00 114 03/13/20 16:30 36.6 105 20 99/64 (76) 96 Room Air 03/13/20 13:00 97 03/13/20 11:23 37.0 93 18 105/77 (86) 99 Room Air I & O 03/14/20 07:00 Intake Total 2600 ml Output Total 2600 ml Balance 0 ml General Appearance: No Apparent Distress, WD/WN Eyes: Bilateral Eye Normal Inspection, Bilateral Eye PERRL, Bilateral Eye EOMI HEENT: PERRL/EOMI Neck: Full Range of Motion, Supple Respiratory: Chest Non Tender, Lungs Clear, Normal Breath Sounds, No Accessory Muscle Use Cardiovascular: Regular Rate, Rhythm, No Edema, Normal Peripheral Pulses Gastrointestinal: Normal Bowel Sounds, Soft, Tenderness (RUQ) Rectal: Deferred Back: Normal Inspection, No CVA Tenderness, No Vertebral Tenderness Extremity: Normal Capillary Refill, Non Tender, No Calf Tenderness, No Pedal Edema Neurologic/Psychiatric: Alert, Oriented x3 Skin: Normal Color, Warm/Dry Lymphatic: No Adenopathy Results Lab Laboratory Tests 03/13/20 11:18: Glucometer 95 03/13/20 18:10: Glucometer 139H 03/13/20 23:20: Glucometer 126H 03/14/20 06:18: Sodium Level 136, Potassium Level 4.4, Chloride Level 109H, Carbon Dioxide Level 18L, Anion Gap 9, Blood Urea Nitrogen 7, Creatinine 0.61, Estimat Glomerular Filtration Rate > 60, BUN/Creatinine Ratio 11, Glucose Level 108H, Calcium Level 8.7, Corrected Calcium 8.9, Total Bilirubin 0.9, Aspartate Amino Transf (AST /SGOT) 208H, Alanine Aminotransferase (ALT/SGPT) 207H, Alkaline Phosphatase 86, Total Protein 6.1L, Albumin 3.7 Assessment/Plan Assessment/Plan Assessment and Plan continue CIWA protocol -continues to use ativan on - none overnight. Case management is following- plan would be to d/c on Monday to . Problems: (1) Alcohol abuse (2) Alcohol withdrawal (3) Depression Assessment & Plan: started on SSRI 03/13/20 (4) Hyponatremia Assessment & Plan: improved Clinical Quality Measures DVT/VTE Risk/Contraindication: Risk Factor Score Per Nursin RFS Level Per Nursing on Admit: 2=Moderate LELIA WILCOX MD March 14, 2020 09:56
[2020-03-14 12:00] VITALS: BP 107/75
[2020-03-14 15:34] VITALS: BP 110/67
[2020-03-14] MEDS: LORazepam INJ 2 MG/ML (ATIVAN) VIAL IV PRN (16:40)
[2020-03-14 19:18] VITALS: BP 118/72
[2020-03-15] VITALS (7 sets, daily range): BP systolic 99–117; BP diastolic 64–81
[2020-03-15] MEDS: D5 1/2 NS W/KCL 20 MEQ/L 1,000 ML IV SCH ×2 (03:43→10:25)
[2020-03-15] MEDS: ACETAMINOPHEN 325 MG TABLET PO PRN (03:43)
[2020-03-15] MEDS: MULTIVIT W/MINERALS TAB (THERAGRAN M) PO SCH (05:34)
[2020-03-15] MEDS: LORazepam 0.5 MG (ATIVAN) TABLET PO SCH ×3 (05:34→20:13)
[2020-03-15 05:58] LABS: ALBUMIN 3.8 GM/DL (3.2-4.5)
[2020-03-15 05:59] LABS: CHLORIDE 105 MMOL/L (98-107); POTASSIUM 4.4 MMOL/L (3.6-5.0); SODIUM 133 MMOL/L (135-145)
[2020-03-15 06:00] LABS: CALCIUM 8.6 MG/DL (8.5-10.1)
[2020-03-15 06:01] LABS: GLUCOSE 101 MG/DL (70-105); TOTAL PROTEIN 6.2 GM/DL (6.4-8.2)
[2020-03-15 06:02] LABS: CARBON DIOXIDE 20 MMOL/L (21-32)
[2020-03-15 06:04] LABS: ALKALINE PHOSPHATASE 80 U/L (40-136)
[2020-03-15 06:05] LABS: CREATININE SERUM 0.65 MG/DL (0.60-1.30); GFR ESTIMATED > 60
[2020-03-15 06:06] LABS: BUN/CREATININE RATIO 12
[2020-03-15 06:07] LABS: ALANINE AMINOTRANSFERASE 258 U/L (0-55)
[2020-03-15] MEDS: meTOprolol TARTRATE 25 MG (LOPRESSOR) TABLET PO SCH ×2 (10:07→20:13)
[2020-03-15] MEDS: FOLIC ACID 1 MG TAB PO SCH (10:07)
[2020-03-15] MEDS: busPIRone 5 MG (BUSPAR) TAB PO SCH ×2 (10:07→20:13)
[2020-03-15] MEDS: NICOTINE PATCH REMOVAL TP SCH (10:07)
[2020-03-15] MEDS: NICOTINE 14 MG (NICODERM) PATCH TD SCH (10:07)
--- NOTE | 2020-03-15 11:58 | Progress Note ---
Subjective Subjective Date Seen by Provider: March 15, 2020 Time Seen by Provider: 11:30 No overnight events. Pt reports she is feeling better and wants to go home today because she has cocker poo puppies to take care of. Review of Systems General: No Chills; Fatigue; No Malaise HEENT: No Head Aches, No Visual Changes Pulmonary: No Dyspnea, No Cough Cardiovascular: No: Chest Pain, Palpitations Gastrointestinal: No: Nausea, Abdominal Pain Genitourinary: No Dysuria Neurological: No: Weakness, Confusion All Other Systems Reviewed All Other Systems Reviewed: Yes Objective Exam Vital Signs Vital Signs Date Time Temp Pulse Resp B/P (MAP) Pulse Ox O2 Delivery O2 Flow Rate FiO2 03/15/20 08:09 36.4 75 20 100/66 (77) 98 Room Air 03/15/20 07:50 Room Air 03/15/20 07:00 74 03/15/20 04:00 36.5 72 20 99/65 (76) 98 Room Air 03/15/20 01:00 74 03/15/20 00:00 36.6 86 18 115/81 (92) 98 Room Air 03/14/20 19:18 36.7 74 16 118/72 (87) 97 Room Air 03/14/20 19:15 Room Air 03/14/20 19:00 83 03/14/20 15:34 36.8 78 18 110/67 (81) 98 Room Air 03/14/20 13:03 78 03/14/20 12:00 36.5 76 16 107/75 (86) 96 Room Air I & O 03/15/20 07:00 Intake Total 3160 ml Output Total 1600 ml Balance 1560 ml General Appearance: No Apparent Distress, WD/WN Eyes: Bilateral Eye Normal Inspection, Bilateral Eye PERRL, Bilateral Eye EOMI HEENT: PERRL/EOMI Neck: Full Range of Motion, Supple Respiratory: Chest Non Tender, Lungs Clear, Normal Breath Sounds, No Accessory Muscle Use Cardiovascular: Regular Rate, Rhythm, No Edema, Normal Peripheral Pulses Gastrointestinal: Normal Bowel Sounds, Soft, Tenderness (RUQ) Rectal: Deferred Back: Normal Inspection, No CVA Tenderness, No Vertebral Tenderness Extremity: Normal Capillary Refill, Non Tender, No Calf Tenderness, No Pedal Edema Neurologic/Psychiatric: Alert, Oriented x3 Skin: Normal Color, Warm/Dry Lymphatic: No Adenopathy Results Lab Laboratory Tests 03/14/20 19:16: Glucometer 122H 03/15/20 05:20: Sodium Level 133L, Potassium Level 4.4, Chloride Level 105, Carbon Dioxide Level 20L, Anion Gap 8, Blood Urea Nitrogen 8, Creatinine 0.65, Estimat Glomerular Filtration Rate > 60, BUN/Creatinine Ratio 12, Glucose Level 101, Calcium Level 8.6, Corrected Calcium 8.8, Total Bilirubin 1.0, Aspartate Amino Transf (AST/SGOT) 241H, Alanine Aminotransferase (ALT/SGPT) 258H, Alkaline Phosphatase 80, Total Protein 6.2L, Albumin 3.8 Assessment/Plan Assessment/Plan Assessment and Plan continue CIWA protocol -continues to use ativan for anxiety Case management is following- plan would be to d/c on Monday to . Pt wants to be discharged to home. Dr. Paul to take over care tomorrow. Problems: (1) Alcohol abuse (2) Alcohol withdrawal (3) Depression Assessment & Plan: started on SSRI 03/13/20 (4) Hyponatremia Assessment & Plan: starting to go back down. 133 today. Will stop IVF as it has 1/2 NS Clinical Quality Measures DVT/VTE Risk/Contraindication: Risk Factor Score Per Nursin RFS Level Per Nursing on Admit: 2=Moderate LELIA WILCOX MD March 15, 2020 11:58
[2020-03-16 04:00] VITALS: BP 104/71
[2020-03-16 05:33] LABS: ALBUMIN 4.1 GM/DL (3.2-4.5); CHLORIDE 101 MMOL/L (98-107); SODIUM 130 MMOL/L (135-145)
[2020-03-16 05:35] LABS: CALCIUM 9.1 MG/DL (8.5-10.1)
[2020-03-16 05:36] LABS: GLUCOSE 86 MG/DL (70-105); TOTAL PROTEIN 6.8 GM/DL (6.4-8.2)
[2020-03-16 05:37] LABS: CARBON DIOXIDE 18 MMOL/L (21-32)
[2020-03-16 05:38] LABS: BILIRUBIN,TOTAL 1.1 MG/DL (0.1-1.0)
[2020-03-16 05:39] LABS: ALKALINE PHOSPHATASE 79 U/L (40-136); CREATININE SERUM 0.63 MG/DL (0.60-1.30); GFR ESTIMATED > 60
[2020-03-16 05:40] LABS: BUN/CREATININE RATIO 13
[2020-03-16 05:42] LABS: ALANINE AMINOTRANSFERASE 445 U/L (0-55)
[2020-03-16] MEDS: MULTIVIT W/MINERALS TAB (THERAGRAN M) PO SCH (06:11)
[2020-03-16] MEDS: LORazepam 0.5 MG (ATIVAN) TABLET PO SCH ×3 (06:11→20:29)
[2020-03-16] MEDS: FOLIC ACID 1 MG TAB PO SCH (08:49)
[2020-03-16] MEDS: busPIRone 5 MG (BUSPAR) TAB PO SCH (08:49)
[2020-03-16] MEDS: NICOTINE PATCH REMOVAL TP SCH (08:50)
[2020-03-16] MEDS: NICOTINE 14 MG (NICODERM) PATCH TD SCH (08:50)
[2020-03-16 09:00] VITALS: BP 98/63
--- NOTE | 2020-03-16 09:28 | Progress Note ---
Subjective Subjective Date Seen by Provider: Mar 16, 2020 Time Seen by Provider: 08:40 PT REPORTS THAT SHE IS FEELING BETTER, MORE CLEAR HEADED, LESS TREMORS. SHE IS ANXIOUS TO GO HOME. HER MOM IS AT THE BEDSIDE STATING THAT SHE WILL SUPPORT MAIRA GOING SOMEWHERE INPATIENT, BUT NOT TO HOME RIGHT NOW. MAIRA IS JUST INTERESTED IN GOING TO INPATIENT ALCOHOL REHAB, BUT ALSO WANTS TO GO HOME IF POSSIBLE. SHE CONTINUES TO HAVE GI UPSET Review of Systems General: No Chills; Fatigue; No Malaise HEENT: No Head Aches, No Visual Changes Pulmonary: No Dyspnea, No Cough Cardiovascular: No: Chest Pain, Palpitations Gastrointestinal: No: Nausea, Abdominal Pain Genitourinary: No Dysuria Neurological: No: Weakness, Confusion All Other Systems Reviewed All Other Systems Reviewed: Yes Objective Exam Vital Signs Vital Signs - First Documented Capillary Refill : Less Than 3 SecondsLess Than 3 Seconds General Appearance: No Apparent Distress, WD/WN Eyes: Bilateral Eye Normal Inspection, Bilateral Eye PERRL, Bilateral Eye EOMI HEENT: PERRL/EOMI Neck: Full Range of Motion, Supple Respiratory: Chest Non Tender, Lungs Clear, Normal Breath Sounds, No Accessory Muscle Use Cardiovascular: Regular Rate, Rhythm, No Edema, Normal Peripheral Pulses Gastrointestinal: Normal Bowel Sounds, Soft, Tenderness (RUQ) Rectal: Deferred Back: Normal Inspection, No CVA Tenderness, No Vertebral Tenderness Extremity: Normal Capillary Refill, Non Tender, No Calf Tenderness, No Pedal Edema Neurologic/Psychiatric: Alert, Oriented x3 Skin: Normal Color, Warm/Dry Lymphatic: No Adenopathy Results Lab Laboratory Tests 03/16/20 05:05: Sodium Level 130L, Potassium Level 4.0, Chloride Level 101, Carbon Dioxide Level 18L, Anion Gap 11, Blood Urea Nitrogen 8, Creatinine 0.63, Estimat Glomerular Filtration Rate > 60, BUN/Creatinine Ratio 13, Glucose Level 86, Calcium Level 9.1, Corrected Calcium 9.0, Total Bilirubin 1.1H, Aspartate Amino Transf (AST/SGOT) 410H, Alanine Aminotransferase (ALT/SGPT) 445H, Alkaline Phosphatase 79, Total Protein 6.8, Albumin 4.1 Assessment/Plan Assessment/Plan Admission Dx ALCOHOL WITHDRAWAL ALCOHOLIC HEPATITIS ELEVATED TRANSAMINASES TACHYCARDIA FEVER DEPRESSION HYPONATREMIA ALCOHOL WITHDRAWAL WITH ALCOHOLIC HEPATITIS (ELEVATED TRANSAMINASES) - PT STARTED ON ALCOHOL WITHDRAWAL PROTOCOL - RESTART IV FLUIDS - CONTINUE WITH SCHEDULED AND PRN ATIVAN - MONITOR SERIAL LABS, WITH ANTICIPATION OF LIVER FUNCTION TO SLIGHTLY IMPROVE WITH HYDRATION AND DECREASED ALCOHOL TOXICITY OF HER LIVER. ELEVATED LFT'S - REPEAT LABS IN MORNING AFTER RESTARTING FLUIDS TACHYCARDIA - NOW RESOLVED, METOPROLOL STOPPED FEVER - RESOLVED - TYLENOL AND IBUPROFEN PRN - COVID-19 TEST NEGATIVE. DEPRESSION - WILL START PT ON CITALOPRAM 20MG DAILY Problems: (1) Alcohol abuse (2) Alcohol withdrawal (3) Depression Assessment & Plan: started on SSRI 03/13/20 (4) Hyponatremia Assessment & Plan: starting to go back down. 133 today. Will stop IVF as it has 1/2 NS Admission Dx ALCOHOL WITHDRAWAL ALCOHOLIC HEPATITIS ELEVATED TRANSAMINASES TACHYCARDIA FEVER DEPRESSION ALCOHOL WITHDRAWAL WITH ALCOHOLIC HEPATITIS (ELEVATED TRANSAMINASES) - PT STARTED ON ALCOHOL WITHDRAWAL PROTOCOL - CONTINUE WITH IV FLUIDS - CONTINUE WITH SCHEDULED AND PRN ATIVAN - MONITOR SERIAL LABS, WITH ANTICIPATION OF LIVER FUNCTION TO SLIGHTLY IMPROVE WITH HYDRATION AND DECREASED ALCOHOL TOXICITY OF HER LIVER. TACHYCARDIA - PT STARTED ON TOPROL - MONITOR PRESSURE AND HEART RATE FEVER - TYLENOL AND IBUPROFEN PRN - COVID-19 TEST NEGATIVE. DEPRESSION - WILL START PT ON CITALOPRAM 20MG DAILY Clinical Quality Measures Admission Status Admission Dx ALCOHOL WITHDRAWAL ALCOHOLIC HEPATITIS ELEVATED TRANSAMINASES TACHYCARDIA FEVER DEPRESSION ALCOHOL WITHDRAWAL WITH ALCOHOLIC HEPATITIS (ELEVATED TRANSAMINASES) - PT STARTED ON ALCOHOL WITHDRAWAL PROTOCOL - CONTINUE WITH IV FLUIDS - CONTINUE WITH SCHEDULED AND PRN ATIVAN - MONITOR SERIAL LABS, WITH ANTICIPATION OF LIVER FUNCTION TO SLIGHTLY IMPROVE WITH HYDRATION AND DECREASED ALCOHOL TOXICITY OF HER LIVER. TACHYCARDIA - PT STARTED ON TOPROL - MONITOR PRESSURE AND HEART RATE FEVER - TYLENOL AND IBUPROFEN PRN - COVID-19 TEST NEGATIVE. DEPRESSION - WILL START PT ON CITALOPRAM 20MG DAILY DVT/VTE Risk/Contraindication: Risk Factor Score Per Nursin RFS Level Per Nursing on Admit: 2=Moderate ACACIA WHITFIELD MD Mar 16, 2020 09:27
--- NOTE | 2020-03-16 11:50 | NUR ---
CM/SS follow up. CM/SS contacted [facility] this a.m. to get NPI number to check insurance coverage due to facility not willing to run it before she came over. A message was left for Jeri. Jeri contacted this ss back and stated that they will not be able to accept the patient due to no female beds being available. CM/SS contacted [facility] ([phone]) to make a referral. CM/SS sent a fax ([phone]) for referral. [facility] requires patients to have a drug assessment by [facility] ([phone]). CM/SS contacted the number to set up an appointment for the patient. They verbalized that it would be $200 if the patient did not have "Behavioral Health" insurance coverage. CM/SS contacted [employer] to check coverage. The [employer] worker verified that the patient had a Behavioral Health welfare case worker and has coverage for the assessment. Her welfare case worker is Eden Bacon ([phone]). CM/SS updated the patients welfare case worker on plan. She reports she will follow up with the patient. CM/SS set up an appointment for the assessment at 1600 today 03/16. The assessors name will be [place]. They will call her phone and do the assessment via telehealth. LUIGI/SS informed the patient of this and she verbalized understanding. She reports she will charge her phone and put it on loud. Will continue to follow.
[2020-03-16 12:55] VITALS: BP 105/70
[2020-03-16] MEDS: NS IV 1000 ML 1,000 ML IV SCH ×3 (13:26→20:31)
[2020-03-16 16:00] VITALS: BP 98/62
[2020-03-16 20:03] VITALS: BP 105/70
[2020-03-16 23:35] VITALS: BP 97/61
[2020-03-17 04:00] VITALS: BP 113/73
[2020-03-17] MEDS: NS IV 1000 ML 1,000 ML IV SCH ×3 (04:26→21:03)
[2020-03-17] MEDS: LORazepam 0.5 MG (ATIVAN) TABLET PO SCH ×2 (04:26→21:03)
[2020-03-17] MEDS: MULTIVIT W/MINERALS TAB (THERAGRAN M) PO SCH (05:27)
[2020-03-17 05:40] LABS: ALBUMIN 3.7 GM/DL (3.2-4.5); CHLORIDE 107 MMOL/L (98-107); POTASSIUM 3.9 MMOL/L (3.6-5.0); SODIUM 135 MMOL/L (135-145)
[2020-03-17 05:42] LABS: CALCIUM 8.6 MG/DL (8.5-10.1)
[2020-03-17 05:43] LABS: GLUCOSE 83 MG/DL (70-105)
[2020-03-17 05:44] LABS: CARBON DIOXIDE 20 MMOL/L (21-32)
[2020-03-17 05:45] LABS: BILIRUBIN,TOTAL 0.8 MG/DL (0.1-1.0)
[2020-03-17 05:46] LABS: ALKALINE PHOSPHATASE 76 U/L (40-136); CREATININE SERUM 0.62 MG/DL (0.60-1.30); GFR ESTIMATED > 60
[2020-03-17 05:47] LABS: BUN/CREATININE RATIO 13
[2020-03-17 05:49] LABS: ALANINE AMINOTRANSFERASE 524 U/L (0-55); CREATINE KINASE 13 U/L (29-168)
[2020-03-17 08:00] VITALS: BP 99/65
--- NOTE | 2020-03-17 08:34 | Progress Note ---
Subjective Subjective Date Seen by Provider: Mar 17, 2020 Time Seen by Provider: 08:30 PT REPORTS THAT SHE IS STILL HAVING ABDOMINAL PAIN, DENIES NAUSEA. SHE STATES THAT SHE IS NOT HAVING ANY MORE TREMORS RIGHT NOW. SHE REPORTS THAT SHE IS READY TO BE PLACED INTO AN INPATIENT ALCOHOL REHAB PROGRAM. Review of Systems General: No Chills; Fatigue; No Malaise HEENT: No Head Aches, No Visual Changes Pulmonary: No Dyspnea, No Cough Cardiovascular: No: Chest Pain, Palpitations Gastrointestinal: Abdominal Pain; No: Nausea Genitourinary: No Dysuria Neurological: No: Weakness, Confusion All Other Systems Reviewed All Other Systems Reviewed: Yes Objective Exam Vital Signs Vital Signs - First Documented Capillary Refill : Less Than 3 SecondsLess Than 3 Seconds General Appearance: No Apparent Distress, WD/WN Eyes: Bilateral Eye Normal Inspection, Bilateral Eye PERRL, Bilateral Eye EOMI HEENT: PERRL/EOMI Neck: Full Range of Motion, Supple Respiratory: Chest Non Tender, Lungs Clear, Normal Breath Sounds, No Accessory Muscle Use Cardiovascular: Regular Rate, Rhythm, No Edema, Normal Peripheral Pulses Gastrointestinal: Normal Bowel Sounds, Soft, Tenderness (RUQ) Rectal: Deferred Back: Normal Inspection, No CVA Tenderness Extremity: Normal Capillary Refill, Non Tender, No Calf Tenderness, No Pedal Edema Neurologic/Psychiatric: Alert, Oriented x3, No Motor/Sensory Deficits, Normal Mood/Affect, knife setter grinder machine II-XII Norm as Tested Skin: Normal Color, Warm/Dry Lymphatic: No Adenopathy Results Lab Laboratory Tests 03/17/20 04:50: Sodium Level 135, Potassium Level 3.9, Chloride Level 107, Carbon Dioxide Level 20L, Anion Gap 8, Blood Urea Nitrogen 8, Creatinine 0.62, Estimat Glomerular Filtration Rate > 60, BUN/Creatinine Ratio 13, Glucose Level 83, Calcium Level 8.6, Corrected Calcium 8.8, Total Bilirubin 0.8, Aspartate Amino Transf (AST/SGOT) 403H, Alanine Aminotransferase (ALT/SGPT) 524#H, Alkaline Phosphatase 76, Total Creatine Kinase 13L, Total Protein 6.0L, Albumin 3.7 Assessment/Plan Assessment/Plan Admission Dx ALCOHOL WITHDRAWAL ALCOHOLIC HEPATITIS ELEVATED TRANSAMINASES TACHYCARDIA FEVER DEPRESSION HYPONATREMIA ALCOHOL WITHDRAWAL WITH ALCOHOLIC HEPATITIS (ELEVATED TRANSAMINASES) - PT ON ALCOHOL WITHDRAWAL PROTOCOL - RESTARTED IV FLUIDS ON 03/16/2020 - CONTINUE WITH SCHEDULED AND PRN ATIVAN ELEVATED LFT'S - INCREASED FROM YESTERDAY - CHECK GALLBLADDER US AND CONSULT TO DR. MEYER - REPEAT LFT'S TOMORROW TACHYCARDIA - NOW RESOLVED, METOPROLOL STOPPED FEVER - RESOLVED - TYLENOL AND IBUPROFEN PRN - COVID-19 TEST NEGATIVE. DEPRESSION - STARTED PT ON CITALOPRAM 20MG DAILY Problems: (1) Alcohol abuse (2) Alcohol withdrawal (3) Depression Assessment & Plan: started on SSRI 03/13/20 (4) Hyponatremia Assessment & Plan: starting to go back down. 133 today. Will stop IVF as it has 1/2 NS Admission Dx ALCOHOL WITHDRAWAL ALCOHOLIC HEPATITIS ELEVATED TRANSAMINASES TACHYCARDIA FEVER DEPRESSION ALCOHOL WITHDRAWAL WITH ALCOHOLIC HEPATITIS (ELEVATED TRANSAMINASES) - PT STARTED ON ALCOHOL WITHDRAWAL PROTOCOL - CONTINUE WITH IV FLUIDS - CONTINUE WITH SCHEDULED AND PRN ATIVAN - MONITOR SERIAL LABS, WITH ANTICIPATION OF LIVER FUNCTION TO SLIGHTLY IMPROVE WITH HYDRATION AND DECREASED ALCOHOL TOXICITY OF HER LIVER. TACHYCARDIA - PT STARTED ON TOPROL - MONITOR PRESSURE AND HEART RATE FEVER - TYLENOL AND IBUPROFEN PRN - COVID-19 TEST NEGATIVE. DEPRESSION - WILL START PT ON CITALOPRAM 20MG DAILY Clinical Quality Measures Admission Status Admission Dx ALCOHOL WITHDRAWAL ALCOHOLIC HEPATITIS ELEVATED TRANSAMINASES TACHYCARDIA FEVER DEPRESSION ALCOHOL WITHDRAWAL WITH ALCOHOLIC HEPATITIS (ELEVATED TRANSAMINASES) - PT STARTED ON ALCOHOL WITHDRAWAL PROTOCOL - CONTINUE WITH IV FLUIDS - CONTINUE WITH SCHEDULED AND PRN ATIVAN - MONITOR SERIAL LABS, WITH ANTICIPATION OF LIVER FUNCTION TO SLIGHTLY IMPROVE WITH HYDRATION AND DECREASED ALCOHOL TOXICITY OF HER LIVER. TACHYCARDIA - PT STARTED ON TOPROL - MONITOR PRESSURE AND HEART RATE FEVER - TYLENOL AND IBUPROFEN PRN - COVID-19 TEST NEGATIVE. DEPRESSION - WILL START PT ON CITALOPRAM 20MG DAILY DVT/VTE Risk/Contraindication: Risk Factor Score Per Nursin RFS Level Per Nursing on Admit: 2=Moderate ACACIA WHITFIELD MD Mar 17, 2020 08:34
[2020-03-17] MEDS: FOLIC ACID 1 MG TAB PO SCH (09:12)
[2020-03-17] MEDS: NICOTINE PATCH REMOVAL TP SCH (09:12)
[2020-03-17] MEDS: NICOTINE 14 MG (NICODERM) PATCH TD SCH (09:12)
[2020-03-17 11:38] VITALS: BP 100/66
--- NOTE | 2020-03-17 13:07 | NUR ---
CM/SS follow up. LUIGI/SS contacted [facility] facility in [place] at 8:15 this a.m. 03/17 to check on status of patients referral. Milka who is in admissions reported they are still reviewing her application and would call this ss back with an answer. CM/SS will follow back up this afternoon if facility does not reach out. LUIGI/SS visited with the patient to inform her that they are still reviewing for admission. She verbalized understanding. The patients physician states she will not be discharging today due to lab work being out of normal limits. LUIGI/SS will continue to follow. Addendum: 03/17/20 at 1547 by KAYY BUENO [facility] LUIGI/SS made multiple attempts to contact the inside sales coordinator at [facility] Brenda galvan. She is not available to answer the phone and her voice mail is full/not available. LUIGI/SS contacted the main number and asked staff to give a message for this ss. Gave name, phone number, and patients name. LUIGI/SS stated it was in regards to referral. Still awaiting answer.
--- NOTE | 2020-03-17 15:19 | Diagnostic Imaging Report ---
PROCEDURE: US Gallbladder. TECHNIQUE: Multiple real-time grayscale images were obtained over the right upper quadrant in various projections. INDICATION: Elevated LFTs. FINDINGS: There is increased echogenicity of the liver compatible with fatty infiltration. There is hepatopetal flow in the main portal vein. There is no biliary ductal dilatation. Common bile duct measures less than 5 mm. There is no cholelithiasis, gallbladder wall thickening, or pericholecystic fluid. Pancreas is not well visualized. The aorta is nonaneurysmal. IVC is patent. Right kidney is normal. There is no ascites. IMPRESSION: Fatty infiltration of the liver, otherwise unremarkable right upper quadrant ultrasound. Dictated by: Dictated on workstation # [id number]
--- NOTE | 2020-03-17 16:27 | NUR ---
Pastoral care visit.
[2020-03-17 16:30] VITALS: BP 120/79
[2020-03-17 20:05] VITALS: BP 111/75
--- NOTE | 2020-03-17 22:45 | Consultation - Surgery ---
History of Present Illness History of Present Illness Patient Consulted On(elizabeth/time) 03/17/20 12:40 Date Seen by Provider: Mar 17, 2020 Time Seen by Provider: 12:40 History of Present Illness Consult requested by Dr. Paul for elevated transaminases Patient is a 39 year old female, admitted for alcohol detox. Patient with elevated transaminases that trended upwards. She states has mild discomfort in the epigastric region of abdomen. No radiation of pain. Nothing seems to make it better. Nothing really seems to make it worse. Patient has had the pain for years, but never too bad. Has a little nausea, no emesis. Reports that she is in here for detox, she drinks approximately 15 beers per day before she came in to the hospital. Denies fever sweats chills shortness of breath or chest pain. Allergies and Home Medications Allergies Coded Allergies: Penicillins (Verified Allergy, Unknown, 01/28/15) morphine (Verified Adverse Reaction, Mild, DID NOT TOLERATE WELL IN ED ON MONDAY., 12/04/12) DOES NOT LIKE THE FEELING IT GIVES HER. Home Medications No Active Prescriptions or Reported Meds Patient Home Medication List Home Medication List Reviewed: Yes Past Gjvaiua-Gzsxjp-Woukda Hx Patient Social History Alcohol Use: Regular Use Recreational Drug Use: No Drug of Choice: DENIES Smoking Status: Current Everyday Smoker Type Used: Cigarettes 2nd Hand Smoke Exposure: Yes Recent Foreign Travel: No Contact w/Someone Who Travel: No Recent Infectious Disease Expo: No Recent Hopitalizations: No Physical Abuse Screen: No Sexual Abuse: No Immunizations Up To Date Tetanus Booster (TDap): Unknown PED Vaccines UTD: No Date of Influenza Vaccine: Jul 21, 2018 Seasonal Allergies Seasonal Allergies: Yes Surgeries History of Surgeries: Yes Surgeries: Orthopedic, Tonsillectomy Respiratory History of Respiratory Disorde: No Cardiovascular History of Cardiac Disorders: No Neurological History of Neurological Disord: No Reproductive System : No Sexually Transmitted Disease: No HIV/AIDS: No Female Reproductive Disorders: Denies Genitourinary History of Genitourinary Disor: No Gastrointestinal History of Gastrointestinal Di: Yes Gastrointestinal Disorders: Colitis, Gastroesophageal Reflux, Irritable Bowel Musculoskeletal History of Musculoskeletal Dis: Yes (FIBULA FX, RT ANKLE) Musculoskeletal Disorders: Fractures Endocrine History of Endocrine Disorders: No HEENT History of HEENT Disorders: No Loss of Vision: Denies Hearing Impairment: Denies Cancer History of Cancer: No Psychosocial History of Psychiatric Problem: Yes (alcoholism) Behavioral Health Disorders: Anxiety, Depression Integumentary History of Skin or Integumenta: No Blood Transfusions History of Blood Disorders: No Adverse Reaction to a Blood Tr: No Reviewed Nursing Assessment Reviewed/Agree w Nursing PMH: Yes Family Medical History Significant Family History: Cancer, Hypertension Family Medial History: Patient reports no known family medical history. Review of Systems-General Constitutional: No chills, No diaphoresis EENTM: no symptoms reported; No hearing loss, No blurred vision Respiratory: no symptoms reported; No cough, No dyspnea on exertion Cardiovascular: no symptoms reported; No chest pain, No palpitations Gastrointestinal: abdominal pain (epigastric) Musculoskeletal: No back pain, No gout, No joint pain Skin: no symptoms reported; No change in color, No change in hair/nails Psychiatric/Neurological: No Symptoms Reported Physical Exam-General Problems Physical Exam Vital Signs Vital Signs - First Documented Capillary Refill : Less Than 3 SecondsNONE General Appearance: no apparent distress HEENT: PERRL/EOMI, normal ENT inspection Neck: non-tender, supple, normal inspection Respiratory: chest non-tender, no respiratory distress, no accessory muscle use Cardiovascular: regular rate, rhythm Gastrointestinal: non tender, soft, no pulsatile mass Rectal: deferred Back: no CVA tenderness Extremities: non-tender, no calf tenderness Neurologic/Psychiatric: racecar driver II-XII nml as tested, no motor/sensory deficits, alert, normal mood/affect, oriented x 3 Skin: normal color Lymphatic: no adenopathy Data Review Labs Laboratory Tests 03/17/20 04:50: Sodium Level 135, Potassium Level 3.9, Chloride Level 107, Carbon Dioxide Level 20L, Anion Gap 8, Blood Urea Nitrogen 8, Creatinine 0.62, Estimat Glomerular Filtration Rate > 60, BUN/Creatinine Ratio 13, Glucose Level 83, Calcium Level 8.6, Corrected Calcium 8.8, Total Bilirubin 0.8, Aspartate Amino Transf (AST/SGOT) 403H, Alanine Aminotransferase (ALT/SGPT) 524#H, Alkaline Phosphatase 76, Total Creatine Kinase 13L, Total Protein 6.0L, Albumin 3.7 Assessment/Plan Assessment/Plan Assessment/Plan etoh dependency elevated transaminases alcohol hepatitis epigastric abdominal pain continue medical management of alcohol detox u/s to evaluate gallbladder and liver await result with patient NPO follow lft's will follow no surgical intervention hank this time.. Clinical Quality Measures DVT/VTE Risk/Contraindication: Risk Factor Score Per Nursin RFS Level Per Nursing on Admit: 2=Moderate DECLAN MEYER DO Mar 17, 2020 22:45
[2020-03-17 23:58] VITALS: BP 107/72
[2020-03-18] MEDS: NS IV 1000 ML 1,000 ML IV SCH ×4 (04:18→20:30)
[2020-03-18] MEDS: MULTIVIT W/MINERALS TAB (THERAGRAN M) PO SCH (05:22)
[2020-03-18 05:26] LABS: HEMOGLOBIN 14.1 G/DL (11.5-16.0); MEAN PLATELET VOLUME 11.4 FL (7.4-10.4); RED CELL DISTRIBUTION WIDTH 11.8 % (10.0-14.5); WHITE BLOOD COUNT 4.1 10^3/uL (4.3-11.0)
[2020-03-18 05:40] LABS: ALBUMIN 3.8 GM/DL (3.2-4.5)
[2020-03-18 05:41] LABS: CHLORIDE 106 MMOL/L (98-107); POTASSIUM 4.1 MMOL/L (3.6-5.0); SODIUM 136 MMOL/L (135-145)
[2020-03-18 05:43] LABS: GLUCOSE 80 MG/DL (70-105); TOTAL PROTEIN 6.3 GM/DL (6.4-8.2)
[2020-03-18 05:44] LABS: CARBON DIOXIDE 20 MMOL/L (21-32)
[2020-03-18 05:46] LABS: ALKALINE PHOSPHATASE 78 U/L (40-136)
[2020-03-18 05:47] LABS: CREATININE SERUM 0.61 MG/DL (0.60-1.30); GFR ESTIMATED > 60
[2020-03-18 05:48] LABS: BUN/CREATININE RATIO 10
[2020-03-18 05:49] LABS: ALANINE AMINOTRANSFERASE 545 U/L (0-55)
[2020-03-18 08:00] VITALS: BP 105/72
[2020-03-18] MEDS: FOLIC ACID 1 MG TAB PO SCH (08:40)
[2020-03-18] MEDS: LORazepam 0.5 MG (ATIVAN) TABLET PO SCH ×2 (08:41→20:07)
[2020-03-18] MEDS: NICOTINE PATCH REMOVAL TP SCH (08:43)
[2020-03-18] MEDS: NICOTINE 14 MG (NICODERM) PATCH TD SCH (08:43)
--- NOTE | 2020-03-18 12:02 | Progress Note - Surgery ---
Subjective Date Seen by a Provider: Mar 18, 2020 Time Seen by a Provider: 11:56 Subjective/Events-last exam Patient with no abdominal pain today, feeling better. Tolerating liquids. No nausea or vomiting. Elevated transaminases. U/s showing no gallbladder wall thickening pericholecystic fluid or stones. Objective Exam Vital Signs Date Time Temp Pulse Resp B/P (MAP) Pulse Ox O2 Delivery O2 Flow Rate FiO2 03/18/20 08:00 97 Room Air 03/18/20 08:00 36.8 70 20 105/72 (83) 97 Room Air 03/17/20 23:58 36.4 70 18 107/72 (84) 96 Room Air 03/17/20 20:05 37.2 69 16 111/75 (87) 98 Room Air 03/17/20 20:00 Room Air 03/17/20 16:30 36.7 71 16 120/79 (93) 96 Room Air I & O 03/18/20 07:00 Intake Total 4890 ml Output Total 350 ml Balance 4540 ml Capillary Refill : Less Than 3 SecondsLess Than 3 Seconds General Appearance: No Apparent Distress, WD/WN HEENT: PERRL/EOMI Neck: Full Range of Motion, Supple Respiratory: Chest Non Tender, Normal Breath Sounds, No Accessory Muscle Use Cardiovascular: Regular Rate, Rhythm, No Edema, Normal Peripheral Pulses Gastrointestinal: non tender, soft, no pulsatile mass Extremity: Normal Capillary Refill, Non Tender, No Calf Tenderness, No Pedal Edema Neurologic/Psychiatric: Alert, Oriented x3, No Motor/Sensory Deficits, Normal Mood/Affect, staff developer II-XII Norm as Tested Skin: Normal Color, Warm/Dry Lymphatic: No Adenopathy Results Lab Laboratory Tests 03/18/20 05:00: White Blood Count 4.1L, Red Blood Count 4.00L, Hemoglobin 14.1, Hematocrit 40, Mean Corpuscular Volume 100H, Mean Corpuscular Hemoglobin 35H, Mean Corpuscular Hemoglobin Concent 35, Red Cell Distribution Width 11.8, Platelet Count 146, Heidy n Platelet Volume 11.4H, Sodium Level 136, Potassium Level 4.1, Chloride Level 106, Carbon Dioxide Level 20L, Anion Gap 10, Blood Urea Nitrogen 6L, Creatinine 0.61, Estimat Glomerular Filtration Rate > 60, BUN/Creatinine Ratio 10, Glucose Level 80, Calcium Level 9.0, Corrected Calcium 9.2, Total Bilirubin 1.0, Aspartate Amino Transf (AST/SGOT) 320H, Alanine Aminotransferase (ALT/SGPT) 545#H, Alkaline Phosphatase 78, Total Protein 6.3L, Albumin 3.8 Assessment/Plan Assessment/Plan Assessment/Plan etoh dependency elevated transaminases alcohol hepatitis epigastric abdominal pain continue medical management of alcohol detox follow lft's still elevated HIDA to check patency will follow no surgical intervention at this time.. Clinical Quality Measures DVT/VTE Risk/Contraindication: Risk Factor Score Per Nursin RFS Level Per Nursing on Admit: 2=Moderate DECLAN MEYER DO Mar 18, 2020 12:02
--- NOTE | 2020-03-18 13:45 | NUR ---
PT IS RESTING. HE IS AWAKE AND ALERT AND ABLE TO ANSWER QUESTIONS. PATIENT CAN FEEL FEET AND IS ABLE TO WIGGLE THEM BILAT. PATIENT CAN FEEL KNEES AND IS ABLE TO LIFT LEGS OFF BED SLIGHTLY. PATIENT'S VITALS ARE WNL AND HE REPORTS NO PAIN AT THIS TIME. HIS URINE OUTPUT IS CLEAR AND YELLOW WITH NO CLOTS OR BLOOD.
--- NOTE | 2020-03-18 14:45 | Diagnostic Imaging Report ---
INDICATION: Elevated liver function tests. TECHNIQUE: The patient was administered 5.4 mCi of technetium 99m Choletec intravenously and imaging over the abdomen was performed. FINDINGS: There is homogeneous uptake of activity by the liver with prompt excretion of activity into the common duct and gallbladder. Normal passage of activity into the small bowel is seen. IMPRESSION: Patent cystic duct and common bile duct. Dictated by: Dictated on workstation # [id number]
[2020-03-18 15:29] VITALS: BP 101/67
--- NOTE | 2020-03-18 16:13 | NUR ---
CM/SS follow up. CM/SS after multiple attempts got a hold of [facility]. She states that they had someone leave the facility early and have room for a direct admission. It is scheduled for the patient to be admitted to [facility] at 12:00 p.m. tomorrow 03/19. Updated medical records were faxed over. CM/SS visited with the patient to inform her of acceptance. She reports that she now does not think she wants to go to treatment. The patient states she spoke with her mom and has set up an outpatient plan for herself. She reports that she doesn't want to go due to "bad timing" and her child's birthday coming up. CM/SS asked the patient to think on this for this evening. CM/SS contacted Dr. Paul to inform her of this. CM/SS contacted the patients mother Maia to see if this was discussed. She states that the patient did speak with her and she has mixed feelings about her going to inpatient treatment. However, she does think it could be good for her. Maia verbalized she will call and talk to the patient again tonight. CM/SS will talk to the patient first thing in the morning to assess the situation.
[2020-03-18 21:03] LABS: HEPATITIS C ANTIBODY C Non-Reactive (Non-Reactive)
[2020-03-18 23:52] VITALS: BP 92/56
[2020-03-19] MEDS: LORazepam 1 MG (ATIVAN) TAB PO PRN (00:02)
[2020-03-19] MEDS: NS IV 1000 ML 1,000 ML IV SCH (04:30)
[2020-03-19] MEDS: MULTIVIT W/MINERALS TAB (THERAGRAN M) PO SCH (04:30)
[2020-03-19 08:00] VITALS: BP 98/59
[2020-03-19] MEDS: FOLIC ACID 1 MG TAB PO SCH (09:07)
[2020-03-19] MEDS: NICOTINE 14 MG (NICODERM) PATCH TD SCH (09:07)
[2020-03-19] MEDS: NICOTINE PATCH REMOVAL TP SCH (09:07)
[2020-03-19] MEDS: LORazepam 0.5 MG (ATIVAN) TABLET PO SCH (09:07)
[2020-03-19] MEDS ORDERED: CITA20TA9 PO (09:24)
--- NOTE | 2020-03-19 09:26 | Discharge Inst-Simple/Standard ---
Discharge Inst-Standard Reconcile Patient Problems Problems Reviewed?: Yes Discharge Medications New, Converted or Re-Newed RX: Transmitted to Pharmacy Patient Instructions/Follow Up Plan of Care/Instructions/FU: 1 wk michael 1 wk counseling with JELENA NO ALCOHOL, NO TOBACCO Activity as Tolerated: Yes Discharge Diet: Eat Small Frequent Meals, Avoid Fatty Foods Return to The Hospital For: ANY CONCERN FOR LIFETHREATENING ILLNESS OR INJURY ACACIA WHITFIELD MD Mar 19, 2020 09:26
--- NOTE | 2020-03-19 09:29 | Progress Note ---
Subjective Subjective Date Seen by Provider: Mar 18, 2020 Time Seen by Provider: 08:45 PT STATES THAT SHE IS FEELING BETTER TODAY - LESS ABDOMINAL PAIN Review of Systems General: No Chills; Fatigue; No Malaise HEENT: No Head Aches, No Visual Changes Pulmonary: No Dyspnea, No Cough Cardiovascular: No: Chest Pain, Palpitations Gastrointestinal: Abdominal Pain; No: Nausea Genitourinary: No Dysuria Neurological: No: Weakness, Confusion All Other Systems Reviewed All Other Systems Reviewed: Yes Objective Exam Vital Signs Vital Signs - First Documented 03/13/20 00:47 Temp 36.5 Pulse 80 Resp 18 B/P (MAP) 103/71 (82) Pulse Ox 98 O2 Delivery Room Air Capillary Refill : Less Than 3 SecondsLess Than 3 Seconds General Appearance: No Apparent Distress, WD/WN Eyes: Bilateral Eye Normal Inspection, Bilateral Eye PERRL, Bilateral Eye EOMI HEENT: PERRL/EOMI Neck: Full Range of Motion, Supple Respiratory: Chest Non Tender, Normal Breath Sounds, No Accessory Muscle Use Cardiovascular: Regular Rate, Rhythm, No Edema, Normal Peripheral Pulses Gastrointestinal: Normal Bowel Sounds, Soft, Tenderness (RUQ) Rectal: Deferred Back: Normal Inspection, No CVA Tenderness Extremity: Normal Capillary Refill, Non Tender, No Calf Tenderness, No Pedal Edema Neurologic/Psychiatric: Alert, Oriented x3, No Motor/Sensory Deficits, Normal Mood/Affect, direct sales consultant II-XII Norm as Tested Skin: Normal Color, Warm/Dry Lymphatic: No Adenopathy Assessment/Plan Assessment/Plan Admission Dx ALCOHOL WITHDRAWAL ALCOHOLIC HEPATITIS ELEVATED TRANSAMINASES TACHYCARDIA FEVER DEPRESSION HYPONATREMIA ALCOHOL WITHDRAWAL WITH ALCOHOLIC HEPATITIS (ELEVATED TRANSAMINASES) - PT ON ALCOHOL WITHDRAWAL PROTOCOL - RESTARTED IV FLUIDS ON 03/16/2020 - CONTINUE WITH SCHEDULED AND PRN ATIVAN ELEVATED LFT'S - INCREASED FROM YESTERDAY - CHECK GALLBLADDER US AND CONSULT TO DR. MEYER - REPEAT LFT'S TOMORROW TACHYCARDIA - NOW RESOLVED, METOPROLOL STOPPED FEVER - RESOLVED - TYLENOL AND IBUPROFEN PRN - COVID-19 TEST NEGATIVE. 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 133 today. Will stop IVF as it has 1/2 NS Admission Dx ALCOHOL WITHDRAWAL ALCOHOLIC HEPATITIS ELEVATED TRANSAMINASES TACHYCARDIA FEVER DEPRESSION HYPONATREMIA ALCOHOL WITHDRAWAL WITH ALCOHOLIC HEPATITIS (ELEVATED TRANSAMINASES) - PT ON ALCOHOL WITHDRAWAL PROTOCOL - RESTARTED IV FLUIDS ON 03/16/2020 - CONTINUE WITH SCHEDULED AND PRN ATIVAN ELEVATED LFT'S - INCREASED FROM YESTERDAY - CHECK GALLBLADDER US AND CONSULT TO DR. MEYER - REPEAT LFT'S TOMORROW TACHYCARDIA - NOW RESOLVED, METOPROLOL STOPPED FEVER - RESOLVED - TYLENOL AND IBUPROFEN PRN - COVID-19 TEST NEGATIVE. DEPRESSION - STARTED PT ON CITALOPRAM 20MG DAILY Clinical Quality Measures Admission Status Admission Dx ALCOHOL WITHDRAWAL ALCOHOLIC HEPATITIS ELEVATED TRANSAMINASES TACHYCARDIA FEVER DEPRESSION HYPONATREMIA ALCOHOL WITHDRAWAL WITH ALCOHOLIC HEPATITIS (ELEVATED TRANSAMINASES) - PT ON ALCOHOL WITHDRAWAL PROTOCOL - RESTARTED IV FLUIDS ON 03/16/2020 - CONTINUE WITH SCHEDULED AND PRN ATIVAN ELEVATED LFT'S - INCREASED FROM YESTERDAY - CHECK GALLBLADDER US AND CONSULT TO DR. MEYER - REPEAT LFT'S TOMORROW TACHYCARDIA - NOW RESOLVED, METOPROLOL STOPPED FEVER - RESOLVED - TYLENOL AND IBUPROFEN PRN - COVID-19 TEST NEGATIVE. DEPRESSION - STARTED PT ON CITALOPRAM 20MG DAILY DVT/VTE Risk/Contraindication: Risk Factor Score Per Nursin RFS Level Per Nursing on Admit: 2=Moderate ACACIA WHITFIELD MD Mar 19, 2020 09:29
--- NOTE | 2020-03-19 09:29 | Discharge Summary ---
Diagnosis/Chief Complaint Date of Admission March 11, 2020 at 13:01 Date of Discharge Discharge Date: Mar 19, 2020 Discharge Time: 1000 Reason Hospital Visit PT IS A 39 Y/O FEMALE WHO PRESENTED TO MY OFFICE TODAY WITH COMPLAINT OF NEEDING TO BE ADMITTED TO THE HOSPITAL FOR ALCOHOL WITHDRAWAL. SHE REPORTS THAT SHE WAS RECENTLY - IN NOVEMBER - IN A DRUG AND ALCOHOL PROGRAM IN [place] AND THEN IN [facility] FOR REHAB, SHE SPENT 3 DAYS IN THE HOSPITAL IN [place] FOR WITHDRAWAL AND THEN WENT TO [facility] WHERE SHE WAS FOR 9 DAYS, SHE STAYED SOBER "UNTIL THE WHOLE COVID THING HAPPENED" AND THEN SHE WENT BACK TO DRINKING FULL FORCE. SHE STATES THAT SHE IS AGAIN READY TO STOP. SHE STATES THAT SHE FEELS LIKE THIS TIME IT IS IMPERATIVE TO QUIT SINCE "MY KIDS NEED ME". Discharge Summary Discharge Physical Examination Allergies: Coded Allergies: Penicillins (Verified Allergy, Unknown, 01/28/15) morphine (Verified Adverse Reaction, Mild, DID NOT TOLERATE WELL IN ED ON MONDAY., 12/04/12) DOES NOT LIKE THE FEELING IT GIVES HER. Vitals & I&Os Vital Signs Date Time Temp Pulse Resp B/P (MAP) Pulse Ox O2 Delivery O2 Flow Rate FiO2 03/19/20 08:00 36.7 77 20 98/59 (72) 97 Room Air Discharge Instructions to patient/family Please see electronic discharge instructions given to patient. Discharge Medications Reviewed and agree with Discharge Medication list on patient's Discharge Instruction sheet Clinical Quality Measures DVT/VTE Risk/Contraindication: Risk Factor Score Per Nursin RFS Level Per Nursing on Admit: 2=Moderate ACACIA WHITFIELD MD Mar 19, 2020 09:29
[2020-03-19 10:07] LABS: ALBUMIN 3.5 GM/DL (3.2-4.5); BILIRUBIN,DIRECT 0.3 MG/DL (0.0-0.3); BILIRUBIN,INDIRECT 0.3 MG/DL; BILIRUBIN,TOTAL 0.6 MG/DL (0.1-1.0); TOTAL PROTEIN 5.6 GM/DL (6.4-8.2)
--- NOTE | 2020-03-19 11:31 | NUR ---
CM/SS finalized discharge. Plan: The patient will return home to her mothers house. LUIGI/SS contacted Brenda at [facility] to cancel admission and bed. LUIGI/MUKUND visited with the patient this a.m. to see if she had chosen to go into inpatient treatment or not. She reports that she is not willing to go into treatment at this time. The patient verbalized that her and her mother talked it over and have a plan. She states she needs to get a sponsor set up, and individual mental health counselor, attend AA meetings, and Yazidism. The patient reports that she needs the treatment to focus on her and not be in groups. The patient does not have any further questions and concerns at this time.
== END 2020-03-19 10:18 | disposition home or self-care (01) | DRG 897 ==
LOC: 4TH 13:01
PROVIDERS: ADMIT Family Medicine; ATTEND Family Medicine
DX: F10.239 Alcohol dependence with withdrawal, unspecified (principal); F33.0 Major depressive disorder, recurrent, mild; E87.1 Hypo-osmolality and hyponatremia; K70.10 Alcoholic hepatitis without ascites; R00.0 Tachycardia, unspecified; R50.9 Fever, unspecified; K21.9 Gastro-esophageal reflux disease without esophagitis; J30.2 Other seasonal allergic rhinitis; F17.210 Nicotine dependence, cigarettes, uncomplicated; K58.9 Irritable bowel syndrome, unspecified; F41.9 Anxiety disorder, unspecified; Z20.828 Contact with and (suspected) exposure to other viral communicable diseases; Z87.19 Personal history of other diseases of the digestive system
CPT/HCPCS: 36415; 76705; 78226; 80053; 80074; 80076; 80320; 81000; 82550; 82607; 82962; 83735; 84439; 84443; 85027; 85610; 85730; 86703; 87635; 93005

== ENCOUNTER 2020-06-10 14:19 | Inpatient (IN) | payer MEDICAID ==
[~2020-06-10] VITALS: Ht 162.5 cm; Wt 66.9 kg
[~2020-06-10 14:19] MED LIST changes: +CITA20TA9 PO; +MULT-567 PO; -MULT1TAB69 PO
[2020-06-10 15:40] VITALS: BP 100/63
[2020-06-10] MEDS ORDERED: D5 1/2 NS 1000 ML IV SOLUTION 1,000 ML IV PRN (16:00)
[2020-06-10] MEDS ORDERED: ANTACID SUSP 30 ML UDC (MYLANTA) PO PRN (16:00)
[2020-06-10] MEDS ORDERED: LORazepam INJ 2 MG/ML (ATIVAN) VIAL IM/IV PRN (16:00)
[2020-06-10] MEDS ORDERED: SENNA W/DOCUSATE (SENOKOT S) TABLET PO PRN (16:00)
[2020-06-10] MEDS ORDERED: ONDANSETRON 4 MG/2 ML (SDV) Z0FRAN IV PRN (16:00)
[2020-06-10 16:30] LABS: PROTHROMBIN TIME PATIENT 13.6 SEC (12.2-14.7)
[2020-06-10 16:39] LABS: ALANINE AMINOTRANSFERASE 101 U/L (0-55); ALBUMIN 4.3 GM/DL (3.2-4.5); ALKALINE PHOSPHATASE 77 U/L (40-136); BILIRUBIN,TOTAL 0.4 MG/DL (0.1-1.0); BUN/CREATININE RATIO 5; CALCIUM 8.9 MG/DL (8.5-10.1); CARBON DIOXIDE 23 MMOL/L (21-32); CHLORIDE 103 MMOL/L (98-107); CREATININE SERUM 0.65 MG/DL (0.60-1.30); GFR ESTIMATED > 60; GLUCOSE 78 MG/DL (70-105); POTASSIUM 3.9 MMOL/L (3.6-5.0); SODIUM 140 MMOL/L (135-145); TOTAL PROTEIN 6.9 GM/DL (6.4-8.2)
--- NOTE | 2020-06-10 17:07 | NUR ---
DR WHITFIELD NOTIFIED OF SERUM ALCOHOL 330
[2020-06-10] MEDS: D5 1/2 NS W/KCL 20 MEQ/L 1,000 ML IV SCH ×3 (17:11→23:50)
[2020-06-10] MEDS: THIAMINE INJECTION 100 MG, FOLIC ACID INJECTION 1 MG, MAGNESIUM SULFATE 2 GM, VITAMIN M... IV SCH ×5 (17:12)
[2020-06-10] MEDS: LORazepam 1 MG (ATIVAN) TAB PO PRN (17:12)
[2020-06-10 18:04] VITALS: BP 100/63
[2020-06-10 19:25] VITALS: BP 101/60
[2020-06-10] MEDS: MAGNESIUM OXIDE (MAG-OX)400 MG TAB PO SCH (19:40)
[2020-06-10] MEDS: ONDANSETRON 4 MG (ZOFRAN) ORAL DISSOLVE TAB SL PRN (20:55)
[2020-06-11] VITALS: BP 117/68
[2020-06-11 00:17] LABS: BILIRUBIN,URINE NEGATIVE (NEGATIVE); CLARITY,URINE CLEAR; COLOR,URINE YELLOW; GLUCOSE, URINE (UA) NEGATIVE (NEGATIVE); KETONES,URINE NEGATIVE (NEGATIVE); LEUKOCYTE ESTERASE ,URINE NEGATIVE (NEGATIVE); NITRITE,URINE NEGATIVE (NEGATIVE); PH,URINE 6.5 (5-9); PROTEIN,URINE NEGATIVE (NEGATIVE)
[2020-06-11 00:29] LABS: BACTERIA,URINE NEGATIVE /HPF
[2020-06-11] MEDS: LORazepam 1 MG (ATIVAN) TAB PO PRN ×2 (02:23→20:36)
[2020-06-11 04:00] VITALS: BP 100/60
[2020-06-11] MEDS: MULTIVIT W/MINERALS TAB (THERAGRAN M) PO SCH (06:09)
[2020-06-11] MEDS: THIAMINE 100 MG (VITAMIN B-1) TAB PO SCH (06:09)
[2020-06-11] MEDS: D5 1/2 NS W/KCL 20 MEQ/L 1,000 ML IV SCH ×2 (06:10→13:00)
[2020-06-11 08:00] VITALS: BP 117/76
--- NOTE | 2020-06-11 08:33 | Progress Note ---
Subjective Subjective Date Seen by Provider: Jun 11, 2020 Time Seen by Provider: 08:40 PT REPORTS THAT SHE HAD A ROUGH NIGHT LAST NIGHT - SHE REPORTS THAT SHE STARTED TO HAVE TREMORS AT ABOUT 1 AM - SHE RECEIVED ATIVAN AT ABOUT 2AM - BUT NOW SHE FEELS LIKE SHE HAVING MORE TREMORS AND FEELING REALLY BAD THIS MORNING. SHE STATES THAT SHE DOES NOT WANT MEDICATION FOR SMOKING - DUE TO THE NICODERM CAUSING MORE TREMORS. Review of Systems General: Fatigue, Other (SHAKING) Pulmonary: No Cough Cardiovascular: No: Chest Pain Gastrointestinal: No: Nausea, Abdominal Pain Musculoskeletal: other (TREMORS) Neurological: Weakness, Other; No: Confusion All Other Systems Reviewed All Other Systems Reviewed: Yes Objective Exam Vital Signs Vital Signs - First Documented 06/10/20 15:40 Temp 37.1 Pulse 85 Resp 16 B/P (MAP) 100/63 (75) Pulse Ox 97 O2 Delivery Room Air Capillary Refill : Less Than 3 SecondsLess Than 3 Seconds General Appearance: WD/WN, Mild Distress (TREMULOUS) HEENT: PERRL/EOMI Neck: Supple Respiratory: Chest Non Tender, Lungs Clear, Normal Breath Sounds, No Accessory Muscle Use Cardiovascular: Regular Rate, Rhythm Gastrointestinal: Normal Bowel Sounds, Non Tender, Soft Rectal: Deferred Neurologic/Psychiatric: Alert, Oriented x3, Other (FLAT AFFECT - TREMULOUS, ) Skin: Warm/Dry Results Lab Laboratory Tests 06/10/20 16:10: Prothrombin Time 13.6, INR Comment 1.0, Activated Partial Thromboplast Time 32, Sodium Level 140, Potassium Level 3.9, Chloride Level 103, Carbon Dioxide Level 23, Anion Gap 14, Blood Urea Nitrogen 3L, Creatinine 0.65, Estimat Glomerular Filtration Rate > 60, BUN/Creatinine Ratio 5, Glucose Level 78, Calcium Level 8.9, Corrected Calcium 8.7, Total Bilirubin 0.4, Aspartate Amino Transf (AST/SGOT) 153H, Alanine Aminotransferase (ALT/SGPT) 101H, Alkaline Phosphatase 77, Total Protein 6.9, Albumin 4.3, Serum Alcohol 330*H, HIV (1&2) Ag and Ab Screen Referral Non-Reactive 06/10/20 17:32: Glucometer 100 06/10/20 23:43: Glucometer 223H 06/10/20 23:52: Urine Color YELLOW, Urine Clarity CLEAR, Urine pH 6.5, Urine Specific [place] 1.010L, Urine Protein NEGATIVE, Urine Glucose (UA) NEGATIVE, Urine Ketones NEGATIVE, Urine Nitrite NEGATIVE, Urine Bilirubin NEGATIVE, Urine Urobilinogen 0.2, Urine Leukocyte Esterase NEGATIVE, Urine RBC (Auto) 1+H, Urine RBC NONE, Urine WBC NONE, Urine Squamous Epithelial Cells NONE, Urine Crystals NONE, Urine Bacteria NEGATIVE, Urine Casts NONE, Urine Mucus NEGATIVE, Urine Culture Indica jammie NO 06/11/20 06:23: Glucometer 163H Assessment/Plan Assessment/Plan Admission Dx ALCOHOL WITHDRAWAL ALCOHOL INTOXICATION ALCOHOLIC HEPATITIS Assessment and Plan ALCOHOL WITHDRAWAL ALCOHOL INTOXICATION ALCOHOLIC HEPATITIS ALCOHOL WITHDRAWAL AND ALCOHOL INTOXICATION - CONTINUE WITH IV FLUIDS - CONTINUE WITH ORAL ATIVAN AND PRN IV ATIVAN FOR WITHDRAWAL PROTOCOL - PLANNING ON FILM LOADER AIDING PATIENT PLACEMENT AT REHAB FACILITY - PT AND HER FAMILY ARE ON BOARD WITH THIS PLAN AND ARE AWARE OF THE FACT THAT MAIRA IS AT HIGH RISK OF RECURRENT RELAPSE IF SHE DOES NOT FOLLOW THROUGH ON THIS PLAN SHE DID NOT GO WITH THE PLACEMENT ON HER LAST HOSPITALIZATION THAT WAS ARRANGED BY MYSELF AND FILM LOADER. ALCOHOLIC HEPATITIS - CHRONIC FOR MAIRA - THIS SHOULD RESOLVE WE ALLEVIATE THE TOXINS FROM HER SYSTEM, WILL MONITOR LABS TOMORROW. DVT PROPHYLAXIS WITH COMPRESSION SOCKS GI PROPHYLAXIS WITH PEPCID Clinical Quality Measures DVT/VTE Risk/Contraindication: Risk Factor Score Per Nursin RFS Level Per Nursing on Admit: 1=Low/No VTE PPX ACACIA WHITFIELD MD Jun 11, 2020 08:33
--- NOTE | 2020-06-11 08:47 | NUR ---
DR WHITFIELD ON FLOOR AND IN -- DR WHITFIELD REQUESTED IV ATIVAN -- SHE SAW TREMORS -- THIS RN GAVE ATIVAN IV 1MG
[2020-06-11] MEDS: FOLIC ACID 1 MG TAB PO SCH (08:51)
[2020-06-11] MEDS: MAGNESIUM OXIDE (MAG-OX)400 MG TAB PO SCH ×2 (08:51→20:39)
[2020-06-11] MEDS: FAMOTIDINE 20 MG (PEPCID) TABLET PO SCH ×2 (09:22→20:39)
--- NOTE | 2020-06-11 10:25 | NUR ---
LUIGI/MUKUND visited with patient for social service consult. New bed date: June 19. LUIGI/MUKUND spoke with patient's physician to discuss plan of care. She reports that patient is hoping to discharge from hospital straight to an inpatient addictions treatment facility. The physician reports that patient does have a bed date for [facility] on June 30. LUIGI/MUKUND visited with patient. She reports that she is tired today but otherwise okay at this time. The patient states that she was doing well with her sobriety after she discharged but then went to a birthday green party at a [employer] restaurant. She states that they were having food with Margaritas and then she "went down hill from there". The patient states that once she felt herself slipping she contacted Sandra to set up a bed date. Her bed date was June 30. The patient would like to have a closer bed date and services if there is a gap. The patient is still currently living with her mother and is in search of finding new housing. [facility]: LUIGI/MUKUND contacted [facility] ([phone]) [facility] to discuss closer bed date. LUIGI/MUKUND spoke with visual merchandising coordinator Brenda. She states that the earliest bed date that she has is June 20. LUIGI/MUKUND faxed ([phone]) clinical to facility. [facility]: LUIGI/MUKUND contacted the [facility] ([phone]) to see if they could bridge the gap between services. She reports that they do offer outpatient counseling and groups; however, they would not admit for services to discharge in one week. They did say the patient could call to make an appointment and just meet with a counselor to get information without it being an intake. They stated they would also provide patient with a list of meetings. LUIGI/MUKUND researched other facilities that accept Medicaid payment. [facility] in [place] accepts Medicaid. LUIGI/SS called to see if they had bed date open. They reported they could not answer if they had a bed date unless the patient had a current drug and alcohol assessment. LUIGI/MUKUND will continue to follow.
[2020-06-11] MEDS ORDERED: ROPI0.253 PO (10:30)
[2020-06-11] MEDS ORDERED: CITA20TA12 PO (10:30)
[2020-06-11] MEDS ORDERED: MELA5TAB14 PO (10:30)
[2020-06-11] MEDS ORDERED: MAGN1TAB31 PO (10:30)
--- NOTE | 2020-06-11 10:30 | NUR ---
SPOKE WITH THE PT AND WENT THRU THE EXT MED HISTORY TO COMPLETE THE MED REC CELEXA 20MG WAS LAST FILLED 04-23-2020 #30/30DS- PT SAID SHE IS DOWN TO HER LAST COUPLE TABS AND JUST HASNT CALLED TO GET A REFILL- I DID DOCUMENT THE PAST DUE FILL ON THE MED REC OTC MEDS: MELATONIN GAVISCON
[2020-06-11 12:00] VITALS: BP 122/76
--- NOTE | 2020-06-11 14:41 | NUR ---
NOTE THAT TELE NORITER CALLED AND ADVISED THIS RN THAT PT HAD UNSCREWED HER IVFS -- THIS RN FOUND PT OUT IN HALLWAY HEADED FOR THE EAST EXIT - PT VOICED SHE WAS GOING TO HER CAR TO GET HER CLOTHES -- SHE WAS WANTING A SHOWER -- THIS RN EXPLAINED THAT SHE WOULD HAVE TO STAY IN HER ROOM AND THAT FAMILY WOULD HAVE TO BRING HER CLOTHES TO THE ROOM, THIS RN WALKED PT BACK TO HER ROOM AND HOOKED HER BACK TO HER IVFS -- NA WILL GET HER AM CARE ITEMS AND HELP SET UP THE SHOWER --
[2020-06-11] MEDS: THIAMINE INJECTION 100 MG, FOLIC ACID INJECTION 1 MG, MAGNESIUM SULFATE 2 GM, VITAMIN M... IV SCH ×5 (16:09)
[2020-06-11 16:30] VITALS: BP 128/83
[2020-06-11 19:38] VITALS: BP 117/76
--- NOTE | 2020-06-11 20:30 | NUR ---
Patient hit call light and stated that her IV was leaking. This RN assess the IV site and sees that the IV is leaking and slightly red. Dede RN makes one attempt at a new IV and fails. This RN makes two attempts and fail. Forge Press Operator was notified and Jonathan is able to start an IV in her right forearm. Patient tolerated well.
[2020-06-12] VITALS: BP 117/67
[2020-06-12] MEDS: ONDANSETRON 4 MG (ZOFRAN) ORAL DISSOLVE TAB SL PRN (00:44)
[2020-06-12] MEDS: LORazepam 1 MG (ATIVAN) TAB PO PRN (02:46)
[2020-06-12] MEDS: D5 1/2 NS W/KCL 20 MEQ/L 1,000 ML IV SCH ×2 (02:56→07:56)
[2020-06-12 04:00] VITALS: BP 106/68
[2020-06-12 06:03] LABS: HEMOGLOBIN 14.9 G/DL (11.5-16.0); MEAN PLATELET VOLUME 11.2 FL (7.4-10.4); RED CELL DISTRIBUTION WIDTH 13.8 % (10.0-14.5); WHITE BLOOD COUNT 2.8 10^3/uL (4.3-11.0)
[2020-06-12] MEDS: MULTIVIT W/MINERALS TAB (THERAGRAN M) PO SCH (06:13)
[2020-06-12] MEDS: THIAMINE 100 MG (VITAMIN B-1) TAB PO SCH (06:15)
[2020-06-12 06:17] LABS: ALBUMIN 4.1 GM/DL (3.2-4.5)
[2020-06-12 06:18] LABS: CHLORIDE 105 MMOL/L (98-107); POTASSIUM 3.9 MMOL/L (3.6-5.0); SODIUM 136 MMOL/L (135-145)
[2020-06-12 06:20] LABS: GLUCOSE 83 MG/DL (70-105)
[2020-06-12 06:21] LABS: CARBON DIOXIDE 19 MMOL/L (21-32)
[2020-06-12 06:22] LABS: BILIRUBIN,TOTAL 0.8 MG/DL (0.1-1.0)
[2020-06-12 06:23] LABS: ALKALINE PHOSPHATASE 76 U/L (40-136)
[2020-06-12 06:24] LABS: CREATININE SERUM 0.63 MG/DL (0.60-1.30); GFR ESTIMATED > 60
[2020-06-12 06:25] LABS: BUN/CREATININE RATIO 5
[2020-06-12 06:26] LABS: ALANINE AMINOTRANSFERASE 77 U/L (0-55)
[2020-06-12 08:00] VITALS: BP 118/87
[2020-06-12] MEDS: FOLIC ACID 1 MG TAB PO SCH (08:27)
[2020-06-12] MEDS: MAGNESIUM OXIDE (MAG-OX)400 MG TAB PO SCH (08:27)
[2020-06-12] MEDS: FAMOTIDINE 20 MG (PEPCID) TABLET PO SCH (08:27)
--- NOTE | 2020-06-12 08:53 | NUR ---
LUIGI/MUKUND finalized discharge. Plan: Patient will discharge home today 06/12 with a bed date for alcohol treatment. Appointment: The patient has a bed date with [facility] for June 19. LUIGI/MUKUND informed the patient of new bed date. She verbalized understanding. LUIGI/MUKUND informed the patient's physician of new bed date. She verbalized understanding. The patient reports that she will go to [facility] to next week to meet with one of their counselors. She reports she would also go to the AA meetings. The patient had additional questions regarding her discharge medications. LUIGI/MUKUND instructed patient to discuss medications with her primary care nurse. No further interventions needed at this time.
--- NOTE | 2020-06-12 09:15 | Discharge Summary ---
Diagnosis/Chief Complaint Date of Admission Jun 10, 2020 at 14:43 Date of Discharge Discharge Date: Jun 12, 2020 Discharge Time: 12:00 Admission Diagnosis Admission Diagnosis ALCOHOL WITHDRAWAL ALCOHOL INTOXICATION ALCOHOLIC HEPATITIS Discharge Diagnosis ALCOHOL WITHDRAWAL ALCOHOL INTOXICATION ALCOHOLIC HEPATITIS DEPRESSION RESTLESS LEG SYNDROME Reason Hospital Visit PT IS A 39 Y/O FEMALE WHO PRESENTED TO THE OFFICE ON 06/10/2020 WITH REQUEST FOR ALCOHOL DETOX. SHE REPORTS THAT SHE STARTED DRINKING AGAIN ABOUT A MONTH PRIOR AND HAS BEEN DRINKING ABOUT 18 BEERS A DAY. SHE NOTES THAT SHE WILL GET UP AT ALL HOURS OF THE NIGHT AND DRINK A BEER OR TWO THEN GO BACK TO BED. SHE REPORTS THAT SHE STARTED DRINKING AGAIN AT A BIRTHDAY DEMOCRAT FOR HER SISTER WHERE THE FAMILY WAS ALL DRINKING MARGARITAS AND SHE WAS LEFT ALONE WITH THE ALCOHOL AND SHE "SNUCK IN A DRINK AND THAT STARTED IT GOING". SHE STATES THAT SHE IS READY FOR A LONGER TERM REHAB THAN SHE HAS DONE IN THE [facility]. Discharge Summary Discharge Physical Examination Allergies: Coded Allergies: Penicillins (Verified Allergy, Unknown, 01/28/15) morphine (Verified Adverse Reaction, Mild, DID NOT TOLERATE WELL IN ED ON MONDAY., 12/04/12) DOES NOT LIKE THE FEELING IT GIVES HER. Vitals & I&Os Vital Signs Date Time Temp Pulse Resp B/P (MAP) Pulse Ox O2 Delivery O2 Flow Rate FiO2 06/12/20 08:00 36.0 97 18 118/87 (97) 97 Room Air General Appearance: Alert, Oriented X3, Cooperative, No Acute Distress HEENT: Atraumatic, PERRLA, Mucous Memb Moist/[place] Respiratory: Clear to Auscultation, Normal Air Movement Cardiovascular: Regular Rate Abdominal: Normal Bowel Sounds, Soft, No Tenderness Extremities: No Clubbing, No Cyanosis Skin: No Rashes, No Breakdown Neuro: Normal Speech, Strength at 5/5 X4 Ext, Cranial Nerves 3-12 NL Psych/Mental Status: Mental Status NL, Mood NL Hospital Course Was the Problem List Reviewed?: Yes ALCOHOL WITHDRAWAL ALCOHOL INTOXICATION ALCOHOLIC HEPATITIS ALCOHOL WITHDRAWAL AND ALCOHOL INTOXICATION - IV FLUIDS INITIATED ON ADMISSION - ORAL ATIVAN PER WITHDRAWAL PROTOCOL X 6 DOSES AND ONE DOSE OF IV ATIVAN - WITH PT ONLY RECEIVING 3 DOSES OF ATIVAN IN THE PAST 24 HOURS - ONE DOSE EVER 8 HOURS. - AT THIS TIME MAIRA DOES NOT FEEL TREMULOUS, IS NOT EXPERIENCING ANY WITHDRAWAL SYMPTOMS AND SHE IS PUSHING FOR DISCHARGE TO HOME IN THE CARE OF HER MOM. SHE WILL BE DISCHARGED WITH 0.25MG ATIVAN BID X 2 DAYS THEN STOP AND SHE IS TO PRESENT HERSELF TO [facility] [place] ON 06/20/2020. SHE ALSO HAS BEEN SET UP BY CABIN SERVICE AGENT WITH [facility] IN [place] FOR COUNSELING. - PT AND HER FAMILY ARE ON BOARD WITH THIS PLAN AND ARE AWARE OF THE FACT THAT MAIRA IS AT HIGH RISK OF RECURRENT RELAPSE IF SHE DOES NOT FOLLOW THROUGH ON THIS PLAN SHE DID NOT GO WITH THE PLACEMENT ON HER LAST HOSPITALIZATION THAT WAS ARRANGED BY MYSELF AND CABIN SERVICE AGENT. ALCOHOLIC HEPATITIS - IMPROVING FROM ADMISSION - THIS IS CHRONIC FOR MAIRA DUE TO HER HEAVY ALCOHOL INTAKE. DEPRESSION AND RESTLESS LEG SYNDROME - RESUME HOME REGIMEN OUTPATIENT. PT IS AWARE OF THE NEED TO STOP DRINKING, SHE IS AWARE THAT SHE MUST FOLLOW UP WITH THE PLANS FOR ADMISSION TO ALCOHOL REHAB, AND SHE VOCALIZES UNDERSTANDING OF THE RAMIFICATIONS OF NOT FOLLOWING THROUGH WITH THE PLAN OF TREATMENT. Pending Labs Laboratory Tests 06/12/20 05:25: White Blood Count 2.8, Red Blood Count 4.42, Hemoglobin 14.9, Hematocrit 44, Mean Corpuscular Volume 100, Mean Corpuscular Hemoglobin 34, Mean Corpuscular Hemoglobin Concent 34, Red Cell Distribution Width 13.8, Platelet Count 102, Mean Platelet Volume 11.2, Sodium Level 136, Potassium Level 3.9, Chloride Level 105, Carbon Dioxide Level 19, Anion Gap 12, Blood Urea Nitrogen 3, Creatinine 0.63, Estimat Glomerular Filtration Rate > 60, BUN/Creatinine Ratio 5, Glucose Level 83, Calcium Level 9.0, Corrected Calcium 8.9, Total Bilirubin 0.8, Aspartate Amino Transf (AST/SGOT) 77, Alanine Aminotransferase (ALT/SGPT) 77, Alkaline Phosphatase 76, Total Protein 7.0, Albumin 4.1 Discharge Condition at discharge IMPROVING Instructions to patient/family Please see electronic discharge instructions given to patient. Discharge Medications Reviewed and agree with Discharge Medication list on patient's Discharge Instruc tion sheet Clinical Quality Measures DVT/VTE Risk/Contraindication: Risk Factor Score Per Nursin RFS Level Per Nursing on Admit: 1=Low/No VTE PPX ACACIA WHITFIELD MD Jun 12, 2020 09:15
[2020-06-12] MEDS ORDERED: ALPR0.254 PO (09:18)
--- NOTE | 2020-06-12 09:20 | Discharge Inst-Simple/Standard ---
Discharge Inst-Standard Reconcile Patient Problems Problems Reviewed?: Yes Discharge Medications New, Converted or Re-Newed RX: RX on Chart Patient Instructions/Follow Up Plan of Care/Instructions/FU: 1 WEEK [facility] TELEMEDICINE VISIT Activity as Tolerated: Yes Goal: STAY IN ALCOHOL REHAB FOR AT LEAST A MONTH TO ALLOW FOR IMPROVED STATUS AND IMPROVED SOCIAL SKILLS TO ADJUST TO LIFE WITHOUT ALCOHOL Discharge Diet: Regular Diet Return to The Hospital For: ANY CONCER FOR LIFETHREATENING ILLNESS OR INJURY Medication List: Active Scripts Active Alprazolam 0.25 Mg Tablet 0.25 Mg PO BID 1 TAB BID SCHEDULED X 2 DAYS - FEBRUARY TAKE 1 TAB EVERY 6 HOURS IF NEEDED FOR ALCOHOL WITHDRAWAL Reported Gaviscon Es Tablet Chew (Magnesium Carbonate/Al Hydrox) 1 Each Tab.chew 1-2 Each PO PRN PRN Melatonin 5 Mg Tablet 5 Mg PO HS PRN Ropinirole HCl 0.25 Mg Tablet 0.25 Mg PO BID Celexa (Citalopram Hydrobromide) 20 Mg Tablet 20 Mg PO DAILY LAST FILLED 04-23-2020 # DAY SUPPLY Lab results: Laboratory Tests Test 06/11/20 11:48 06/11/20 19:04 06/12/20 00:40 06/12/20 05:25 Range/Units Glucometer 134 H 140 H 86 70-110 MG/DL White Blood Count 2.8 L 4.3-11.0 10^3/uL Red Blood Count 4.42 4.35-5.85 10^6/uL Hemoglobin 14.9 11.5-16.0 G/DL Hematocrit 44 35-52 % Mean Corpuscular Volume 100 H 80-99 FL Mean Corpuscular Hemoglobin 34 25-34 PG Mean Corpuscular Hemoglobin Concent 34 32-36 G/DL Red Cell Distribution Width 13.8 10.0-14.5 % Platelet Count 102 L 130-400 10^3/uL Mean Platelet Volume 11.2 H 7.4-10.4 FL Sodium Level 136 135-145 MMOL/L Potassium Level 3.9 3.6-5.0 MMOL/L Chloride Level 105 98-107 MMOL/L Carbon Dioxide Level 19 L 21-32 MMOL/L Anion Gap 12 5-14 MMOL/L Blood Urea Nitrogen 3 L 7-18 MG/DL Creatinine 0.63 0.60-1.30 MG/DL Estimat Glomerular Filtration Rate > 60 BUN/Creatinine Ratio 5 Glucose Level 83 70-105 MG/DL Calcium Level 9.0 8.5-10.1 MG/DL Corrected Calcium 8.9 8.5-10.1 MG/DL Total Bilirubin 0.8 0.1-1.0 MG/DL Aspartate Amino Transf (AST/SGOT) 77 H 5-34 U/L Alanine Aminotransferase (ALT/SGPT) 77 H 0-55 U/L Alkaline Phosphatase 76 40-136 U/L Total Protein 7.0 6.4-8.2 GM/DL Albumin 4.1 3.2-4.5 GM/DL My orders: Orders - ACACIA WHITFIELD MD Attending Discharge Inpt/Inobs (06/12/20 09:15) ACACIA WHITFIELD MD Jun 12, 2020 09:20
[2020-06-12 09:47] VITALS: BP 118/87
== END 2020-06-12 09:45 | disposition home or self-care (01) | DRG 897 ==
LOC: 4TH 14:43
PROVIDERS: ADMIT Family Medicine; ATTEND Family Medicine
DX: F10.239 Alcohol dependence with withdrawal, unspecified (principal); K70.10 Alcoholic hepatitis without ascites; F17.200 Nicotine dependence, unspecified, uncomplicated; F32.9 Major depressive disorder, single episode, unspecified; G25.81 Restless legs syndrome; Y90.8 Blood alcohol level of 240 mg/100 ml or more
CPT/HCPCS: 36415; 80053; 80320; 81000; 82962; 85027; 85610; 85730; 86703

== ENCOUNTER 2020-11-23 16:18 | Emergency (ER) | payer MEDICAID ==
[~2020-11-23] VITALS: Ht 167 cm; Wt 67.0 kg
[~2020-11-23 16:18] MED LIST changes: +ALPR.25T PO; +CITA20TA12 PO; -ESCI10TA55 PO; +ESCI10TA64 PO; -FOLI1TAB24 PO; +FOLI1TAB33 PO; +MAGN1TAB31 PO; +MELA5TAB14 PO; -PANT40TA3 PO; +PANT40TA52 PO; +ROPI0.253 PO
--- NOTE | 2020-11-23 16:42 | ED Abdominal Pain ---
General Stated Complaint: ABD PAIN Source of Information: Patient Exam Limitations: No Limitations (JOAQUIN MESSINA) History of Present Illness Date Seen by Provider: Nov 23, 2020 Time Seen by Provider: 16:30 Initial Comments Patient presents ER by private conveyance with chief complaint 2 days of right upper quadrant abdominal pain that is fairly constant, currently 8 out of 10. Progressively worsening and starting in the night. She admits to drinking 10 beers a day on average and today she is only had 6. She is a regular beer drinker but denies any recreational drugs. She does smoke cigarettes. She denies a history of pancreatitis or gallbladder problems however she says she is had this worked up several times in the past for the same pain with Dr. Paul and here in the ER. She has had ultrasounds and labs but no referral to surgery. She has had scopes for EGD and colonoscopy showing multiple gastric ulcers as well as polyps in the colon. She has not taken anything for the pain today. (JOAQUIN MESSINA) Allergies and Home Medications Allergies Coded Allergies: Penicillins (Verified Allergy, Unknown, 01/28/15) morphine (Verified Adverse Reaction, Mild, DID NOT TOLERATE WELL IN ED ON MONDAY., 12/04/12) DOES NOT LIKE THE FEELING IT GIVES HER. Home Medications ALPRAZolam 0.25 Mg Tablet, 0.25 MG PO BID 1 TAB BID SCHEDULED X 2 DAYS - MAY TAKE 1 TAB EVERY 6 HOURS IF NEEDED FOR ALCOHOL WITHDRAWAL Prescribed by: ACACIA PAUL on 06/12/20 0918 Citalopram Hydrobromide 20 Mg Tablet, 20 MG PO DAILY, (Reported) LAST FILLED 04-23-2020 # DAY SUPPLY Magnesium Carbonate/Al Hydrox 1 Each Tab.chew, 1-2 EACH PO PRN PRN for HEARTBURN, (Reported) Melatonin 5 Mg Tablet, 5 MG PO HS PRN for SLEEP, (Reported) Ropinirole HCl 0.25 Mg Tablet, 0.25 MG PO BID, (Reported) Patient Home Medication List Home Medication List Reviewed: Yes (JOAQUIN MESSINA) Review of Systems Review of Systems Constitutional: No chills, No diaphoresis EENTM: No Blurred Vision, No Double Vision Respiratory: Denies Cough, Denies Shortness of Air Cardiovascular: Denies Chest Pain, Denies Lightheadedness Gastrointestinal: See HPI, Abdominal Pain; Denies Constipated; Diarrhea, Nausea; Denies Vomiting Genitourinary: Denies Burning, Denies Discharge Musculoskeletal: No back pain, No joint pain (JOAQUIN MESSINA) All Other Systems Reviewed Negative Unless Noted: Yes (JOAQUIN MESSINA) Past Vcsutjj-Gaqwdk-Uqfxna Hx Patient Social History Alcohol Use: Regular Use Alcohol Beverage of Choice: Beer Drug of Choice: DENIES Smoking Status: Current Everyday Smoker Type Used: Cigarettes 2nd Hand Smoke Exposure: Yes Recent Hopitalizations: No (JOAQUIN MESSINA) Immunizations Up To Date Tetanus Booster (TDap): Unknown PED Vaccines UTD: No Date of Influenza Vaccine: Jul 21, 2018 (JOAQUIN MESSINA) Seasonal Allergies Seasonal Allergies: Yes (JOAQUIN MESSINA) Past Medical History Surgeries: Yes Orthopedic, Tonsillectomy Respiratory: No Currently Using CPAP: No Currently Using BIPAP: No Cardiac: No Neurological: No Female Reproductive Disorders: Denies Sexually Transmitted Disease: No HIV/AIDS: No Genitourinary: No Gastrointestinal: Yes Colitis, Gastroesophageal Reflux, Irritable Bowel Musculoskeletal: Yes (FIBULA FX, RT ANKLE) Fractures Endocrine: No HEENT: No Loss of Vision: Denies Hearing Impairment: Denies Cancer: No Did You Recieve Any Treatments: No Psychosocial: Yes (alcoholism) Anxiety, Depression Integumentary: No Blood Disorders: No Adverse Reaction/Blood Tranf: No (JOAQUIN MESSINA) Family Medical History Patient reports no known family medical history. Cancer, Hypertension (JOAQUIN MESSINA) Physical Exam Vital Signs Vital Signs - First Documented 11/23/20 16:29 Temp 36.8 Pulse 93 Resp 17 B/P (MAP) 130/91 (104) Pulse Ox 96 O2 Delivery Room Air (RAAD GALDAMEZ APRN) Vital Signs Capillary Refill : (JOAQUIN MESSINA) Height/Weight/BMI Height: 5'4.00" Weight: 132lbs. 1.8oz. 59.755218oz; 25.33 BMI Method:Stated General Appearance: WD/WN, mild distress HEENT: PERRL/EOMI, pharynx normal Neck: full range of motion, supple, normal inspection Respiratory: lungs clear, normal breath sounds, no respiratory distress, no accessory muscle use Cardiovascular: normal peripheral pulses, regular rate, rhythm Peripheral Pulses: 2+ Radial Pulses (R), 2+ Radial Pulses (L) Gastrointestinal: normal bowel sounds, soft, no organomegaly, tenderness (Right upper quadrant tenderness without rebound and negative Schrader sign. Mild tenderness in the epigastric) Extremities: normal range of motion, normal inspection, normal capillary refill Neurologic/Psychiatric: alert, oriented x 3 Skin: normal color, warm/dry (SIDDHARTH,JOAQUIN J) Progress/Results/Core Measures Results/Orders Lab Results Laboratory Tests Test 11/23/20 16:41 11/23/20 18:02 Range/Units White Blood Count 4.9 4.3-11.0 10^3/uL Red Blood Count 4.53 3.80-5.11 10^6/uL Hemoglobin 14.9 11.5-16.0 g/dL Hematocrit 43 35-52 % Mean Corpuscular Volume 94 80-99 fL Mean Corpuscular Hemoglobin 33 25-34 pg Mean Corpuscular Hemoglobin Concent 35 32-36 g/dL Red Cell Distribution Width 11.9 10.0-14.5 % Platelet Count 105 L 130-400 10^3/uL Mean Platelet Volume 11.0 9.0-12.2 fL Immature Granulocyte % (Auto) 0 % Neutrophils (%) (Auto) 70 42-75 % Lymphocytes (%) (Auto) 21 12-44 % Monocytes (%) (Auto) 7 0-12 % Eosinophils (%) (Auto) 2 0-10 % Basophils (%) (Auto) 0 0-10 % Neutrophils # (Auto) 3.4 1.8-7.8 10^3/uL Lymphocytes # (Auto) 1.0 1.0-4.0 10^3/uL Monocytes # (Auto) 0.3 0.0-1.0 10^3/uL Eosinophils # (Auto) 0.1 0.0-0.3 10^3/uL Basophils # (Auto) 0.0 0.0-0.1 10^3/uL Immature Granulocyte # (Auto) 0.0 0.0-0.1 10^3/uL Prothrombin Time 13.7 12.2-14.7 SEC INR Comment 1.0 0.8-1.4 Sodium Level 132 L 135-145 MMOL/L Potassium Level 3.4 L 3.6-5.0 MMOL/L Chloride Level 90 L 98-107 MMOL/L Carbon Dioxide Level 24 21-32 MMOL/L Anion Gap 18 H 5-14 MMOL/L Blood Urea Nitrogen 6 L 7-18 MG/DL Creatinine 0.72 0.60-1.30 MG/DL Estimat Glomerular Filtration Rate > 60 BUN/Creatinine Ratio 8 Glucose Level 86 70-105 MG/DL Calcium Level 8.8 8.5-10.1 MG/DL Corrected Calcium 8.4 L 8.5-10.1 MG/DL Total Bilirubin 0.9 0.1-1.0 MG/DL Aspartate Amino Transf (AST/SGOT) 329 H 5-34 U/L Alanine Aminotransferase (ALT/SGPT) 233 H 0-55 U/L Alkaline Phosphatase 84 40-136 U/L Total Protein 7.6 6.4-8.2 GM/DL Albumin 4.5 3.2-4.5 GM/DL Lipase 47 8-78 U/L Serum Alcohol 148 H <10 MG/DL Urine Color YELLOW Urine Clarity CLEAR Urine pH 6.5 5-9 Urine Specific Bud <=1.005 1.016-1.022 Urine Protein NEGATIVE NEGATIVE Urine Glucose (UA) NEGATIVE NEGATIVE Urine Ketones NEGATIVE NEGATIVE Urine Nitrite NEGATIVE NEGATIVE Urine Bilirubin NEGATIVE NEGATIVE Urine Urobilinogen 0.2 < = 1.0 MG/DL Urine Leukocyte Esterase NEGATIVE NEGATIVE Urine RBC (Auto) NEGATIVE NEGATIVE Urine RBC NONE /HPF Urine WBC RARE /HPF Urine Squamous Epithelial Cells 5-10 /HPF Urine Crystals PRESENT H /LPF Urine Amorphous Sediment RARE ANNE URATES H /LPF Urine Bacteria TRACE /HPF Urine Casts NONE /LPF Urine Mucus NEGATIVE /LPF Urine Culture Indicated NO (RAAD GALDAMEZ APRN) My Orders Orders - RAAD GALDAMEZ APRN Cbc With Automated Diff (11/23/20 16:28) Comprehensive Metabolic Panel (11/23/20 16:28) Lipase (11/23/20 16:28) Protime With Inr (11/23/20 16:28) Intake & Output-Until Iv D/C'D (11/23/20 16:28) Alcohol (11/23/20 16:28) (RAAD GALDAMEZ APRN) Medications Given in ED Current Medications Medications Dose Ordered Sig/Juan Francisco Route Start Time Stop Time Status Last Admin Dose Admin Al Hydrox/Mg Hydrox/Simethicone 30 ml ONCE ONCE PO 11/23/20 18:00 11/23/20 18:01 DC 11/23/20 18:03 30 ML Lactated Ringer's 1,000 ml @ 0 mls/hr Q0M ONCE IV 11/23/20 16:45 11/23/20 16:46 DC 11/23/20 16:58 1,000 MLS/HR Lidocaine HCl 15 ml ONCE ONCE PO 11/23/20 18:00 11/23/20 18:01 DC 11/23/20 18:03 15 ML Ondansetron HCl 8 mg ONCE ONCE IVP 11/23/20 16:45 11/23/20 16:46 DC 11/23/20 16:58 8 MG Pantoprazole 40 mg ONCE ONCE IV 11/23/20 16:45 11/23/20 16:46 DC 11/23/20 16:58 40 MG (RAAD GALDAMEZ APRN) Vital Signs/I&O 11/23/20 16:29 Temp 36.8 Pulse 93 Resp 17 B/P (MAP) 130/91 (104) Pulse Ox 96 O2 Delivery Room Air (RAAD GALDAMEZ APRN) Progress Progress Note #1: Time: 16:47 Progress Note Pantoprazole and Zofran for her symptoms. After regular nausea control will trial a GI cocktail. Pancreatitis and gallbladder are also in the differential so we will give her a liter of fluids and if the GI cocktail and Toradol does not control her pain we will get a CT of her abdomen and pelvis. Progress Note #2: Time: 18:04 Progress Note The patient's nausea is gone and her pain is a little better after pantoprazole. We will give her a GI cocktail now and if this knocks out her pain diagnosed her with alcoholic gastritis/duodenitis and have her follow-up with a surgeon for endoscopy. Appropriate medications for controlling her symptoms such as Carafate, omeprazole etc. Encouraged her to decrease her alcohol intake. If not then we may consider things such as cholecystitis. Pancreatitis ruled out by normal lipase. Care of the patient turned over to Raad Galdamez, nurse practitioner. (JOAQUIN MESSINA) Transfer of Care Time: 18:05 Care transferred to: Raad Galdamez (JOAQUIN MESSINA) Departure Impression Primary Impression: Gastritis Disposition: 01 HOME, SELF-CARE Condition: Stable Departure-Patient Inst. Decision time for Depature: 18:21 (RAAD GALDAMEZ APRN) Referrals: ACACIA PAUL MD (PCP/Family) Primary Care Physician Patient Instructions: Gastritis (DC) Scripts Sucralfate (Carafate) 1 Gm Tablet 1 GM PO QID, #40 TAB Prov: RAAD GALDAMEZ APRN 11/23/20 Pantoprazole Sodium (Protonix) 40 Mg Granpkt.dr 40 MG PO DAILY, #14 TAB Prov: RAAD GALDAMEZ APRN 11/23/20 JOAQUIN MESSINA Nov 23, 2020 16:42 RAAD GALDAMEZ APRN Nov 23, 2020 18:22
[2020-11-23] MEDS ORDERED: ONDANSETRON 4 MG/2 ML (SDV) Z0FRAN IVP ONE (16:45)
[2020-11-23] MEDS ORDERED: PANTOPRAZOLE 40 MG (PROTONIX) VIAL IV ONE (16:45)
[2020-11-23] MEDS ORDERED: LACTATED RINGERS 1,000 ML IV ONE (16:45)
[2020-11-23 16:50] LABS: MONOCYTES # (AUTO) 0.3 10^3/uL (0.0-1.0)
[2020-11-23 16:52] LABS: BASOPHILS % (AUTO) 0 % (0-10); EOSINOPHILS # (AUTO) 0.1 10^3/uL (0.0-0.3); EOSINOPHILS % (AUTO) 2 % (0-10); HEMATOCRIT 43 % (35-52); HEMOGLOBIN 14.9 g/dL (11.5-16.0); LYMPHOCYTES % (AUTO) 21 % (12-44); MEAN CORPUSCULAR HEMOGLOBIN 33 pg (25-34); MEAN CORPUSCULAR HGB CONC 35 g/dL (32-36); MEAN CORPUSCULAR VOLUME 94 fL (80-99); MONOCYTES % (AUTO) 7 % (0-12); NEUTROPHILS # (AUTO) 3.4 10^3/uL (1.8-7.8); NEUTROPHILS % (AUTO) 70 % (42-75); PLATELET COUNT 105 10^3/uL (130-400); WHITE BLOOD COUNT 4.9 10^3/uL (4.3-11.0)
[2020-11-23 16:56] LABS: ALBUMIN 4.5 GM/DL (3.2-4.5); CHLORIDE 90 MMOL/L (98-107); POTASSIUM 3.4 MMOL/L (3.6-5.0); SODIUM 132 MMOL/L (135-145)
[2020-11-23 16:57] LABS: CALCIUM 8.8 MG/DL (8.5-10.1)
[2020-11-23 16:58] LABS: GLUCOSE 86 MG/DL (70-105); PROTHROMBIN TIME PATIENT 13.7 SEC (12.2-14.7); TOTAL PROTEIN 7.6 GM/DL (6.4-8.2)
[2020-11-23 16:59] LABS: CARBON DIOXIDE 24 MMOL/L (21-32)
[2020-11-23 17:00] LABS: BILIRUBIN,TOTAL 0.9 MG/DL (0.1-1.0)
[2020-11-23 17:02] LABS: ALKALINE PHOSPHATASE 84 U/L (40-136); CREATININE SERUM 0.72 MG/DL (0.60-1.30); GFR ESTIMATED > 60
[2020-11-23 17:03] LABS: BUN/CREATININE RATIO 8
[2020-11-23 17:05] LABS: ALANINE AMINOTRANSFERASE 233 U/L (0-55); LIPASE 47 U/L (8-78)
[2020-11-23] MEDS ORDERED: LIDOCAINE 2% VISCOUS 15 ML UDC PO ONE (18:00)
[2020-11-23] MEDS ORDERED: ANTACID SUSP 30 ML UDC (MYLANTA) PO ONE (18:00)
[2020-11-23 18:09] LABS: BILIRUBIN,URINE NEGATIVE (NEGATIVE); CLARITY,URINE CLEAR; COLOR,URINE YELLOW; GLUCOSE, URINE (UA) NEGATIVE (NEGATIVE); KETONES,URINE NEGATIVE (NEGATIVE); LEUKOCYTE ESTERASE ,URINE NEGATIVE (NEGATIVE); NITRITE,URINE NEGATIVE (NEGATIVE); PH,URINE 6.5 (5-9); PROTEIN,URINE NEGATIVE (NEGATIVE)
[2020-11-23 18:17] LABS: BACTERIA,URINE TRACE /HPF; WBC,URINE RARE /HPF
[2020-11-23 18:18] LABS: AMORPHOUS SEDIMENT,UR RARE AMOR URATES /LPF
[2020-11-23] MEDS ORDERED: PANT40SU PO (18:22)
[2020-11-23] MEDS ORDERED: SUCR1TAB36 PO (18:22)
[2020-11-23 18:42] VITALS: BP 126/88
== END 2020-11-23 18:42 | disposition home or self-care (01) ==
LOC: EDUNIT# 16:18 → ER 16:21
DX: K29.70 Gastritis, unspecified, without bleeding (principal); F32.9 Major depressive disorder, single episode, unspecified; F41.9 Anxiety disorder, unspecified; F17.210 Nicotine dependence, cigarettes, uncomplicated; Z88.0 Allergy status to penicillin; Z88.5 Allergy status to narcotic agent; Z82.49 Family history of ischemic heart disease and other diseases of the circulatory system; Z80.9 Family history of malignant neoplasm, unspecified
CPT/HCPCS: 80053; 81000; 83690; 84703; 85025; 85610; 99284; G0480; 36415; 80320

== ENCOUNTER 2020-12-14 11:06 | Emergency (ER) | payer MEDICAID ==
[~2020-12-14] VITALS: Ht 162.5 cm; Wt 69.9 kg
[~2020-12-14 11:06] MED LIST changes: +ESCI-2 PO; -ESCI10TA64 PO; +PANT40SU PO; +SUCR1TAB36 PO
--- NOTE | 2020-12-14 13:16 | ED Psychosocial ---
General Chief Complaint: Substance Abuse Stated Complaint: ETOH DETOX Nursing Triage Note: PT REPORTS THAT SHE IS FOR FOR ETOH DETOX. LAST DRINK WAS THIS AM, 3 BEERS. Source: patient Exam Limitations: no limitations History of Present Illness Date Seen by Provider: Dec 14, 2020 Time Seen by Provider: 12:32 Initial Comments This is a well-appearing 40-year-old female who presents to the ER requesting to detox from alcohol inpatient. States she has been sober since June of last year but relapsed approximately 3 weeks ago. Attempted to detox at home and states she was unable to due to fear of having seizures, and severe nausea/vomiting. States she drinks 4 beers approximately 2 hours prior to arrival. Only physical complaint is right upper quadrant tenderness. Denies fevers, chills, shortness of breath, chest pain, dysuria, or hematuria. Allergies and Home Medications Allergies Coded Allergies: Penicillins (Verified Allergy, Unknown, 01/28/15) morphine (Verified Adverse Reaction, Mild, DID NOT TOLERATE WELL IN ED ON MONDAY., 12/04/12) DOES NOT LIKE THE FEELING IT GIVES HER. Home Medications ALPRAZolam 0.25 Mg Tablet, 0.25 MG PO BID 1 TAB BID SCHEDULED X 2 DAYS - MAY TAKE 1 TAB EVERY 6 HOURS IF NEEDED FOR ALCOHOL WITHDRAWAL Prescribed by: ACACIA PAUL on 06/12/20 09 Citalopram Hydrobromide 20 Mg Tablet, 20 MG PO DAILY, (Reported) LAST FILLED 04-23-2020 #30 DAY SUPPLY Lorazepam 1 Mg Tablet, 1 MG PO Q6H PRN for NAUSEA/VOMITING Prescribed by: ANNI TILLMAN on 12/14/20 1450 Magnesium Carbonate/Al Hydrox 1 Each Tab.chew, 1-2 EACH PO PRN PRN for HEARTBURN, (Reported) Melatonin 5 Mg Tablet, 5 MG PO HS PRN for SLEEP, (Reported) Ondansetron HCl 4 Mg Tab, 4 MG PO Q6H PRN for NAUSEA/VOMITING Prescribed by: ANNI TILLMAN on 12/14/20 1450 Pantoprazole Sodium 40 Mg Granpkt.dr, 40 MG PO DAILY Prescribed by: RAAD MARY on 11/23/20 182 Ropinirole HCl 0.25 Mg Tablet, 0.25 MG PO BID, (Reported) Sucralfate 1 Gm Tablet, 1 GM PO QID Prescribed by: RAAD MARY on 11/23/20 1822 Patient Home Medication List Home Medication List Reviewed: Yes Review of Systems Constitutional: chills; No fever, No weakness EENTM: no symptoms reported Respiratory: no symptoms reported Cardiovascular: no symptoms reported Gastrointestinal: abdominal pain (RUQ), diarrhea, nausea, vomiting Genitourinary: see HPI Musculoskeletal: no symptoms reported Skin: no symptoms reported Psychiatric/Neurological: Anxiety, Tremors Past Oaviqul-Nrxhzq-Hzqgfa Hx Patient Social History Alcohol Use: Regular Use Number of Drinks Today: 3 Alcohol Beverage of Choice: Beer Drug of Choice: DENIES Smoking Status: Current Everyday Smoker Type Used: Cigarettes 2nd Hand Smoke Exposure: Yes Recent Infectious Disease Expo: No Recent Hopitalizations: No Immunizations Up To Date Tetanus Booster (TDap): Unknown PED Vaccines UTD: No Date of Influenza Vaccine: Jul 21, 2018 Seasonal Allergies Seasonal Allergies: Yes Past Medical History Surgeries: Yes Orthopedic, Tonsillectomy Respiratory: No Currently Using CPAP: No Currently Using BIPAP: No Cardiac: No Neurological: No Female Reproductive Disorders: Denies Sexually Transmitted Disease: No HIV/AIDS: No Genitourinary: No Gastrointestinal: Yes Colitis, Gastroesophageal Reflux, Irritable Bowel Musculoskeletal: Yes (FIBULA FX, RT ANKLE) Fractures Endocrine: No HEENT: No Loss of Vision: Denies Hearing Impairment: Denies Cancer: No Did You Recieve Any Treatments: No Psychosocial: Yes (alcoholism) Anxiety, Depression Integumentary: No Blood Disorders: No Adverse Reaction/Blood Tranf: No Family Medical History Patient reports no known family medical history. Cancer, Hypertension Physical Exam Vital Signs - First Documented 12/14/20 12/14/20 13:01 15:06 Temp 36.7 Pulse 89 Resp 14 B/P (MAP) 116/80 (92) Pulse Ox 95 O2 Delivery Room Air Capillary Refill : Less Than 3 Seconds Height, Weight, BMI Height: 5'4.00" Weight: 132lbs. 1.8oz. 59.745998kz; 26.00 BMI Method:Stated General Appearance: WD/WN, no apparent distress HEENT: PERRL/EOMI, normal ENT inspection, pharynx normal Neck: non-tender, full range of motion, normal inspection Respiratory: lungs clear, normal breath sounds, no respiratory distress Cardiovascular: normal peripheral pulses, regular rate, rhythm, no murmur Gastrointestinal: normal bowel sounds, non tender, soft Extremities: normal range of motion, normal inspection Neurologic/Psychiatric: no motor/sensory deficits, alert, normal mood/affect, oriented x 3; No motor weakness, No sensory deficit; other (slight tremors ) Appearance/Memory: appropriate appearance, appropriate insight Behavior/Eye Contact: cooperative, good eye contact, normal speech Thoughts/Hallucinations: normal thought pattern; No no apparent hallucination, No auditory hallucinations, No delusions Skin: normal color, warm/dry Progress/Results/Core Measures Results/Orders Lab Results Laboratory Tests Test 12/14/20 13:08 12/14/20 13:20 Range/Units Urine Color YELLOW Urine Clarity CLEAR Urine pH 6.5 5-9 Urine Specific [place] <=1.005 1.016-1.022 Urine Protein NEGATIVE NEGATIVE Urine Glucose (UA) NEGATIVE NEGATIVE Urine Ketones NEGATIVE NEGATIVE Urine Nitrite NEGATIVE NEGATIVE Urine Bilirubin NEGATIVE NEGATIVE Urine Urobilinogen 0.2 < = 1.0 MG/DL Urine Leukocyte Esterase NEGATIVE NEGATIVE Urine RBC (Auto) NEGATIVE NEGATIVE Urine RBC NONE /HPF Urine WBC NONE /HPF Urine Squamous Epithelial Cells 5-10 /HPF Urine Crystals NONE /LPF Urine Bacteria TRACE /HPF Urine Casts NONE /LPF Urine Mucus NEGATIVE /LPF Urine Culture Indicated NO Urine Opiates Screen NEGATIVE NEGATIVE Urine Oxycodone Screen NEGATIVE NEGATIVE Urine Methadone Screen NEGATIVE NEGATIVE Urine Propoxyphene Screen NEGATIVE NEGATIVE Urine Barbiturates Screen NEGATIVE NEGATIVE Ur Tricyclic Antidepressants Screen NEGATIVE NEGATIVE Urine Phencyclidine Screen NEGATIVE NEGATIVE Urine Amphetamines Screen NEGATIVE NEGATIVE Urine Methamphetamines Screen NEGATIVE NEGATIVE Urine Benzodiazepines Screen NEGATIVE NEGATIVE Urine Cocaine Screen NEGATIVE NEGATIVE Urine Cannabinoids Screen NEGATIVE NEGATIVE White Blood Count 3.7 L 4.3-11.0 10^3/uL Red Blood Count 4.39 3.80-5.11 10^6/uL Hemoglobin 14.9 11.5-16.0 g/dL Hematocrit 43 35-52 % Mean Corpuscular Volume 99 80-99 fL Mean Corpuscular Hemoglobin 34 25-34 pg Mean Corpuscular Hemoglobin Concent 34 32-36 g/dL Red Cell Distribution Width 14.4 10.0-14.5 % Platelet Count 126 L 130-400 10^3/uL Mean Platelet Volume 10.8 9.0-12.2 fL Immature Granulocyte % (Auto) 0 % Neutrophils (%) (Auto) 63 42-75 % Lymphocytes (%) (Auto) 24 12-44 % Monocytes (%) (Auto) 12 0-12 % Eosinophils (%) (Auto) 1 0-10 % Basophils (%) (Auto) 1 0-10 % Neutrophils # (Auto) 2.3 1.8-7.8 10^3/uL Lymphocytes # (Auto) 0.9 L 1.0-4.0 10^3/uL Monocytes # (Auto) 0.4 0.0-1.0 10^3/uL Eosinophils # (Auto) 0.0 0.0-0.3 10^3/uL Basophils # (Auto) 0.0 0.0-0.1 10^3/uL Immature Granulocyte # (Auto) 0.0 0.0-0.1 10^3/uL Sodium Level 136 135-145 MMOL/L Potassium Level 4.3 3.6-5.0 MMOL/L Chloride Level 97 L 98-107 MMOL/L Carbon Dioxide Level 27 21-32 MMOL/L Anion Gap 12 5-14 MMOL/L Blood Urea Nitrogen 8 7-18 MG/DL Creatinine 0.65 0.60-1.30 MG/DL Estimat Glomerular Filtration Rate > 60 BUN/Creatinine Ratio 12 Glucose Level 83 70-105 MG/DL Calcium Level 9.7 8.5-10.1 MG/DL Corrected Calcium 8.5-10.1 MG/DL Total Bilirubin 0.6 0.1-1.0 MG/DL Aspartate Amino Transf (AST/SGOT) 195 H 5-34 U/L Alanine Aminotransferase (ALT/SGPT) 211 H 0-55 U/L Alkaline Phosphatase 100 40-136 U/L Total Protein 7.3 6.4-8.2 GM/DL Albumin 4.6 H 3.2-4.5 GM/DL Salicylates Level < 5.0 L 5.0-20.0 MG/DL Acetaminophen Level < 10 L 10-30 UG/ML Serum Alcohol < 10 <10 MG/DL My Orders Orders - ANNI TILLMAN S[employer] SERV[employer] WAITER Ua Culture If Indicated (12/14/20 12:32) Alcohol (12/14/20 12:32) Drug Screen Stat (Urine) (12/14/20 12:32) Cbc With Automated Diff (12/14/20 13:16) Comprehensive Metabolic Panel (12/14/20 13:16) Acetaminophen (12/14/20 13:16) Salicylate (12/14/20 13:16) Ekg Tracing (12/14/20 13:16) Ed Iv/Invasive Line Start (12/14/20 13:16) Ns Iv 1000 Ml (Sodium Chloride 0.9%) (12/14/20 13:30) Lorazepam Injection (Ativan Injection) (12/14/20 13:30) Ondansetron Injection (Zofran Injectio (12/14/20 14:45) Lorazepam Injection (Ativan Injection) (12/14/20 14:45) Thiamine Tablet (Vitamin B-1 Tablet) (12/14/20 14:45) Medications Given in ED Current Medications Medications Dose Ordered Sig/Juan Francisco Route Start Time Stop Time Status Last Admin Dose Admin Lorazepam 1 mg ONCE ONCE IVP 12/14/20 13:30 12/14/20 13:31 DC 12/14/20 13:32 1 MG Lorazepam 1 mg ONCE ONCE IVP 12/14/20 14:45 12/14/20 14:46 DC 12/14/20 14:44 1 MG Ondansetron HCl 4 mg ONCE ONCE IVP 12/14/20 14:45 12/14/20 14:46 DC 12/14/20 14:44 4 MG Thiamine HCl 100 mg ONCE ONCE PO 12/14/20 14:45 12/14/20 14:46 DC 12/14/20 14:51 100 MG Vital Signs/I&O 12/14/20 12/14/20 13:01 15:06 Temp 36.7 36.7 Pulse 89 94 Resp 14 18 B/P (MAP) 116/80 (92) 108/71 (92) Pulse Ox 95 96 O2 Delivery Room Air Blood Pressure Mean: 92 Progress Progress Note : Progress Note Patient examined in no acute distress. She has been admitted inpatient at this facility 5 times since August 2020 for alcohol detox, last detox noted in February 2020. Basic labs obtained, orders placed for lorazepam 1 mg IV push for tremors. Labs reviewed and are unremarkable, Other than her chronic elevation in liver enzymes which are slightly improved from her baseline. ETOH <10, even though she reports drinking 4 beers several hours prior to arrival. Discussed case with Dr. Paul, states she was told patient had not had an alcoholic beverage in 6 days so she sent her to ED to be evaluated for possible admission criteria. However, now that she has consumed alcohol today, states that she does not meet admission criteria for detox. She is agreeable for patient to go home with Ativan to help with detox symptoms. States that she recently prescribed patient naltrexone for alcohol withdrawal and that many of her symptoms could be from the naltrexone. Discussed this with the patient, states that she took 1 dose of naltrexone and never took it again because it made her "really sick". Discussed working on detox outpatient with Ativan 1 mg p.o. every 6 hours as needed detox symptoms. She is agreeable to try this and will call Dr. Paul's office for close follow-up or return to ER for worsening symptoms. Initial ECG Impression Date: Dec 14, 2020 Initial ECG Impression Time: 13:24 Initial ECG Rate: 78 Initial ECG Rhythm: Normal Sinus Departure Communication (Admissions) Time/Spoke to Consulting Phy: 14:[address] Paul, recommended to continue outpatient detox as she consumed 4 alcoholic beverages this morning. Impression Primary Impression: Alcohol abuse Disposition: 01 HOME, SELF-CARE Condition: Improved Departure-Patient Inst. Decision time for Depature: 14:44 Referrals: ACACIA PAUL MD (PCP/Family) Primary Care Physician Patient Instructions: ALCOHOL AND SUBSTANCE ABUSE Add. Discharge Instructions: Plan: 1. Discharge home. Take daily Multivitamin and B complex vitamin, you can purchase these over the counter. 2. Ativan 1mg by mouth every 6 hours as needed for detox symptoms: Shaking/nausea/vomiting/diarrhea. 3. Drink plenty of water, DO NOT DRINK alcohol especially while taking Ativan. 4. Follow up with Dr. Paul this week as needed. 5. You can call [facility] for additional support with alcohol abuse. 6. Return to ER if you symptoms worsen or if you have any new or concerning symptoms. All discharge instructions reviewed with patient and/or family. Voiced understanding. Scripts Ondansetron HCl (Zofran) 4 Mg Tab 4 MG PO Q6H PRN for NAUSEA/VOMITING, #30 TAB 0 Refills Prov: ANNI TILLMAN [employer] WAITER 12/14/20 Lorazepam (Ativan) 1 Mg Tablet 1 MG PO Q6H PRN for NAUSEA/VOMITING, #15 TAB 0 Refills Prov: ANNI TILLMAN [employer] SERV[employer] WAITER 12/14/20 Copy Copies To 1: ACACIA PAUL MD, STORMY D APRN Dec 14, 2020 13:16
[2020-12-14 13:21] LABS: BILIRUBIN,URINE NEGATIVE (NEGATIVE); CLARITY,URINE CLEAR; COLOR,URINE YELLOW; GLUCOSE, URINE (UA) NEGATIVE (NEGATIVE); KETONES,URINE NEGATIVE (NEGATIVE); LEUKOCYTE ESTERASE ,URINE NEGATIVE (NEGATIVE); NITRITE,URINE NEGATIVE (NEGATIVE); PH,URINE 6.5 (5-9); PROTEIN,URINE NEGATIVE (NEGATIVE)
[2020-12-14] MEDS ORDERED: NS IV 1000 ML 1,000 ML IV SCH (13:30)
[2020-12-14] MEDS ORDERED: LORazepam INJ 2 MG/ML (ATIVAN) VIAL IVP ONE ×2 (13:30→14:45)
[2020-12-14 13:31] LABS: BASOPHILS % (AUTO) 1 % (0-10); EOSINOPHILS % (AUTO) 1 % (0-10); MEAN CORPUSCULAR VOLUME 99 fL (80-99); MEAN PLATELET VOLUME 10.8 fL (9.0-12.2); NEUTROPHILS # (AUTO) 2.3 10^3/uL (1.8-7.8); PLATELET COUNT 126 10^3/uL (130-400)
[2020-12-14 13:32] LABS: AMPHETAMINE SCREEN, URINE NEGATIVE (NEGATIVE); BARBITURATE SCREEN URINE NEGATIVE (NEGATIVE); BENZODIAZEPINES SCREEN URINE NEGATIVE (NEGATIVE); CANNABINOID SCREEN, URINE NEGATIVE (NEGATIVE); COCAINE SCREEN URINE NEGATIVE (NEGATIVE); METHADONE STAT NEGATIVE (NEGATIVE); METHAMPHETAMINE SCREEN URINE S NEGATIVE (NEGATIVE); OPIATE SCREEN URINE NEGATIVE (NEGATIVE); OXYCODONE STAT NEGATIVE (NEGATIVE); PROPOXYPHENE STAT NEGATIVE (NEGATIVE); TRICYCLIC ANTIDEPRESSANTS SCRE NEGATIVE (NEGATIVE)
[2020-12-14 13:33] LABS: HEMATOCRIT 43 % (35-52); HEMOGLOBIN 14.9 g/dL (11.5-16.0); LYMPHOCYTES # (AUTO) 0.9 10^3/uL (1.0-4.0); LYMPHOCYTES % (AUTO) 24 % (12-44); MEAN CORPUSCULAR HEMOGLOBIN 34 pg (25-34); MEAN CORPUSCULAR HGB CONC 34 g/dL (32-36); MONOCYTES # (AUTO) 0.4 10^3/uL (0.0-1.0); MONOCYTES % (AUTO) 12 % (0-12); NEUTROPHILS % (AUTO) 63 % (42-75); WHITE BLOOD COUNT 3.7 10^3/uL (4.3-11.0)
[2020-12-14 13:37] LABS: BACTERIA,URINE TRACE /HPF
[2020-12-14 13:47] LABS: ALBUMIN 4.6 GM/DL (3.2-4.5); CHLORIDE 97 MMOL/L (98-107); POTASSIUM 4.3 MMOL/L (3.6-5.0); SODIUM 136 MMOL/L (135-145)
[2020-12-14 13:49] LABS: CALCIUM 9.7 MG/DL (8.5-10.1)
[2020-12-14 13:50] LABS: GLUCOSE 83 MG/DL (70-105); TOTAL PROTEIN 7.3 GM/DL (6.4-8.2)
[2020-12-14 13:51] LABS: CARBON DIOXIDE 27 MMOL/L (21-32)
[2020-12-14 13:52] LABS: BILIRUBIN,TOTAL 0.6 MG/DL (0.1-1.0)
[2020-12-14 13:54] LABS: ALKALINE PHOSPHATASE 100 U/L (40-136); CREATININE SERUM 0.65 MG/DL (0.60-1.30); GFR ESTIMATED > 60
[2020-12-14 13:55] LABS: BUN/CREATININE RATIO 12
[2020-12-14 13:57] LABS: ALANINE AMINOTRANSFERASE 211 U/L (0-55); SALICYLATE < 5.0 MG/DL (5.0-20.0)
[2020-12-14 13:58] LABS: ACETAMINOPHEN < 10 UG/ML (10-30)
[2020-12-14] MEDS ORDERED: THIAMINE 100 MG (VITAMIN B-1) TAB PO ONE (14:45)
[2020-12-14] MEDS ORDERED: ONDANSETRON 4 MG/2 ML (SDV) Z0FRAN IVP ONE (14:45)
[2020-12-14] MEDS ORDERED: LORA-405 PO (14:50)
[2020-12-14] MEDS ORDERED: ONDN4T PO (14:50)
[2020-12-14 15:06] VITALS: BP 108/71
== END 2020-12-14 15:05 | disposition home or self-care (01) ==
LOC: EDUNIT# 11:06 → ER 11:08
DX: F10.10 Alcohol abuse, uncomplicated (principal); F41.9 Anxiety disorder, unspecified; F32.9 Major depressive disorder, single episode, unspecified; K21.9 Gastro-esophageal reflux disease without esophagitis; F17.210 Nicotine dependence, cigarettes, uncomplicated; Z88.0 Allergy status to penicillin; Z88.5 Allergy status to narcotic agent; Z82.49 Family history of ischemic heart disease and other diseases of the circulatory system; Z80.9 Family history of malignant neoplasm, unspecified
CPT/HCPCS: 80053; 80306; 81000; 85025; 93005; 99284; G0480 ×3; 36415; 80320; 80329

== ENCOUNTER 2020-12-29 16:14 | Inpatient (IN) | payer MEDICAID ==
[~2020-12-29] VITALS: Ht 162.5 cm; Wt 67.5 kg
[~2020-12-29 16:14] MED LIST changes: +LORA-405 PO; +ONDN4T PO
--- NOTE | 2020-12-29 16:33 | History & Physical ---
History of Present Illness History of Present Illness Reason for visit/HPI PT IS A 40 Y/O FEMALE WHO IS WELL KNOWN TO ME FROM CLINIC AND MULTIPLE PREVIOUS HOSPITALIZATIONS. SHE REPORTS THAT SHE WAS IN THE OFFICE TWO WEEKS AGO AND SHE REPORTED TO ME THAT SHE WAS NO LONGER DRINKING ALCOHOL AND THAT SHE WAS DOING WELL SINCE SHE STOPPED DRINKING. HOWEVER, TODAY SHE ADMITTED THAT SHE LIED TO ME AND WAS STILL DRINKING ALCOHOL WHEN SHE CAME INTO THE OFFICE. SHE HAD BEEN SOBER FOR ABOUT 5 MONTHS, BUT THEN SHE SUCCUMBED TO HER STRESS FROM HER PAST RELATIONSHIP AND HER WORRY OVER HER CHILDREN. THE PATIENT AND HER MOM REPORT THAT THEY DO NOT WANT HER TO GO TO THE INPATIENT DETOX BECAUSE "IT HAS NOT WORKED BEFORE". THEY ARE REQUESTING ADMISSION TO [facility] FOR ALCOHOL WITHDRAWAL SYMPTOMS - SHE IS ACTIVELY HAVING TREMORS IN THE OFFICE. MAIRA ADMITS THAT SHE HAS BEEN TRYING TO CUT BACK FROM 24 CANS OF BEER/DAY ON HER OWN AND SHE HAS HAD TO WAKE UP AND DRINK AT LEAST ONE CAN OF BEER IN THE MIDDLE OF THE NIGHT DUE TO TREMORS. Date of Admission Dec 29, 2020 at 16:28 Date Seen by a Provider: Dec 29, 2020 Time Seen by a Provider: 15:00 Attending Physician Acacia Paul MD Admitting Physician Acacia Paul MD Consult Allergies and Home Medications Allergies Coded Allergies: Penicillins (Verified Allergy, Unknown, 01/28/15) morphine (Verified Adverse Reaction, Mild, DID NOT TOLERATE WELL IN ED ON MONDAY., 12/04/12) DOES NOT LIKE THE FEELING IT GIVES HER. Home Medications ALPRAZolam 0.25 Mg Tablet, 0.25 MG PO BID 1 TAB BID SCHEDULED X 2 DAYS - MAY TAKE 1 TAB EVERY 6 HOURS IF NEEDED FOR ALCOHOL WITHDRAWAL Prescribed by: ACACIA PAUL on 06/12/20 0918 Citalopram Hydrobromide 20 Mg Tablet, 20 MG PO DAILY, (Reported) LAST FILLED 04-23-2020 #30 DAY SUPPLY Lorazepam 1 Mg Tablet, 1 MG PO Q6H PRN for NAUSEA/VOMITING Prescribed by: ANNI TILLMAN on 12/14/20 1450 Magnesium Carbonate/Al Hydrox 1 Each Tab.chew, 1-2 EACH PO PRN PRN for HEARTBURN, (Reported) Melatonin 5 Mg Tablet, 5 MG PO HS PRN for SLEEP, (Reported) Ondansetron HCl 4 Mg Tab, 4 MG PO Q6H PRN for NAUSEA/VOMITING Prescribed by: ANNI TILLMAN on 12/14/20 1450 Pantoprazole Sodium 40 Mg , 40 MG PO DAILY Prescribed by: RAAD MARY on 11/23/201821 Ropinirole HCl 0.25 Mg Tablet, 0.25 MG PO BID, (Reported) Sucralfate 1 Gm Tablet, 1 GM PO QID Prescribed by: RAAD MARY on 11/23/201821 Patient Home Medication List Home Medication List Reviewed: Yes Past Nsjofnr-Igrybx-Irllhl Hx Past Med/Social Hx: Reviewed Nursing Past Med/Soc Hx, Reviewed and Corrections made Patient Social History Marrital Status: Number of Children: 2 Number of living children: 2 Living Status: LIVES IN APARTMENT WITH HER 2 CHILDREN Employed/Student: unemployed Alcohol Use: Regular Use (24 CANS OF BEER/DAY) Alcohol Beverage of Choice: Beer Recreational Drug Use: No Drug of Choice: DENIES Smoking Status: Current Everyday Smoker Type Used: Cigarettes 2nd Hand Smoke Exposure: Yes Physical Abuse Screen: No Sexual Abuse: No Recent Foreign Travel: No Contact w/other who traveled: No Recent Hopitalizations: No Recent Infectious Disease Expo: No Immunizations Up To Date Tetanus Booster (TDap): Unknown Pediatric: No Date of Influenza Vaccine: Jul 21, 2018 Seasonal Allergies Seasonal Allergies: Yes Past Medical History Surgeries: Orthopedic, Tonsillectomy Currently Using CPAP: No Currently Using BIPAP: No Sexually Transmitted Disease: No HIV/AIDS: No Female Reproductive Disorders: Denies Gastrointestinal: Colitis, Gastroesophageal Reflux, Irritable Bowel Musculoskeletal: Fractures Loss of Vision: Denies Hearing Impairment: Denies Did You Recieve Any Treatments: No Psychosocial: Anxiety, Depression History of Blood Disorders: No Adverse Reaction to Blood Candelario: No Family History Reviewed and Corrections made Patient reports no known family medical history. Cancer, Hypertension Review of Systems Constitutional: No chills, No diaphoresis, No dizziness, No fever; malaise, weakness EENTM: No hearing loss, No hoarseness, No throat pain Respiratory: No cough, No dyspnea on exertion, No short of breath Cardiovascular: No chest pain, No edema, No palpitations Gastrointestinal: No abdominal pain, No constipation, No diarrhea, No loss of appetite, No nausea, No vomiting Genitourinary: no symptoms reported; No incontinence : No Musculoskeletal: no symptoms reported; No joint pain, No muscle pain, No muscle weakness Skin: no symptoms reported Psychiatric/Neurological: Anxiety, Depressed, Tremors, Weakness All Other Systems Reviewed Negative Unless Noted: Yes Physical Exam Vital Signs Vital Signs - First Documented 12/29/20 16:35 Temp 36.7 Pulse 84 Resp 22 B/P (MAP) 138/78 (98) Pulse Ox 98 O2 Delivery Room Air Capillary Refill : Height, Weight, BMI Height: 5'4.00" Weight: 132lbs. 1.8oz. [id number]; 26.00 BMI Method:Stated General Appearance: WD/WN, Mild Distress (TREMORS) Eyes: Bilateral Eye Normal Inspection, Bilateral Eye PERRL, Bilateral Eye EOMI HEENT: PERRL/EOMI, TMs Normal, Normal ENT Inspection, Pharynx Normal Neck: Full Range of Motion, Normal Inspection, Non Tender, Supple Respiratory: Chest Non Tender, Lungs Clear, Normal Breath Sounds, No Accessory Muscle Use, No Respiratory Distress Cardiovascular: Regular Rate, Rhythm, No Edema, No Gallop, No JVD, No Murmur, Normal Peripheral Pulses Gastrointestinal: Normal Bowel Sounds, Non Tender, Soft Rectal: Deferred Back: Normal Inspection, No Vertebral Tenderness Extremity: Normal Capillary Refill, Normal Inspection, Normal Range of Motion, Non Tender, No Calf Tenderness, No Pedal Edema Neurologic/Psychiatric: Alert, Oriented x3, business info consultant II-XII Norm as Tested, Depressed Affect Skin: Normal Color, Warm/Dry Lymphatic: No Adenopathy Assessment/Plan Assessment and Plan ALCOHOL WITHDRAWAL ALCOHOLIC HEPATITIS ELEVATED TRANSAMINASES DEPRESSION BIPOLAR MOOD DISORDER ALCOHOL WITHDRAWAL WITH ALCOHOLIC HEPATITIS (ELEVATED TRANSAMINASES) - PT STARTED ON CIWA/ALCOHOL WITHDRAWAL PROTOCOL - CONTINUE WITH IV FLUIDS, DAILY BANANA BAG X 3 DAYS - CONTINUE WITH SCHEDULED AND PRN ATIVAN - MONITOR SERIAL LABS, WITH ANTICIPATION OF LIVER FUNCTION TO SLIGHTLY IMPROVE WITH HYDRATION AND DECREASED ALCOHOL TOXICITY OF HER LIVER. DEPRESSION WITH BIPOLAR MOOD DISORDER - WILL START CITALOPRAM 20MG DAILY. Admission Diagnosis ALCOHOL WITHDRAWAL ALCOHOLIC HEPATITIS ELEVATED TRANSAMINASES DEPRESSION BIPOLAR MOOD DISORDER Admission Status: Inpatient Order (span 2 midnights) Reason for Inpatient Admission: INPT ADMISSION FOR ALCOHOL WITHDRAWAL - WILL REQUIRE AT LEAST 72 HOURS IN HOSPITAL PRIOR TO DC ACACIA PAUL MD Dec 29, 2020 16:33
[2020-12-29 16:35] VITALS: BP 138/78
[2020-12-29] MEDS ORDERED: SENNA W/DOCUSATE (SENOKOT S) TABLET PO PRN (16:45)
[2020-12-29] MEDS ORDERED: LORazepam INJ 2 MG/ML (ATIVAN) VIAL IM/IV PRN (16:45)
[2020-12-29] MEDS ORDERED: 1/2 NS IV SOLUTION 1,000 ML IV PRN (16:45)
[2020-12-29] MEDS ORDERED: ANTACID SUSP 30 ML UDC (MYLANTA) PO PRN (16:45)
[2020-12-29] MEDS ORDERED: D5 1/2 NS 1000 ML IV SOLUTION 1,000 ML IV PRN (16:45)
[2020-12-29] MEDS: LORazepam INJ 2 MG/ML (ATIVAN) VIAL ONE ×2 (17:00→17:12)
[2020-12-29] MEDS: MULTIVIT W/MINERALS TAB (THERAGRAN M) PO SCH (17:13)
[2020-12-29] MEDS: MAGNESIUM OXIDE (MAG-OX)400 MG TAB PO SCH (17:13)
[2020-12-29] MEDS: FOLIC ACID 1 MG TAB PO SCH (17:13)
[2020-12-29] MEDS: D5 1/2 NS W/KCL 20 MEQ/L 1,000 ML IV SCH ×2 (17:13→23:07)
[2020-12-29] MEDS: THIAMINE 100 MG (VITAMIN B-1) TAB PO SCH (17:14)
[2020-12-29 17:25] LABS: HEMOGLOBIN 15.5 g/dL (11.5-16.0); MEAN PLATELET VOLUME 10.1 fL (9.0-12.2); WHITE BLOOD COUNT 3.9 10^3/uL (4.3-11.0)
[2020-12-29] MEDS: LORazepam INJ 2 MG/ML (ATIVAN) VIAL IV PRN (17:33)
[2020-12-29 17:41] LABS: ALANINE AMINOTRANSFERASE 163 U/L (0-55); ALBUMIN 4.4 GM/DL (3.2-4.5); ALKALINE PHOSPHATASE 76 U/L (40-136); BILIRUBIN,TOTAL 0.8 MG/DL (0.1-1.0); BUN/CREATININE RATIO 5; CALCIUM 8.6 MG/DL (8.5-10.1); CARBON DIOXIDE 16 MMOL/L (21-32); CHLORIDE 97 MMOL/L (98-107); CREATININE SERUM 0.61 MG/DL (0.60-1.30); GFR ESTIMATED > 60; GLUCOSE 64 MG/DL (70-105); POTASSIUM 3.9 MMOL/L (3.6-5.0); SODIUM 128 MMOL/L (135-145); TOTAL PROTEIN 7.3 GM/DL (6.4-8.2)
[2020-12-29] MEDS: LORazepam 0.5 MG (ATIVAN) TABLET PO SCH ×2 (17:44→23:53)
[2020-12-29 18:26] VITALS: BP 124/76
[2020-12-29] MEDS: ONDANSETRON 4 MG/2 ML (SDV) Z0FRAN IV PRN (18:29)
[2020-12-29] MEDS: LORazepam 1 MG (ATIVAN) TAB PO PRN ×2 (18:36→20:13)
[2020-12-29 20:00] VITALS: BP 124/76
[2020-12-29 20:21] LABS: BILIRUBIN,URINE NEGATIVE (NEGATIVE); CLARITY,URINE CLEAR; COLOR,URINE YELLOW; GLUCOSE, URINE (UA) NEGATIVE (NEGATIVE); KETONES,URINE 1+ (NEGATIVE); LEUKOCYTE ESTERASE ,URINE NEGATIVE (NEGATIVE); NITRITE,URINE NEGATIVE (NEGATIVE); PROTEIN,URINE NEGATIVE (NEGATIVE)
[2020-12-29 20:24] LABS: BACTERIA,URINE MODERATE /HPF; SQUAMOUS EPITHELIAL CELL,UR 0-2 /HPF
[2020-12-30] VITALS: BP 107/63
[2020-12-30 03:44] VITALS: BP 103/55
[2020-12-30] MEDS: D5 1/2 NS W/KCL 20 MEQ/L 1,000 ML IV SCH ×3 (05:22→18:31)
[2020-12-30] MEDS: THIAMINE 100 MG (VITAMIN B-1) TAB PO SCH (05:48)
[2020-12-30] MEDS: MULTIVIT W/MINERALS TAB (THERAGRAN M) PO SCH (05:48)
[2020-12-30] MEDS: ONDANSETRON 4 MG/2 ML (SDV) Z0FRAN IV PRN ×3 (05:51→20:49)
[2020-12-30 06:36] LABS: ALANINE AMINOTRANSFERASE 134 U/L (0-55); ALBUMIN 3.9 GM/DL (3.2-4.5); ALKALINE PHOSPHATASE 68 U/L (40-136); BILIRUBIN,TOTAL 1.2 MG/DL (0.1-1.0); BUN/CREATININE RATIO 8; CALCIUM 8.3 MG/DL (8.5-10.1); CARBON DIOXIDE 22 MMOL/L (21-32); CHLORIDE 103 MMOL/L (98-107); CREATININE SERUM 0.61 MG/DL (0.60-1.30); GFR ESTIMATED > 60; POTASSIUM 4.1 MMOL/L (3.6-5.0); SODIUM 133 MMOL/L (135-145); TOTAL PROTEIN 6.4 GM/DL (6.4-8.2)
[2020-12-30 06:43] LABS: GLUCOSE 104 MG/DL (70-105)
[2020-12-30 08:00] VITALS: BP 109/55
--- NOTE | 2020-12-30 08:18 | Progress Note ---
Subjective Subjective Date Seen by Provider: Dec 30, 2020 Time Seen by Provider: 07:30 Pt seen and examined. She was resting in bed, NAD. No events overnight. Feels dehydrated. Denies chest pain, SOB, N/V. Continues to have hand tremors. No other complaints. Review of Systems General: No Chills; Appetite (no appetite) HEENT: No Head Aches, No Visual Changes Pulmonary: No Dyspnea Cardiovascular: No: Chest Pain, Palpitations, Edema, Lt Headedness Gastrointestinal: Abdominal Pain (RUQ ); No: Nausea, Vomiting Genitourinary: No Dysuria, No Hematuria Musculoskeletal: No: neck pain, back pain Neurological: No: Weakness, Numbness, Seizures All Other Systems Reviewed All Other Systems Reviewed: Yes Objective Exam Vital Signs Vital Signs - First Documented 12/29/20 16:35 Temp 36.7 Pulse 84 Resp 22 B/P (MAP) 138/78 (98) Pulse Ox 98 O2 Delivery Room Air Capillary Refill : General Appearance: No Apparent Distress, WD/WN Eyes: Bilateral Eye Normal Inspection, Bilateral Eye PERRL, Bilateral Eye EOMI HEENT: PERRL/EOMI, TMs Normal, Normal ENT Inspection, Pharynx Normal Neck: Full Range of Motion, Normal Inspection, Non Tender, Supple Respiratory: Chest Non Tender, Lungs Clear, Normal Breath Sounds, No Accessory Muscle Use, No Respiratory Distress Cardiovascular: Regular Rate, Rhythm, No Edema, No Gallop, No JVD, No Murmur, Normal Peripheral Pulses Gastrointestinal: Normal Bowel Sounds, Non Tender, Soft Rectal: Deferred Back: Normal Inspection, No Vertebral Tenderness Extremity: Normal Capillary Refill, Normal Inspection, Normal Range of Motion, Non Tender, No Calf Tenderness, No Pedal Edema Neurologic/Psychiatric: Alert, Oriented x3, No Motor/Sensory Deficits, resin mixer II- XII Norm as Tested, Depressed Affect, Other (hand tremors) Skin: Normal Color, Warm/Dry Lymphatic: No Adenopathy Results Lab Laboratory Tests 12/29/20 17:15: White Blood Count 3.9L, Red Blood Count 4.58, Hemoglobin 15.5, Hematocrit 45, Mean Corpuscular Volume 98, Mean Corpuscular Hemoglobin 34, Mean Corpuscular Hemoglobin Concent 35, Red Cell Distribution Width 13.9, Platelet Count 197, Mean Platelet Volume 10.1, Prothrombin Time 14.0, INR Comment 1.0, Activated Partial Thromboplast Time 33, Sodium Level 128L, Potassium Level 3.9, Chloride Level 97L, Carbon Dioxide Level 16L, Anion Gap 15H, Blood Urea Nitrogen 3L, Creatinine 0.61, Estimat Glomerular Filtration Rate > 60, BUN/Creatinine Ratio 5, Glucose Level 64L, Calcium Level 8.6, Corrected Calcium 8.3L, Total Bilirubin 0.8, Aspartate Amino Transf (AST/SGOT) 148H, Alanine Aminotransferase (ALT/SGPT) 163H, Alkaline Phosphatase 76, Total Protein 7.3, Albumin 4.4, Serum Alcohol 60H 12/29/20 17:48: Glucometer 91 12/29/20 20:00: Urine Color YELLOW, Urine Clarity CLEAR, Urine pH 6.0, Urine Specific Strandquist <=1.005, Urine Protein NEGATIVE, Urine Glucose (UA) NEGATIVE, Urine Ketones 1+H, Urine Nitrite NEGATIVE, Urine Bilirubin NEGATIVE, Urine Urobilinogen 0.2, Urine Leukocyte Esterase NEGATIVE, Urine RBC (Auto) TRACE-I, Urine RBC NONE, Urine WBC 2-5, Urine Squamous Epithelial Cells 0-2, Urine Crystals NONE, Urine Bacteria MODERATEH, Urine Casts NONE, Urine Mucus NEGATIVE, Urine Culture Indicated NO 12/29/20 23:50: Glucometer 99 12/30/20 05:46: Sodium Level 133L, Potassium Level 4.1, Chloride Level 103, Carbon Dioxide Level 22, Anion Gap 8, Blood Urea Nitrogen 5L, Creatinine 0.61, Estimat Glomerular Filtration Rate > 60, BUN/Creatinine Ratio 8, Glucose Level 104, Calcium Level 8.3L, Corrected Calcium 8.4L, Total Bilirubin 1.2H, Aspartate Amino Transf (AST/SGOT) 113H, Alanine Aminotransferase (ALT/SGPT) 134H, Alkaline Phosphatase 68, Total Protein 6.4, Albumin 3.9 Assessment/Plan Assessment/Plan Assessment and Plan Alcohol withdrawal Alcoholic hepatitis - AST 113, ALT 134 Leukopenia - WBC 3.9 Hyponatremia - Na 133 Dehydration Depression Bipolar disorder Continue CIWA protocol Continue Alcohol detox protocol IVF w/ regular diet, pt has no appetite and is advancing as tolerated Continue to monitor VS, labs Supervisory-Addendum Brief Verification & Attestation Participated in pt care: history, MDM, physical Personally performed: exam, history, MDM, supervision of care Care discussed with: Medical Student Procedures: n/a Results interpretation: Verified all documentation I HAVE PERSONALLY INTERVIEWED, EXAMINED, AND FORMULATED ASSESSMENT AND PLAN DOCUMENTED BELOW. I HAVE REVIEWED DOCUMENTATION FROM MEDICAL STUDENT AND AGREE WITH PHYSICAL EXAM AND ASSESSMENT AND PLAN DOCUMENTED. ALCOHOL WITHDRAWAL ALCOHOLIC HEPATITIS ELEVATED TRANSAMINASES DEPRESSION BIPOLAR MOOD DISORDER LEUKOPENIA HYPONATREMIA ALCOHOL WITHDRAWAL WITH ALCOHOLIC HEPATITIS (ELEVATED TRANSAMINASES) - PT STARTED ON CIWA/ALCOHOL WITHDRAWAL PROTOCOL - TOLERATING WITHDRAWAL WITH MINIMAL SYMPTOMS. - CONTINUE WITH IV FLUIDS, DAILY BANANA BAG X 1 MORE DAY AFTER DOSE TODAY - CONTINUE WITH PRN ATIVAN - MONITOR SERIAL LABS, WITH ANTICIPATION OF LIVER FUNCTION TO SLIGHTLY IMPROVE WITH HYDRATION AND DECREASED ALCOHOL TOXICITY OF HER LIVER. DEPRESSION WITH BIPOLAR MOOD DISORDER - WILL RESTART CITALOPRAM 20MG DAILY. LEUKOPENIA - STABLE MONITOR - HER BONE MARROW IS SUPPRESSED DUE TO THE TOXICITY OF THE ALCOHOL ON HER SYSTEM. HYPONATREMIA - SHOULD IMPROVE WITH FLUIDS. - MONITOR LABS CARMENZA NEWELL MED STUDENT Dec 30, 2020 08:18 ACACIA WHITFIELD MD Jan 01, 2021 10:53
[2020-12-30] MEDS: FOLIC ACID 1 MG TAB PO SCH (08:48)
[2020-12-30] MEDS: LORazepam 0.5 MG (ATIVAN) TABLET PO SCH (08:48)
[2020-12-30] MEDS: MAGNESIUM OXIDE (MAG-OX)400 MG TAB PO SCH ×2 (08:48→17:20)
[2020-12-30] MEDS ORDERED: THIAMINE INJECTION 100 MG, FOLIC ACID INJECTION 1 MG, MAGNESIUM SULFATE 2 GM, VITAMIN M... IV SCH ×5 (09:00)
[2020-12-30 12:00] VITALS: BP 101/66
[2020-12-30] MEDS ORDERED: ACET-2267 PO (13:01)
[2020-12-30] MEDS ORDERED: ROPI0.5T4 PO (13:01)
[2020-12-30] MEDS ORDERED: CITA40TA11 PO (13:01)
[2020-12-30] MEDS ORDERED: MAG-99 PO (13:01)
[2020-12-30] MEDS ORDERED: ONDA-105 PO (13:01)
[2020-12-30] MEDS: KETOROLAC 15 MG/ML VIAL IVP PRN (15:34)
[2020-12-30] MEDS: LORazepam 1 MG (ATIVAN) TAB PO PRN ×2 (15:34→20:50)
[2020-12-30 16:16] VITALS: BP 106/63
[2020-12-30 19:41] VITALS: BP 108/63
[2020-12-31 00:02] VITALS: BP 105/64
[2020-12-31] MEDS: D5 1/2 NS W/KCL 20 MEQ/L 1,000 ML IV SCH ×4 (00:58→21:27)
[2020-12-31 04:08] VITALS: BP 100/65
[2020-12-31] MEDS: THIAMINE 100 MG (VITAMIN B-1) TAB PO SCH (05:46)
[2020-12-31] MEDS: MULTIVIT W/MINERALS TAB (THERAGRAN M) PO SCH (05:46)
[2020-12-31 06:19] LABS: ALANINE AMINOTRANSFERASE 136 U/L (0-55); ALBUMIN 3.8 GM/DL (3.2-4.5); ALKALINE PHOSPHATASE 66 U/L (40-136); BILIRUBIN,TOTAL 0.7 MG/DL (0.1-1.0); BUN/CREATININE RATIO 6; CALCIUM 8.3 MG/DL (8.5-10.1); CARBON DIOXIDE 20 MMOL/L (21-32); CHLORIDE 109 MMOL/L (98-107); CREATININE SERUM 0.63 MG/DL (0.60-1.30); GFR ESTIMATED > 60; GLUCOSE 107 MG/DL (70-105); POTASSIUM 4.2 MMOL/L (3.6-5.0); SODIUM 136 MMOL/L (135-145); TOTAL PROTEIN 6.2 GM/DL (6.4-8.2)
[2020-12-31] MEDS: ONDANSETRON 4 MG/2 ML (SDV) Z0FRAN IV PRN ×2 (07:39→17:15)
[2020-12-31 07:58] VITALS: BP 114/70
--- NOTE | 2020-12-31 08:01 | Progress Note ---
Subjective Subjective Date Seen by Provider: Dec 31, 2020 Time Seen by Provider: 08:20 Pt seen and examined. She was resting in bed, NAD. No events overnight. Feels dehydrated. Denies chest pain, SOB. Continues to have hand tremors. Stated she has been nauseated and anxious off and on, appetite is still poor. No other complaints. Review of Systems General: No Chills; Appetite (no appetite) HEENT: No Head Aches, No Visual Changes Pulmonary: No Dyspnea Cardiovascular: No: Chest Pain, Palpitations, Edema, Lt Headedness Gastrointestinal: Nausea, Diarrhea; No: Vomiting, Abdominal Pain Genitourinary: No Dysuria, No Hematuria Musculoskeletal: No: neck pain, back pain Neurological: Other (hand tremor); No: Weakness, Numbness, Seizures All Other Systems Reviewed All Other Systems Reviewed: Yes Objective Exam Vital Signs Vital Signs - First Documented 12/29/20 16:35 Temp 36.7 Pulse 84 Resp 22 B/P (MAP) 138/78 (98) Pulse Ox 98 O2 Delivery Room Air Capillary Refill : General Appearance: No Apparent Distress, WD/WN Eyes: Bilateral Eye Normal Inspection, Bilateral Eye PERRL, Bilateral Eye EOMI HEENT: PERRL/EOMI, TMs Normal, Normal ENT Inspection, Pharynx Normal Neck: Full Range of Motion, Normal Inspection, Non Tender, Supple Respiratory: Chest Non Tender, Lungs Clear, Normal Breath Sounds, No Accessory Muscle Use, No Respiratory Distress Cardiovascular: Regular Rate, Rhythm, No Edema, No Gallop, No JVD, No Murmur, Normal Peripheral Pulses Gastrointestinal: Normal Bowel Sounds, Non Tender, Soft Rectal: Deferred Back: Normal Inspection, No Vertebral Tenderness Extremity: Normal Capillary Refill, Normal Inspection, Normal Range of Motion, Non Tender, No Calf Tenderness, No Pedal Edema Neurologic/Psychiatric: Alert, Oriented x3, No Motor/Sensory Deficits, pediatric sports medicine specialist II- XII Norm as Tested, Depressed Affect, Other (hand tremors) Skin: Normal Color, Warm/Dry Lymphatic: No Adenopathy Results Lab Laboratory Tests 12/30/20 12:06: Glucometer 119H 12/30/20 17:04: Glucometer 118H 12/30/20 23:48: Glucometer 111H 12/31/20 05:21: Glucometer 110 12/31/20 05:48: Sodium Level 136, Potassium Level 4.2, Chloride Level 109H, Carbon Dioxide Level 20L, Anion Gap 7, Blood Urea Nitrogen 4L, Creatinine 0.63, Estimat Glomerular Filtration Rate > 60, BUN/Creatinine Ratio 6, Glucose Level 107H, Calcium Level 8.3L, Corrected Calcium 8.5, Total Bilirubin 0.7, Aspartate Amino Transf (AST/SGOT) 127H, Alanine Aminotransferase (ALT/SGPT) 136H, Alkaline Phosphatase 66, Total Protein 6.2L, Albumin 3.8 Assessment/Plan Assessment/Plan Assessment and Plan Alcohol withdrawal Alcoholic hepatitis - AST 127, ALT 136 Leukopenia - WBC 3.9 Hyponatremia - Na 136, 133 yesterday Dehydration Depression Bipolar disorder Continue Alcohol detox/CIWA protocol IVF w/ regular diet, pt has no appetite and is advancing as tolerated Zofran for nausea Continue to monitor VS, labs Supervisory-Addendum Brief Verification & Attestation Participated in pt care: history, MDM, physical Personally performed: exam, history, MDM, supervision of care Care discussed with: Medical Student Procedures: n/a Results interpretation: Verified all documentation I HAVE PERSONALLY INTERVIEWED, EXAMINED, AND FORMULATED ASSESSMENT AND PLAN DOCUMENTED BELOW. I HAVE REVIEWED DOCUMENTATION FROM MEDICAL STUDENT AND AGREE WITH PHYSICAL EXAM AND ASSESSMENT AND PLAN DOCUMENTED. ALCOHOL WITHDRAWAL ALCOHOLIC HEPATITIS ELEVATED TRANSAMINASES DEPRESSION BIPOLAR MOOD DISORDER LEUKOPENIA HYPONATREMIA ALCOHOL WITHDRAWAL WITH ALCOHOLIC HEPATITIS (ELEVATED TRANSAMINASES) - PT STARTED ON CIWA/ALCOHOL WITHDRAWAL PROTOCOL - TOLERATING WITHDRAWAL WITH MINIMAL SYMPTOMS. - CONTINUE WITH IV FLUIDS, DAILY BANANA BAG X 1 MORE DAY AFTER DOSE TODAY - CONTINUE WITH PRN ATIVAN - MONITOR SERIAL LABS, WITH ANTICIPATION OF LIVER FUNCTION TO SLIGHTLY IMPROVE WITH HYDRATION AND DECREASED ALCOHOL TOXICITY OF HER LIVER. DEPRESSION WITH BIPOLAR MOOD DISORDER - RESTARTED CITALOPRAM 20MG DAILY. LEUKOPENIA - STABLE MONITOR - HER BONE MARROW IS SUPPRESSED DUE TO THE TOXICITY OF THE ALCOHOL ON HER SYSTEM. - CHECK LABS HYPONATREMIA - SHOULD IMPROVE WITH FLUIDS. 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
[2020-12-31] MEDS: FOLIC ACID 1 MG TAB PO SCH (09:58)
[2020-12-31] MEDS: MAGNESIUM OXIDE (MAG-OX)400 MG TAB PO SCH ×2 (09:58→16:58)
[2020-12-31] MEDS: KETOROLAC 15 MG/ML VIAL IVP PRN ×2 (11:51→23:07)
[2020-12-31 12:00] VITALS: BP 123/81
[2020-12-31 16:09] VITALS: BP 112/66
[2020-12-31] MEDS: LORazepam INJ 2 MG/ML (ATIVAN) VIAL IV PRN ×2 (17:16→23:04)
[2020-12-31 19:41] VITALS: BP 111/72
[2021-01-01 00:04] VITALS: BP 118/78
[2021-01-01 04:00] VITALS: BP 108/74
[2021-01-01] MEDS: D5 1/2 NS W/KCL 20 MEQ/L 1,000 ML IV SCH ×4 (04:00→19:39)
[2021-01-01] MEDS: MULTIVIT W/MINERALS TAB (THERAGRAN M) PO SCH (05:45)
[2021-01-01 06:28] LABS: ALANINE AMINOTRANSFERASE 137 U/L (0-55); ALBUMIN 3.5 GM/DL (3.2-4.5); ALKALINE PHOSPHATASE 70 U/L (40-136); BILIRUBIN,TOTAL 0.6 MG/DL (0.1-1.0); BUN/CREATININE RATIO 8; CARBON DIOXIDE 18 MMOL/L (21-32); CHLORIDE 109 MMOL/L (98-107); GFR ESTIMATED > 60; GLUCOSE 101 MG/DL (70-105); POTASSIUM 4.4 MMOL/L (3.6-5.0); SODIUM 134 MMOL/L (135-145); TOTAL PROTEIN 5.8 GM/DL (6.4-8.2)
--- NOTE | 2021-01-01 07:59 | Progress Note ---
Subjective Subjective Date Seen by Provider: Jan 01, 2021 Time Seen by Provider: 07:00 Pt seen and examined. She was resting in bed, NAD. No events overnight. States she is feeling better and is asking about when she can go home and about medication for anxiety/panic attacks until her appointment with a psychiatrist in February. Denies chest pain, SOB, N/V. Her appetite is improving. Review of Systems General: No Chills; Appetite (minimal but improving) HEENT: No Head Aches, No Visual Changes Pulmonary: No Dyspnea Cardiovascular: No: Chest Pain, Palpitations, Edema, Lt Headedness Gastrointestinal: No: Nausea, Vomiting, Abdominal Pain, Diarrhea Genitourinary: No Dysuria, No Hematuria Musculoskeletal: No: neck pain, back pain Neurological: Other (hand tremor not present this AM); No: Weakness, Numbness, Seizures All Other Systems Reviewed All Other Systems Reviewed: Yes Objective Exam Vital Signs Vital Signs - First Documented 12/29/20 16:35 Temp 36.7 Pulse 84 Resp 22 B/P (MAP) 138/78 (98) Pulse Ox 98 O2 Delivery Room Air Capillary Refill : General Appearance: No Apparent Distress, WD/WN Eyes: Bilateral Eye Normal Inspection, Bilateral Eye PERRL, Bilateral Eye EOMI HEENT: PERRL/EOMI, TMs Normal, Normal ENT Inspection, Pharynx Normal Neck: Full Range of Motion, Normal Inspection, Non Tender, Supple Respiratory: Chest Non Tender, Lungs Clear, Normal Breath Sounds, No Accessory Muscle Use, No Respiratory Distress Cardiovascular: Regular Rate, Rhythm, No Edema, No Gallop, No JVD, No Murmur, Normal Peripheral Pulses Gastrointestinal: Normal Bowel Sounds, Non Tender, Soft Rectal: Deferred Back: Normal Inspection, No Vertebral Tenderness Extremity: Normal Capillary Refill, Normal Inspection, Normal Range of Motion, Non Tender, No Calf Tenderness, No Pedal Edema Neurologic/Psychiatric: Alert, Oriented x3, No Motor/Sensory Deficits, fence erector II- XII Norm as Tested, Depressed Affect, Other (hand tremors) Skin: Normal Color, Warm/Dry Lymphatic: No Adenopathy Results Lab Laboratory Tests 12/31/20 11:50: Glucometer 116H 12/31/20 17:25: Glucometer 167H 12/31/20 23:37: Glucometer 109 01/01/21 06:00: Sodium Level 134L, Potassium Level 4.4, Chloride Level 109H, Carbon Dioxide Level 18L, Anion Gap 7, Blood Urea Nitrogen 5L, Creatinine 0.60, Estimat Glomerular Filtration Rate > 60, BUN/Creatinine Ratio 8, Glucose Level 101, Calcium Level 8.0L, Corrected Calcium 8.4L, Total Bilirubin 0.6, Aspartate Amino Transf (AST/SGOT) 112H, Alanine Aminotransferase (ALT/SGPT) 137H, Alkaline Phosphatase 70, Total Protein 5.8L, Albumin 3.5 Assessment/Plan Assessment/Plan Assessment and Plan Alcohol withdrawal Alcoholic hepatitis - AST 112, ALT 137 Leukopenia Hyponatremia - Na 134 Dehydration Depression Bipolar disorder Continue Alcohol detox/CIWA protocol IVF w/ regular diet, pt has minimal appetite but is improving slowly Zofran for nausea Continue to monitor VS, labs D/C to home today or tomorrow Supervisory-Addendum Brief Verification & Attestation Participated in pt care: history, MDM, physical Personally performed: exam, history, MDM, supervision of care Care discussed with: Medical Student Procedures: n/a Results interpretation: Verified all documentation I HAVE PERSONALLY INTERVIEWED, EXAMINED, AND FORMULATED ASSESSMENT AND PLAN DOCUMENTED BELOW. I HAVE REVIEWED DOCUMENTATION FROM MEDICAL STUDENT AND AGREE WITH PHYSICAL EXAM AND ASSESSMENT AND PLAN DOCUMENTED. ALCOHOL WITHDRAWAL ALCOHOLIC HEPATITIS ELEVATED TRANSAMINASES DEPRESSION BIPOLAR MOOD DISORDER LEUKOPENIA HYPONATREMIA HYPOCALCEMIA ALCOHOL WITHDRAWAL WITH ALCOHOLIC HEPATITIS (ELEVATED TRANSAMINASES) - PT STARTED ON CIWA/ALCOHOL WITHDRAWAL PROTOCOL - TOLERATING WITHDRAWAL WITH MINIMAL SYMPTOMS. - SHE USED A TOTAL OF 4MG OF ATIVAN YESTERDAY FOR SYMPTOM CONTROL. - SHE IS WANTING TO DISCHARGE [facility]- HOWEVER I DO NOT FEEL LIKE SHE IS YET AT THE POINT OF DISCHARGE, MAYBE TOMORROW. WILL REVIEW HOW MUCH ATIVAN SHE NEEDS OVER THE NEXT 24 HOURS. - CONTINUE WITH IV FLUIDS - CONTINUE WITH PRN ATIVAN - MONITOR SERIAL LABS, WITH ANTICIPATION OF LIVER FUNCTION TO SLIGHTLY IMPROVE WITH HYDRATION AND DECREASED ALCOHOL TOXICITY OF HER LIVER. DEPRESSION WITH BIPOLAR MOOD DISORDER - PT ON CELEXA, SHE WILL CONTINUE THIS INTPT AND WILL WEAN HER DOWN AND HAVE HER [facility] OUTPATIENT, RX CALLED TO PHARMACY ALREADY AND IS HAS GONE THROUGH HER INSURANCE CARRIER. SHE WILL TAKE 1.5MG ON DAY #1, THEN 3MG DAILY THEREAFTER, HOPEFULLY THIS WILL HELP WITH HER SYMPTOMS. - MAIRA HAS MOVED UP HER ALCOHOL INTAKE FROM 01/06 TO 01/04, SHE WILL SEE A COUNSELOR WELL ON 01/04. - MAIRA IS LOOKING INTO A PSYCHIATRIST - THERE IS A PROVIDER IN [place] THAT SHE MAY BE ABLE TO GET INTO THIS MONTH VERSUS February (AT [facility] IN [place]). LEUKOPENIA - STABLE MONITOR - HER BONE MARROW IS SUPPRESSED DUE TO THE TOXICITY OF THE ALCOHOL ON HER SYSTEM. HYPONATREMIA - SHOULD IMPROVE WITH FLUIDS. - MONITOR LABS HYPOCALCEMIA - SUPPLEMENT ORALLY CARMENZA NEWELL MED STUDENT Jan 01, 2021 07:59 ACACIA WHITFIELD MD Jan 01, 2021 11:01
[2021-01-01 08:26] VITALS: BP 149/99
[2021-01-01] MEDS: FOLIC ACID 1 MG TAB PO SCH (08:30)
[2021-01-01] MEDS: MAGNESIUM OXIDE (MAG-OX)400 MG TAB PO SCH (08:30)
[2021-01-01] MEDS: LACTOBACILLUS ACIDOPHILUS (PROBIOTIC) CAPSULE PO SCH ×3 (09:29→18:16)
[2021-01-01] MEDS ORDERED: LORazepam INJ 2 MG/ML (ATIVAN) VIAL IM/IV PRN (09:30)
[2021-01-01] MEDS: KETOROLAC 15 MG/ML VIAL IVP PRN ×2 (09:31→21:39)
[2021-01-01] MEDS ORDERED: CALCIUM CARB + VIT D 600 MG (CALCARB + D) TAB PO NR (11:00)
[2021-01-01 12:00] VITALS: BP 128/87
[2021-01-01 16:00] VITALS: BP 132/86
[2021-01-01] MEDS: LORazepam 1 MG (ATIVAN) TAB PO PRN ×2 (16:24→21:38)
[2021-01-01 20:00] VITALS: BP 138/87
[2021-01-02] VITALS: BP 108/70
[2021-01-02] MEDS: D5 1/2 NS W/KCL 20 MEQ/L 1,000 ML IV SCH (01:59)
[2021-01-02 04:00] VITALS: BP 126/72
[2021-01-02 05:46] LABS: HEMOGLOBIN 14.3 g/dL (11.5-16.0); MEAN PLATELET VOLUME 10.9 fL (9.0-12.2); WHITE BLOOD COUNT 5.1 10^3/uL (4.3-11.0)
[2021-01-02 05:55] LABS: ALBUMIN 3.6 GM/DL (3.2-4.5); CHLORIDE 107 MMOL/L (98-107); POTASSIUM 4.2 MMOL/L (3.6-5.0); SODIUM 134 MMOL/L (135-145)
[2021-01-02 05:57] LABS: CALCIUM 8.2 MG/DL (8.5-10.1)
[2021-01-02 05:58] LABS: GLUCOSE 100 MG/DL (70-105); TOTAL PROTEIN 5.8 GM/DL (6.4-8.2)
[2021-01-02 05:59] LABS: CARBON DIOXIDE 18 MMOL/L (21-32)
[2021-01-02 06:00] LABS: BILIRUBIN,TOTAL 0.6 MG/DL (0.1-1.0)
[2021-01-02 06:01] LABS: ALKALINE PHOSPHATASE 71 U/L (40-136); CREATININE SERUM 0.58 MG/DL (0.60-1.30); GFR ESTIMATED > 60
[2021-01-02 06:02] LABS: BUN/CREATININE RATIO 12
[2021-01-02 06:04] LABS: ALANINE AMINOTRANSFERASE 150 U/L (0-55)
[2021-01-02] MEDS: MULTIVIT W/MINERALS TAB (THERAGRAN M) PO SCH (06:43)
[2021-01-02] MEDS ORDERED: CALCIUM CARB + VIT D 600 MG (CALCARB + D) TAB PO SCH (07:00)
--- NOTE | 2021-01-02 07:42 | Progress Note ---
Subjective Subjective Date Seen by Provider: Jan 02, 2021 Time Seen by Provider: 07:00 Pt seen and examined. She was resting in bed, NAD. No events overnight. Nausea improving, has not needed medication over the past day. She is eager to leave the hospital to see her children and her dogs. Denies chest pain, SOB, N/V. Per nursing, she was found vaping in her room and was instructed that it was not allowed. Received 2mg Ativan PO yesterday, none today. No other concerns/complaints Review of Systems General: No Chills; Appetite (much improved, says she has been eating most of her food) HEENT: No Head Aches, No Visual Changes Pulmonary: No Dyspnea Cardiovascular: No: Chest Pain, Palpitations, Edema, Lt Headedness Gastrointestinal: Other (loose BM's); No: Nausea, Vomiting, Abdominal Pain Genitourinary: No Dysuria, No Hematuria Musculoskeletal: No: neck pain, back pain Neurological: Other (hand tremor not present this AM); No: Weakness, Numbness, Seizures All Other Systems Reviewed All Other Systems Reviewed: Yes Objective Exam Vital Signs Vital Signs - First Documented 12/29/20 16:35 Temp 36.7 Pulse 84 Resp 22 B/P (MAP) 138/78 (98) Pulse Ox 98 O2 Delivery Room Air Capillary Refill : General Appearance: No Apparent Distress, WD/WN Eyes: Bilateral Eye Normal Inspection, Bilateral Eye PERRL, Bilateral Eye EOMI HEENT: PERRL/EOMI, TMs Normal, Normal ENT Inspection, Pharynx Normal Neck: Full Range of Motion, Normal Inspection, Non Tender, Supple Respiratory: Chest Non Tender, Lungs Clear, Normal Breath Sounds, No Accessory Muscle Use, No Respiratory Distress Cardiovascular: Regular Rate, Rhythm, No Edema, No Gallop, No JVD, No Murmur, Normal Peripheral Pulses Gastrointestinal: Normal Bowel Sounds, Non Tender, Soft Rectal: Deferred Back: Normal Inspection, No Vertebral Tenderness Extremity: Normal Capillary Refill, Normal Inspection, Normal Range of Motion, Non Tender, No Calf Tenderness, No Pedal Edema Neurologic/Psychiatric: Alert, Oriented x3, No Motor/Sensory Deficits, wallcovering texturer II- XII Norm as Tested, Depressed Affect, Other (hand tremors) Skin: Normal Color, Warm/Dry Lymphatic: No Adenopathy Results Lab Laboratory Tests 01/01/21 12:11: Glucometer 153H 01/01/21 18:10: Glucometer 155H 01/02/21 00:25: Glucometer 119H 01/02/21 05:37: White Blood Count 5.1, Red Blood Count 4.29, Hemoglobin 14.3, Hematocrit 43, Mean Corpuscular Volume 100H, Mean Corpuscular Hemoglobin 33, Mean Corpuscular Hemoglobin Concent 33, Red Cell Distribution Width 13.3, Platelet Count 166, Mean Platelet Volume 10.9, Sodium Level 134L, Potassium Level 4.2, Chloride Level 107, Carbon Dioxide Level 18L, Anion Gap 9, Blood Urea Nitrogen 7, Creatinine 0.58L, Estimat Glomerular Filtration Rate > 60, BUN/Creatinine Ratio 12, Glucose Level 100, Calcium Level 8.2L, Corrected Calcium 8.5, Total Bilirubin 0.6, Aspartate Amino Transf (AST/SGOT) 104H, Alanine Aminotransferase (ALT/SGPT) 150H, Alkaline Phosphatase 71, Total Protein 5.8L, Albumin 3.6 Assessment/Plan Assessment/Plan Assessment and Plan Alcohol withdrawal Alcoholic hepatitis - AST 104, ALT 150 Leukopenia Hyponatremia - Na 138 Dehydration Depression Bipolar disorder Continue Alcohol detox/CIWA protocol; 2mg PO Ativan yesterday IVF w/ regular diet, appetite is much better Zofran for nausea prn Continue to monitor VS, labs Possible D/C to home today Supervisory-Addendum Brief Verification & Attestation Participated in pt care: history, MDM, physical Personally performed: exam, history, MDM, supervision of care Care discussed with: Medical Student Procedures: n/a Results interpretation: Verified all documentation I HAVE PERSONALLY INTERVIEWED AND EXAMINED THE PATIENT - I AGREE WITH MEDICAL STUDENT NOTE DOCUMENTED. SEE MY DC SUMMARY FOR FURTHER DETAILS. ALCOHOL WITHDRAWAL ALCOHOLIC HEPATITIS ELEVATED TRANSAMINASES DEPRESSION BIPOLAR MOOD DISORDER LEUKOPENIA HYPONATREMIA HYPOCALCEMIA CARMENZA NEWELL MED STUDENT Jan 02, 2021 07:42 ACACIA WHITFIELD MD Jan 02, 2021 10:21
[2021-01-02] MEDS ORDERED: ACETAMINOPHEN 500 MG TAB (TYLENOL) PO PRN (08:00)
[2021-01-02 08:15] VITALS: BP 121/83
[2021-01-02] MEDS: LACTOBACILLUS ACIDOPHILUS (PROBIOTIC) CAPSULE PO SCH (08:27)
[2021-01-02] MEDS: FOLIC ACID 1 MG TAB PO SCH (08:27)
[2021-01-02] MEDS ORDERED: LORA-404 PO (09:09)
[2021-01-02] MEDS ORDERED: CITA40TA11 PO (09:09)
[2021-01-02] MEDS ORDERED: FOLI1TAB33 PO (09:09)
[2021-01-02] MEDS ORDERED: CARI3CAP PO (09:09)
--- NOTE | 2021-01-02 09:13 | Discharge Inst-Simple/Standard ---
Discharge Inst-Standard Reconcile Patient Problems Problems Reviewed?: Yes Discharge Medications New, Converted or Re-Newed RX: Transmitted to Pharmacy Patient Instructions/Follow Up Plan of Care/Instructions/FU: 1 [facility] KEEP APPT WITH ALCOHOL COUNSELING ON Monday01/04/2021 KEEP APPT WITH PSYCHIATRIST IN [place] FOR 01/07/2021 Activity as Tolerated: Yes Goal: STOP SMOKING STOP DRINKING ALCOHOL IMPROVED QUALITY OF LIFE AND SOBRIETY Discharge Diet: Regular Diet Health Concerns: ALCOHOISM BIPOLAR DEPRESSION TOBACCOISM Return to The Hospital For: ANY CONCERN FOR RECURRENT ALCOHOLISM, ANY CONCERN FOR LIFETHREATENING ILLNESS OR INJURY Medication List: Active Scripts Active Folic Acid 1 Mg Tablet 1 Mg PO DAILY Ativan (Lorazepam) 0.5 Mg Tablet 0.5 Mg PO TID PRN Vraylar (Cariprazine Hydrochloride) 3 Mg Capsule 3 Mg PO DAILY TAKE 1.5MG CAP X 1 DAY THEN 3MG TAB DAILY THEREAFTER - THIS IS TO START IN ONE WEEK FROM DISCHARGE IF OKAY WITH PSYCHIATRIST Citalopram HBr (Citalopram Hydrobromide) 40 Mg Tablet 20 Mg PO BID 1/2 TAB BID X 1 WK THEN DECREASE TO 1/2 TAB DAILY X 3 DAYS THEN 1/2 DAY EVERY OTHER DAY X 3 DAYS THEN STOP Reported Gaviscon Extra Strength Liq (Mag Carb/Al Hydrox/Alginic AC) 355 Ml Oral.susp 30 Ml PO QID PRN Tylenol Extra Strength (Acetaminophen) 500 Mg Tablet 1,000 Mg PO Q6H PRN Ropinirole HCl 0.5 Mg Tablet 0.5 Mg PO TID PRN Ondansetron HCl 4 Mg Tablet 4 Mg PO Q6H PRN Lab results: Laboratory Tests Test 01/01/21 12:11 01/01/21 18:10 01/02/21 00:25 01/02/21 05:37 Range/Units Glucometer 153 H 155 H 119 H 70-110 MG/DL White Blood Count 5.1 4.3-11.0 10^3/uL Red Blood Count 4.29 3.80-5.11 10^6/uL Hemoglobin 14.3 11.5-16.0 g/dL Hematocrit 43 35-52 % Mean Corpuscular Volume 100 H 80-99 fL Mean Corpuscular Hemoglobin 33 25-34 pg Mean Corpuscular Hemoglobin Concent 33 32-36 g/dL Red Cell Distribution Width 13.3 10.0-14.5 % Platelet Count 166 130-400 10^3/uL Mean Platelet Volume 10.9 9.0-12.2 fL Sodium Level 134 L 135-145 MMOL/L Potassium Level 4.2 3.6-5.0 MMOL/L Chloride Level 107 98-107 MMOL/L Carbon Dioxide Level 18 L 21-32 MMOL/L Anion Gap 9 5-14 MMOL/L Blood Urea Nitrogen 7 7-18 MG/DL Creatinine 0.58 L 0.60-1.30 MG/DL Estimat Glomerular Filtration Rate > 60 BUN/Creatinine Ratio 12 Glucose Level 100 70-105 MG/DL Calcium Level 8.2 L 8.5-10.1 MG/DL Corrected Calcium 8.5 8.5-10.1 MG/DL Total Bilirubin 0.6 0.1-1.0 MG/DL Aspartate Amino Transf (AST/SGOT) 104 H 5-34 U/L Alanine Aminotransferase (ALT/SGPT) 150 H 0-55 U/L Alkaline Phosphatase 71 40-136 U/L Total Protein 5.8 L 6.4-8.2 GM/DL Albumin 3.6 3.2-4.5 GM/DL My orders: Orders - ACACIA WHITFIELD MD Lorazepam Injection (Ativan Injection) (01/01/21 09:30) Ambulate (01/01/21 10:54) Sequential Compression Device .admit (01/01/21 10:54) Cbc No Diff (01/02/21 05:00) Calcium Carbonate W/Vitamin D3 (Calcarb (01/02/21 07:00) Calcium Carbonate W/Vitamin D3 (Calcarb (01/01/21 11:00) Comprehensive Metabolic Panel (01/02/21 06:00) Acetaminophen Tablet (Tylenol Tablet) (01/02/21 08:00) Attending Discharge Inpt/Inobs (01/02/21 09:04) ACACIA WHITFIELD MD Jan 02, 2021 09:13
[2021-01-02 09:45] VITALS: BP 121/83
--- NOTE | 2021-01-02 10:19 | Discharge Summary ---
Diagnosis/Chief Complaint Date of Admission Dec 29, 2020 at 16:28 Date of Discharge Jan 02, 2021 at 09:47 Discharge Date: Jan 02, 2021 Discharge Time: 929 Admission Diagnosis Admission Diagnosis ALCOHOL WITHDRAWAL ALCOHOLIC HEPATITIS ELEVATED TRANSAMINASES DEPRESSION BIPOLAR MOOD DISORDER Discharge Diagnosis ALCOHOL WITHDRAWAL ALCOHOLIC HEPATITIS ELEVATED TRANSAMINASES DEPRESSION BIPOLAR MOOD DISORDER LEUKOPENIA HYPONATREMIA HYPOCALCEMIA Reason Hospital Visit MICKY IS A 40 Y/O FEMALE WHO IS WELL KNOWN TO ME FROM CLINIC AND MULTIPLE PREVIOUS HOSPITALIZATIONS. SHE REPORTS THAT SHE WAS IN THE OFFICE TWO WEEKS AGO AND SHE REPORTED TO ME THAT SHE WAS NO LONGER DRINKING ALCOHOL AND THAT SHE WAS DOING WELL SINCE SHE STOPPED DRINKING. HOWEVER, TODAY SHE ADMITTED THAT SHE LIED TO ME AND WAS STILL DRINKING ALCOHOL WHEN SHE CAME INTO THE OFFICE. SHE HAD BEEN SOBER FOR ABOUT 5 MONTHS, BUT THEN SHE SUCCUMBED TO HER STRESS FROM HER PAST RELATIONSHIP AND HER WORRY OVER HER CHILDREN. THE PATIENT AND HER MOM REPORT THAT THEY DO NOT WANT HER TO GO TO THE INPATIENT DETOX BECAUSE "IT HAS NOT WORKED BEFORE". THEY ARE REQUESTING ADMISSION TO [facility] FOR ALCOHOL WITHDRAWAL SYMPTOMS - SHE IS ACTIVELY HAVING TREMORS IN THE OFFICE. MAIRA ADMITS THAT SHE HAS BEEN TRYING TO CUT BACK FROM 24 CANS OF BEER/DAY ON HER OWN AND SHE HAS HAD TO WAKE UP AND DRINK AT LEAST ONE CAN OF BEER IN THE MIDDLE OF THE NIGHT DUE TO TREMORS. Discharge Summary Discharge Physical Examination Allergies: Coded Allergies: Penicillins (Verified Allergy, Unknown, 01/28/15) morphine (Verified Adverse Reaction, Mild, DID NOT TOLERATE WELL IN ED ON MONDAY., 12/04/12) DOES NOT LIKE THE FEELING IT GIVES HER. Vitals & I&Os Vital Signs Date Time Temp Pulse Resp B/P (MAP) Pulse Ox O2 Delivery O2 Flow Rate FiO2 01/02/21 09:45 36.3 74 16 121/83 97 Room Air General Appearance: Alert, Oriented X3, Cooperative, No Acute Distress HEENT: Atraumatic, PERRLA, Mucous Memb Moist/[place]ley Respiratory: Clear to Auscultation, Normal Air Movement Cardiovascular: Regular Rate Abdominal: Normal Bowel Sounds, Soft, No Tenderness Extremities: No Clubbing, No Edema Skin: No Rashes Neuro: Normal Speech, Strength at 5/5 X4 Ext, Cranial Nerves 3-12 NL Psych/Mental Status: Mental Status NL, Mood NL Hospital Course Was the Problem List Reviewed?: Yes ALCOHOL WITHDRAWAL ALCOHOLIC HEPATITIS ELEVATED TRANSAMINASES DEPRESSION BIPOLAR MOOD DISORDER LEUKOPENIA HYPONATREMIA HYPOCALCEMIA ALCOHOL WITHDRAWAL WITH ALCOHOLIC HEPATITIS (ELEVATED TRANSAMINASES) - PT STARTED ON CIWA/ALCOHOL WITHDRAWAL PROTOCOL - TOLERATING WITHDRAWAL WITH MINIMAL SYMPTOMS. - SHE USED A TOTAL OF 4MG OF ATIVAN ON 12/31/2020 AND 2MG OF ATIVAN OVER 24 HOURS ON 01/01/2021 FOR SYMPTOM CONTROL. - MAIRA WAS SENT OUT WITH 0.5MG ATIVAN #5 PILLS FOR SYMPTOM MANAGEMENT OVER THE WEEKEND. DEPRESSION WITH BIPOLAR MOOD DISORDER - PT ON CELEXA, SHE WILL CONTINUE THIS INTPT AND WILL WEAN HER DOWN THE WEEK AFTER DISCHARGE (SINCE HER FAMILY WILL NOT BE IN TOWN THIS WEEK, I AM NOT WANTING TO MODIFY HER MEDICATION WITHOUT FAMILY IN TOWN TO HELP MONITOR HER BIPOLAR SYMPTOMS OUTPATIENT). - RX FOR VRAYLAR OUTPATIENT, RX CALLED TO PHARMACY ALREADY AND IT HAS GONE THROUGH HER INSURANCE CARRIER. SHE WILL TAKE 1.5MG ON DAY #1, THEN 3MG DAILY THEREAFTER, HOPEFULLY THIS WILL HELP WITH HER SYMPTOMS. - MAIRA HAS MOVED UP HER ALCOHOL INTAKE FROM 01/06 TO 01/04, SHE WILL SEE A COUNSELOR WELL ON 01/04. - MAIRA WAS ABLE TO GET HER PSYCHIATRIC APPOINTMENT FOR 01/07/2021 LEUKOPENIA - STABLE MONITOR - HER BONE MARROW IS SUPPRESSED DUE TO THE TOXICITY OF THE ALCOHOL ON HER SYSTEM. HYPONATREMIA - SHOULD IMPROVE WITH FLUIDS. - MONITOR LABS HYPOCALCEMIA - SUPPLEMENT ORALLY Pending Labs Laboratory Tests 01/02/21 05:37: White Blood Count 5.1, Red Blood Count 4.29, Hemoglobin 14.3, Hematocrit 43, Mean Corpuscular Volume 100, Mean Corpuscular Hemoglobin 33, Mean Corpuscular Hemoglobin Concent 33, Red Cell Distribution Width 13.3, Platelet Count 166, Mean Platelet Volume 10.9, Sodium Level 134, Potassium Level 4.2, Chloride Level 107, Carbon Dioxide Level 18, Anion Gap 9, Blood Urea Nitrogen 7, Creatinine 0.58, Estimat Glomerular Filtration Rate > 60, BUN/Creatinine Ratio 12, Glucose Level 100, Calcium Level 8.2, Corrected Calcium 8.5, Total Bilirubin 0.6, Aspartate Amino Transf (AST/SGOT) 104, Alanine Aminotransferase (ALT/SGPT) 150, Alkaline Phosphatase 71, Total Protein 5.8, Albumin 3.6 Discharge Instructions to patient/family Please see electronic discharge instructions given to patient. Discharge Medications Reviewed and agree with Discharge Medication list on patient's Discharge Instruction sheet Medication List: Active Scripts Active Folic Acid 1 Mg Tablet 1 Mg PO DAILY Ativan (Lorazepam) 0.5 Mg Tablet 0.5 Mg PO TID PRN Vraylar (Cariprazine Hydrochloride) 3 Mg Capsule 3 Mg PO DAILY TAKE 1.5MG CAP X 1 DAY THEN 3MG TAB DAILY THEREAFTER - THIS IS TO START IN ONE WEEK FROM DISCHARGE IF OKAY WITH PSYCHIATRIST Citalopram HBr (Citalopram Hydrobromide) 40 Mg Tablet 20 Mg PO BID 1/2 TAB BID X 1 WK THEN DECREASE TO 1/2 TAB DAILY X 3 DAYS THEN 1/2 DAY EVERY OTHER DAY X 3 DAYS THEN STOP Reported Gaviscon Extra Strength Liq (Mag Carb/Al Hydrox/Alginic AC) 355 Ml Oral.susp 30 Ml PO QID PRN Tylenol Extra Strength (Acetaminophen) 500 Mg Tablet 1,000 Mg PO Q6H PRN Ropinirole HCl 0.5 Mg Tablet 0.5 Mg PO TID PRN Ondansetron HCl 4 Mg Tablet 4 Mg PO Q6H PRN ACACIA WHITFIELD MD Jan 02, 2021 10:19
== END 2021-01-02 09:47 | disposition home or self-care (01) | DRG 897 ==
LOC: 4TH 16:28
PROVIDERS: ADMIT Family Medicine; ATTEND Family Medicine
DX: F10.239 Alcohol dependence with withdrawal, unspecified (principal); E87.1 Hypo-osmolality and hyponatremia; K70.10 Alcoholic hepatitis without ascites; E86.0 Dehydration; F31.9 Bipolar disorder, unspecified; F17.210 Nicotine dependence, cigarettes, uncomplicated; K21.9 Gastro-esophageal reflux disease without esophagitis; K58.9 Irritable bowel syndrome, unspecified; F41.9 Anxiety disorder, unspecified; D72.819 Decreased white blood cell count, unspecified; E83.51 Hypocalcemia; Z88.0 Allergy status to penicillin; Z88.5 Allergy status to narcotic agent
CPT/HCPCS: 36415; 80053; 80320; 81000; 82962; 85027; 85610; 85730; 86703; 93005; 94760

== ENCOUNTER 2021-04-05 10:37 | Emergency (ER) | payer MEDICAID ==
[~2021-04-05] VITALS: Ht 162 cm; Wt 65.7 kg
[~2021-04-05 10:37] MED LIST changes: +ACET-2267 PO; +CARI3CAP PO; +CITA40TA11 PO; +LORA-404 PO; +MAG-99 PO; +ONDA-105 PO; +ROPI0.5T4 PO
--- NOTE | 2021-04-05 10:53 | ED Psychosocial ---
General Chief Complaint: Detox Stated Complaint: DETOX Nursing Triage Note: pt reports she is here to be detoxed from etoh because she is trying to get into rehab. pt reports she has history of seizure when she detoxes. Pt states she drank just prior to her arrival. Source: patient Exam Limitations: no limitations History of Present Illness Date Seen by Provider: Apr 05, 2021 Time Seen by Provider: 10:37 Initial Comments Patient presents ER by private conveyance with chief complaint that she would like to do inpatient alcohol detox. She would like to go to [facility]. She has been there about 2 years ago for this. She typically drinks the 30 pack of beer a day or a liter of vodka. She says she had her last drink approximately 1 hour ago, beer. She is not having any shakes, tremors nausea fever chills cough shortness of air. She has not contacted the ATC. She is known to Dr. Paul and sent a text to her prior to coming to the ER. She says in the past she has had to be medically cleared in the hospital. She has negative hepatitis test from 1 year ago, negative HIV test from 3 months ago. Allergies and Home Medications Allergies Coded Allergies: Penicillins (Verified Allergy, Unknown, 01/28/15) morphine (Verified Adverse Reaction, Mild, DID NOT TOLERATE WELL IN ED ON MONDAY., 12/04/12) DOES NOT LIKE THE FEELING IT GIVES HER. Home Medications Acetaminophen 500 Mg Tablet, 1,000 MG PO Q6H PRN for PAIN-MILD (1-4), (Reported) Cariprazine Hydrochloride 3 Mg Capsule, 3 MG PO DAILY TAKE 1.5MG CAP X 1 DAY THEN 3MG TAB DAILY THEREAFTER - THIS IS TO START IN ONE WEEK FROM DISCHARGE IF OKAY WITH PSYCHIATRIST Prescribed by: ACACIA PAUL on 01/02/21 09 Citalopram Hydrobromide 40 Mg Tablet, 20 MG PO BID 1/2 TAB BID X 1 WK THEN DECREASE TO 1/2 TAB DAILY X 3 DAYS THEN 1/2 DAY EVERY OTHER DAY X 3 DAYS THEN STOP Prescribed by: ACACIA PAUL on 01/02/21908 Folic Acid 1 Mg Tablet, 1 MG PO DAILY Prescribed by: ACACIA PAUL on 01/02/21908 Lorazepam 0.5 Mg Tablet, 0.5 MG PO TID PRN for ANXIETY Prescribed by: ACACIA PAUL on 01/02/21 0909 Lorazepam 2 Mg Tablet, 1-2 MG PO Q6H PRN for tremors Prescribed by: JOAQUIN MESSINA on 04/05/21 1550 Mag Carb/Al Hydrox/Alginic AC 355 Ml Oral.susp, 30 ML PO QID PRN for GI UPSET, (Reported) Ondansetron 4 Mg Tab.rapdis, 4 MG PO Q6H PRN for NAUSEA/VOMITING Prescribed by: JOAQUIN MESSINA on 04/05/21 1550 Ondansetron HCl 4 Mg Tablet, 4 MG PO Q6H PRN for NAUSEA/VOMITING-1ST LINE, (Reported) Ropinirole HCl 0.5 Mg Tablet, 0.5 MG PO TID PRN for RESTLESSNESS, (Reported) Patient Home Medication List Home Medication List Reviewed: Yes Review of Systems Constitutional: No chills, No diaphoresis EENTM: No ear discharge, No hearing loss Respiratory: No cough, No short of breath Cardiovascular: No edema, No palpitations Gastrointestinal: No abdominal pain, No nausea, No vomiting Genitourinary: No discharge, No dysuria Musculoskeletal: No back pain, No joint pain All Other Systems Reviewed Negative Unless Noted: Yes Past Dbekbwj-Hzawsc-Akewyq Hx Patient Social History Alcohol Use: Regular Use Number of Drinks Today: AA Alcohol Beverage of Choice: Beer, Vodka Drug of Choice: DENIES Smoking Status: Current Everyday Smoker Type Used: Cigarettes 2nd Hand Smoke Exposure: Yes Recent Infectious Disease Expo: No Recent Hopitalizations: No Immunizations Up To Date Tetanus Booster (TDap): Unknown PED Vaccines UTD: No Date of Influenza Vaccine: Jul 16, 2021 Seasonal Allergies Seasonal Allergies: Yes Past Medical History Surgeries: Yes Orthopedic, Tonsillectomy Respiratory: No Currently Using CPAP: No Currently Using BIPAP: No Cardiac: No Neurological: Yes Seizure Disorder Female Reproductive Disorders: Denies Sexually Transmitted Disease: No HIV/AIDS: No Genitourinary: No Gastrointestinal: Yes Colitis, Gastroesophageal Reflux, Irritable Bowel Musculoskeletal: Yes (FIBULA FX, RT ANKLE) Fractures Endocrine: No HEENT: No Loss of Vision: Denies Hearing Impairment: Denies Cancer: No Did You Recieve Any Treatments: No Psychosocial: Yes (alcoholism) Anxiety, Bipolar, Depression Integumentary: No Blood Disorders: No Adverse Reaction/Blood Tranf: No Family Medical History Patient reports no known family medical history. Cancer, Hypertension Physical Exam Vital Signs - First Documented 04/05/21 04/05/21 10:43 17:00 Temp 36.0 Pulse 88 Resp 20 B/P (MAP) 140/95 (110) Pulse Ox 93 O2 Delivery Nasal Cannula O2 Flow Rate 3.00 Capillary Refill : Less Than 3 Seconds Height, Weight, BMI Height: 5'4.00" Weight: 132lbs. 1.8oz. [id number]; 25.00 BMI Method:Stated General Appearance: WD/WN, no apparent distress HEENT: PERRL/EOMI, pharynx normal Neck: full range of motion, normal inspection Respiratory: lungs clear, normal breath sounds, no respiratory distress, no accessory muscle use Cardiovascular: normal peripheral pulses, regular rate, rhythm Peripheral Pulses: 2+ Radial Pulses (R), 2+ Radial Pulses (L) Gastrointestinal: normal bowel sounds, non tender, soft Neurologic/Psychiatric: alert, normal mood/affect, oriented x 3 Appearance/Memory: appropriate appearance, appropriate insight, no memory impairment Behavior/Eye Contact: cooperative, good eye contact Thoughts/Hallucinations: normal thought pattern, no apparent hallucination, other (Denies homicidal or suicidal ideation) Progress/Results/Core Measures Results/Orders Lab Results Laboratory Tests Test 04/05/21 11:00 04/05/21 11:09 04/05/21 12:29 04/05/21 15:14 Range/Units Urine Color YELLOW Urine Clarity CLEAR Urine pH 6.0 5-9 Urine Specific [place] <=1.005 1.016-1.022 Urine Protein NEGATIVE NEGATIVE Urine Glucose (UA) NEGATIVE NEGATIVE Urine Ketones NEGATIVE NEGATIVE Urine Nitrite NEGATIVE NEGATIVE Urine Bilirubin NEGATIVE NEGATIVE Urine Urobilinogen 0.2 < = 1.0 MG/DL Urine Leukocyte Esterase NEGATIVE NEGATIVE Urine RBC (Auto) TRACE-I NEGATIVE Urine RBC RARE /HPF Urine WBC 0-2 /HPF Urine Squamous Epithelial Cells 2-5 /HPF Urine Crystals NONE /LPF Urine Bacteria TRACE /HPF Urine Casts NONE /LPF Urine Mucus NEGATIVE /LPF Urine Culture Indicated NO Urine Opiates Screen NEGATIVE NEGATIVE Urine Oxycodone Screen NEGATIVE NEGATIVE Urine Methadone Screen NEGATIVE NEGATIVE Urine Propoxyphene Screen NEGATIVE NEGATIVE Urine Barbiturates Screen NEGATIVE NEGATIVE Ur Tricyclic Antidepressants Screen NEGATIVE NEGATIVE Urine Phencyclidine Screen NEGATIVE NEGATIVE Urine Amphetamines Screen NEGATIVE NEGATIVE Urine Methamphetamines Screen NEGATIVE NEGATIVE Urine Benzodiazepines Screen NEGATIVE NEGATIVE Urine Cocaine Screen NEGATIVE NEGATIVE Urine Cannabinoids Screen NEGATIVE NEGATIVE White Blood Count 4.4 4.3-11.0 10^3/uL Red Blood Count 4.37 3.80-5.11 10^6/uL Hemoglobin 15.2 11.5-16.0 g/dL Hematocrit 44 35-52 % Mean Corpuscular Volume 101 H 80-99 fL Mean Corpuscular Hemoglobin 35 H 25-34 pg Mean Corpuscular Hemoglobin Concent 34 32-36 g/dL Red Cell Distribution Width 14.1 10.0-14.5 % Platelet Count 168 130-400 10^3/uL Mean Platelet Volume 10.2 9.0-12.2 fL Immature Granulocyte % (Auto) 0 % Neutrophils (%) (Auto) 63 42-75 % Lymphocytes (%) (Auto) 23 12-44 % Monocytes (%) (Auto) 13 H 0-12 % Eosinophils (%) (Auto) 1 0-10 % Basophils (%) (Auto) 1 0-10 % Neutrophils # (Auto) 2.8 1.8-7.8 10^3/uL Lymphocytes # (Auto) 1.0 1.0-4.0 10^3/uL Monocytes # (Auto) 0.6 0.0-1.0 10^3/uL Eosinophils # (Auto) 0.0 0.0-0.3 10^3/uL Basophils # (Auto) 0.0 0.0-0.1 10^3/uL Immature Granulocyte # (Auto) 0.0 0.0-0.1 10^3/uL Sodium Level 133 L 135-145 MMOL/L Potassium Level 3.5 L 3.6-5.0 MMOL/L Chloride Level 95 L 98-107 MMOL/L Carbon Dioxide Level 23 21-32 MMOL/L Anion Gap 15 H 5-14 MMOL/L Blood Urea Nitrogen 4 L 7-18 MG/DL Creatinine 0.66 0.60-1.30 MG/DL Estimat Glomerular Filtration Rate > 60 BUN/Creatinine Ratio 6 Glucose Level 78 70-105 MG/DL Calcium Level 8.4 L 8.5-10.1 MG/DL Corrected Calcium 8.1 L 8.5-10.1 MG/DL Total Bilirubin 0.6 0.1-1.0 MG/DL Aspartate Amino Transf (AST/SGOT) 164 H 5-34 U/L Alanine Aminotransferase (ALT/SGPT) 140 H 0-55 U/L Alkaline Phosphatase 85 40-136 U/L Total Protein 7.5 6.4-8.2 GM/DL Albumin 4.4 3.2-4.5 GM/DL Serum Alcohol 283 H 234 H 153 H <10 MG/DL Test 04/05/21 16:50 Range/Units Serum Alcohol 94 H <10 MG/DL My Orders Orders - JOAQUIN MESSINA Cbc With Automated Diff (04/05/21 10:53) Comprehensive Metabolic Panel (04/05/21 10:53) Ua Culture If Indicated (04/05/21 10:53) Drug Screen Stat (Urine) (04/05/21 10:53) Alcohol (04/05/21 10:53) Urine Bedside (04/05/21 10:53) Ed Iv/Invasive Line Start (04/05/21 10:53) Lactated Ringers (Lr 1000 Ml Iv Solution (04/05/21 11:00) Thiamine Tablet (Vitamin B-1 Tablet) (04/05/21 11:00) Folic Acid Tablet (Folic Acid Tablet) (04/05/21 11:00) Lorazepam Injection (Ativan Injection) (04/05/21 11:00) Alcohol (04/05/21 12:30) Ed Iv/Invasive Line Start (04/05/21 13:09) Ns Iv 1000 Ml (Sodium Chloride 0.9%) (04/05/21 13:15) General/Regular (04/05/21 Lunch) Alcohol (04/05/21 15:00) Ondansetron Injection (Zofran Injectio (04/05/21 14:30) Lorazepam Injection (Ativan Injection) (04/05/21 14:45) Lorazepam Injection (Ativan Injection) (04/05/21 16:45) Lactated Ringers (Lr 1000 Ml Iv Solution (04/05/21 16:45) Promethazine Injection (Phenergan Injec (04/05/21 16:45) Alcohol (04/05/21 16:48) Oxygen-Administer 07,19 (04/05/21 17:22) Medications Given in ED Current Medications Medications Dose Ordered Sig/Juan Francisco Route Start Time Stop Time Status Last Admin Dose Admin Folic Acid 1 mg ONCE ONCE PO 04/05/21 11:00 04/05/21 11:01 DC 04/05/21 11:01 1 MG Lactated Ringer's 1,000 ml @ 0 mls/hr Q0M ONCE IV 04/05/21 11:00 04/05/21 11:01 DC 04/05/21 11:01 0 MLS/HR Lactated Ringer's 1,000 ml @ 0 mls/hr Q0M ONCE IV 04/05/21 16:45 04/05/21 16:46 DC 04/05/21 16:45 0 MLS/HR Lorazepam 1 mg ONCE ONCE IVP 04/05/21 11:00 04/05/21 11:01 DC 04/05/21 11:01 1 MG Lorazepam 1 mg ONCE ONCE IVP 04/05/21 14:45 04/05/21 14:46 DC 04/05/21 15:12 1 MG Ondansetron HCl 8 mg ONCE ONCE IVP 04/05/21 14:30 04/05/21 14:31 DC 04/05/21 14:24 8 MG Promethazine HCl 25 mg ONCE ONCE IVP 04/05/21 16:45 04/05/21 16:46 DC 04/05/21 16:45 25 MG Thiamine HCl 100 mg ONCE ONCE PO 04/05/21 11:00 04/05/21 11:01 DC 04/05/21 11:09 100 MG Vital Signs/I&O 04/05/21 04/05/21 10:43 17:00 Temp 36.0 Pulse 88 Resp 20 B/P (MAP) 140/95 (110) Pulse Ox 93 94 O2 Delivery Nasal Cannula O2 Flow Rate 3.00 Blood Pressure Mean: 110 Progress Progress Note #1: Time: 10:52 Progress Note Discussed the case with Michael, director at the [facility] and he would like the patient to be medically cleared and have an alcohol level of 0.1 or less prior to admission. He would like to make sure that the patient has appropriate medications prescribed to prevent DTs. Plan to check some labs and an alcohol level and give the patient a liter of lactated Ringer's and 1 mg of Ativan in anticipation of delirium tremens. Progress Note #2: Time: 15:45 Progress Note The patient had food to eat fluids to drink and 2 L of IV fluids. Her alcohol l evel down to 153. We discussed that we will try to get her alcohol level down to a reasonable amount and get her admitted today however the patient says she would prefer to go home pack her things and go tomorrow. Still going to provide her with a prescription for Ativan Zofran and update the ATC with the plan to follow-up for inpatient treatment tomorrow. Return precautions were discussed. The patient's questions were answered. We did not have a bed available in-house for observation due to diversion. Progress Note #3: Time: 16:37 Progress Note As the patient was about to discharge she stood up, became nauseated and vomited and her heart rate went up to 1 20-1 30. She says she still feels very dry so we are going to give her another liter of fluids as well as some Phenergan. She asked for a drowsy and I suspect perhaps with her liver damage the 2 mg of Ativan are either too much. She only went down 130 mg/dL on her alcohol level in 4 hours despite 2 L of fluid which is less than I would have expected. Perhaps this is due to her liver damage. I did briefly search the room to rule out an exogenous source of alcohol. GI cocktail. Transfer of Care Time: 18:00 Care transferred to: Johan Galdamez APRN Departure Impression Primary Impression: Alcohol abuse Disposition: 01 HOME, SELF-CARE Condition: Stable Departure-Patient Inst. Referrals: ACACIA PAUL MD (PCP/Family) Primary Care Physician Patient Instructions: Alcohol Abuse and Alcoholism (DC) Add. Discharge Instructions: Make sure you are drinking plenty of fluids. Ibuprofen 600 mg every 8 hours as necessary for headache. Tylenol 500 mg every 8 hours as necessary for headache. Zofran 1 tablet under the tongue every 6 hours as necessary for nausea and/or vomiting. Ativan 1 to 2 mg every 6 hours as necessary for alcohol withdrawal symptoms such as tremors. Promptly return to the ER if you are having difficulty managing your symptoms. In the morning after 8 AM call the [facility] at [phone] to request inpatient treatment for alcohol addiction. All discharge instructions reviewed with patient and/or family. Voiced understanding. Scripts Ondansetron (Ondansetron Odt) 4 Mg Tab.rapdis 4 MG PO Q6H PRN for NAUSEA/VOMITING, #20 TAB 0 Refills Prov: JOAQUIN MESSINA 04/05/21 Lorazepam (Ativan) 2 Mg Tablet 1-2 MG PO Q6H PRN for tremors for 7 Days, #28 TAB 0 Refills Prov: JOAQUIN MESSINA 04/05/21 Copy Copies To 1: ACACIA PAUL MD, TITUS J Apr 05, 2021 10:53
[2021-04-05] MEDS ORDERED: THIAMINE 100 MG (VITAMIN B-1) TAB PO ONE (11:00)
[2021-04-05] MEDS ORDERED: LACTATED RINGERS 1,000 ML IV ONE ×2 (11:00→16:45)
[2021-04-05] MEDS ORDERED: FOLIC ACID 1 MG TAB PO ONE (11:00)
[2021-04-05] MEDS ORDERED: LORazepam INJ 2 MG/ML (ATIVAN) VIAL IVP ONE ×3 (11:00→16:45)
[2021-04-05 11:04] LABS: BILIRUBIN,URINE NEGATIVE (NEGATIVE); CLARITY,URINE CLEAR; COLOR,URINE YELLOW; GLUCOSE, URINE (UA) NEGATIVE (NEGATIVE); KETONES,URINE NEGATIVE (NEGATIVE); LEUKOCYTE ESTERASE ,URINE NEGATIVE (NEGATIVE); NITRITE,URINE NEGATIVE (NEGATIVE); PROTEIN,URINE NEGATIVE (NEGATIVE)
[2021-04-05 11:11] LABS: BACTERIA,URINE TRACE /HPF; RBC,URINE RARE /HPF; WBC,URINE 0-2 /HPF
[2021-04-05 11:19] LABS: AMPHETAMINE SCREEN, URINE NEGATIVE (NEGATIVE); BARBITURATE SCREEN URINE NEGATIVE (NEGATIVE); BENZODIAZEPINES SCREEN URINE NEGATIVE (NEGATIVE); CANNABINOID SCREEN, URINE NEGATIVE (NEGATIVE); COCAINE SCREEN URINE NEGATIVE (NEGATIVE); METHADONE STAT NEGATIVE (NEGATIVE); METHAMPHETAMINE SCREEN URINE S NEGATIVE (NEGATIVE); OPIATE SCREEN URINE NEGATIVE (NEGATIVE); OXYCODONE STAT NEGATIVE (NEGATIVE); PROPOXYPHENE STAT NEGATIVE (NEGATIVE); TRICYCLIC ANTIDEPRESSANTS SCRE NEGATIVE (NEGATIVE)
[2021-04-05 11:20] LABS: BASOPHILS % (AUTO) 1 % (0-10); EOSINOPHILS % (AUTO) 1 % (0-10); HEMATOCRIT 44 % (35-52); HEMOGLOBIN 15.2 g/dL (11.5-16.0); LYMPHOCYTES % (AUTO) 23 % (12-44); MEAN CORPUSCULAR HEMOGLOBIN 35 pg (25-34); MEAN CORPUSCULAR HGB CONC 34 g/dL (32-36); MEAN CORPUSCULAR VOLUME 101 fL (80-99); MEAN PLATELET VOLUME 10.2 fL (9.0-12.2); MONOCYTES # (AUTO) 0.6 10^3/uL (0.0-1.0); MONOCYTES % (AUTO) 13 % (0-12); NEUTROPHILS # (AUTO) 2.8 10^3/uL (1.8-7.8); NEUTROPHILS % (AUTO) 63 % (42-75); PLATELET COUNT 168 10^3/uL (130-400); WHITE BLOOD COUNT 4.4 10^3/uL (4.3-11.0)
[2021-04-05 11:28] LABS: ALBUMIN 4.4 GM/DL (3.2-4.5); CHLORIDE 95 MMOL/L (98-107); POTASSIUM 3.5 MMOL/L (3.6-5.0); SODIUM 133 MMOL/L (135-145)
[2021-04-05 11:29] LABS: CALCIUM 8.4 MG/DL (8.5-10.1)
[2021-04-05 11:31] LABS: GLUCOSE 78 MG/DL (70-105); TOTAL PROTEIN 7.5 GM/DL (6.4-8.2)
[2021-04-05 11:32] LABS: BILIRUBIN,TOTAL 0.6 MG/DL (0.1-1.0); CARBON DIOXIDE 23 MMOL/L (21-32)
[2021-04-05 11:34] LABS: ALKALINE PHOSPHATASE 85 U/L (40-136); CREATININE SERUM 0.66 MG/DL (0.60-1.30); GFR ESTIMATED > 60
[2021-04-05 11:35] LABS: BUN/CREATININE RATIO 6
[2021-04-05 11:37] LABS: ALANINE AMINOTRANSFERASE 140 U/L (0-55)
[2021-04-05] MEDS ORDERED: NS IV 1000 ML 1,000 ML IV SCH (13:15)
[2021-04-05] MEDS ORDERED: ONDANSETRON 4 MG/2 ML (SDV) Z0FRAN IVP ONE (14:30)
[2021-04-05] MEDS ORDERED: LORA-407 PO (15:50)
[2021-04-05] MEDS ORDERED: ONDA4TAB11 PO (15:50)
[2021-04-05] MEDS ORDERED: PROMETHAZINE INJ 25 MG/ML (PHENERGAN) AMP IVP ONE (16:45)
[2021-04-05] MEDS ORDERED: LIDOCAINE 2% VISCOUS 15 ML UDC PO ONE (17:30)
[2021-04-05] MEDS ORDERED: ANTACID SUSP 30 ML UDC (MYLANTA) PO ONE (17:30)
[2021-04-05 18:23] VITALS: BP 136/89
== END 2021-04-05 18:23 | disposition home or self-care (01) ==
LOC: EDUNIT# 10:37 → ER 10:39
DX: F10.10 Alcohol abuse, uncomplicated (principal); G40.909 Epilepsy, unspecified, not intractable, without status epilepticus; F41.9 Anxiety disorder, unspecified; F31.9 Bipolar disorder, unspecified; F17.210 Nicotine dependence, cigarettes, uncomplicated; Z79.899 Other long term (current) drug therapy
CPT/HCPCS: 80053; 80306; 81000; 84703; 85025; 99284; G0480; 36415; 80320

== ENCOUNTER 2021-05-05 19:44 | Emergency (ER) | payer MEDICAID ==
[~2021-05-05 19:44] MED LIST changes: +LORA-407 PO
== END 2021-05-05 21:25 | disposition left against medical advice (07) ==
LOC: EDUNIT# 19:44 → ER 19:46
DX: F19.939 Other psychoactive substance use, unspecified with withdrawal, unspecified (principal)

== ENCOUNTER 2021-05-23 14:23 | Emergency (ER) | payer MEDICAID ==
[~2021-05-23] VITALS: Ht 162.5 cm; Wt 68.0 kg
[2021-05-23] MEDS ORDERED: LIDOCAINE 2% VISCOUS 15 ML UDC PO ONE (14:30)
[2021-05-23] MEDS ORDERED: LACTATED RINGERS 1,000 ML IV SCH (14:30)
[2021-05-23] MEDS ORDERED: ANTACID SUSP 30 ML UDC (MYLANTA) PO ONE (14:30)
[2021-05-23] MEDS ORDERED: ONDANSETRON 4 MG/2 ML (SDV) Z0FRAN IVP ONE (14:30)
--- NOTE | 2021-05-23 14:42 | ED Abdominal Pain ---
General Stated Complaint: ABDOMINAL PAIN, VOMITING Source of Information: Patient Exam Limitations: No Limitations History of Present Illness Date Seen by Provider: May 23, 2021 Time Seen by Provider: 14:39 Initial Comments To ER with epigastric/right upper quadrant pain associate with vomiting for 24 hours. No diarrhea no fever no chills. History of alcoholism. Timing/Duration: 1-2 Days Severity/Quality: Moderate Location: RUQ, Epigastric Radiation: No Radiation Activities at Onset: None Associated Symptoms: Nausea/Vomiting Allergies and Home Medications Allergies Coded Allergies: Penicillins (Verified Allergy, Unknown, 01/28/15) morphine (Verified Adverse Reaction, Mild, DID NOT TOLERATE WELL IN ED ON MONDAY., 12/04/12) DOES NOT LIKE THE FEELING IT GIVES HER. Home Medications Acetaminophen 500 Mg Tablet, 1,000 MG PO Q6H PRN for PAIN-MILD (1-4), (Reported) Cariprazine Hydrochloride 3 Mg Capsule, 3 MG PO DAILY TAKE 1.5MG CAP X 1 DAY THEN 3MG TAB DAILY THEREAFTER - THIS IS TO START IN ONE WEEK FROM DISCHARGE IF OKAY WITH PSYCHIATRIST Prescribed by: ACACIA WHITFIELD on 01/02/21 0909 Citalopram Hydrobromide 40 Mg Tablet, 20 MG PO BID 1/2 TAB BID X 1 WK THEN DECREASE TO 1/2 TAB DAILY X 3 DAYS THEN 1/2 DAY EVERY OTHER DAY X 3 DAYS THEN STOP Prescribed by: ACACIA WHITFIELD on 01/02/21 09 Folic Acid 1 Mg Tablet, 1 MG PO DAILY Prescribed by: ACACIA WHITFIELD on 01/02/21 09 Lorazepam 0.5 Mg Tablet, 0.5 MG PO TID PRN for ANXIETY Prescribed by: ACACIA WHITFIELD on 01/02/21 09 Lorazepam 2 Mg Tablet, 1-2 MG PO Q6H PRN for tremors Prescribed by: JOAQUIN MESSINA on 04/05/21 1550 Mag Carb/Al Hydrox/Alginic AC 355 Ml Oral.susp, 30 ML PO QID PRN for GI UPSET, (Reported) Ondansetron 4 Mg Tab.rapdis, 4 MG PO Q6H PRN for NAUSEA/VOMITING Prescribed by: JOAQUIN MESSINA on 04/05/21 1550 Ondansetron HCl 4 Mg Tablet, 4 MG PO Q6H PRN for NAUSEA/VOMITING-1ST LINE, (Reported) Ropinirole HCl 0.5 Mg Tablet, 0.5 MG PO TID PRN for RESTLESSNESS, (Reported) Patient Home Medication List Home Medication List Reviewed: Yes Review of Systems Review of Systems Constitutional: see HPI EENTM: No Symptoms Reported Respiratory: No Symptoms Reported Cardiovascular: No Symptoms Reported Gastrointestinal: No Symptoms Reported Genitourinary: No Symptoms Reported Skin: no symptoms reported Psychiatric/Neurological: No Symptoms Reported Endocrine: No Symptoms Reported Hematologic/Lymphatic: No Symptoms Reported Past Axdpkgr-Uruero-Txotcd Hx Immunizations Up To Date Tetanus Booster (TDap): Unknown PED Vaccines UTD: No Seasonal Allergies Seasonal Allergies: Yes Past Medical History Surgeries: Yes Orthopedic, Tonsillectomy Respiratory: No Currently Using CPAP: No Currently Using BIPAP: No Cardiac: No Neurological: Yes Seizure Disorder Female Reproductive Disorders: Denies Sexually Transmitted Disease: No HIV/AIDS: No Genitourinary: No Gastrointestinal: Yes Colitis, Gastroesophageal Reflux, Irritable Bowel Musculoskeletal: Yes (FIBULA FX, RT ANKLE) Fractures Endocrine: No HEENT: No Loss of Vision: Denies Hearing Impairment: Denies Cancer: No Did You Recieve Any Treatments: No Psychosocial: Yes (alcoholism) Anxiety, Bipolar, Depression Integumentary: No Blood Disorders: No Adverse Reaction/Blood Tranf: No Family Medical History Patient reports no known family medical history. Cancer, Hypertension Physical Exam Vital Signs Vital Signs - First Documented 05/23/21 14:34 Temp 36.4 Pulse 110 Resp 18 B/P (MAP) 125/70 (88) Pulse Ox 95 Capillary Refill : Height/Weight/BMI Height: 5'4.00" Weight: 132lbs. 1.8oz. [id number]; 25.00 BMI Method:Stated General Appearance: WD/WN, no apparent distress Neck: non-tender, full range of motion Respiratory: normal breath sounds, no respiratory distress, no accessory muscle use Cardiovascular: no murmur, tachycardia Gastrointestinal: normal bowel sounds, soft, tenderness Extremities: normal range of motion, non-tender Neurologic/Psychiatric: alert, normal mood/affect, oriented x 3 Skin: normal color, warm/dry Progress/Results/Core Measures Results/Orders Lab Results Laboratory Tests Test 05/23/21 14:47 Range/Units White Blood Count 3.8 L 4.3-11.0 10^3/uL Red Blood Count 4.30 3.80-5.11 10^6/uL Hemoglobin 15.3 11.5-16.0 g/dL Hematocrit 43 35-52 % Mean Corpuscular Volume 101 H 80-99 fL Mean Corpuscular Hemoglobin 36 H 25-34 pg Mean Corpuscular Hemoglobin Concent 35 32-36 g/dL Red Cell Distribution Width 13.3 10.0-14.5 % Platelet Count 193 130-400 10^3/uL Mean Platelet Volume 10.0 9.0-12.2 fL Immature Granulocyte % (Auto) 1 % Neutrophils (%) (Auto) 55 42-75 % Lymphocytes (%) (Auto) 22 12-44 % Monocytes (%) (Auto) 21 H 0-12 % Eosinophils (%) (Auto) 1 0-10 % Basophils (%) (Auto) 1 0-10 % Neutrophils # (Auto) 2.1 1.8-7.8 10^3/uL Lymphocytes # (Auto) 0.8 L 1.0-4.0 10^3/uL Monocytes # (Auto) 0.8 0.0-1.0 10^3/uL Eosinophils # (Auto) 0.0 0.0-0.3 10^3/uL Basophils # (Auto) 0.0 0.0-0.1 10^3/uL Immature Granulocyte # (Auto) 0.0 0.0-0.1 10^3/uL Neutrophils % (Manual) 55 % Lymphocytes % (Manual) 25 % Monocytes % (Manual) 18 % Eosinophils % (Manual) 1 % Basophils % (Manual) 1 % Band Neutrophils % Blood Morphology Comment NORMAL Prothrombin Time 13.4 12.2-14.7 SEC INR Comment 1.0 0.8-1.4 Sodium Level 137 135-145 MMOL/L Potassium Level 3.6 3.6-5.0 MMOL/L Chloride Level 100 98-107 MMOL/L Carbon Dioxide Level 19 L 21-32 MMOL/L Anion Gap 18 H 5-14 MMOL/L Blood Urea Nitrogen 3 L 7-18 MG/DL Creatinine 0.65 0.60-1.30 MG/DL Estimat Glomerular Filtration Rate 101 BUN/Creatinine Ratio 5 Glucose Level 86 70-105 MG/DL Calcium Level 8.5 8.5-10.1 MG/DL Corrected Calcium 8.4 L 8.5-10.1 MG/DL Total Bilirubin 0.6 0.1-1.0 MG/DL Aspartate Amino Transf (AST/SGOT) 127 H 5-34 U/L Alanine Aminotransferase (ALT/SGPT) 78 H 0-55 U/L Alkaline Phosphatase 63 40-136 U/L Total Protein 7.0 6.4-8.2 GM/DL Albumin 4.1 3.2-4.5 GM/DL Lipase 103 H 8-78 U/L Serum Alcohol 220 H <10 MG/DL My Orders Orders - RAAD MARY APRN Cbc With Automated Diff (05/23/21 14:26) Comprehensive Metabolic Panel (05/23/21 14:26) Ua Culture If Indicated (05/23/21 14:26) Drug Screen Stat (Urine) (05/23/21 14:26) Alcohol (05/23/21 14:26) Lipase (05/23/21 14:26) Protime With Inr (05/23/21 14:26) Ed Iv/Invasive Line Start (05/23/21 14:26) Ondansetron Injection (Zofran Injectio (05/23/21 14:30) Antacid Suspension (Mylanta Suspension (05/23/21 14:30) Lidocaine 2% Viscous 15 Ml (Xylocaine Vi (05/23/21 14:30) Lactated Ringers (Lr 1000 Ml Iv Solution (05/23/21 14:30) Manual Differential (05/23/21 14:47) Medications Given in ED Current Medications Medications Dose Ordered Sig/Juan Francisco Route Start Time Stop Time Status Last Admin Dose Admin Al Hydrox/Mg Hydrox/Simethicone 30 ml ONCE ONCE PO 05/23/21 14:30 05/23/21 14:31 DC 05/23/21 15:47 30 ML Lidocaine HCl 10 ml ONCE ONCE PO 05/23/21 14:30 05/23/21 14:31 DC 05/23/21 15:47 10 ML Ondansetron HCl 8 mg ONCE ONCE IVP 05/23/21 14:30 05/23/21 14:31 DC 05/23/21 14:59 8 MG Vital Signs/I&O 05/23/21 14:34 Temp 36.4 Pulse 110 Resp 18 B/P (MAP) 125/70 (88) Pulse Ox 95 Departure Impression Primary Impression: Gastritis Additional Impression: Alcoholism Disposition: HOME, SELF-CARE Condition: Stable Departure-Patient Inst. Decision time for Depature: 16:09 Referrals: ACACIA WHITFIELD MD (PCP/Family) Primary Care Physician Patient Instructions: Gastritis ED, Alcohol Use - When Is Drinking a Problem? Add. Discharge Instructions: Clear liquids for 24 hours. 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 Scripts Sucralfate (Carafate) 1 Gm Tablet 1 GM PO QID, #40 TAB Prov: RAAD MARY APRN 05/23/21 Pantoprazole Sodium (Protonix) 40 Mg Tablet. 40 MG PO DAILY, #30 TAB Prov: RAAD MARY APRN 05/23/21 RAAD MARY APRN May 23, 2021 14:42
[2021-05-23 15:07] LABS: BASOPHILS % (AUTO) 1 % (0-10); EOSINOPHILS % (AUTO) 1 % (0-10); HEMATOCRIT 43 % (35-52); HEMOGLOBIN 15.3 g/dL (11.5-16.0); LYMPHOCYTES # (AUTO) 0.8 10^3/uL (1.0-4.0); LYMPHOCYTES % (AUTO) 22 % (12-44); MEAN CORPUSCULAR HEMOGLOBIN 36 pg (25-34); MEAN CORPUSCULAR HGB CONC 35 g/dL (32-36); MEAN CORPUSCULAR VOLUME 101 fL (80-99); MONOCYTES # (AUTO) 0.8 10^3/uL (0.0-1.0); MONOCYTES % (AUTO) 21 % (0-12); NEUTROPHILS # (AUTO) 2.1 10^3/uL (1.8-7.8); NEUTROPHILS % (AUTO) 55 % (42-75); PLATELET COUNT 193 10^3/uL (130-400); WHITE BLOOD COUNT 3.8 10^3/uL (4.3-11.0)
[2021-05-23 15:11] LABS: PROTHROMBIN TIME PATIENT 13.4 SEC (12.2-14.7)
[2021-05-23 15:14] LABS: ALBUMIN 4.1 GM/DL (3.2-4.5); POTASSIUM 3.6 MMOL/L (3.6-5.0)
[2021-05-23 15:15] LABS: CALCIUM 8.5 MG/DL (8.5-10.1)
[2021-05-23 15:18] LABS: BILIRUBIN,TOTAL 0.6 MG/DL (0.1-1.0)
[2021-05-23 15:20] LABS: CREATININE SERUM 0.65 MG/DL (0.60-1.30)
[2021-05-23 15:22] LABS: BASOPHILS % (MANUAL) 1 %; EOSINOPHILS % (MANUAL) 1 %; LYMPHOCYTES % (MANUAL) 25 %; MONOCYTES % (MANUAL) 18 %; NEUTROPHILS % (MANUAL) 55 %; RBC MORPH NORMAL
[2021-05-23] MEDS ORDERED: PANT40TA2 PO (16:10)
[2021-05-23] MEDS ORDERED: SUCR1TAB36 PO (16:10)
[2021-05-23] MEDS ORDERED: PROCHLORPERAZINE 10 MG/2ML INJ (COMPAZINE) IV ONE (16:15)
[2021-05-23 16:37] LABS: BILIRUBIN,URINE NEGATIVE (NEGATIVE); CLARITY,URINE CLEAR; COLOR,URINE YELLOW; GLUCOSE, URINE (UA) NEGATIVE (NEGATIVE); KETONES,URINE NEGATIVE (NEGATIVE); LEUKOCYTE ESTERASE ,URINE NEGATIVE (NEGATIVE); NITRITE,URINE NEGATIVE (NEGATIVE); PROTEIN,URINE NEGATIVE (NEGATIVE)
[2021-05-23 16:43] LABS: BACTERIA,URINE NEGATIVE /HPF; RENAL EPITHELIAL CELLS,URINE 0-2 /HPF
[2021-05-23 16:52] VITALS: BP 121/87
[2021-05-23 16:54] LABS: AMPHETAMINE SCREEN, URINE NEGATIVE (NEGATIVE); BARBITURATE SCREEN URINE NEGATIVE (NEGATIVE); BENZODIAZEPINES SCREEN URINE NEGATIVE (NEGATIVE); CANNABINOID SCREEN, URINE NEGATIVE (NEGATIVE); COCAINE SCREEN URINE NEGATIVE (NEGATIVE); METHADONE STAT NEGATIVE (NEGATIVE); METHAMPHETAMINE SCREEN URINE S NEGATIVE (NEGATIVE); OPIATE SCREEN URINE NEGATIVE (NEGATIVE); OXYCODONE STAT NEGATIVE (NEGATIVE); PROPOXYPHENE STAT NEGATIVE (NEGATIVE); TRICYCLIC ANTIDEPRESSANTS SCRE NEGATIVE (NEGATIVE)
== END 2021-05-23 16:51 | disposition home or self-care (01) ==
LOC: EDUNIT# 14:23 → ER 14:25
DX: K29.70 Gastritis, unspecified, without bleeding (principal); F10.20 Alcohol dependence, uncomplicated; G40.909 Epilepsy, unspecified, not intractable, without status epilepticus; F41.9 Anxiety disorder, unspecified; F31.9 Bipolar disorder, unspecified; Z79.899 Other long term (current) drug therapy
CPT/HCPCS: 80053; 80306; 81000; 83690; 85007; 85027; 85610; G0480; 36415; 80320

== ENCOUNTER 2021-09-01 09:19 | Inpatient (IN) | payer MEDICAID ==
[~2021-09-01] VITALS: Ht 162.6 cm; Wt 72.6 kg
[~2021-09-01 09:19] MED LIST changes: -CITA40TA11 PO; +CITA40TA13 PO; -DOXY100C2 PO; +DOXY100C5 PO; +PANT40TA2 PO
--- NOTE | 2021-09-01 09:34 | ED Psychosocial ---
General Chief Complaint: Substance Abuse Stated Complaint: DETOX FOR ALCOHOL Source: patient Exam Limitations: no limitations History of Present Illness Date Seen by Provider: Sep 01, 2021 Time Seen by Provider: 09:26 Initial Comments Patient with ER by private conveyance states she comes from Dr. Paul's office with chief complaint that she is wanting inpatient detox for alcohol. She says she drinks about a liter of vodka a day and her last drink was at 3:00, 6 hours prior to arrival. She says she has gone into delirium tremens and had seizures in the past. She has detoxed in the hospital before and has a date to go inpatient at [facility] September 16. She denies recreational drug use. She denies fevers chills nausea vomiting. Patient states sure he has not had a period in several years after stopping using Depo-Medrol. She does not have tubal ligation, hysterectomy or implanted contraceptive device. Allergies and Home Medications Allergies Coded Allergies: Penicillins (Verified Allergy, Unknown, 01/28/15) morphine (Verified Adverse Reaction, Mild, DID NOT TOLERATE WELL IN ED ON MONDAY., 12/04/12) DOES NOT LIKE THE FEELING IT GIVES HER. Patient Home Medication List Home Medication List Reviewed: Yes Acetaminophen (Tylenol Extra Strength) 500 Mg Tablet, 1,000 MG PO Q6H PRN for PAIN-MILD (1-4), (Reported) Entered as Reported by: MICHELA WILSON on 12/30/20 1301 Cariprazine Hydrochloride (Vraylar) 3 Mg Capsule, 3 MG PO DAILY Prescribed by: ACACIA PAUL on 01/02/21 09 Citalopram Hydrobromide (Citalopram HBr) 40 Mg Tablet, 20 MG PO BID Prescribed by: ACACIA PAUL on 01/02/21 09 Folic Acid (Folic Acid) 1 Mg Tablet, 1 MG PO DAILY Prescribed by: ACACIA PAUL on 01/02/21 09 Lorazepam (Ativan) 0.5 Mg Tablet, 0.5 MG PO TID PRN for ANXIETY Prescribed by: ACACIA PAUL on 01/02/21 09 Lorazepam (Ativan) 2 Mg Tablet, 1-2 MG PO Q6H PRN for tremors Prescribed by: JOAQUIN MESSINA on 04/05/21 1550 Mag Carb/Al Hydrox/Alginic AC (Gaviscon Extra Strength Liq) 355 Ml Oral.susp, 30 ML PO QID PRN for GI UPSET, (Reported) Entered as Reported by: MICHELA WILSON on 12/30/20 1301 Ondansetron (Ondansetron Odt) 4 Mg Tab.rapdis, 4 MG PO Q6H PRN for NAUSEA/VOMITING Prescribed by: JOAQUIN MESSINA on 04/05/21 1550 Ondansetron HCl (Ondansetron HCl) 4 Mg Tablet, 4 MG PO Q6H PRN for NAUSEA/VOMITING-1ST LINE, (Reported) Entered as Reported by: MICHELA WILSON on 12/30/20 1301 Pantoprazole Sodium (Protonix) 40 Mg Tablet.dr, 40 MG PO DAILY Prescribed by: RAAD MARY on 05/23/21 161 Ropinirole HCl (Ropinirole HCl) 0.5 Mg Tablet, 0.5 MG PO TID PRN for RESTLESSNESS, (Reported) Entered as Reported by: MICHELA WILSON on 12/30/20 1301 Sucralfate (Carafate) 1 Gm Tablet, 1 GM PO QID Prescribed by: RAAD MARY on 05/23/21 161 Review of Systems Constitutional: No chills, No diaphoresis, No fever EENTM: No ear discharge, No ear pain Respiratory: No cough, No short of breath Cardiovascular: No chest pain, No edema Gastrointestinal: No abdominal pain, No constipation, No diarrhea Genitourinary: No discharge, No dysuria Musculoskeletal: No back pain, No gout, No joint pain Psychiatric/Neurological: See HPI, Anxiety, Depressed All Other Systems Reviewed Negative Unless Noted: Yes Past Kmhcmnl-Zcxvtw-Qighve Hx Patient Social History Tobacco Use?: Yes Smoking Status: Current Everyday Smoker Use of E-Cig and/or Vaping dev: No Substance use?: No Alcohol Use?: Yes Alcohol type: Hard Liquor (Vodka) Alcohol Frequency: Daily (1 L/day) Immunizations Up To Date Tetanus Booster (TDap): Unknown PED Vaccines UTD: No Seasonal Allergies Seasonal Allergies: Yes Past Medical History Surgeries: Yes Orthopedic, Tonsillectomy Respiratory: No Currently Using CPAP: No Currently Using BIPAP: No Cardiac: No Neurological: Yes Seizure Disorder Female Reproductive Disorders: Denies Sexually Transmitted Disease: No HIV/AIDS: No Genitourinary: No Gastrointestinal: Yes Colitis, Gastroesophageal Reflux, Irritable Bowel Musculoskeletal: Yes (FIBULA FX, RT ANKLE) Fractures Endocrine: No HEENT: No Loss of Vision: Denies Hearing Impairment: Denies Cancer: No Did You Recieve Any Treatments: No Psychosocial: Yes (alcoholism) Anxiety, Bipolar, Depression Integumentary: No Blood Disorders: No Adverse Reaction/Blood Tranf: No Family Medical History Patient reports no known family medical history. Cancer, Hypertension Physical Exam Vital Signs - First Documented 09/01/21 09/01/21 09:25 11:00 Temp 36.4 Pulse 102 Resp 17 B/P (MAP) 141/95 (110) Pulse Ox 98 O2 Delivery Room Air Capillary Refill : Height, Weight, BMI Height: 5'4.00" Weight: 132lbs. 1.8oz. 59.270231uy; 25.00 BMI Method:Stated General Appearance: WD/WN, no apparent distress HEENT: PERRL/EOMI, TMs normal, pharynx normal Neck: non-tender, full range of motion, supple, normal inspection Respiratory: lungs clear, normal breath sounds, no respiratory distress, no accessory muscle use Cardiovascular: normal peripheral pulses, regular rate, rhythm Gastrointestinal: normal bowel sounds, non tender, soft Neurologic/Psychiatric: alert, oriented x 3, other (Depressed affect without tremor) Appearance/Memory: appropriate appearance, appropriate insight, neat, no memory impairment Behavior/Eye Contact: cooperative, good eye contact, normal speech Thoughts/Hallucinations: normal thought pattern, no apparent hallucination Skin: normal color, warm/dry Progress/Results/Core Measures Results/Orders Lab Results Laboratory Tests Test 09/01/21 09:40 Range/Units White Blood Count 3.3 L 4.3-11.0 10^3/uL Red Blood Count 4.51 3.80-5.11 10^6/uL Hemoglobin 15.8 11.5-16.0 g/dL Hematocrit 45 35-52 % Mean Corpuscular Volume 100 H 80-99 fL Mean Corpuscular Hemoglobin 35 H 25-34 pg Mean Corpuscular Hemoglobin Concent 35 32-36 g/dL Red Cell Distribution Width 13.3 10.0-14.5 % Platelet Count 203 130-400 10^3/uL Mean Platelet Volume 10.0 9.0-12.2 fL Immature Granulocyte % (Auto) 0 % Neutrophils (%) (Auto) 45 42-75 % Lymphocytes (%) (Auto) 38 12-44 % Monocytes (%) (Auto) 14 H 0-12 % Eosinophils (%) (Auto) 2 0-10 % Basophils (%) (Auto) 1 0-10 % Neutrophils # (Auto) 1.5 L 1.8-7.8 10^3/uL Lymphocytes # (Auto) 1.3 1.0-4.0 10^3/uL Monocytes # (Auto) 0.5 0.0-1.0 10^3/uL Eosinophils # (Auto) 0.1 0.0-0.3 10^3/uL Basophils # (Auto) 0.0 0.0-0.1 10^3/uL Immature Granulocyte # (Auto) 0.0 0.0-0.1 10^3/uL Prothrombin Time 14.1 12.2-14.7 SEC INR Comment 1.0 0.8-1.4 Activated Partial Thromboplast Time 35 24-35 SEC Urine Color YELLOW Urine Clarity CLEAR Urine pH 6.0 5-9 Urine Specific [place] <=1.005 1.016-1.022 Urine Protein NEGATIVE NEGATIVE Urine Glucose (UA) NEGATIVE NEGATIVE Urine Ketones TRACE H NEGATIVE Urine Nitrite NEGATIVE NEGATIVE Urine Bilirubin NEGATIVE NEGATIVE Urine Urobilinogen 0.2 < = 1.0 MG/DL Urine Leukocyte Esterase NEGATIVE NEGATIVE Urine RBC (Auto) NEGATIVE NEGATIVE Urine RBC NONE /HPF Urine WBC NONE /HPF Urine Squamous Epithelial Cells RARE /HPF Urine Crystals NONE /LPF Urine Bacteria NEGATIVE /HPF Urine Casts NONE /LPF Urine Mucus NEGATIVE /LPF Urine Culture Indicated NO Sodium Level 133 L 135-145 MMOL/L Potassium Level 3.4 L 3.6-5.0 MMOL/L Chloride Level 98 98-107 MMOL/L Carbon Dioxide Level 19 L 21-32 MMOL/L Anion Gap 16 H 5-14 MMOL/L Blood Urea Nitrogen 3 L 7-18 MG/DL Creatinine 0.65 0.60-1.30 MG/DL Estimat Glomerular Filtration Rate 100 BUN/Creatinine Ratio 5 Glucose Level 83 70-105 MG/DL Calcium Level 8.4 L 8.5-10.1 MG/DL Corrected Calcium 8.2 L 8.5-10.1 MG/DL Magnesium Level 1.8 1.6-2.4 MG/DL Total Bilirubin 0.4 0.1-1.0 MG/DL Aspartate Amino Transf (AST/SGOT) 93 H 5-34 U/L Alanine Aminotransferase (ALT/SGPT) 79 H 0-55 U/L Alkaline Phosphatase 83 40-136 U/L Total Protein 7.0 6.4-8.2 GM/DL Albumin 4.2 3.2-4.5 GM/DL Urine Opiates Screen NEGATIVE NEGATIVE Urine Oxycodone Screen NEGATIVE NEGATIVE Urine Methadone Screen NEGATIVE NEGATIVE Urine Propoxyphene Screen NEGATIVE NEGATIVE Urine Barbiturates Screen POSITIVE H NEGATIVE Ur Tricyclic Antidepressants Screen NEGATIVE NEGATIVE Urine Phencyclidine Screen NEGATIVE NEGATIVE Urine Amphetamines Screen NEGATIVE NEGATIVE Urine Methamphetamines Screen NEGATIVE NEGATIVE Urine Benzodiazepines Screen POSITIVE H NEGATIVE Urine Cocaine Screen NEGATIVE NEGATIVE Urine Cannabinoids Screen NEGATIVE NEGATIVE Serum Alcohol 234 H <10 MG/DL My Orders Orders - JOAQUIN MESSINA Cbc With Automated Diff (09/01/21 09:30) Comprehensive Metabolic Panel (09/01/21 09:30) Protime With Inr (09/01/21 09:30) Partial Thromboplastin Time (09/01/21 09:30) Ua Culture If Indicated (09/01/21 09:30) Urine Bedside (09/01/21 09:30) Alcohol (09/01/21 09:30) Drug Screen Stat (Urine) (09/01/21 09:30) Ondansetron Injection (Zofran Injectio (09/01/21 09:45) Folic Acid Tablet (Folic Acid Tablet) (09/01/21 09:45) Thiamine Tablet (Vitamin B-1 Tablet) (09/01/21 09:40) Magnesium (09/01/21 10:35) Medications Given in ED Current Medications Medications Dose Ordered Sig/Juan Francisco Route Start Time Stop Time Status Last Admin Dose Admin Folic Acid 1 mg ONCE ONCE PO 09/01/21 09:45 09/01/21 09:46 DC 09/01/21 09:49 1 MG Ondansetron HCl 4 mg ONCE ONCE IVP 09/01/21 09:45 09/01/21 09:46 DC 09/01/21 09:49 4 MG Vital Signs/I&O 09/01/21 09/01/21 09/01/21 09/01/21 09:25 11:00 11:29 11:35 Temp 36.4 36.4 Pulse 102 79 79 Resp 17 17 17 B/P (MAP) 141/95 (110) 137/61 137/61 (86) Pulse Ox 98 98 O2 Delivery Room Air Room Air Room Air Room Air 09/01/21 09/01/21 12:00 16:16 Temp 37.0 37.2 Pulse 85 88 Resp 20 16 B/P (MAP) 110/63 (79) 113/74 (87) Pulse Ox 94 98 O2 Delivery Room Air Room Air Progress Progress Note : Time: 09:34 Progress Note She does not appear to be in any acute distress at this time. She just had her last drink 6 hours ago. We will grab some labs including an alcohol level and make contact with primary care. Thiamine and folate p.o. Departure Communication (Admissions) Time/Spoke to Admitting Phy: 09:45 Discussed the case with Dr. PAUL and she agrees to accept the patient observation for alcohol detox. Impression Primary Impression: Alcohol abuse Disposition: ADMITTED INPATIENT Condition: Stable Admissions Decision to Admit Reason: Admit from ER (General) Decision to Admit/Date: Sep 01, 2021 Time/Decision to Admit Time: 09:45 Departure-Patient Inst. Referrals: ACACIA PAUL MD (PCP/Family) Primary Care Physician Patient Instructions: ALCOHOL AND SUBSTANCE ABUSE JOAQUIN MESSINA Sep 01, 2021 09:34
[2021-09-01] MEDS ORDERED: THIAMINE 100 MG (VITAMIN B-1) TAB PO NR (09:40)
[2021-09-01] MEDS ORDERED: ONDANSETRON 4 MG/2 ML (SDV) Z0FRAN IVP ONE (09:45)
[2021-09-01] MEDS ORDERED: FOLIC ACID 1 MG TAB PO ONE (09:45)
[2021-09-01 09:51] LABS: BASOPHILS % (AUTO) 1 % (0-10); EOSINOPHILS # (AUTO) 0.1 10^3/uL (0.0-0.3); EOSINOPHILS % (AUTO) 2 % (0-10); HEMATOCRIT 45 % (35-52); HEMOGLOBIN 15.8 g/dL (11.5-16.0); LYMPHOCYTES # (AUTO) 1.3 10^3/uL (1.0-4.0); LYMPHOCYTES % (AUTO) 38 % (12-44); MEAN CORPUSCULAR HEMOGLOBIN 35 pg (25-34); MEAN CORPUSCULAR HGB CONC 35 g/dL (32-36); MEAN CORPUSCULAR VOLUME 100 fL (80-99); MONOCYTES # (AUTO) 0.5 10^3/uL (0.0-1.0); MONOCYTES % (AUTO) 14 % (0-12); NEUTROPHILS # (AUTO) 1.5 10^3/uL (1.8-7.8); NEUTROPHILS % (AUTO) 45 % (42-75); PLATELET COUNT 203 10^3/uL (130-400); WHITE BLOOD COUNT 3.3 10^3/uL (4.3-11.0)
[2021-09-01 09:52] LABS: BILIRUBIN,URINE NEGATIVE (NEGATIVE); CLARITY,URINE CLEAR; COLOR,URINE YELLOW; GLUCOSE, URINE (UA) NEGATIVE (NEGATIVE); KETONES,URINE TRACE (NEGATIVE); LEUKOCYTE ESTERASE ,URINE NEGATIVE (NEGATIVE); NITRITE,URINE NEGATIVE (NEGATIVE); PROTEIN,URINE NEGATIVE (NEGATIVE)
[2021-09-01 10:03] LABS: ALBUMIN 4.2 GM/DL (3.2-4.5); BACTERIA,URINE NEGATIVE /HPF; POTASSIUM 3.4 MMOL/L (3.6-5.0); SQUAMOUS EPITHELIAL CELL,UR RARE /HPF
[2021-09-01 10:05] LABS: CALCIUM 8.4 MG/DL (8.5-10.1); PROTHROMBIN TIME PATIENT 14.1 SEC (12.2-14.7)
[2021-09-01 10:07] LABS: AMPHETAMINE SCREEN, URINE NEGATIVE (NEGATIVE); BARBITURATE SCREEN URINE POSITIVE (NEGATIVE); BENZODIAZEPINES SCREEN URINE POSITIVE (NEGATIVE); CANNABINOID SCREEN, URINE NEGATIVE (NEGATIVE); COCAINE SCREEN URINE NEGATIVE (NEGATIVE); METHADONE STAT NEGATIVE (NEGATIVE); METHAMPHETAMINE SCREEN URINE S NEGATIVE (NEGATIVE); OPIATE SCREEN URINE NEGATIVE (NEGATIVE); OXYCODONE STAT NEGATIVE (NEGATIVE); PROPOXYPHENE STAT NEGATIVE (NEGATIVE); TRICYCLIC ANTIDEPRESSANTS SCRE NEGATIVE (NEGATIVE)
[2021-09-01 10:08] LABS: BILIRUBIN,TOTAL 0.4 MG/DL (0.1-1.0)
[2021-09-01 10:09] LABS: CREATININE SERUM 0.65 MG/DL (0.60-1.30)
[2021-09-01] MEDS ORDERED: LORazepam INJ 2 MG/ML (ATIVAN) VIAL IM/IV PRN (11:30)
[2021-09-01] MEDS ORDERED: ACETAMINOPHEN 325 MG TABLET PO PRN (11:30)
[2021-09-01] MEDS ORDERED: LORazepam INJ 2 MG/ML (ATIVAN) VIAL IV PRN (11:30)
[2021-09-01] MEDS ORDERED: D5 1/2 NS 1000 ML IV SOLUTION 1,000 ML IV PRN (11:30)
[2021-09-01] MEDS ORDERED: 1/2 NS IV SOLUTION 1,000 ML IV PRN (11:30)
[2021-09-01] MEDS ORDERED: LORazepam INJ 2 MG/ML (ATIVAN) VIAL IVP PRN (11:30)
[2021-09-01] MEDS ORDERED: SENNA W/DOCUSATE (SENOKOT S) TABLET PO PRN (11:30)
[2021-09-01] MEDS ORDERED: ANTACID SUSP 30 ML UDC (MYLANTA) PO PRN (11:30)
[2021-09-01] MEDS ORDERED: IBUPROFEN 600 MG (MOTRIN) TAB PO PRN (11:30)
[2021-09-01] MEDS ORDERED: ONDANSETRON 4 MG (ZOFRAN) ORAL DISSOLVE TAB SL PRN (11:30)
[2021-09-01 11:35] VITALS: BP 137/61
[2021-09-01] MEDS ORDERED: FLU QUADRIvalent (3YOA+) 60 mcg/0.5 ml 2021-22(AFLURIA) IM ONE (11:45)
[2021-09-01] MEDS: LACTATED RINGERS 1,000 ML IV SCH ×2 (11:54→20:22)
[2021-09-01 12:00] VITALS: BP 110/63
[2021-09-01 16:16] VITALS: BP 113/74
[2021-09-01] MEDS: ONDANSETRON 4 MG/2 ML (SDV) Z0FRAN IV PRN ×2 (17:10→20:57)
--- NOTE | 2021-09-01 18:17 | History & Physical ---
History of Present Illness History of Present Illness Reason for visit/HPI PT IS A 41 Y/O FEMALE WHO IS KNOWN TO ME FROM CLINIC. SHE REPORTS THAT SHE HAS BEEN DRINKING UP TO A LITER OF VODKA A DAY FOR THE PAST FEW WEEKS. SHE REPORTS THAT HER MOM CONVINCED HER TO STAY IN THE [facility] AFTER SHE HAD TO COME BACK TO [facility] FOR A COURT DATE. MAIRA REPORTS THAT SHE GOT A DUI IN [place] AND HAD TO COME BACK TO [facility] TO GO TO COURT FOR THE DUI. SHE REQUESTED TO BE DETOXED AT HOME AROUND August AND A SCRIPT WAS SENT OUT FOR HER TO TAKE A TAPER OF ATIVAN TO DETOX AT HOME, SHE FAILED TO DETOX AT HOME AND GOT ANOTHER DUI AROUND August. SHE CONTACTED MY OFFICE ON 08/31/2021 TO REQUEST MORE "HELP TO GET SOBER" AND SHE WAS INSTRUCTED THAT SHE WOULD HAVE TO BE EVALUATED BY THE HOSPITAL EMERGENCY DEPARTMENT THAT EVENING IF SHE WANTED TO BE EVALED FOR ADMISSION. SHE PRESENTED TO THE ER ON 09/01/2021 IN THE MID MORNING FOR EVAL AND ADMISSION. SHE WAS FOUND TO BE ACUTELY INTOXICATED AND IN NEED OF ALCOHOL DETOX. Date of Admission Sep 01, 2021 at 09:47 Date Seen by a Provider: Sep 01, 2021 Time Seen by a Provider: 17:30 Attending Physician Acacia Paul MD Admitting Physician Acacia Paul MD Consult Allergies and Home Medications Allergies Coded Allergies: Penicillins (Verified Allergy, Unknown, 01/28/15) morphine (Verified Adverse Reaction, Mild, DID NOT TOLERATE WELL IN ED ON MONDAY., 12/04/12) DOES NOT LIKE THE FEELING IT GIVES HER. Patient Home Medication List Home Medication List Reviewed: Yes Acetaminophen (Tylenol Extra Strength) 500 Mg Tablet, 1,000 MG PO Q6H PRN for PAIN-MILD (1-4), (Reported) Entered as Reported by: MICHELA WILSON on 12/30/20 1301 Last Action: Held Cariprazine Hydrochloride (Vraylar) 3 Mg Capsule, 3 MG PO DAILY Prescribed by: ACACIA PAUL on 01/02/21 0909 Citalopram Hydrobromide (Citalopram HBr) 40 Mg Tablet, 20 MG PO BID Prescribed by: ACACIA PAUL on 01/02/21 09 Folic Acid (Folic Acid) 1 Mg Tablet, 1 MG PO DAILY Prescribed by: ACACIA PAUL on 01/02/21 0909 Lorazepam (Ativan) 0.5 Mg Tablet, 0.5 MG PO TID PRN for ANXIETY Prescribed by: ACACIA PAUL on 01/02/21 0909 Lorazepam (Ativan) 2 Mg Tablet, 1-2 MG PO Q6H PRN for tremors Prescribed by: JOAQUIN MESSINA on 04/05/21 1550 Mag Carb/Al Hydrox/Alginic AC (Gaviscon Extra Strength Liq) 355 Ml Oral.susp, 30 ML PO QID PRN for GI UPSET, (Reported) Entered as Reported by: MICHELA WILSON on 12/30/20 1301 Ondansetron (Ondansetron Odt) 4 Mg Tab.rapdis, 4 MG PO Q6H PRN for NAUSEA/VOMITING Prescribed by: JOAQUIN MESSINA on 04/05/21 1550 Ondansetron HCl (Ondansetron HCl) 4 Mg Tablet, 4 MG PO Q6H PRN for NAUSEA/VO MITING-1ST LINE, (Reported) Entered as Reported by: MICHELA WILSON on 12/30/20 1301 Pantoprazole Sodium (Protonix) 40 Mg Tablet.dr, 40 MG PO DAILY Prescribed by: RAAD MARY on 05/23/21 161 Ropinirole HCl (Ropinirole HCl) 0.5 Mg Tablet, 0.5 MG PO TID PRN for RESTLESSNESS, (Reported) Entered as Reported by: MICHELA WILSON on 12/30/20 1301 Sucralfate (Carafate) 1 Gm Tablet, 1 GM PO QID Prescribed by: RAAD MARY on 05/23/21 1610 Past Opfpkyk-Pdrsxk-Ouirdr Hx Patient Social History Marrital Status: Number of Children: 2 Number of living children: 2 Living Status: LIVING WITH HER MOTHER AT THIS TIME WAS IN [address] IN [place] Employed/Student: unemployed Tobacco Use?: Yes Tobacco type used: Cigarettes Smoking Status: Current Everyday Smoker Smokeless Tobacco Frequency: Never a User Use of E-Cig and/or Vaping dev: No Use of E-Cig and/or Vaping Kilo: Never a User Substance use?: Yes Substance type: Barbiturates, Nicotine Substance frequency: Daily Alcohol Use?: Yes Alcohol type: Hard Liquor Alcohol Frequency: Daily Additional Alcohol Comments: 1 LITER OF VODKA A DAY Pt feels they are or have been: No Immunizations Up To Date Date of Influenza Vaccine: Jul 16, 2021 Tetanus Booster (TDap): Unknown PED Vaccines UTD: No Seasonal Allergies Seasonal Allergies: Yes Current Status status: Unknown status: No Advance Directives: No Communicates: Verbally Primary Language: Lithuanian Preferred Spoken Language: Lithuanian Is interpretation needed?: No Implanted or Applied Medical D: None Past Medical History Surgeries: Orthopedic, Tonsillectomy Currently Using CPAP: No Currently Using BIPAP: No Seizure Disorder (FROM ALCOHOL DETOX) Sexually Transmitted Disease: No HIV/AIDS: No Colitis, Gastroesophageal Reflux, Irritable Bowel Fractures Loss of Vision: Denies Hearing Impairment: Denies Did You Recieve Any Treatments: No Anxiety, Bipolar, Depression Blood Disorders: No Adverse Reaction/Blood Tranf: No PMHx: Anxiety SurgHx: Tonsillectomy Broken leg Family Medical History Reviewed and Corrections made Patient reports no known family medical history. Cancer, Hypertension, Other Conditions/Hx (ALCOHOLISM) Review of Systems Constitutional: No chills, No fever, No malaise; weakness EENTM: No hearing loss, No hoarseness, No throat pain Respiratory: No cough, No dyspnea on exertion, No short of breath, No wheezing Cardiovascular: No chest pain, No edema Gastrointestinal: No abdominal pain, No jaundice, No loss of appetite; nausea, vomiting Genitourinary: no symptoms reported Musculoskeletal: no symptoms reported; No muscle pain, No muscle stiffness, No muscle weakness Skin: no symptoms reported Psychiatric/Neurological: Anxiety, Depressed; Denies Headache, Denies Weakness All Other Systems Reviewed Negative Unless Noted: Yes Physical Exam Vital Signs Vital Signs - First Documented 09/01/21 09/01/21 09:25 11:00 Temp 36.4 Pulse 102 Resp 17 B/P (MAP) 141/95 (110) Pulse Ox 98 O2 Delivery Room Air Capillary Refill : Less Than 3 Seconds Height, Weight, BMI Height: 5'4.00" Weight: 132lbs. 1.8oz. 59.040491oz; 27.45 BMI Method:Stated General Appearance: No Apparent Distress, WD/WN HEENT: PERRL/EOMI, Pharynx Normal Neck: Full Range of Motion, Non Tender, Supple Respiratory: Chest Non Tender, Lungs Clear, Normal Breath Sounds, No Accessory Muscle Use, No Respiratory Distress Cardiovascular: Regular Rate, Rhythm, No Edema, No Murmur, Normal Peripheral Pulses Gastrointestinal: Normal Bowel Sounds, No Organomegaly, No Pulsatile Mass, Non Tender, Soft Rectal: Deferred Back: Normal Inspection, No Vertebral Tenderness Extremity: Normal Capillary Refill, Non Tender, No Calf Tenderness, No Pedal Edema Neurologic/Psychiatric: Alert, Oriented x3, No Motor/Sensory Deficits, Normal Mood/Affect Skin: Normal Color, Warm/Dry Lymphatic: No Adenopathy Assessment/Plan Assessment and Plan ALCOHOL WITHDRAWAL ALCOHOLIC HEPATITIS ELEVATED TRANSAMINASES DEPRESSION BIPOLAR MOOD DISORDER NAUSEA ALCOHOL WITHDRAWAL WITH ALCOHOLIC HEPATITIS (ELEVATED TRANSAMINASES) - PT STARTED ON CIWA/ALCOHOL WITHDRAWAL PROTOCOL - CONTINUE WITH IV FLUIDS, DAILY BANANA BAG X 3 DAYS - START A SMALL DOSE OF SCHEDULED ATIVAN FOR THE NEXT 36 HOURS AND PRN ATIVAN - MONITOR SERIAL LABS, WITH ANTICIPATION OF LIVER FUNCTION TO SLIGHTLY IMPROVE WITH HYDRATION AND DECREASED ALCOHOL TOXICITY OF HER LIVER. DEPRESSION WITH BIPOLAR MOOD DISORDER - WILL WAIT ON MEDICATION VERIFICATION PRIOR TO RESTARTING MEDICATIONS. 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
[2021-09-01 19:45] VITALS: BP 125/82
[2021-09-01] MEDS ORDERED: PANTOPRAZOLE 40 MG (PROTONIX) TAB PO NR (20:00)
[2021-09-01] MEDS ORDERED: LORazepam 0.5 MG (ATIVAN) TABLET PO NR (20:00)
[2021-09-01] MEDS: MAGNESIUM OXIDE (MAG-OX)400 MG TAB PO SCH (20:15)
[2021-09-01] MEDS: ENOXAPARIN 40 MG/0.4 ML (LOVENOX) SYR SC SCH (20:15)
[2021-09-01 23:30] VITALS: BP 114/78
[2021-09-02] MEDS: LORazepam 1 MG (ATIVAN) TAB PO PRN ×6 (02:59→20:43)
[2021-09-02] MEDS: ONDANSETRON 4 MG/2 ML (SDV) Z0FRAN IV PRN ×3 (02:59→14:22)
[2021-09-02 04:00] VITALS: BP 118/77
[2021-09-02] MEDS: LACTATED RINGERS 1,000 ML IV SCH ×3 (04:47→20:58)
[2021-09-02] MEDS: MULTIVIT W/MINERALS TAB (THERAGRAN M) PO SCH (06:20)
[2021-09-02] MEDS: THIAMINE 100 MG (VITAMIN B-1) TAB PO SCH (06:20)
[2021-09-02 06:38] LABS: BASOPHILS # (AUTO) 0.1 10^3/uL (0.0-0.1); BASOPHILS % (AUTO) 2 % (0-10); EOSINOPHILS # (AUTO) 0.1 10^3/uL (0.0-0.3); EOSINOPHILS % (AUTO) 2 % (0-10); HEMATOCRIT 44 % (35-52); HEMOGLOBIN 15.1 g/dL (11.5-16.0); LYMPHOCYTES % (AUTO) 43 % (12-44); MEAN CORPUSCULAR HEMOGLOBIN 34 pg (25-34); MEAN CORPUSCULAR HGB CONC 34 g/dL (32-36); MEAN CORPUSCULAR VOLUME 101 fL (80-99); MEAN PLATELET VOLUME 10.4 fL (9.0-12.2); MONOCYTES # (AUTO) 0.3 10^3/uL (0.0-1.0); MONOCYTES % (AUTO) 11 % (0-12); NEUTROPHILS % (AUTO) 42 % (42-75); PLATELET COUNT 146 10^3/uL (130-400); WHITE BLOOD COUNT 2.4 10^3/uL (4.3-11.0)
[2021-09-02 06:56] LABS: ALBUMIN 3.5 GM/DL (3.2-4.5); BILIRUBIN,TOTAL 0.7 MG/DL (0.1-1.0); CALCIUM 8.7 MG/DL (8.5-10.1); CREATININE SERUM 0.67 MG/DL (0.60-1.30); POTASSIUM 4.3 MMOL/L (3.6-5.0); TOTAL PROTEIN 6.4 GM/DL (6.4-8.2)
[2021-09-02] MEDS ORDERED: D5 NS 1000 ML IV SOLUTION 1,000 ML IV ONE ×2 (07:15→07:19)
--- NOTE | 2021-09-02 07:50 | Progress Note ---
Subjective Subjective Date Seen by Provider: Sep 02, 2021 Time Seen by Provider: 07:15 Patient reports still having moderate nausea and the shakes. She has not had any vomiting. She is not in any pain. She is alert and oriented. Review of Systems General: No Chills, No Night Sweats Pulmonary: No Dyspnea, No Cough Cardiovascular: No: Chest Pain, Palpitations Gastrointestinal: Nausea; No: Vomiting Neurological: No: Confusion All Other Systems Reviewed All Other Systems Reviewed: Yes Objective Exam Vital Signs Vital Signs Date Time Temp Pulse Resp B/P (MAP) Pulse Ox O2 Delivery O2 Flow Rate FiO2 09/02/21 04:00 36.6 73 18 118/77 (91) 98 Room Air 09/01/21 23:30 36.7 82 18 114/78 (90) 98 Room Air 09/01/21 20:15 Room Air 09/01/21 19:45 36.8 84 18 125/82 (96) 95 Room Air 09/01/21 16:16 37.2 88 16 113/74 (87) 98 Room Air 09/01/21 12:00 37.0 85 20 110/63 (79) 94 Room Air 09/01/21 11:35 36.4 79 17 137/61 (86) 98 Room Air 09/01/21 11:29 Room Air 09/01/21 11:00 79 17 137/61 98 Room Air 09/01/21 09:25 36.4 102 17 141/95 (110) Room Air I & O 09/02/21 06:59 Intake Total 2100 ml Balance 2100 ml General Appearance: No Apparent Distress, WD/WN HEENT: PERRL/EOMI, Pharynx Normal Neck: Full Range of Motion, Non Tender, Supple Respiratory: Chest Non Tender, Lungs Clear, Normal Breath Sounds, No Accessory Muscle Use, No Respiratory Distress Cardiovascular: Regular Rate, Rhythm, No Edema, No Murmur, Normal Peripheral Pulses Gastrointestinal: Normal Bowel Sounds, No Organomegaly, No Pulsatile Mass, Non Tender, Soft Rectal: Deferred Back: Normal Inspection, No Vertebral Tenderness Extremity: Normal Capillary Refill, Non Tender, No Calf Tenderness, No Pedal Edema Neurologic/Psychiatric: Alert, Oriented x3, No Motor/Sensory Deficits, Normal Mood/Affect Skin: Normal Color, Warm/Dry Lymphatic: No Adenopathy Results Lab Laboratory Tests 11/17/21 09:40: White Blood Count 3.3L, Red Blood Count 4.51, Hemoglobin 15.8, Hematocrit 45, Mean Corpuscular Volume 100H, Mean Corpuscular Hemoglobin 35H, Mean Corpuscular Hemoglobin Concent 35, Red Cell Distribution Width 13.3, Platelet Count 203, Mean Platelet Volume 10.0, Immature Granulocyte % (Auto) 0, Neutrophils (%) (Auto) 45, Lymphocytes (%) (Auto) 38, Monocytes (%) (Auto) 14H, Eosinophils (%) (Auto) 2, Basophils (%) (Auto) 1, Neutrophils # (Auto) 1.5L, Lymphocytes # (Auto) 1.3, Monocytes # (Auto) 0.5, Eosinophils # (Auto) 0.1, Basophils # (Auto) 0.0, Immature Granulocyte # (Auto) 0.0, Prothrombin Time 14.1, INR Comment 1.0, Activated Partial Thromboplast Time 35, Urine Color YELLOW, Urine Clarity CLEAR, Urine pH 6.0, Urine Specific [place] <=1.005, Urine Protein NEGATIVE, Urine Glucose (UA) NEGATIVE, Urine Ketones TRACEH, Urine Nitrite NEGATIVE, Urine Bilirubin NEGATIVE, Urine Urobilinogen 0.2, Urine Leukocyte Esterase NEGATIVE, Urine RBC (Auto) NEGATIVE, Urine RBC NONE, Urine WBC NONE, Urine Squamous Epithelial Cells RARE, Urine Crystals NONE, Urine Bacteria NEGATIVE, Urine Casts NONE, Urine Mucus NEGATIVE, Urine Culture Indicated NO, Sodium Level 133L, Potassium Level 3.4L, Chloride Level 98, Carbon Dioxide Level 19L, Anion Gap 16H , Blood Urea Nitrogen 3L, Creatinine 0.65, Estimat Glomerular Filtration Rate 100, BUN/Creatinine Ratio 5, Glucose Level 83, Calcium Level 8.4L, Corrected Calcium 8.2L, Magnesium Level 1.8, Total Bilirubin 0.4, Aspartate Amino Transf (AST/SGOT) 93H, Alanine Aminotransferase (ALT/SGPT) 79H, Alkaline Phosphatase 83, Total Protein 7.0, Albumin 4.2, Urine Opiates Screen NEGATIVE, Urine Oxycodone Screen NEGATIVE, Urine Methadone Screen NEGATIVE, Urine Propoxyphene Screen NEGATIVE, Urine Barbiturates Screen POSITIVEH, Ur Tricyclic Antidepressants Screen NEGATIVE, Urine Phencyclidine Screen NEGATIVE, Urine Amphetamines Screen NEGATIVE, Urine Methamphetamines Screen NEGATIVE, Urine Benzodiazepines Screen POSITIVEH, Urine Cocaine Screen NEGATIVE, Urine Cannabinoids Screen NEGATIVE, Serum Alcohol 234H 09/02/21 06:20: White Blood Count 2.4L, Red Blood Count 4.40, Hemoglobin 15.1, Hematocrit 44, Mean Corpuscular Volume 101H, Mean Corpuscular Hemoglobin 34, Mean Corpuscular Hemoglobin Concent 34, Red Cell Distribution Width 13.2, Platelet Count 146, Mean Platelet Volume 10.4, Immature Granulocyte % (Auto) 0, Neutrophils (%) (Auto) 42, Lymphocytes (%) (Auto) 43, Monocytes (%) (Auto) 11, Eosinophils (%) (Auto) 2, Basophils (%) (Auto) 2, Neutrophils # (Auto) 1.0L, Lymphocytes # (Auto) 1.0, Monocytes # (Auto) 0.3, Eosinophils # (Auto) 0.1, Basophils # (Auto) 0.1, Immature Granulocyte # (Auto) 0.0, Sodium Level 135, Potassium Level 4.3, Chloride Level 103, Carbon Dioxide Level 17L, Anion Gap 15H, Blood Urea Nitrogen 5L, Creatinine 0.67, Estimat Glomerular Filtration Rate 97, BUN/Creatinine Ratio 7, Glucose Level 60*L, Calcium Level 8.7, Corrected Calcium 9.1, Total Bilirubin 0.7, Aspartate Amino Transf (AST/SGOT) 73H, Alanine Aminotransferase (ALT/SGPT) 66H, Alkaline Phosphatase 72, Total Protein 6.4, Albumin 3.5 09/02/21 07:36: Glucometer 104 Assessment/Plan Assessment/Plan Assessment and Plan ALCOHOL WITHDRAWAL ALCOHOLIC HEPATITIS ELEVATED TRANSAMINASES DEPRESSION BIPOLAR MOOD DISORDER NAUSEA ALCOHOL WITHDRAWAL WITH ALCOHOLIC HEPATITIS (ELEVATED TRANSAMINASES) - PT STARTED ON CIWA/ALCOHOL WITHDRAWAL PROTOCOL - CONTINUE WITH IV FLUIDS, DAILY BANANA BAG X 2 MORE DAYS - CONTINUE SCHEDULED ATIVAN FOR NEXT 24HRS, PRN ATIVAN AVAILABLE - MONITOR SERIAL LABS, AST/ALT IMPROVED THIS MORNING DEPRESSION WITH BIPOLAR MOOD DISORDER - WILL WAIT ON MEDICATION VERIFICATION PRIOR TO RESTARTING MEDICATIONS. NAUSEA - PRN ZOFRAN WILL CONSULT CREDIT ADJUSTER Supervisory-Addendum Brief Verification & Attestation Participated in pt care: history, MDM, physical Personally performed: exam, history, MDM, supervision of care Care discussed with: Medical Student Procedures: n/a Results interpretation: Verified all documentation AGREE WITH STUDENT NOTE DOCUMENTED ALCOHOL WITHDRAWAL ALCOHOLIC HEPATITIS ELEVATED TRANSAMINASES DEPRESSION BIPOLAR MOOD DISORDER NAUSEA ALCOHOL WITHDRAWAL WITH ALCOHOLIC HEPATITIS (ELEVATED TRANSAMINASES) - PT STARTED ON CIWA/ALCOHOL WITHDRAWAL PROTOCOL - CONTINUE WITH IV FLUIDS - MONITOR SERIAL LABS, WITH ANTICIPATION OF LIVER FUNCTION TO SLIGHTLY IMPROVE WITH HYDRATION AND DECREASED ALCOHOL TOXICITY OF HER LIVER. DEPRESSION WITH BIPOLAR MOOD DISORDER - RESTART HOME REGIMEN NAUSEA - SAMANTHAN BUCKY WILL CONSULT CREDIT ADJUSTER MERVIN LLANOS Sep 02, 2021 07:50 ACACIA WHITFIELD MD Sep 02, 2021 18:19
[2021-09-02] MEDS: MAGNESIUM OXIDE (MAG-OX)400 MG TAB PO SCH ×2 (08:41→19:35)
[2021-09-02] MEDS: PANTOPRAZOLE 40 MG (PROTONIX) TAB PO SCH (08:42)
[2021-09-02] MEDS: FOLIC ACID 1 MG TAB PO SCH (08:42)
[2021-09-02 08:47] VITALS: BP 114/63
[2021-09-02] MEDS ORDERED: BUSP10TA95 PO (09:12)
[2021-09-02] MEDS ORDERED: FLUO20CA48 PO (09:12)
[2021-09-02] MEDS ORDERED: PANT40TA52 PO (09:12)
[2021-09-02] MEDS ORDERED: OLN5T PO (09:19)
[2021-09-02 11:31] VITALS: BP 130/79
[2021-09-02 16:00] VITALS: BP 116/71
[2021-09-02] MEDS: ENOXAPARIN 40 MG/0.4 ML (LOVENOX) SYR SC SCH (19:35)
[2021-09-02] MEDS: busPIRone 10 MG (BUSPAR) TAB PO SCH (19:35)
[2021-09-02] MEDS: OLANZapine 5 MG (ZyPREXA) TAB PO SCH (19:35)
[2021-09-02 20:00] VITALS: BP 100/62
[2021-09-03 00:22] VITALS: BP 95/54
[2021-09-03 03:42] VITALS: BP 106/69
[2021-09-03] MEDS: LACTATED RINGERS 1,000 ML IV SCH ×3 (04:26→20:29)
[2021-09-03] MEDS: MULTIVIT W/MINERALS TAB (THERAGRAN M) PO SCH (05:39)
[2021-09-03] MEDS: THIAMINE 100 MG (VITAMIN B-1) TAB PO SCH (05:39)
[2021-09-03 06:16] LABS: HEMATOCRIT 45 % (35-52); HEMOGLOBIN 15.3 g/dL (11.5-16.0); MEAN CORPUSCULAR HEMOGLOBIN 34 pg (25-34); MEAN CORPUSCULAR HGB CONC 34 g/dL (32-36); MEAN CORPUSCULAR VOLUME 101 fL (80-99); MEAN PLATELET VOLUME 10.9 fL (9.0-12.2); PLATELET COUNT 140 10^3/uL (130-400); WHITE BLOOD COUNT 3.1 10^3/uL (4.3-11.0)
[2021-09-03 06:46] LABS: ALBUMIN 3.4 GM/DL (3.2-4.5); BILIRUBIN,TOTAL 0.7 MG/DL (0.1-1.0); CREATININE SERUM 0.67 MG/DL (0.60-1.30); POTASSIUM 3.4 MMOL/L (3.6-5.0); TOTAL PROTEIN 6.2 GM/DL (6.4-8.2)
[2021-09-03 08:24] VITALS: BP 102/65
[2021-09-03] MEDS ORDERED: KCL 20 MEQ TAB (K-DUR) PO ONE (09:00)
[2021-09-03] MEDS: FLUoxetine HCL 20 MG (PROzac) CAP PO SCH (09:26)
[2021-09-03] MEDS: MAGNESIUM OXIDE (MAG-OX)400 MG TAB PO SCH ×2 (09:26→20:28)
[2021-09-03] MEDS: busPIRone 10 MG (BUSPAR) TAB PO SCH ×2 (09:26→20:28)
[2021-09-03] MEDS: PANTOPRAZOLE 40 MG (PROTONIX) TAB PO SCH (09:26)
[2021-09-03] MEDS: FOLIC ACID 1 MG TAB PO SCH (09:26)
[2021-09-03] MEDS: LORazepam 1 MG (ATIVAN) TAB PO PRN ×2 (09:27→12:59)
--- NOTE | 2021-09-03 09:58 | Progress Note ---
Subjective Subjective Date Seen by Provider: Sep 03, 2021 Time Seen by Provider: 09:00 PT IS A 41 Y/O FEMALE WHO IS WELL KNOWN TO ME FROM PREVIOUS HOSPITALIZATIONS AND FROM CLINIC. MAIRA WAS ADMITTED FOR ALCOHOL INTOXICATION WITH NEED FOR DETOX PRIOR TO BEING ADMITTED TO A DRUG AND ALCOHOL PROGRAM IN [facility]. TODAY SHE REPORTS THAT SHE IS STILL A LITTLE NAUSEATED, SHE FEELS LIKE HER TREMORS ARE IMPROVED FROM YESTERDAY. SHE DENIES CHEST PAIN, SHORTNESS OF BREATH. Review of Systems General: No Chills, No Night Sweats; Fatigue Pulmonary: No Dyspnea, No Cough Cardiovascular: No: Chest Pain, Palpitations Gastrointestinal: Nausea; No: Vomiting Genitourinary: No Dysuria; Frequency Neurological: No: Weakness, Confusion, Seizures All Other Systems Reviewed All Other Systems Reviewed: Yes Objective Exam Vital Signs Vital Signs Date Time Temp Pulse Resp B/P (MAP) Pulse Ox O2 Delivery O2 Flow Rate FiO2 09/03/21 08:24 37.8 78 20 102/65 (77) 96 Room Air 09/03/21 03:42 37.5 60 17 106/69 (81) 96 Room Air 09/03/21 00:22 36.5 62 17 95/54 (68) 97 Room Air 09/02/21 20:00 36.1 85 20 100/62 (75) 96 Room Air 09/02/21 19:35 Room Air 09/02/21 16:00 36.4 77 18 116/71 (86) 96 Room Air 09/02/21 11:31 36.3 91 18 130/79 (96) 97 Room Air I & O 09/03/21 07:00 Intake Total 2860 ml Balance 2860 ml General Appearance: No Apparent Distress, WD/WN Neck: Non Tender, Supple Respiratory: Chest Non Tender, Lungs Clear, Normal Breath Sounds, No Accessory Muscle Use, No Respiratory Distress, Other (SMELLS OF SMOKE/TOBACCO) Cardiovascular: Regular Rate, Rhythm, No Edema, No Murmur, Normal Peripheral Pulses Gastrointestinal: Normal Bowel Sounds, No Organomegaly, No Pulsatile Mass, Non Tender, Soft Rectal: Deferred Extremity: Normal Capillary Refill, Non Tender, No Calf Tenderness, No Pedal Edema Neurologic/Psychiatric: Alert, Oriented x3, No Motor/Sensory Deficits, Normal Mood/Affect, Other (SLIGHT TREMOR OF HANDS WHEN RAISED ) Skin: Normal Color, Warm/Dry Lymphatic: No Adenopathy Results Lab Laboratory Tests 09/03/21 05:06: White Blood Count 3.1L, Red Blood Count 4.49, Hemoglobin 15.3, Hematocrit 45, Mean Corpuscular Volume 101H, Mean Corpuscular Hemoglobin 34, Mean Corpuscular Hemoglobin Concent 34, Red Cell Distribution Width 13.2, Platelet Count 140, Mean Platelet Volume 10.9, Sodium Level 142, Potassium Level 3.4L, Chloride Level 108H, Carbon Dioxide Level 20L, Anion Gap 14, Blood Urea Nitrogen 4L, Creatinine 0.67, Estimat Glomerular Filtration Rate 97, BUN/Creatinine Ratio 6, Glucose Level 79, Calcium Level 9.0, Corrected Calcium 9.5, Total Bilirubin 0.7, Aspartate Amino Transf (AST/SGOT) 95H, Alanine Aminotransferase (ALT/SGPT) 75H, Alkaline Phosphatase 67, Total Protein 6.2L, Albumin 3.4 Assessment/Plan Assessment/Plan Admission Dx ALCOHOL WITHDRAWAL ALCOHOLIC HEPATITIS ELEVATED TRANSAMINASES DEPRESSION BIPOLAR MOOD DISORDER NAUSEA Assessment and Plan ALCOHOL WITHDRAWAL ALCOHOLIC HEPATITIS ELEVATED TRANSAMINASES DEPRESSION BIPOLAR MOOD DISORDER NAUSEA HYPOKALEMIA ALCOHOL WITHDRAWAL WITH ALCOHOLIC HEPATITIS (ELEVATED TRANSAMINASES) - PT STARTED ON CIWA/ALCOHOL WITHDRAWAL PROTOCOL - CONTINUE WITH IV FLUIDS - CONTINUE TO MONITOR SERIAL LABS, WITH ANTICIPATION OF LIVER FUNCTION TO EVENTUALLY IMPROVE WITH HYDRATION AND DECREASED ALCOHOL TOXICITY OF HER LIVER. - PT REPORTS PLANS FOR DISCHARGE TO HER FRIENDS HOUSE - "SONIA" IS HER FRIEND WHO IS SOBER AND HAS OFFERED TO LET HER STAY THERE UNTIL ADMISSION TO [facility] FOR THEIR DRUG AND ALCOHOL PROGRAM. - PLANS WERE INITIALLY FOR MAIRA TO GO TO [facility] ON 09/16/2021, BUT SHE NOW REPORTS SHE WAS CALLED WITH PLANS FOR ADMISSION ON 09/06/2021 - WE WILL VERIFY THE PLANS AND MAKE A DETERMINATION IF SHE IS TO BE DISCHARGED ON MONDAY OR MONDAY PENDING THE PLAN FOR ADMISSION TO A FACILITY DIRECTLY UPON DISCHARGE VERSUS GOING TO STAY WITH HER FRIEND UNTIL DISCHARGE. DEPRESSION WITH BIPOLAR MOOD DISORDER - RESTARTED HOME REGIMEN NAUSEA - PRN ZOFRAN HYPOKALEMIA - ORAL POTASSIUM TODAY WILL CONSULT QUENCHER OPERATOR Admission Dx ALCOHOL WITHDRAWAL ALCOHOLIC HEPATITIS ELEVATED TRANSAMINASES DEPRESSION BIPOLAR MOOD DISORDER NAUSEA Clinical Quality Measures Admission Status Admission Dx ALCOHOL WITHDRAWAL ALCOHOLIC HEPATITIS ELEVATED TRANSAMINASES DEPRESSION BIPOLAR MOOD DISORDER NAUSEA ACACIA WHITFIELD MD Sep 03, 2021 09:58
[2021-09-03 11:25] VITALS: BP 101/63
[2021-09-03 16:00] VITALS: BP 111/65
[2021-09-03 19:41] VITALS: BP 132/82
[2021-09-03] MEDS: OLANZapine 5 MG (ZyPREXA) TAB PO SCH (20:28)
[2021-09-03] MEDS: ENOXAPARIN 40 MG/0.4 ML (LOVENOX) SYR SC SCH (20:29)
[2021-09-04 00:22] VITALS: BP 118/86
[2021-09-04] MEDS: LACTATED RINGERS 1,000 ML IV SCH (03:17)
[2021-09-04 04:19] VITALS: BP 116/78
[2021-09-04] MEDS: MULTIVIT W/MINERALS TAB (THERAGRAN M) PO SCH (06:06)
[2021-09-04] MEDS: THIAMINE 100 MG (VITAMIN B-1) TAB PO SCH (06:06)
[2021-09-04 07:53] VITALS: BP 133/89
[2021-09-04] MEDS: busPIRone 10 MG (BUSPAR) TAB PO SCH (08:43)
[2021-09-04] MEDS: PANTOPRAZOLE 40 MG (PROTONIX) TAB PO SCH (08:43)
[2021-09-04] MEDS: MAGNESIUM OXIDE (MAG-OX)400 MG TAB PO SCH (08:43)
[2021-09-04] MEDS: FOLIC ACID 1 MG TAB PO SCH (08:43)
[2021-09-04] MEDS: FLUoxetine HCL 20 MG (PROzac) CAP PO SCH (08:43)
[2021-09-04] MEDS ORDERED: FLUO20CA48 PO (11:09)
[2021-09-04] MEDS ORDERED: OLN5T PO (11:09)
--- NOTE | 2021-09-04 11:28 | Discharge Summary ---
Diagnosis/Chief Complaint Date of Admission Sep 01, 2021 at 09:47 Date of Discharge Discharge Date: Sep 04, 2021 Discharge Diagnosis 1. Chronic Alcohol Abuse with Acute Alcohol Withdrawal--improved 2. Chronic Alcoholic Hepatitis with Elevated Liver Enzymes 3. Bipolar disorder with Depression 4. Chronic GERD with Dyspepsia this admission--improved 5. Hypokalemia--given oral replacement Discharge Summary Hospital Course Was the Problem List Reviewed?: Yes Hospital Course This is a 41 year old female with a history of chronic alcohol abuse with chronic alcoholic hepatitis and a history of numerous admissions for alcohol withdrawal. She presented in acute alcohol withdrawal with plans for alcohol treatment pending. She was admitted to the medical floor and given aggressive IVFs and started on the alcohol withdrawal protocol. She was continued on her olanzapine, fluoxetine and buspar as well as protonix. She did have tremors her first few days but by today they are much improved. She also had some nausea which is also resolved. Her potassium id have to be replaced due to hypokalemia. Her liver enzymes remain elevated but this is chronic in her and the hope is that with ongong alcohol cessation that they will return to normal range. Her initial plan was for a 30 day rehab stay at [facility] on 09/16/21 but a bed has came available for 09/06/21 so she will be discharged to the home of a sober friend to get her belongings together and then the friend will take her to [facility] Monday morning, 09/06/21, for admission for alcohol rehab. Labs Laboratory Tests 09/02/21 06:20: White Blood Count 2.4L, Mean Corpuscular Volume 101H, Neutrophils # (Auto) 1.0L, Carbon Dioxide Level 17L, Anion Gap 15H, Blood Urea Nitrogen 5L, Glucose Level 60*L, Aspartate Amino Transf (AST/SGOT) 73H, Alanine Aminotransferase (ALT/SGPT) 66H 09/02/21 07:36: 09/03/21 05:06: White Blood Count 3.1L, Mean Corpuscular Volume 101H, Carbon Dioxide Level 20L, Blood Urea Nitrogen 4L, Aspartate Amino Transf (AST/SGOT) 95H, Alanine Aminotransferase (ALT/SGPT) 75H, Potassium Level 3.4L, Chloride Level 108H, Total Protein 6.2L Procedures None. Discharge Physical Examination Allergies: Coded Allergies: Penicillins (Verified Allergy, Unknown, 01/28/15) morphine (Verified Adverse Reaction, Mild, DID NOT TOLERATE WELL IN ED ON MONDAY., 12/04/12) DOES NOT LIKE THE FEELING IT GIVES HER. Vitals & I&Os Vital Signs Date Time Temp Pulse Resp B/P (MAP) Pulse Ox O2 Delivery O2 Flow Rate FiO2 09/04/21 07:53 36.8 97 16 133/89 (104) 98 Room Air General Appearance: Alert, Oriented X3, No Acute Distress Respiratory: Clear to Auscultation Cardiovascular: Regular Rate Abdominal: Normal Bowel Sounds, Soft, No Tenderness Extremities: No Clubbing, No Cyanosis, No Edema Psych/Mental Status: Mental Status NL, Mood NL Discharge Home Medications Reviewed and agree with Discharge Medication list on patient's Discharge Instruction sheet Instructions to Patient/Family Please see electronic discharge instructions given to patient. ALEXANDRIA ACHARYA DO Sep 04, 2021 11:28
[2021-09-04 11:47] VITALS: BP 112/78
[2021-09-04 12:25] VITALS: BP 112/78
== END 2021-09-04 12:27 | disposition home or self-care (01) | DRG 897 ==
LOC: EDUNIT# 09:19 → ER 09:22 → 4TH 09:47
PROVIDERS: ADMIT Family Medicine; ATTEND Family Medicine
DX: F10.229 Alcohol dependence with intoxication, unspecified (principal); F10.239 Alcohol dependence with withdrawal, unspecified; K70.10 Alcoholic hepatitis without ascites; Y90.7 Blood alcohol level of 200-239 mg/100 ml; F17.210 Nicotine dependence, cigarettes, uncomplicated; G40.909 Epilepsy, unspecified, not intractable, without status epilepticus; K21.9 Gastro-esophageal reflux disease without esophagitis; K58.9 Irritable bowel syndrome, unspecified; F41.9 Anxiety disorder, unspecified; F31.9 Bipolar disorder, unspecified; R11.0 Nausea; E87.6 Hypokalemia; Z88.5 Allergy status to narcotic agent; Z79.899 Other long term (current) drug therapy
CPT/HCPCS: 36415; 80053; 80306; 80320; 81000; 82947; 83735; 84703; 85025; 85027; 85610; 85730; 96374

== ENCOUNTER → 2022-02-10 | Outpatient (CLI) | payer MEDICAID ==
[~2022-02-10] MED LIST changes: +BUSP10TA95 PO; +FLUO20CA48 PO; +OLN5T PO
--- NOTE | 2022-02-10 15:02 | Diagnostic Imaging Report ---
INDICATION: Routine screening No prior mammograms are available for comparison. This a baseline study. 2-D and 3-D bilateral screening mammography was performed with CAD. Scattered fibroglandular densities are identified bilaterally. There is a circumscribed nodule in the inner and slightly lower left breast approximately 5 cm from the nipple. This may represent small cysts. No other masses are seen. No malignant-appearing microcalcifications are seen. IMPRESSION: Small circumscribed nodule, lower inner left breast, 5 cm from the nipple. Further evaluation with ultrasound is recommended. BI-RADS Category 0 ACR BI-RADS Category 0: Incomplete. (Needs additional imaging evaluation). Result letter will be mailed to the patient. Note: At least 10% of breast cancer is not imaged by mammography. Dictated by: Dictated on workstation # [id number]
== END ==
LOC: RAD 11:00
PROVIDERS: ATTEND Nurse Practitioner Family
DX: Z12.31 Encounter for screening mammogram for malignant neoplasm of breast (principal); N63.24 Unspecified lump in the left breast, lower inner quadrant
CPT/HCPCS: 77063; 77067

== ENCOUNTER → 2022-02-17 | Outpatient (CLI) | payer MEDICAID ==
--- NOTE | 2022-02-17 10:56 | Diagnostic Imaging Report ---
INDICATION: Left breast nodule. CORRELATION is made with screening mammogram from 02/10/2022. Sonographic interrogation of the lower inner left breast was performed. There is a simple cyst at the 7-8 o'clock location, 4 to 5 cm from the nipple measuring 3 mm x 3 mm x 4 mm. This likely accounts for the mammographic density. No internal vascularity is seen. No other masses are detected. IMPRESSION: BI-RADS Category 2 Simple cyst left breast, lower inner aspect, likely accounting for the mammographic density. The patient may return to routine annual screening mammography. ACR BI-RADS Category 2: Benign findings. Result letter will be mailed to the patient. Note: At least 10% of breast cancer is not imaged by mammography. Dictated by: Dictated on workstation # [id number]
== END ==
LOC: RAD 09:45
PROVIDERS: ATTEND Nurse Practitioner Family
DX: N60.02 Solitary cyst of left breast (principal)
CPT/HCPCS: 76642

== ENCOUNTER 2022-07-14 07:47 | Emergency (ER) | payer MEDICAID ==
[~2022-07-14] VITALS: Ht 162 cm; Wt 73.0 kg
[2022-07-14] MEDS ORDERED: NS IV 1000 ML 1,000 ML IV STA (08:23)
[2022-07-14] MEDS ORDERED: DICYCLOMINE 10 MG/ML (BENTYL) 2 ML AMP IM STA (08:23)
--- NOTE | 2022-07-14 08:28 | ED Abdominal Pain ---
General Chief Complaint: Abdominal/GI Problems Stated Complaint: ABD PAIN - VOMITING Nursing Triage Note: PT AMB TO RM 6 PT STATES HAS ABD PAIN IN EPIGASTRIC AREA N/V FOR APPROX 48HRS Source of Information: Patient Exam Limitations: No Limitations History of Present Illness Date Seen by Provider: Jul 14, 2022 Time Seen by Provider: 08:15 Initial Comments Patient is a 42-year-old female who presents to the emergency department today with a chief complaint of right upper quadrant abdominal pain onset 48 hours ago. Patient states that she has been vomiting 5-6 times a day. She did try to drink some yogurt around 6 AM this morning but vomited. No diarrhea, black or bloody stools. No dysuria, urgency or frequency. She has not had a menstrual cycle in "years". No prior abdominal surgeries. She has had a gallbladder evaluation about a year and a half ago and states that her gallbladder is "enlarged". She does admit to daily alcohol use "5-6 beers" daily. Low-grade fever. She does not feel lightheaded or dizzy on standing. All other review of systems reviewed and negative except as stated. Timing/Duration: 2-3 Days Severity/Quality: Moderate, Aching Location: RUQ Radiation: Back Activities at Onset: None Associated Symptoms: Nausea/Vomiting Allergies and Home Medications Allergies Coded Allergies: Penicillins (Verified Allergy, Unknown, 01/28/15) morphine (Verified Adverse Reaction, Mild, DID NOT TOLERATE WELL IN ED ON MONDAY., 12/04/12) DOES NOT LIKE THE FEELING IT GIVES HER. Patient Home Medication List Home Medication List Reviewed: Yes Buspirone HCl (Buspirone HCl) 10 Mg Tablet, 10 MG PO BID, (Reported) Entered as Reported by: MICHELA WILSON on 09/02/21 0912 Fluoxetine HCl (Fluoxetine HCl) 20 Mg Capsule, 20 MG PO DAILY Prescribed by: ALEXANDRIA ACHARYA on 09/04/21 1109 Olanzapine (Olanzapine) 5 Mg Tablet, 5 MG PO HS Prescribed by: ALEXANDRIA ACHARYA on 09/04/21 110 Ondansetron (Ondansetron Odt) 4 Mg Tab.rapdis, 4 MG SL Q8 PRN for NAUSEA/VOMITING Prescribed by: KATYA EPPS on 07/14/22 0945 Pantoprazole Sodium (Pantoprazole Sodium) 40 Mg Tablet.dr, 40 MG PO DAILY, (Reported) Entered as Reported by: MICHELA WILSON on 09/02/21 0912 Review of Systems Review of Systems Constitutional: see HPI EENTM: No Symptoms Reported Cardiovascular: No Symptoms Reported Gastrointestinal: Abdominal Pain, Nausea, Vomiting Genitourinary: No Symptoms Reported Musculoskeletal: no symptoms reported Skin: no symptoms reported Past Iztwnje-Refbgk-Csyoch Hx Patient Social History Tobacco Use?: Yes Tobacco type used: Cigarettes Smoking Status: Current Someday Smoker Substance use?: No Alcohol Use?: No Pt feels they are or have been: No Immunizations Up To Date Tetanus Booster (TDap): Unknown PED Vaccines UTD: No Seasonal Allergies Seasonal Allergies: Yes Past Medical History Surgeries: Yes Orthopedic, Tonsillectomy Respiratory: No Currently Using CPAP: No Currently Using BIPAP: No Cardiac: No Neurological: Yes Seizure Disorder Female Reproductive Disorders: Denies Sexually Transmitted Disease: No HIV/AIDS: No Genitourinary: No Gastrointestinal: Yes Colitis, Gastroesophageal Reflux, Irritable Bowel Musculoskeletal: Yes (FIBULA FX, RT ANKLE) Fractures Endocrine: No HEENT: No Loss of Vision: Denies Hearing Impairment: Denies Cancer: No Did You Recieve Any Treatments: No Psychosocial: Yes (alcoholism) Anxiety, Bipolar, Depression Integumentary: No Blood Disorders: No Adverse Reaction/Blood Tranf: No Family Medical History Patient reports no known family medical history. Cancer, Hypertension, Other Conditions/Hx Physical Exam Vital Signs Vital Signs - First Documented 07/14/22 08:00 Temp 36.4 Pulse 104 Resp 18 B/P (MAP) 128/95 (106) Pulse Ox 95 Capillary Refill : Less Than 3 Seconds Height/Weight/BMI Height: 5'4.00" Weight: 132lbs. 1.8oz. 59.875275kl; 27.00 BMI Method:Stated General Appearance: WD/WN HEENT: PERRL/EOMI Respiratory: lungs clear, normal breath sounds, no respiratory distress, no accessory muscle use Cardiovascular: regular rate, rhythm, tachycardia Gastrointestinal: soft; No abnormal bowel sounds, No guarding; tenderness (+ Schrader's sign) Neurologic/Psychiatric: alert, normal mood/affect, oriented x 3 Skin: normal color, warm/dry Progress/Results/Core Measures Results/Orders Lab Results Laboratory Tests Test 07/14/22 08:04 Range/Units White Blood Count 7.8 4.3-11.0 10^3/uL Red Blood Count 4.66 3.80-5.11 10^6/uL Hemoglobin 15.7 11.5-16.0 g/dL Hematocrit 46 35-52 % Mean Corpuscular Volume 98 80-99 fL Mean Corpuscular Hemoglobin 34 25-34 pg Mean Corpuscular Hemoglobin Concent 35 32-36 g/dL Red Cell Distribution Width 12.9 10.0-14.5 % Platelet Count 270 130-400 10^3/uL Mean Platelet Volume 10.0 9.0-12.2 fL Immature Granulocyte % (Auto) 0 % Neutrophils (%) (Auto) 66 42-75 % Lymphocytes (%) (Auto) 23 12-44 % Monocytes (%) (Auto) 10 0-12 % Eosinophils (%) (Auto) 1 0-10 % Basophils (%) (Auto) 1 0-10 % Neutrophils # (Auto) 5.1 1.8-7.8 10^3/uL Lymphocytes # (Auto) 1.8 1.0-4.0 10^3/uL Monocytes # (Auto) 0.8 0.0-1.0 10^3/uL Eosinophils # (Auto) 0.0 0.0-0.3 10^3/uL Basophils # (Auto) 0.0 0.0-0.1 10^3/uL Immature Granulocyte # (Auto) 0.0 0.0-0.1 10^3/uL Sodium Level 135 135-145 MMOL/L Potassium Level 3.8 3.6-5.0 MMOL/L Chloride Level 99 98-107 MMOL/L Carbon Dioxide Level 22 21-32 MMOL/L Anion Gap 14 5-14 MMOL/L Blood Urea Nitrogen 7 7-18 MG/DL Creatinine 0.83 0.60-1.30 MG/DL Estimat Glomerular Filtration Rate 90 BUN/Creatinine Ratio 8 Glucose Level 143 H 70-105 MG/DL Calcium Level 8.4 L 8.5-10.1 MG/DL Corrected Calcium 8.6 8.5-10.1 MG/DL Total Bilirubin 0.4 0.1-1.0 MG/DL Aspartate Amino Transf (AST/SGOT) 55 H 5-34 U/L Alanine Aminotransferase (ALT/SGPT) 35 0-55 U/L Alkaline Phosphatase 74 40-136 U/L Total Protein 6.9 6.4-8.2 GM/DL Albumin 3.8 3.2-4.5 GM/DL Lipase 34 8-78 U/L Serum Alcohol 144 H <10 MG/DL My Orders Orders - KATYA EPPS MD Ed Iv/Invasive Line Start (07/14/22 08:23) Cbc With Automated Diff (07/14/22 08:23) Comprehensive Metabolic Panel (07/14/22 08:23) Lipase (07/14/22 08:23) Alcohol (07/14/22 08:23) Ns Iv 1000 Ml (Sodium Chloride 0.9%) (07/14/22 08:23) Dicyclomine Injection (Bentyl Injection) (07/14/22 08:23) Ondansetron Injection (Zofran Injectio (07/14/22 08:30) Medications Given in ED Current Medications Medications Dose Ordered Sig/Juan Francisco Route Start Time Stop Time Status Last Admin Dose Admin Ondansetron HCl 8 mg ONCE ONCE IVP 07/14/22 08:30 07/14/22 08:31 DC 07/14/22 08:44 8 MG Vital Signs/I&O 07/14/22 08:00 Temp 36.4 Pulse 104 Resp 18 B/P (MAP) 128/95 (106) Pulse Ox 95 Blood Pressure Mean: 106 Progress Progress Note : Time: 09:39 Progress Note Patient feels much better after IVF and nausea meds and bentyl. She admits to "falling off the wagon" on Monday of this last week. We talked about her sponsor, CORINNE, finding small, tiny things to be grateful for everyday. She needs to reach out to her sponsor. 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 Return precautions for vomiting blood, fever or worse pain. She is comfortable with the plan of care, all questions are sought and answered. Departure Impression Primary Impression: Alcoholic gastritis without bleeding Qualified Codes: K29.20 - Alcoholic gastritis without bleeding Additional Impression: Alcohol intoxication Qualified Codes: F10.920 - Alcohol use, unspecified with intoxication, uncomplicated Disposition: 01 HOME, SELF-CARE Condition: Improved Departure-Patient Inst. Decision time for Depature: 09:42 Referrals: ACACIA PAUL MD (PCP/Family) Primary Care Physician Patient Instructions: Alcohol Use Disorder ED Add. Discharge Instructions: Reach out to your sponsor today. 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 Try and eat several small meals throughout the day. Zofran as needed for nausea, 4mg every 8 hours. A prescription has been sent to your pharmacy at [facility]. Return to the Emergency Department for any new, concerning or emergent complaints - especially worsening pain, fever, vomiting blood. Follow up with Dr Paul. Scripts Ondansetron (Ondansetron Odt) 4 Mg Tab.rapdis 4 MG SL Q8 PRN for NAUSEA/VOMITING, #15 TAB Prov: KATYA EPPS MD 07/14/22 Work/School Note: Work Release Form Date Seen in the Emergency Department: Jul 14, 2022 Return to Work: Jul 15, 2022 Copy Copies To 1: ACACIA PAUL MD, KATHRYN M MD Jul 14, 2022 08:28
[2022-07-14] MEDS ORDERED: ONDANSETRON 4 MG/2 ML (SDV) Z0FRAN IVP ONE (08:30)
[2022-07-14 08:32] LABS: BASOPHILS % (AUTO) 1 % (0-10); EOSINOPHILS % (AUTO) 1 % (0-10); HEMATOCRIT 46 % (35-52); HEMOGLOBIN 15.7 g/dL (11.5-16.0); LYMPHOCYTES # (AUTO) 1.8 10^3/uL (1.0-4.0); LYMPHOCYTES % (AUTO) 23 % (12-44); MEAN CORPUSCULAR HEMOGLOBIN 34 pg (25-34); MEAN CORPUSCULAR HGB CONC 35 g/dL (32-36); MEAN CORPUSCULAR VOLUME 98 fL (80-99); MONOCYTES # (AUTO) 0.8 10^3/uL (0.0-1.0); MONOCYTES % (AUTO) 10 % (0-12); NEUTROPHILS # (AUTO) 5.1 10^3/uL (1.8-7.8); NEUTROPHILS % (AUTO) 66 % (42-75); PLATELET COUNT 270 10^3/uL (130-400); WHITE BLOOD COUNT 7.8 10^3/uL (4.3-11.0)
[2022-07-14 08:35] LABS: ALBUMIN 3.8 GM/DL (3.2-4.5); POTASSIUM 3.8 MMOL/L (3.6-5.0)
[2022-07-14 08:36] LABS: CALCIUM 8.4 MG/DL (8.5-10.1)
[2022-07-14 08:37] LABS: TOTAL PROTEIN 6.9 GM/DL (6.4-8.2)
[2022-07-14 08:39] LABS: BILIRUBIN,TOTAL 0.4 MG/DL (0.1-1.0)
[2022-07-14 08:41] LABS: CREATININE SERUM 0.83 MG/DL (0.60-1.30)
[2022-07-14] MEDS ORDERED: ONDA4TAB11 SL (09:45)
[2022-07-14 09:54] VITALS: BP 146/101
== END 2022-07-14 09:59 | disposition home or self-care (01) ==
LOC: EDUNIT# 07:47 → ER 07:49
DX: K29.20 Alcoholic gastritis without bleeding (principal); F10.129 Alcohol abuse with intoxication, unspecified; F17.210 Nicotine dependence, cigarettes, uncomplicated; Z28.310 Unvaccinated for COVID-19
CPT/HCPCS: 80053; 83690; 85025; 99284; G0480; 36415; 80320

== ENCOUNTER 2023-02-04 01:26 | Emergency (ER) | payer MEDICAID ==
[~2023-02-04] VITALS: Ht 162 cm; Wt 77.0 kg
[~2023-02-04 01:26] MED LIST changes: +ONDA4TAB11 SL
--- NOTE | 2023-02-04 01:41 | ED Chest Pain ---
General Chief Complaint: Chest Pain Stated Complaint: CP Source: patient Exam Limitations: no limitations (OLIVER TREJO DO) History of Present Illness Date Seen by Provider: Feb 04, 2023 Time Seen by Provider: 01:27 Initial Comments 42-year-old female brought in by EMS for chest pain. She describes it as a heavy pressure across her anterior chest bilaterally. Symptoms started about 1130 this evening and have been constant. She was lying in bed at the onset. No aggravating or alleviating factors. No radiation. Associated with some nausea. No recent illnesses to include fevers chills cough abdominal pain, changes in bowel or bladder habits. She had been about 8 months sober and started drinking over the last 3 days once again. No cardiac history. No unilateral lower extremity pain, swelling. No history of DVT, PE. No recent surgeries or long distance travel. All other systems reviewed and negative except documented per HPI. Voice recognition software was used to help create this chart (OLIVER TREJO DO) Allergies and Home Medications Allergies Coded Allergies: Penicillins (Verified Allergy, Unknown, 01/28/15) morphine (Verified Adverse Reaction, Mild, DID NOT TOLERATE WELL IN ED ON MONDAY., 12/04/12) DOES NOT LIKE THE FEELING IT GIVES HER. Patient Home Medication List Home Medication List Reviewed: Yes (OLIVER TREJO DO) Home Medication List Reviewed: Yes (KATYA EPPS MD) Buspirone HCl (Buspirone HCl) 10 Mg Tablet, 10 MG PO BID, (Reported) Entered as Reported by: MICHELA WILSON on 09/02/21 0912 Cephalexin (Cephalexin) 500 Mg Tablet, 500 MG PO BID Prescribed by: OLIVER TREJO MD on 02/04/23 0556 Fluoxetine HCl (Fluoxetine HCl) 20 Mg Capsule, 20 MG PO DAILY Prescribed by: ALEXANDRIA ACHARYA on 09/04/21 1109 Hydroxyzine HCl (Hydroxyzine HCl) 50 Mg Tablet, 50 MG PO TID Prescribed by: OLIVER TREJO MD on 02/04/23 0219 Olanzapine (Olanzapine) 5 Mg Tablet, 5 MG PO HS Prescribed by: ALEXANDRIA ACHARYA on 09/04/21 1109 Ondansetron (Ondansetron Odt) 4 Mg Tab.rapdis, 4 MG SL Q8 PRN for NAUSEA/VOMITING Prescribed by: KATYA EPPS on 07/14/22 0945 Pantoprazole Sodium (Pantoprazole Sodium) 40 Mg Tablet.dr, 40 MG PO DAILY, (Reported) Entered as Reported by: MICHELA WILSON on 09/02/21 0912 Review of Systems Review of Systems Constitutional: see HPI (OLIVER TREJO DO) Past Sdtqkhw-Bvabsq-Cuwbxx Hx Patient Social History Tobacco Use?: Yes Use of E-Cig and/or Vaping dev: No Substance use?: No Alcohol Use?: Yes (OLIVER TREJO DO) Immunizations Up To Date Tetanus Booster (TDap): Unknown PED Vaccines UTD: No (OLIVER TREJO DO) Seasonal Allergies Seasonal Allergies: Yes (OLIVER TREJO DO) Past Medical History Surgeries: Yes Orthopedic, Tonsillectomy Respiratory: No Currently Using CPAP: No Currently Using BIPAP: No Cardiac: No Neurological: Yes Seizure Disorder Female Reproductive Disorders: Denies Sexually Transmitted Disease: No HIV/AIDS: No Genitourinary: No Gastrointestinal: Yes Colitis, Gastroesophageal Reflux, Irritable Bowel Musculoskeletal: Yes (FIBULA FX, RT ANKLE) Fractures Endocrine: No HEENT: No Loss of Vision: Denies Hearing Impairment: Denies Cancer: No Did You Recieve Any Treatments: No Psychosocial: Yes (alcoholism) Anxiety, Bipolar, Depression Integumentary: No Blood Disorders: No Adverse Reaction/Blood Tranf: No (OLIVER TREJO DO) Family Medical History Reviewed Nursing Family Hx (OLIVER TREJO DO) Patient reports no known family medical history. Cancer, Hypertension, Other Conditions/Hx (OLIVER TREJO DO) Physical Exam Vital Signs Vital Signs - First Documented 02/04/23 01:41 Temp 36.7 Pulse 108 Resp 16 B/P (MAP) 129/94 (106) Pulse Ox 98 O2 Delivery Room Air (KATYA EPPS MD) Vital Signs Capillary Refill : (OLIVER TREJO DO) Height, Weight, BMI Height: 5'4.00" Weight: 132lbs. 1.8oz. 59.681755od; 27.00 BMI Method:Stated General Appearance: Other (Patient is hyperventilating) HEENT: Normal ENT Inspection, Pharynx Normal Neck: Full Range of Motion, Normal Inspection, Non Tender, Supple Respiratory: Chest Non Tender, Lungs Clear, Normal Breath Sounds, No Accessory Muscle Use, No Respiratory Distress, Other (Hyperventilating) Cardiovascular: No Edema, No Murmur, Normal Peripheral Pulses, Tachycardia Gastrointestinal: Normal Bowel Sounds, Non Tender, Soft Extremity: Normal Capillary Refill, Normal Inspection, Normal Range of Motion, Non Tender, No Calf Tenderness, No Pedal Edema Neurologic/Psychiatric: Alert, Oriented x3, No Motor/Sensory Deficits Skin: Normal Color, Warm/Dry (MAYA,OLIVER Giordano DO) Progress/Results/Core Measures Results/Orders Lab Results Laboratory Tests Test 02/04/23 01:34 02/04/23 02:00 02/04/23 04:55 Range/Units White Blood Count 11.1 H 4.3-11.0 10^3/uL Red Blood Count 5.05 3.80-5.11 10^6/uL Hemoglobin 16.7 H 11.5-16.0 g/dL Hematocrit 45 35-52 % Mean Corpuscular Volume 90 80-99 fL Mean Corpuscular Hemoglobin 33 25-34 pg Mean Corpuscular Hemoglobin Concent 37 H 32-36 g/dL Red Cell Distribution Width 12.5 10.0-14.5 % Platelet Count 268 130-400 10^3/uL Mean Platelet Volume 10.1 9.0-12.2 fL Immature Granulocyte % (Auto) 0 % Neutrophils (%) (Auto) 61 42-75 % Lymphocytes (%) (Auto) 29 12-44 % Monocytes (%) (Auto) 8 0-12 % Eosinophils (%) (Auto) 1 0-10 % Basophils (%) (Auto) 0 0-10 % Neutrophils # (Auto) 6.8 1.8-7.8 10^3/uL Lymphocytes # (Auto) 3.2 1.0-4.0 10^3/uL Monocytes # (Auto) 0.9 0.0-1.0 10^3/uL Eosinophils # (Auto) 0.1 0.0-0.3 10^3/uL Basophils # (Auto) 0.1 0.0-0.1 10^3/uL Immature Granulocyte # (Auto) 0.0 0.0-0.1 10^3/uL Sodium Level 137 135-145 MMOL/L Potassium Level 3.1 L 3.6-5.0 MMOL/L Chloride Level 102 98-107 MMOL/L Carbon Dioxide Level 14 L 21-32 MMOL/L Anion Gap 21 H 5-14 MMOL/L Blood Urea Nitrogen 7 7-18 MG/DL Creatinine 0.70 0.60-1.30 MG/DL Estimat Glomerular Filtration Rate 111 BUN/Creatinine Ratio 10 Glucose Level 109 H 70-105 MG/DL Calcium Level 8.8 8.5-10.1 MG/DL Corrected Calcium 8.7 8.5-10.1 MG/DL Total Bilirubin 1.5 H 0.1-1.0 MG/DL Aspartate Amino Transf (AST/SGOT) 64 H 5-34 U/L Alanine Aminotransferase (ALT/SGPT) 48 0-55 U/L Alkaline Phosphatase 96 40-136 U/L Troponin I < 0.028 < 0.028 <0.028 NG/ML Total Protein 6.8 6.4-8.2 GM/DL Albumin 4.1 3.2-4.5 GM/DL Urine Color ORANGE Urine Clarity CLOUDY Urine pH 6.0 5-9 Urine Specific Tyler 1.025 H 1.016-1.022 Urine Protein 1+ H NEGATIVE Urine Glucose (UA) NEGATIVE NEGATIVE Urine Ketones 1+ H NEGATIVE Urine Nitrite POSITIVE H NEGATIVE Urine Bilirubin NEGATIVE NEGATIVE Urine Urobilinogen 1.0 < = 1.0 MG/DL Urine Leukocyte Esterase TRACE H NEGATIVE Urine RBC (Auto) 3+ H NEGATIVE Urine RBC 5-10 H /HPF Urine WBC 25-50 H /HPF Urine Squamous Epithelial Cells 5-10 /HPF Urine Crystals PRESENT H /LPF Urine Amorphous Sediment LARGE ANNE URATES H /LPF Urine Bacteria MODERATE H /HPF Urine Casts NONE /LPF Urine Mucus MODERATE H /LPF Urine Culture Indicated YES (KATYA EPPS MD) Vital Signs/I&O 02/04/23 01:41 Temp 36.7 Pulse 108 Resp 16 B/P (MAP) 129/94 (106) Pulse Ox 98 O2 Delivery Room Air (KATYA EPPS MD) Comment Sinus tachycardia 108 bpm. Slightly prolonged QTc at 495. Otherwise normal intervals. Normal axis. No ST or T wave abnormalities. No ectopy. No STEMI. (OLIVER TREJO DO) Diagnostic Imaging Comments Independently reviewed the [facility] chest x-ray. This shows no acute findings. No pneumonia, pneumothorax. No cardiomegaly. (OLIVER TREJO DO) Departure Communication (Admissions) Patient is hemodynamically stable. Heart score is 1 based on story alone. She has been quite anxious and was initially hyperventilating. She called on arrival without any interventions on my part. She was given aspirin 324 mg prior to arrival by EMS. Her EKG is nonischemic and negative troponins here. This places her overall risk for major adverse cardiac events in the next 30 days. She is stable for discharge and close follow-up. Her chest x-ray is negative, no indication of pulmonary pathology. No evidence for DVT, PE. (OLIVER TREJO DO) Impression Primary Impression: Chest pain Qualified Codes: R07.9 - Chest pain, unspecified Additional Impression: UTI (urinary tract infection) Qualified Codes: N30.01 - Acute cystitis with hematuria Disposition: HOME, SELF-CARE Condition: Stable Departure-Patient Inst. Referrals: ACACIA WHITFIELD MD (PCP/Family) Primary Care Physician Add. Discharge Instructions: You were seen in the emergency department today for chest pain. I think this is low risk to be coming from your heart at this time. The electrical tracing of your heart is normal. 2 sets of heart enzymes are normal as well. There may be a component of anxiousness. I have provided you a medicine that you may take as needed for anxiety which may help with your symptoms. This may make you drowsy so do not drive or make important decisions while taking it. Should you continue to have this issue I recommend you follow-up with your primary doctor. You do have a UTI. Take antibiotics as prescribed until they are gone. Should your symptoms become severe or change in any way I recommend you return to the emergency department immediately. All discharge instructions reviewed with patient and/or family. Voiced understanding. Scripts Cephalexin (Cephalexin) 500 Mg Tablet 500 MG PO BID for 5 Days, #10 TAB Prov: OLIVER TREJO DO 02/04/23 Hydroxyzine HCl (Hydroxyzine HCl) 50 Mg Tablet 50 MG PO TID for Anxiety for 5 Days, #15 TAB Prov: OLIVER TREJO DO 02/04/23 OLIVER TREJO DO Feb 04, 2023 01:41 KATYA EPPS MD Feb 04, 2023 06:04
[2023-02-04 01:47] LABS: BASOPHILS # (AUTO) 0.1 10^3/uL (0.0-0.1); BASOPHILS % (AUTO) 0 % (0-10); EOSINOPHILS # (AUTO) 0.1 10^3/uL (0.0-0.3); EOSINOPHILS % (AUTO) 1 % (0-10); HEMATOCRIT 45 % (35-52); HEMOGLOBIN 16.7 g/dL (11.5-16.0); LYMPHOCYTES # (AUTO) 3.2 10^3/uL (1.0-4.0); LYMPHOCYTES % (AUTO) 29 % (12-44); MEAN CORPUSCULAR HEMOGLOBIN 33 pg (25-34); MEAN CORPUSCULAR HGB CONC 37 g/dL (32-36); MEAN CORPUSCULAR VOLUME 90 fL (80-99); MEAN PLATELET VOLUME 10.1 fL (9.0-12.2); MONOCYTES # (AUTO) 0.9 10^3/uL (0.0-1.0); MONOCYTES % (AUTO) 8 % (0-12); NEUTROPHILS # (AUTO) 6.8 10^3/uL (1.8-7.8); NEUTROPHILS % (AUTO) 61 % (42-75); PLATELET COUNT 268 10^3/uL (130-400); WHITE BLOOD COUNT 11.1 10^3/uL (4.3-11.0)
[2023-02-04 01:56] LABS: ALBUMIN 4.1 GM/DL (3.2-4.5); POTASSIUM 3.1 MMOL/L (3.6-5.0)
[2023-02-04 01:57] LABS: CALCIUM 8.8 MG/DL (8.5-10.1)
[2023-02-04 01:59] LABS: TOTAL PROTEIN 6.8 GM/DL (6.4-8.2)
[2023-02-04 02:00] LABS: BILIRUBIN,TOTAL 1.5 MG/DL (0.1-1.0)
[2023-02-04 02:02] LABS: CREATININE SERUM 0.7 MG/DL (0.60-1.30)
[2023-02-04] MEDS ORDERED: HYDR50TA76 PO (02:19)
[2023-02-04 02:20] LABS: BILIRUBIN,URINE NEGATIVE (NEGATIVE); CLARITY,URINE CLOUDY; COLOR,URINE ORANGE; GLUCOSE, URINE (UA) NEGATIVE (NEGATIVE); KETONES,URINE 1+ (NEGATIVE); LEUKOCYTE ESTERASE ,URINE TRACE (NEGATIVE); NITRITE,URINE POSITIVE (NEGATIVE); PROTEIN,URINE 1+ (NEGATIVE)
[2023-02-04 02:28] LABS: BACTERIA,URINE MODERATE /HPF; WBC,URINE 25-50 /HPF
[2023-02-04 02:29] LABS: AMORPHOUS SEDIMENT,UR LARGE AMOR URATES /LPF
[2023-02-04] MEDS ORDERED: CEPH500T PO (05:56)
[2023-02-04 06:10] VITALS: BP 109/86
--- NOTE | 2023-02-04 08:21 | Diagnostic Imaging Report ---
INDICATION: Chest pain. Time of Exam: 1:51 AM Comparison is made with prior study from 10/04/2018. FINDINGS: The heart size is normal. The pulmonary vascularity is unremarkable. The lungs are clear. No infiltrate, effusion or pneumothorax is detected. IMPRESSION: No acute cardiopulmonary process is detected. Dictated by: Dictated on workstation # [id number]
== END 2023-02-04 06:11 | disposition home or self-care (01) ==
LOC: ER 01:27
DX: R07.89 Other chest pain (principal); N39.0 Urinary tract infection, site not specified; Z88.0 Allergy status to penicillin
CPT/HCPCS: 36415; 71045; 80053; 81000; 84484; 85025; 87088; 93005; 93041